=== PATIENT | female | born 1945 | race Caucasian/White ===

== ENCOUNTER 2020-10-18 13:55 | Emergency (ER) | payer MEDICARE, MEDICAID, SELFPAY ==
--- NOTE | 2020-10-18 14:11 | XRR_ITS ---
PROCEDURE INFORMATION: Exam: XR Chest, 1 View Exam date and time: 10/18/2020 2:15 PM Age: 75 years old Clinical indication: Dyspnea; Additional info: Overdose TECHNIQUE: Imaging protocol: XR of the chest Views: 1 view. COMPARISON: CR Chest 1 view [id number] 12/05/2018 7:14 PM FINDINGS: Lungs: There is unchanged hyperinflation/COPD with calcified granulomata and probable mild fibrosis. No consolidation. Pulmonary vascularity is within normal limits. Pleural space: Unremarkable. No pleural effusion. No pneumothorax. Heart/Mediastinum: Unremarkable. No cardiomegaly. Bones/joints: No acute abnormality. Osteopenia and moderate degenerative changes are noted. XR/XR chest 1V portable [id number] IMPRESSION: No acute findings.
[2020-10-18 14:14] VITALS: BP 172/75; PULSE 75; RESP 16; TEMP 36.4; O2SAT 95; BMI 19.4
--- NOTE | 2020-10-18 14:35 | PC.NURSE ---
Read and agree with triage assessment.
[2020-10-18 14:49] LABS: Basophils # 0.1 10^3/uL (0.0-0.1); Basophils % 0.8 %; Eosinophils # 0.1 10^3/uL (0.0-0.8); Eosinophils % 2.3 %; Hematocrit 43.8 % (37.0-47.0); Hemoglobin 14.3 g/dL (11.5-15.3); Lymphocytes # 1.9 10^3/uL (0.8-4.8); Lymphocytes % 31.8 %; Mean Corpuscular HGB Conc 32.6 g/dL (30.0-36.0); Mean Corpuscular Hemoglobin 32.1 pg (28.0-34.0); Mean Corpuscular Volume 98.4 fL (81-99); Monocytes # 0.5 10^3/uL (0.2-0.9); Monocytes % 8.9 %; Neutrophils # 3.42 10^3/uL (1.8-7.7); Nucleated Red Blood Cells % 0 %; Platelet Count 237 10^3/cmm (130-400); Red Blood Count 4.45 10^6/uL (4.1-5.3); Red Cell Distribution Width 12.2 % (12.1-15.1); White Blood Count 6.1 10^3/uL (4.0-10.0)
--- NOTE | 2020-10-18 15:44 | PC.NURSE ---
Read and agree with assessment.
[2020-10-18 15:59] LABS: Alanine Aminotransferase 10 U/L (0-33); Albumin Level 4.3 g/dL (3.5-5.2); Alkaline Phosphatase 95 IU/L (35-105); Anion Gap 19.9 (5-19); Aspartate Amino Transferase 24 U/L (0-32); Blood Urea Nitrogen 10 mg/dL (8-23); Calcium 9.7 mg/dL (8.5-10.5); Carbon Dioxide 23 mmol/L (22-29); Chloride 95 mmol/L (98-107); Globulin 3.8 g/dL (1.3-4.6); Glucose 81 mg/dL (65-115); Osmolality Calculated 276 mOsm/kg (285-295); Potassium 3.9 mmol/L (3.5-5.1); Sodium 134 mmol/L (136-145); Thyroid Stimulating Hormone 0.93 uIU/mL (0.27-4.20); Total Bilirubin 0.4 mg/dL (0.15-1.2); Total Protein 8.1 g/dL (6.6-8.7)
--- NOTE | 2020-10-18 15:59 | PC.NURSE ---
[facility] contacted. No beds available. [facility] contacted. Not working number, [facility] contacted. Message left. No response. [facility] contacted with working number. They have bed. They would like patient info faxed. They will call back with decision.
[2020-10-18 16:00] LABS: Acetaminophen < 5.0 ug/mL (10-30); Alcohol Level < 10 mg/dL (0-10); Salicylate < 0.3 mg/dL (3-10)
--- NOTE | 2020-10-18 16:23 | W.ED.PSYCH ---
HPI - Psych General: Chief Complaint: Psychiatric Symptoms Stated Complaint: WEAKNESS/ SHAKY Time Seen by Provider: 10/18/20 13:57 Source: patient, family and EMS Mode of arrival: EMS Limitations: no limitations History of Present Illness: HPI Narrative: This is a 75-year-old female patient was brought into the emergency department by the ambulance. Apparently the patient had left and notes on Facebook asking how many paroxetine pills she would need to take to kill herself she just wants to go to bed and not wake up. Today her family found her with her paroxetine prescription bottle empty. It was filled on 09/12/2020 and it is a 45-day supply. So it appears she has 8 days of her prescriptions pills missing. Each tablet is 20 mg. The patient states she only took 2 tablets of the paroxetine and denies taking more than that. She did admit to writing the note and says she had a fight with her son and that upsets her and does what she wrote the notes. MD complaint: suicidal ideation and feels depressed Duration: constant and getting worse Relieving factors: none Exacerbating factors: none Associated psychiatric symptoms: depression and suicidal ideation Associated symptoms: Reports depression and suicidal ideation If self harm: admits thoughts of self harm, has acted on plan and intentional overdose Review of Systems General: Reports: 10 or more systems reviewed and unremarkable except in HPI and below Const: Denies: fever(s), chills or body aches Eyes: Denies: change in vision or blurry vision ENMT: Denies: throat pain, enlarged tonsils, odynophagia, hoarseness, mouth pain or swelling of lips/tongue Card: Reports: chest pain; Denies: palpitations, irregular heart rhythm, edema or swelling of feet/ankles Resp: Denies: dyspnea, productive cough or non-productive cough GI: Denies: abdominal pain, nausea or vomiting : Denies: flank pain, difficulty voiding, dysuria, urinary frequency, urinary urgency or urinary hesitancy Musc: Denies: neck pain, back pain or extremity swelling Skin/Breast: Denies: rash, pruritus or erythema Neuro: Denies: headache(s), numbness in extremities or weakness in extremities Psych: Reports: depression and suicidal ideation Endo: Denies: polyuria, polydipsia or tired all the time [facility] ED PFSH: Medical History (Updated 10/18/20 @ 23:20 by Reinier Alvares MD, [facility]) Carotid stenosis, bilateral CVA (cerebral vascular accident) Subclavian artery stenosis, left Surgical History (Reviewed 10/18/20 @ 16:29 by Reinier Alvares MD, [facility]) S/P carotid endarterectomy S/P PTCA (percutaneous transluminal coronary angioplasty) Family History (Reviewed 10/18/20 @ 16:29 by Reinier Alvares MD, [facility]) Other CAD (coronary artery disease) Social History (Reviewed 10/18/20 @ 16:29 by Reinier Alvares MD, [facility]) Smoking and tobacco status: former smoker Alcohol intake: current Alcohol intake frequency: holidays/special occasions only Marital status: / Physical Exam Const: COMMON NORMALS: no acute distress, average body habitus, patient oriented x3, no limitations, healthy appearing, alert and well nourished Neck/C-Spine: COMMON NORMALS: no meningeal signs and no JVD Resp: COMMON NORMALS: normal respiratory effort, No retractions, No use of accessory muscles, clear to auscultation bilaterally and percussion normal AUSCULTATION: clear to auscultation bilaterally PERCUSSION: percussion normal Cardio: COMMON NORMALS: no JVD, regular rate, regular rhythm, S1 normal heart sound present, S2 normal heart sound present, No gallops present (Cardio), No clicks present (Cardio), No murmurs present (Cardio), No rub (Cardio) and Peripheral pulses 2+ throughout RATE: regular rate RHYTHM: regular rhythm HEART SOUNDS: S1 normal heart sound present and S2 normal heart sound present PERIPHERAL PULSES: Peripheral pulses 2+ throughout GI: COMMON NORMALS: Normal to inspection, nondistended, normoactive bowel sounds present, Soft to palpation, non-tender, No hepatosplenomegaly present, no masses and no bruits PALPATION: Yes Soft to palpation and Yes No hepatosplenomegaly present Extremity: COMMON NORMALS: normal to inspection, full ROM, capillary refill normal, no calf tenderness and no pedal edema Neuro: COMMON NORMALS: patient oriented x3 SENSORIUM/ORIENTATION: Yes alert MENINGEAL SIGNS: Yes no meningeal signs Skin: COMMON NORMALS: no rashes or lesions noted, no wounds, turgor normal, no jaundice, no petechiae and no mottling GENERAL SKIN EXAM: no rashes or lesions noted and turgor normal MDM - Psych MDM Narrative: Medical decision making narrative: This patient was seen after an intentional drug overdose in a suicide attempt. Based on the empty bottle of paroxetine that her family found, she is out about 8 days supply of the medication. She remained stable in the ED and has been here for over 10 hours so far. She has been medically cleared and is transferred to [facility] in [place]. Medical Records: Attestation: I reviewed the patient's medical records. Lab Data: Attestation: I reviewed the patient's lab results. Labs: Lab Results 10/18/20 10/18/20 10/18/20 Range/Units 13:37 13:37 17:00 WBC 6.1 (4.0-10.0) 10^3/ uL RBC 4.45 (4.1-5.3) 10^6/u L Hgb 14.3 (11.5-15.3) g/dL Hct 43.8 (37.0-47.0) % MCV 98.4 (81-99) fL MCH 32.1 (28.0-34.0) pg MCHC 32.6 (30.0-36.0) g/dL RDW 12.2 (12.1-15.1) % Plt Count 237 (130-400) 10^3/c mm MPV 11.0 H (7.4-10.4) fL Neut % (Auto) 56.0 % Lymph % (Auto) 31.8 % [place] % (Auto) 8.9 % Eos % (Auto) 2.3 % Baso % (Auto) 0.8 % Neut # (Auto) 3.42 (1.8-7.7) 10^3/u L Lymph # (Auto) 1.9 (0.8-4.8) 10^3/u L [place] # (Auto) 0.5 (0.2-0.9) 10^3/u L Eos # (Auto) 0.1 (0.0-0.8) 10^3/u L Baso # (Auto) 0.1 (0.0-0.1) 10^3/u L Nucleated RBC % (a uto) 0 % Nucleated RBCs # 0.0 /100WBC Sodium 134 L (136-145) mmol/L Potassium 3.9 (3.5-5.1) mmol/L Chloride 95 L (98-107) mmol/L Carbon Dioxide 23 (22-29) mmol/L Anion Gap 19.9 H (5-19) BUN 10 (8-23) mg/dL Creatinine 0.8 (0.5-0.9) mg/dL GFR Calculation Not Reportable Glucose 81 (65-115) mg/dL Calculated Osmolal ity 276 L (285-295) mOsm/k g Calcium 9.7 (8.5-10.5) mg/dL Total Bilirubin 0.4 (0.15-1.2) mg/dL AST 24 (0-32) U/L ALT 10 (0-33) U/L Alkaline Phosphata se 95 (35-105) IU/L Total Protein 8.1 (6.6-8.7) g/dL Albumin 4.3 (3.5-5.2) g/dL Globulin 3.8 (1.3-4.6) g/dL TSH 0.93 (0.27-4.20) uIU/ mL Urine Color Yellow (Yellow) Urine Appearance Hazy A (CLEAR) Urine pH 5 (5-7) Ur Specific Gravit y 1.025 (1.005-1.030) Urine Protein Trace (Negative) Urine Glucose (UA) Norm (Normal) Urine Ketones 1+ H (Negative) Urine Blood Neg (Negative) Urine Nitrate Positive H (Negative) Urine Bilirubin 1+ H (Negative) Urine Urobilinogen Norm (Negative) mg/dL Ur Leukocyte Rafaela ase Negative (Negative) Urine RBC None (0-2) /hpf Urine WBC 5-10 H (0-5) /hpf Ur Squamous Epith Cells None (0-5) /hpf Amorphous Sediment Not Reportable Urine Bacteria 4+ H (NONE) /hpf Salicylates < 0.3 L (3-10) mg/dL Urine Opiates Scre en (Negative) ng/mL Acetaminophen < 5.0 L (10-30) ug/mL Ur Barbiturates Sc reen (Negative) ng/mL Ur Phencyclidine S crn (Negative) ng/mL Ur Amphetamines Sc reen (Negative) ng/mL U Benzodiazepines Scrn (Negative) ng/mL Urine Cocaine Scre en (Negative) ng/mL U Marijuana (THC) Screen (Negative) ng/mL Ethyl Alcohol < 10 (0-10) mg/dL SARS-CoV-2 Ag (Rap id) (Negative) 10/18/20 10/18/20 Range/Units 17:00 19:55 WBC (4.0-10.0) 10^3/ uL RBC (4.1-5.3) 10^6/u L Hgb (11.5-15.3) g/dL Hct (37.0-47.0) % MCV (81-99) fL MCH (28.0-34.0) pg MCHC (30.0-36.0) g/dL RDW (12.1-15.1) % Plt Count (130-400) 10^3/c mm MPV (7.4-10.4) fL Neut % (Auto) % Lymph % (Auto) % [place] % (Auto) % Eos % (Auto) % Baso % (Auto) % Neut # (Auto) (1.8-7.7) 10^3/u L Lymph # (Auto) (0.8-4.8) 10^3/u L [place] # (Auto) (0.2-0.9) 10^3/u L Eos # (Auto) (0.0-0.8) 10^3/u L Baso # (Auto) (0.0-0.1) 10^3/u L Nucleated RBC % (a uto) % Nucleated RBCs # /100WBC Sodium (136-145) mmol/L Potassium (3.5-5.1) mmol/L Chloride (98-107) mmol/L Carbon Dioxide (22-29) mmol/L Anion Gap (5-19) BUN (8-23) mg/dL Creatinine (0.5-0.9) mg/dL GFR Calculation Glucose (65-115) mg/dL Calculated Osmolal ity (285-295) mOsm/k g Calcium (8.5-10.5) mg/dL Total Bilirubin (0.15-1.2) mg/dL AST (0-32) U/L ALT (0-33) U/L Alkaline Phosphata se (35-105) IU/L Total Protein (6.6-8.7) g/dL Albumin (3.5-5.2) g/dL Globulin (1.3-4.6) g/dL TSH (0.27-4.20) uIU/ mL Urine Color (Yellow) Urine Appearance (CLEAR) Urine pH (5-7) Ur Specific Gravit y (1.005-1.030) Urine Protein (Negative) Urine Glucose (UA) (Normal) Urine Ketones (Negative) Urine Blood (Negative) Urine Nitrate (Negative) Urine Bilirubin (Negative) Urine Urobilinogen (Negative) mg/dL Ur Leukocyte Rafaela ase (Negative) Urine RBC (0-2) /hpf Urine WBC (0-5) /hpf Ur Squamous Epith Cells (0-5) /hpf Amorphous Sediment Urine Bacteria (NONE) /hpf Salicylates (3-10) mg/dL Urine Opiates Scre en Negative (Negative) ng/mL Acetaminophen (10-30) ug/mL Ur Barbiturates Sc reen Negative (Negative) ng/mL Ur Phencyclidine S crn Negative (Negative) ng/mL Ur Amphetamines Sc reen Negative (Negative) ng/mL U Benzodiazepines Scrn Negative (Negative) ng/mL Urine Cocaine Scre en Negative (Negative) ng/mL U Marijuana (THC) Screen Negative (Negative) ng/mL Ethyl Alcohol (0-10) mg/dL SARS-CoV-2 Ag (Rap id) Negative (Negative) Imaging Data^: CXR: Attestation: I personally reviewed and interpreted this imaging study as follows: Radiologist's impression: [address] [address] XRay Report Signed Patient: Terri Pride #: [id number] : 5Acct#:[id number] Age/Sex: 75 / FADM Date: 10/18/20 Loc: ERRoom/Bed: Attending Dr: Ordering Provider/Ordering MD: Reinier Alvares MD, [facility] Date of Service: 10/18/20 Procedure(s): XR chest 1V portable [id number] Accession Number(s): [id number] Report Number: [id number] PROCEDURE INFORMATION: Exam: XR Chest, 1 View Exam date and time: 10/18/2020 2:15 PM Age: 75 years old Clinical indication: Dyspnea; Additional info: Overdose TECHNIQUE: Imaging protocol: XR of the chest Views: 1 view. COMPARISON: CR Chest 1 view [id number] 12/05/2018 7:14 PM FINDINGS: Lungs: There is unchanged hyperinflation/COPD with calcified granulomata and probable mild fibrosis. No consolidation. Pulmonary vascularity is within normal limits. Pleural space: Unremarkable. No pleural effusion. No pneumothorax. Heart/Mediastinum: Unremarkable. No cardiomegaly. Bones/joints: No acute abnormality. Osteopenia and moderate degenerative changes are noted. XR/XR chest 1V portable [id number] IMPRESSION: No acute findings. Dictated By:Johnna Ferris Signed By:Otilia Ferris Date/Time:10/18/201538 DD/ 37 EKG Data^: EKG 1: Attestation: I personally reviewed and interpreted this EKG as follows: EKG interpretation date: 10/18/20 EKG interpretation time: 14:07 Prior EKG tracings: not available for review Interpretation: NSR HR [address] changes normal axis Discharge Plan Discharge Patient Disposition: Xfer Psychiatric Hosp Clinical Impression: Suicide attempt by drug overdose Condition: Stable Discharge Orders: Transfer Out of Facility (Order); Ordered 10/18/20 Ordered By: Reinier Alvares Referrals: Daquan Luna MD [Primary Care Provider] - Coding Level of Care Code ED Executive Vice President Of Sales for Chg Fwd Exam Detailed
[2020-10-18 17:30] LABS: Amphetamines Screen Urine Negative (Negative); Barbiturates Screen Urine Negative (Negative); Benzodiazepines Screen Urine Negative (Negative); Cocaine Screen Urine Negative (Negative); Opiate Screen Urine Negative (Negative); PCP Screen Urine Negative (Negative); THC Screen Urine Negative (Negative)
[2020-10-18 17:34] LABS: Add Urine Microscopic? YES; Bilirubin Urine 1+ (Negative); Blood Urine Neg (Negative); Glucose Urine UA Norm (Normal); Ketones Urine 1+ (Negative); Leukocyte Esterase Urine Negative (Negative); Nitrate Urine Positive (Negative); Protein Urine Trace (Negative); Specific Gravity, Urine 1.025 (1.005-1.030); Urine Appearance Hazy (CLEAR); Urine Color Yellow (Yellow); Urobilinogen Urine Norm (Negative); pH Urine 5 (5-7)
[2020-10-18 17:35] LABS: Add Urine Culture? Yes; Bacteria Urine 4+ /hpf
--- NOTE | 2020-10-18 17:44 | ECG_ITS ---
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 Measurements Intervals [place] Rate: 80 P: 61 [place]: 159 QRS: 10 QRSD: 73 T: 30 QT: 310 QTc: 357 Interpretive Statements SINUS RHYTHM [address] DEVIATION AND MODERATE T-WAVE ABNORMALITY, CONSIDER ANTERIOR ISCHEMIA [-0.1+ mV T WAVE IN V3/V4] Compared to ECG 12/05/2018 19:32:17 Possible ischemia now present Sinus tachycardia no longer present T-wave abnormality still present Electronically Signed On 10-18-2020 20:36:25 HOUSING ASSISTANT PROPERTY MANAGER by Katiuska Brown M.D. [id number]
[2020-10-18 19:15] VITALS: BP 134/85; PULSE 76; RESP 18; TEMP 36.9; O2SAT 98
[2020-10-18 20:12] VITALS: PULSE 87; RESP 16; O2SAT 96
[2020-10-18 21:07] LABS: SARS Covid-2 Antigen Negative (Negative)
[2020-10-19 00:43] VITALS: BP 132/89; PULSE 85; RESP 16; O2SAT 97
[2020-10-19] MEDS: acetaminophen 325 mg Tablet 650 MG PO (00:45)
[2020-10-19 01:13] VITALS: BP 134/87; PULSE 87; RESP 18; O2SAT 99
== END 2020-10-19 01:15 ==
PROVIDERS: Emergency Provider Family Medicine; PCP Family Medicine
DX: T43.222A Poisoning by selective serotonin reuptake inhibitors, intentional self-harm, initial encounter (principal); Z86.73 Personal history of transient ischemic attack (TIA), and cerebral infarction without residual deficits; Z87.891 Personal history of nicotine dependence
CPT/HCPCS: 12345; 71045; 80053; 80306; 80307; 81001; 84443; 85025; 87077; 87086; 87186; 87426; 93005; 99284; 99285; 99292

== ENCOUNTER 2021-02-06 09:10 | Emergency (ER) | payer MEDICARE, MEDICAID, SELFPAY ==
[2021-02-06] VITALS (7 sets, daily range): BP systolic 125–191; BP diastolic 62–78; PULSE 68–81; RESP 15–24; TEMP 36.9; O2SAT 96–99; BMI 21.7
--- NOTE | 2021-02-06 09:13 | XRR_ITS ---
PROCEDURE INFORMATION: Exam: XR Chest Exam date and time: 02/06/2021 9:45 AM Age: 75 years old Clinical indication: Cough and dyspnea TECHNIQUE: Imaging protocol: XR of the chest. Views: 1 view. COMPARISON: CR XR chest 1V portable [id number] 10/18/2020 2:17 PM FINDINGS: Lungs: Unremarkable. No consolidation. Pleural spaces: Unremarkable. No pleural effusion. No pneumothorax. Heart/Mediastinum: Unremarkable. No cardiomegaly. Bones/joints: Unremarkable. XR/XR chest 1V portable [id number] IMPRESSION: No acute findings.
--- NOTE | 2021-02-06 09:13 | ECG_ITS ---
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 Measurements Intervals [place] Rate: 68 P: 53 [place]: 165 QRS: 60 QRSD: 78 T: 69 QT: 384 QTc: 411 Interpretive Statements SINUS RHYTHM Compared to ECG 10/18/2020 14:06:56 T-wave abnormality no longer present Possible ischemia no longer present Electronically Signed On 02-07-2021 12:08:21 CDT by Luiza Hanley M.D. [id number]
--- NOTE | 2021-02-06 09:16 | W.ED.SOB ---
HPI - SOB/Dyspnea General: Chief Complaint: Shortness of Breath/Dyspnea Stated Complaint: SOB; DIARRHEA Time Seen by Provider: 02/06/21 09:11 Source: patient and EMS Mode of arrival: EMS Limitations: no limitations History of Present Illness: HPI Narrative: Terri is a very nice 75-year-old female who comes in complaining of shortness of breath, occasional cough, generalized weakness and diarrhea. Her diarrhea began today. She denies being bloody or melanotic/dark black. Patient denies any abdominal pain. She is not had a fever that she is aware. Patient states she is just tired and got anxious at home. EMS reports the patient's pulse ox has been completely normal on room air the entire time they have been with her. She has at times become anxious and hyperventilating but then when reassured and calm down her breathing returns to normal. Patient denies any chest pain, back pain, lower abdominal pain or otherwise. All of her symptoms have been going on for the past 2 days. She denies any ill contacts. She denies any other complaints or concerns. Associated symptoms: Deny abdominal pain, chest congestion, chest pain, diaphoresis, dizziness, extremity pain, fever(s), hemoptysis, lightheadedness, nausea, orthopnea, palpitations, syncope or vomiting Review of Systems Const: Denies: fever(s), chills, body aches, fatigue, malaise or diaphoresis Eyes: Denies: change in vision, blurry vision, photophobia, eye discomfort, eye discharge, eye redness or yellow eyes ENMT: Denies: throat pain, odynophagia, hoarseness, swelling of lips/tongue, ear or mastoid pain, ear discharge, change in hearing or nasal discharge Card: Denies: chest pain, palpitations, irregular heart rhythm, edema, lightheadedness, syncope, pre-syncope, dyspnea on exertion or orthopnea Resp: Reports: dyspnea and non-productive cough; Denies: productive cough, wheezing, hemoptysis or chest congestion GI: Reports: diarrhea; Denies: abdominal pain, nausea, vomiting, hematemesis, coffee ground emesis, heartburn, constipation, GI cramping, hematochezia or melena : Denies: flank pain, dysuria, urinary frequency, urinary urgency or hematuria Musc: Denies: neck pain, back pain, extremity pain, extremity swelling, joint pain, joint swelling, joint redness, joint warmth or joint stiffness Skin/Breast: Denies: rash, pruritus, erythema, skin pain or skin tenderness Neuro: Denies: headache(s), numbness in extremities, weakness in extremities, sensory changes, lack of coordination, difficulty walking, dizziness, vertigo, confusion, Slurred speech present or seizure-like activity German/Lymph: Denies: easy bruising, easy bleeding, petechiae, purpura or enlarged lymph nodes All/Imm: Denies: urticaria, throat swelling, tongue swelling, facial swelling or acute wheezing PFSH ED PFSH: Medical History (Updated 02/06/21 @ 12:43 by Luana George) Carotid stenosis, bilateral CVA (cerebral vascular accident) Subclavian artery stenosis, left Surgical History S/P carotid endarterectomy S/P PTCA (percutaneous transluminal coronary angioplasty) Family History Other CAD (coronary artery disease) Social History Smoking and tobacco status: former smoker Alcohol intake: current Alcohol intake frequency: holidays/special occasions only Marital status: / Physical Exam Const: COMMON NORMALS: no acute distress, patient oriented x3, no limitations and alert GENERAL APPEARANCE: cooperative HENMT: COMMON NORMALS: normocephalic, atraumatic, external ears normal, EAC's normal and Normal external nose present HEAD & SCALP: normal to inspection, normocephalic and atraumatic FACE & SINUS: normal facial exam and face symmetric NOSE: Normal external nose present and Normal nares present EXTERNAL EAR: Yes external ears normal EXTERNAL AUDITORY CANAL: EAC's normal MOUTH: Normal oral and palatal mucosa present, lip normal and tongue normal Eye: COMMON NORMALS: Equal, round and reactive pupils present and conjunctivae normal GENERAL EYE: appearance normal, both eyes and all related structures ALIGNMENT: Yes alignment normal PERIORBITAL: periorbital findings normal EYELID: eyelids normal CONJUNCTIVA: Yes conjunctivae normal SCLERA: sclerae normal PUPIL: Yes Equal, round and reactive pupils present Neck/C-Spine: COMMON NORMALS: full ROM, no lymphadenopathy, supple, no meningeal signs and no JVD GENERAL: Yes normal visual inspection and Yes trachea midline Chest: COMMONS NORMALS: normal inspection of the chest and normal palpation of entire chest wall Resp: COMMON NORMALS: normal respiratory effort, No retractions, No use of accessory muscles and clear to auscultation bilaterally EFFORT & INSPECTION: Yes able to speak in complete sentences and Yes symmetric chest movement AUSCULTATION: clear to auscultation bilaterally, no crackles, no rales, no rhonchi and no wheezes Cardio: COMMON NORMALS: no JVD, regular rate, regular rhythm, S1 normal heart sound present and S2 normal heart sound present RATE: regular rate RHYTHM: regular rhythm HEART SOUNDS: S1 normal heart sound present, S2 normal heart sound present, no click, no gallops, no murmurs and no rubs GI: COMMON NORMALS: Soft to palpation and No hepatosplenomegaly present PALPATION: Yes Soft to palpation, No Tenderness to palpation present (GI), No Guarding due to palpation present (GI), No Rigid due to palpation, Yes No hepatosplenomegaly present, No Hernia present, No Palpable mass present and No Pulsatile mass present : COMMON NORMALS: Yes no CVA tenderness BLADDER/KIDNEY EXAM: Yes no CVA tenderness EXTERNAL FEMALE EXAM: No Hernia present Back/Pelvis: COMMON NORMALS: no CVA tenderness, thoracic and lumbar spine normal to inspection, no thoracic nor lumbar tenderness and thoraco-lumbar ROM normal Extremity: COMMON NORMALS: normal to inspection, full ROM, capillary refill normal, no joint enlargement, no clubbing, cyanosis or edema and no calf tenderness Neuro: COMMON NORMALS: patient oriented x3, CN's II-XII intact bilaterally, moves all extremities, no focal motor deficits and no sensory deficits noted SENSORIUM/ORIENTATION: Yes alert MENINGEAL SIGNS: Yes no meningeal signs SPEECH: speech normal Psych: COMMON NORMALS: mental status grossly normal, Normal thought process present, cooperative, normal affect, speech normal and activity/motor behavior normal SPEECH: Yes normal speech THOUGHT PROCESS: Normal thought process present Skin: COMMON NORMALS: no rashes or lesions noted, turgor normal, no jaundice, no petechiae and no mottling GENERAL SKIN EXAM: no rashes or lesions noted and turgor normal Procedures EJ/Peripheral Line Arm R: Time Out Performed: Yes Skin Cleansed in Sterile Fashion: Yes Size (gauge): 20 IV Secured and Dressing Applied: Yes Patient Tolerated Procedure: well and no complications Additional Comments: Ultrasound utilized throughout procedure. Course Vital Signs: Vital signs: Vital Signs Temperature 98.5 F 02/06/21 09:11 Pulse Rate 81 02/06/21 11:54 Respiratory Rate 22 H 02/06/21 11:54 Blood Pressure 125/62 02/06/21 11:54 Pulse Oximetry 99 02/06/21 11:54 MDM - SOB/Dyspnea MDM Narrative: Medical decision making narrative: 1241 -patient is feeling better but has had 3 or 4 small in amount diarrhea stools here. She denies any abdominal pain, she has nausea vomiting, denies any blood in her stools. Patient states that she feels less short of breath than when she came in. She believes IV fluids helped. This may be more of a volume issue. Will finish the IV fluids that she has and I have still offered admission because she is having so much diarrhea but she declines. She wants to go home. I will go ahead and discharge her to follow-up with her doctor on Monday and send her home with loperamide. This is the way she was to proceed but she does understand that she can return here at any time if she worsens or she changes her mind. Lab Data: Attestation: I reviewed the patient's lab results. Labs: Lab Results 02/06/21 02/06/21 02/06/21 Range/Units 09:27 09:30 09:30 WBC 4.3 (4.0-10.0) 10^3/ uL RBC 3.92 L (4.1-5.3) 10^6/u L Hgb 13.1 (11.5-15.3) g/dL Hct 39.3 (37.0-47.0) % MCV 100.3 H (81-99) fL MCH 33.4 (28.0-34.0) pg MCHC 33.3 (30.0-36.0) g/dL RDW 12.9 (12.1-15.1) % Plt Count 192 (130-400) 10^3/c mm MPV 10.7 H (7.4-10.4) fL Neut % (Auto) 48.1 % Lymph % (Auto) 36.8 % [place] % (Auto) 10.3 % Eos % (Auto) 3.7 % Baso % (Auto) 0.9 % Neut # (Auto) 2.06 (1.8-7.7) 10^3/u L Lymph # (Auto) 1.6 (0.8-4.8) 10^3/u L [place] # (Auto) 0.4 (0.2-0.9) 10^3/u L Eos # (Auto) 0.2 (0.0-0.8) 10^3/u L Baso # (Auto) 0.0 (0.0-0.1) 10^3/u L Nucleated RBC % (a uto) 0 % Nucleated RBCs # 0.0 /100WBC D-Dimer (0-0.59) ug/mIFE U Specimen Type Arterial Sample Site Brachial, right ABG pH 7.45 (7.35-7.45) ABG pCO2 36.9 (35-45) mmHg ABG pO2 80.1 (80.0-100.0) mmH g ABG HCO3 25.6 (22-26) mmol/L ABG O2 Saturation 97.1 ABG Base Excess 1.7 (-2.0-2.0) mmol/ L Az Test N/a A-a O2 Gradient 3.0 L (5-10) mmHg Hematocrit 40.1 (37-47) % Hgb O2 Saturation 95.6 (95-100) % Carboxyhemoglobin 0.8 (0.4-20.1) %THgb Methemoglobin 0.7 (0.4-1.5) % Total Hemoglobin 13.1 (12-16) g/dL Sodium 142.0 139 (131-143) mmol/L Potassium 3.9 4.5 (3.5-5.0) mmol/L Glucose 99.0 94 (70-115) mg/dL Ionized Calcium 1.3 (1.1-1.4) mmol/L O2 Delivery Device Room air FiO2 21.0 % Stranding Machine Operator ID glc Chloride 105 (98-107) mmol/L Carbon Dioxide 26 (22-29) mmol/L Anion Gap 12.5 (5-19) BUN 11 (8-23) mg/dL Creatinine 0.5 (0.5-0.9) mg/dL GFR Calculation Not Reportable Calculated Osmolal ity 287 (285-295) mOsm/k g Lactic Acid (0.5-2.2) mmol/L Calcium 9.1 (8.5-10.5) mg/dL Total Bilirubin 0.5 (0.15-1.2) mg/dL AST 27 (0-32) U/L ALT 18 (0-33) U/L Alkaline Phosphata se 85 (35-105) IU/L Troponin T Baselin e (0-10) ng/L Troponin T 120 Min [place] (0-10) ng/L Delta Troponin T (0-10) ABS# NT-Pro-B Natriuret Pep 616 H (0-450) pg/mL Total Protein 7.0 (6.6-8.7) g/dL Albumin 3.7 (3.5-5.2) g/dL Globulin 3.3 (1.3-4.6) g/dL Urine Color (Yellow) Urine Appearance (CLEAR) Urine pH (5-7) Ur Specific Gravit y (1.005-1.030) Urine Protein (Negative) Urine Glucose (UA) (Normal) Urine Ketones (Negative) Urine Blood (Negative) Urine Nitrate (Negative) Urine Bilirubin (Negative) Urine Urobilinogen (Negative) mg/dL Ur Leukocyte Rafaela ase (Negative) Influenza Type A A g (Negative) Influenza Type B A g (Negative) SARS-CoV-2 Ag (Rap id) (Negative) 02/06/21 02/06/21 02/06/21 Range/Units 09:30 09:30 09:30 WBC (4.0-10.0) 10^3/ uL RBC (4.1-5.3) 10^6/u L Hgb (11.5-15.3) g/dL Hct (37.0-47.0) % MCV (81-99) fL MCH (28.0-34.0) pg MCHC (30.0-36.0) g/dL RDW (12.1-15.1) % Plt Count (130-400) 10^3/c mm MPV (7.4-10.4) fL Neut % (Auto) % Lymph % (Auto) % [place] % (Auto) % Eos % (Auto) % Baso % (Auto) % Neut # (Auto) (1.8-7.7) 10^3/u L Lymph # (Auto) (0.8-4.8) 10^3/u L [place] # (Auto) (0.2-0.9) 10^3/u L Eos # (Auto) (0.0-0.8) 10^3/u L Baso # (Auto) (0.0-0.1) 10^3/u L Nucleated RBC % (a uto) % Nucleated RBCs # /100WBC D-Dimer (0-0.59) ug/mIFE U Specimen Type Sample Site ABG pH (7.35-7.45) ABG pCO2 (35-45) mmHg ABG pO2 (80.0-100.0) mmH g ABG HCO3 (22-26) mmol/L ABG O2 Saturation ABG Base Excess (-2.0-2.0) mmol/ L Az Test A-a O2 Gradient (5-10) mmHg Hematocrit (37-47) % Hgb O2 Saturation (95-100) % Carboxyhemoglobin (0.4-20.1) %THgb Methemoglobin (0.4-1.5) % Total Hemoglobin (12-16) g/dL Sodium (131-143) mmol/L Potassium (3.5-5.0) mmol/L Glucose (70-115) mg/dL Ionized Calcium (1.1-1.4) mmol/L O2 Delivery Device FiO2 % Stranding Machine Operator ID Chloride (98-107) mmol/L Carbon Dioxide (22-29) mmol/L Anion Gap (5-19) BUN (8-23) mg/dL Creatinine (0.5-0.9) mg/dL GFR Calculation Calculated Osmolal ity (285-295) mOsm/k g Lactic Acid 1.1 (0.5-2.2) mmol/L Calcium (8.5-10.5) mg/dL Total Bilirubin (0.15-1.2) mg/dL AST (0-32) U/L ALT (0-33) U/L Alkaline Phosphata se (35-105) IU/L Troponin T Baselin e (0-10) ng/L Troponin T 120 Min [place] (0-10) ng/L Delta Troponin T (0-10) ABS# NT-Pro-B Natriuret Pep (0-450) pg/mL Total Protein (6.6-8.7) g/dL Albumin (3.5-5.2) g/dL Globulin (1.3-4.6) g/dL Urine Color (Yellow) Urine Appearance (CLEAR) Urine pH (5-7) Ur Specific Gravit y (1.005-1.030) Urine Protein (Negative) Urine Glucose (UA) (Normal) Urine Ketones (Negative) Urine Blood (Negative) Urine Nitrate (Negative) Urine Bilirubin (Negative) Urine Urobilinogen (Negative) mg/dL Ur Leukocyte Rafaela ase (Negative) Influenza Type A A g Negative (Negative) Influenza Type B A g Negative (Negative) SARS-CoV-2 Ag (Rap id) Negative (Negative) 02/06/21 02/06/21 02/06/21 Range/Units 09:30 10:15 11:27 WBC (4.0-10.0) 10^3/ uL RBC (4.1-5.3) 10^6/u L Hgb (11.5-15.3) g/dL Hct (37.0-47.0) % MCV (81-99) fL MCH (28.0-34.0) pg MCHC (30.0-36.0) g/dL RDW (12.1-15.1) % Plt Count (130-400) 10^3/c mm MPV (7.4-10.4) fL Neut % (Auto) % Lymph % (Auto) % [place] % (Auto) % Eos % (Auto) % Baso % (Auto) % Neut # (Auto) (1.8-7.7) 10^3/u L Lymph # (Auto) (0.8-4.8) 10^3/u L [place] # (Auto) (0.2-0.9) 10^3/u L Eos # (Auto) (0.0-0.8) 10^3/u L Baso # (Auto) (0.0-0.1) 10^3/u L Nucleated RBC % (a uto) % Nucleated RBCs # /100WBC D-Dimer 1.08 H (0-0.59) ug/mIFE U Specimen Type Sample Site ABG pH (7.35-7.45) ABG pCO2 (35-45) mmHg ABG pO2 (80.0-100.0) mmH g ABG HCO3 (22-26) mmol/L ABG O2 Saturation ABG Base Excess (-2.0-2.0) mmol/ L Az Test A-a O2 Gradient (5-10) mmHg Hematocrit (37-47) % Hgb O2 Saturation (95-100) % Carboxyhemoglobin (0.4-20.1) %THgb Methemoglobin (0.4-1.5) % Total Hemoglobin (12-16) g/dL Sodium (131-143) mmol/L Potassium (3.5-5.0) mmol/L Glucose (70-115) mg/dL Ionized Calcium (1.1-1.4) mmol/L O2 Delivery Device FiO2 % Stranding Machine Operator ID Chloride (98-107) mmol/L Carbon Dioxide (22-29) mmol/L Anion Gap (5-19) BUN (8-23) mg/dL Creatinine (0.5-0.9) mg/dL GFR Calculation Calculated Osmolal ity (285-295) mOsm/k g Lactic Acid (0.5-2.2) mmol/L Calcium (8.5-10.5) mg/dL Total Bilirubin (0.15-1.2) mg/dL AST (0-32) U/L ALT (0-33) U/L Alkaline Phosphata se (35-105) IU/L Troponin T Baselin e 10 (0-10) ng/L Troponin T 120 Min [place] 8.62 (0-10) ng/L Delta Troponin T -1.38 L (0-10) ABS# NT-Pro-B Natriuret Pep (0-450) pg/mL Total Protein (6.6-8.7) g/dL Albumin (3.5-5.2) g/dL Globulin (1.3-4.6) g/dL Urine Color (Yellow) Urine Appearance (CLEAR) Urine pH (5-7) Ur Specific Gravit y (1.005-1.030) Urine Protein (Negative) Urine Glucose (UA) (Normal) Urine Ketones (Negative) Urine Blood (Negative) Urine Nitrate (Negative) Urine Bilirubin (Negative) Urine Urobilinogen (Negative) mg/dL Ur Leukocyte Rafaela ase (Negative) Influenza Type A A g (Negative) Influenza Type B A g (Negative) SARS-CoV-2 Ag (Rap id) (Negative) 02/06/21 Range/Units 12:00 WBC (4.0-10.0) 10^3/ uL RBC (4.1-5.3) 10^6/u L Hgb (11.5-15.3) g/dL Hct (37.0-47.0) % MCV (81-99) fL MCH (28.0-34.0) pg MCHC (30.0-36.0) g/dL RDW (12.1-15.1) % Plt Count (130-400) 10^3/c mm MPV (7.4-10.4) fL Neut % (Auto) % Lymph % (Auto) % [place] % (Auto) % Eos % (Auto) % Baso % (Auto) % Neut # (Auto) (1.8-7.7) 10^3/u L Lymph # (Auto) (0.8-4.8) 10^3/u L [place] # (Auto) (0.2-0.9) 10^3/u L Eos # (Auto) (0.0-0.8) 10^3/u L Baso # (Auto) (0.0-0.1) 10^3/u L Nucleated RBC % (a uto) % Nucleated RBCs # /100WBC D-Dimer (0-0.59) ug/mIFE U Specimen Type Sample Site ABG pH (7.35-7.45) ABG pCO2 (35-45) mmHg ABG pO2 (80.0-100.0) mmH g ABG HCO3 (22-26) mmol/L ABG O2 Saturation ABG Base Excess (-2.0-2.0) mmol/ L Az Test A-a O2 Gradient (5-10) mmHg Hematocrit (37-47) % Hgb O2 Saturation (95-100) % Carboxyhemoglobin (0.4-20.1) %THgb Methemoglobin (0.4-1.5) % Total Hemoglobin (12-16) g/dL Sodium (131-143) mmol/L Potassium (3.5-5.0) mmol/L Glucose (70-115) mg/dL Ionized Calcium (1.1-1.4) mmol/L O2 Delivery Device FiO2 % Stranding Machine Operator ID Chloride (98-107) mmol/L Carbon Dioxide (22-29) mmol/L Anion Gap (5-19) BUN (8-23) mg/dL Creatinine (0.5-0.9) mg/dL GFR Calculation Calculated Osmolal ity (285-295) mOsm/k g Lactic Acid (0.5-2.2) mmol/L Calcium (8.5-10.5) mg/dL Total Bilirubin (0.15-1.2) mg/dL AST (0-32) U/L ALT (0-33) U/L Alkaline Phosphata se (35-105) IU/L Troponin T Baselin e (0-10) ng/L Troponin T 120 Min [place] (0-10) ng/L Delta Troponin T (0-10) ABS# NT-Pro-B Natriuret Pep (0-450) pg/mL Total Protein (6.6-8.7) g/dL Albumin (3.5-5.2) g/dL Globulin (1.3-4.6) g/dL Urine Color Yellow (Yellow) Urine Appearance Clear (CLEAR) Urine pH 5 (5-7) Ur Specific Gravit y 1.010 (1.005-1.030) Urine Protein Neg (Negative) Urine Glucose (UA) Norm (Normal) Urine Ketones Negative (Negative) Urine Blood Neg (Negative) Urine Nitrate Negative (Negative) Urine Bilirubin Neg (Negative) Urine Urobilinogen Norm (Negative) mg/dL Ur Leukocyte Rafaela ase Negative (Negative) Influenza Type A A g (Negative) Influenza Type B A g (Negative) SARS-CoV-2 Ag (Rap id) (Negative) Imaging Data^: CT Chest: Radiologist's impression: [address] [address] [address] Scan Report Signed Patient: Terri Pride Unit #: [id number] : 1945 Age/Sex: 75 / F ADM Date: 02/06/21 Loc: ER Room/Bed: Attending Dr: Ordering Provider/Ordering MD: Luana George DO Date of Service: 02/06/21 Procedure(s): CT angio chest PE protcl [id number] Accession Number(s): [id number] Report Number: [id number] PROCEDURE INFORMATION: Exam: CTA Chest With Contrast Exam date and time: 02/06/2021 11:26 AM Age: 75 years old Clinical indication: Dyspnea; Additional info: Dyspnea, positive d-dimer TECHNIQUE: Imaging protocol: Computed tomographic angiography of the chest with contrast. 3D rendering (Not supervised by radiologist): MIP and/or 3D reconstructed images were created by the technologist. Radiation optimization: All CT scans at this facility use at least one of these dose optimization techniques: automated exposure control; mA and/or kV adjustment per patient size (includes targeted exams where dose is matched to clinical indication); or iterative reconstruction. Contrast material: OMNIPAQUE 350; Contrast volume: 60 ml; Contrast route: INTRAVENOUS (IV); COMPARISON: CTA Chest-Pulmonary Emb [id number] 12/05/2018 9:01 PM RADIATION DOSE METRICS: Total DLP (mGy-cm): 463.09 FINDINGS: Pulmonary arteries: Normal. No pulmonary emboli. Aorta: There is calcification of the thoracic aorta. There is no aortic aneurysm or obvious dissection. Lungs: Unremarkable. No consolidation. No masses. Pleural spaces: Unremarkable. No pneumothorax. No pleural effusion. Heart: Unremarkable. No cardiomegaly. No pericardial effusion. Mediastinal space: Small sliding hiatal hernia. Lymph nodes: Unremarkable. No enlarged lymph nodes. Kidneys and ureters: There is right renal cortical scarring. Bones/joints: There is compression fracture of the superior endplate of T12 with mild loss of vertebral height. Degenerative changes are present throughout the thoracic spine. Soft tissues: Unremarkable. CT/CT angio chest PE protcl [id number] IMPRESSION: 1. No evidence of pulmonary embolus or aortic aneurysm/dissection. 2. No acute abnormality is seen in the chest. 3. Small hiatal hernia. 4. 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 Compression fracture of T12 probably old. Radiation Dose CTDIVOL = (mGy): DLP = 463.09 (mGy-cm) Dictated By: Buster Monteiro Signed By: Buster Monteiro Signed Date/Time: 02/06/21 1201 DD/ 1159 EKG Data^: EKG 1: Attestation: I personally reviewed and interpreted this EKG as follows: Interpretation: Normal sinus rhythm at 68 beats a minute, no blocks, normal intervals, nonspecific T wave changes in aVL, no with acute ST-T wave findings. Normal QTC. EKG 2: Attestation: I personally reviewed and interpreted this EKG as follows: Interpretation: EKG at 1233 - sinus rhythm at 76 beats a minute, no blocks, normal intervals, no acute ST-T wave changes. Unchanged from previous Discharge Plan Discharge Patient Disposition: Home Clinical Impression: Diarrhea Qualifiers: Diarrhea type: unspecified type Qualified Code(s): R19.7 - Diarrhea, unspecified Dyspnea Qualifiers: Dyspnea type: dyspnea on exertion Qualified Code(s): R06.00 - Dyspnea, unspecified Condition: Stable Prescriptions: New loperamide 2 mg tablet 2 mg PO Q4H PRN (Reason: loose stool) Qty: 14 RF: 0 No Action diphenhydramine HCl [Benadryl] 25 mg capsule 25 mg PO PRN RF: 0 atorvastatin 20 mg tablet 20 mg PO QAM RF: 0 metoprolol tartrate 25 mg tablet 25 mg PO BID RF: 0 triamcinolone acetonide 0.5 % cream 1 applic TOPICAL BID RF: 0 Tylenol Extra Strength 500 mg Tablet 500 - 1,000 mg PO PRN RF: 0 Lexapro 10 mg Tablet 10 mg PO DAILY RF: 0 paroxetine HCl 20 mg tablet 30 mg PO DAILY RF: 0 Discharge Orders: Discharge ED (Routine); Ordered 02/06/21 Ordered By: Luana George Referrals: Daquan Luna MD [Primary Care Provider] - 1-3 days Discharge Diet: Advance as tolerated and Clear Liquid Discharge Activity: Increase activity as tolerated Patient Instructions: Acute Diarrhea (ED), Dyspnea (ED) Activity Restrictions/Additional Instructions: Please return to the ER immediately for any of the signs or symptoms listed on your discharge instruction sheets, worsening/changing of your symptoms, you are not getting better as quickly as expected, or for ANY other cause or concerns. You have been offered admission for further observation and treatment of your diarrhea and shortness of breath but you have declined. If you develop abdominal pain, you develop blood in your stool, your shortness of breath worsens, he develop chest pain, or you simply change your mind please return to the ER immediately for recheck. Follow a clear liquid diet and advance it as tolerated but push fluids at home so you do not become dehydrated. Take the prescription medicine I have given you for diarrhea as needed. Coding Level of Care Code ED Hose Coupling Joiner for Candelario Fwd Exam Comprehensive
[2021-02-06 09:39] LABS: ABG PCO2 36.9 mmHg (35-45); ABG PH Result 7.45 (7.35-7.45); Arterial Blood Gas Hematocrit 40.1 % (37-47); Base Excess ABG 1.7 mmol/L (-2.0-2.0); Blood Gas Operator Identificat glc; Blood Gas Sample Site Brachial, right; Blood Gas Sample Type Arterial; Carboxyhemoglobin 0.8 %THgb (0.4-20.1); HCO3 ABG 25.6 mmol/L (22-26); HGB O2 Sat 95.6 % (95-100); Ionized Calcium Level - ABG 1.3 mmol/L (1.1-1.4); Methemoglobin 0.7 % (0.4-1.5); Oxygen Device ROOM AIR; Oxygen Saturation ABG 97.1; PO2 ABG 80.1 mmHg (80.0-100.0); Potassium Level - ABG 3.9 mmol/L (3.5-5.0); Total Hemoglobin 13.1 g/dL (12-16)
--- NOTE | 2021-02-06 09:52 | PC.PHAR ---
pt states she takes care of her own medications-pt brought in med bottles-pt states she is still taking lexapro 10mg daily last filled on 12/29/20 30d/s-pt states this has been changed to paxil 30mg daily but states she hasnt started taking it yet-
[2021-02-06 09:54] LABS: Basophils % 0.9 %; Eosinophils # 0.2 10^3/uL (0.0-0.8); Eosinophils % 3.7 %; Hematocrit 39.3 % (37.0-47.0); Hemoglobin 13.1 g/dL (11.5-15.3); Lymphocytes # 1.6 10^3/uL (0.8-4.8); Lymphocytes % 36.8 %; Mean Corpuscular HGB Conc 33.3 g/dL (30.0-36.0); Mean Corpuscular Hemoglobin 33.4 pg (28.0-34.0); Mean Corpuscular Volume 100.3 fL (81-99); Mean Platelet Volume 10.7 fL (7.4-10.4); Monocytes # 0.4 10^3/uL (0.2-0.9); Monocytes % 10.3 %; Neutrophils # 2.06 10^3/uL (1.8-7.7); Neutrophils % 48.1 %; Nucleated Red Blood Cells % 0 %; Platelet Count 192 10^3/cmm (130-400); Red Blood Count 3.92 10^6/uL (4.1-5.3); Red Cell Distribution Width 12.9 % (12.1-15.1); White Blood Count 4.3 10^3/uL (4.0-10.0)
[2021-02-06 10:17] LABS: Lactic Sepsis W/Reflex 1.1 mmol/L (0.5-2.2)
[2021-02-06 10:23] LABS: Alanine Aminotransferase 18 U/L (0-33); Albumin Level 3.7 g/dL (3.5-5.2); Alkaline Phosphatase 85 IU/L (35-105); Blood Urea Nitrogen 11 mg/dL (8-23); Calcium 9.1 mg/dL (8.5-10.5); Carbon Dioxide 26 mmol/L (22-29); Chloride 105 mmol/L (98-107); Creatinine Clr Calc Pharmacy 47.5238; Globulin 3.3 g/dL (1.3-4.6); Glucose 94 mg/dL (65-115); NT Pro B Type Natriuretic Pept 616 pg/mL (0-450); Osmolality Calculated 287 mOsm/kg (285-295); Sodium 139 mmol/L (136-145); Total Bilirubin 0.5 mg/dL (0.15-1.2)
[2021-02-06 10:27] LABS: Anion Gap 12.5 (5-19); Aspartate Amino Transferase 27 U/L (0-32); Potassium 4.5 mmol/L (3.5-5.1)
[2021-02-06 10:40] LABS: D Dimer 1.08 ug/mIFEU (0-0.59)
--- NOTE | 2021-02-06 10:41 | CTR_ITS ---
PROCEDURE INFORMATION: Exam: CTA Chest With Contrast Exam date and time: 02/06/2021 11:26 AM Age: 75 years old Clinical indication: Dyspnea; Additional info: Dyspnea, positive d-dimer TECHNIQUE: Imaging protocol: Computed tomographic angiography of the chest with contrast. 3D rendering (Not supervised by radiologist): MIP and/or 3D reconstructed images were created by the technologist. Radiation optimization: All CT scans at this facility use at least one of these dose optimization techniques: automated exposure control; mA and/or kV adjustment per patient size (includes targeted exams where dose is matched to clinical indication); or iterative reconstruction. Contrast material: OMNIPAQUE 350; Contrast volume: 60 ml; Contrast route: INTRAVENOUS (IV); COMPARISON: CTA Chest-Pulmonary Emb [id number] 12/05/2018 9:01 PM RADIATION DOSE METRICS: Total DLP (mGy-cm): 463.09 FINDINGS: Pulmonary arteries: Normal. No pulmonary emboli. Aorta: There is calcification of the thoracic aorta. There is no aortic aneurysm or obvious dissection. Lungs: Unremarkable. No consolidation. No masses. Pleural spaces: Unremarkable. No pneumothorax. No pleural effusion. Heart: Unremarkable. No cardiomegaly. No pericardial effusion. Mediastinal space: Small sliding hiatal hernia. Lymph nodes: Unremarkable. No enlarged lymph nodes. Kidneys and ureters: There is right renal cortical scarring. Bones/joints: There is compression fracture of the superior endplate of T12 with mild loss of vertebral height. Degenerative changes are present throughout the thoracic spine. Soft tissues: Unremarkable. CT/CT angio chest PE protcl [id number] IMPRESSION: 1. No evidence of pulmonary embolus or aortic aneurysm/dissection. 2. No acute abnormality is seen in the chest. 3. Small hiatal hernia. 4. 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 Compression fracture of T12 probably old. Radiation Dose CTDIVOL = (mGy): DLP = 463.09 (mGy-cm)
[2021-02-06 10:45] LABS: Troponin(5th) Baseline 10 ng/L (0-10)
[2021-02-06 10:51] LABS: Influenza A by IFA Negative (Negative); Influenza B by IFA Negative (Negative); SARS Covid-2 Antigen Negative (Negative)
[2021-02-06] MEDS: lactated ringers 1,000 ML 999 ML IV (10:53)
[2021-02-06] MEDS: iohexol 350 mg/mL 100 mL Btl IV (11:47)
[2021-02-06 11:56] LABS: Troponin 5 2HR 8.62 ng/L (0-10); Troponin 5 2HR Delta -1.38 ABS# (0-10)
[2021-02-06 12:11] LABS: Add Urine Microscopic? NO; Charge for UA Resulting for Rev
--- NOTE | 2021-02-06 12:19 | ECG_ITS ---
[facility] Test Date: 2021-02-06 Pat Name: Terri Pride Department: Room: Gender: Female Campaign Marketing Specialist: : 1945 Requested By: Luana Sanford Order Number: [id number] Cohen MD: Luiza Hanley M.D. Measurements Intervals [place] Rate: 81 P: 74 NC: 166 QRS: 61 QRSD: 75 T: 72 QT: 366 QTc: 427 Interpretive Statements SINUS RHYTHM MINIMAL ST DEPRESSION [0.025+ mV ST DEPRESSION] Compared to ECG 02/06/2021 09:23:22 ST (T wave) deviation now present Electronically Signed On 02-07-2021 12:20:00 CDT by Luiza Hanley M.D. [id number]
[2021-02-06 12:26] LABS: Bilirubin Urine Neg (Negative); Blood Urine Neg (Negative); Glucose Urine UA Norm (Normal); Ketones Urine Negative (Negative); Leukocyte Esterase Urine Negative (Negative); Nitrate Urine Negative (Negative); Protein Urine Neg (Negative); Urine Appearance Clear (CLEAR); Urine Color Yellow (Yellow); Urobilinogen Urine Norm (Negative); pH Urine 5 (5-7)
[2021-02-06] MEDS: loperamide 2 mg Capsule 4 MG PO (13:10)
--- NOTE | 2021-02-07 03:44 | PC.NURSE ---
1 of 4 blood cultures gram positive cocci in clusters called by lab; Dr. Faria notified; no new orders, will wait for final result.
== END 2021-02-06 13:26 | disposition home or self-care (01) ==
PROVIDERS: Emergency Provider Emergency Medicine; PCP Family Medicine
DX: R06.00 Dyspnea, unspecified (principal); R19.7 Diarrhea, unspecified; Z86.73 Personal history of transient ischemic attack (TIA), and cerebral infarction without residual deficits; Z87.891 Personal history of nicotine dependence
CPT/HCPCS: 36415; 36600; 71045; 71275; 80051; 80053; 81003; 82330; 82805; 83605; 83880; 84484; 85025; 85378; 87040; 87205; 87426; 87804; 93005; 96360; 99284; Q9967

== ENCOUNTER → 2021-12-06 10:33 | Outpatient (BNVA) | payer MEDICARE, MEDICAID, SELFPAY | PROVIDERS: PCP Family Medicine; Visit Provider Nurse Practitioner Family | DX: M25.532 Pain in left wrist (principal); S62.102A Fracture of unspecified carpal bone, left wrist, initial encounter for closed fracture; S52.92XA Unspecified fracture of left forearm, initial encounter for closed fracture; W55.09XA Other contact with cat, initial encounter; W19.XXXA Unspecified fall, initial encounter; Z68.23 Body mass index [BMI] 23.0-23.9, adult | CPT/HCPCS: 73110 ==

== ENCOUNTER 2021-12-07 15:12 | Outpatient (CLI) | payer MEDICARE, MEDICAID, SELFPAY | END 2021-12-07 15:13 | disposition home or self-care (01) | LOC: SPT 15:13 | PROVIDERS: PCP Family Medicine; Visit Provider Orthopaedic Surgery | DX: Z46.89 Encounter for fitting and adjustment of other specified devices (principal); S52.592D Other fractures of lower end of left radius, subsequent encounter for closed fracture with routine healing; X58.XXXD Exposure to other specified factors, subsequent encounter | CPT/HCPCS: 97760; L3982 ==

== ENCOUNTER → 2021-12-14 10:40 | Outpatient (BNVA) | payer MEDICARE, MEDICAID, SELFPAY | PROVIDERS: PCP Family Medicine; Visit Provider Orthopaedic Surgery | DX: Z01.818 Encounter for other preprocedural examination (principal); Z20.822 Contact with and (suspected) exposure to COVID-19 | CPT/HCPCS: 87635 ==

== ENCOUNTER 2021-12-15 05:59 | Day surgery (SDC) | payer MEDICARE, MEDICAID, SELFPAY ==
[2021-12-14 12:16] VITALS: BMI 21.0
[2021-12-15] VITALS (16 sets, daily range): BP systolic 80–142; BP diastolic 31–62; PULSE 59–77; RESP 13–18; TEMP 36.2–36.4; O2SAT 92–100
--- NOTE | 2021-12-15 | SCC_ITS ---
Procedure done: ORIF left extra articular distal radius fracture 7.7 seconds of fluoroscopic guidance, for a cumulative dose of 0.12 mGy, was provided to Dr. Sorensen by the radiology department. C-arm images of the LEFT wrist were saved for the patient's permanent record. [facility]
--- NOTE | 2021-12-15 06:42 | P.ANESASSM_ITS ---
Pre-Anesthetic Assessment Height/Weight: Height 1.57 m Weight 52.163 kg Temp Pulse Resp BP Pulse Ox 97.2 F L 59 L 18 142/62 96 12/15/21 06:15 12/15/21 06:15 12/15/21 06:15 12/15/21 06:15 12/15/21 06:15 Preop Diagnosis: Left distal radius fracture Operation Date: 12/15/21 07:00 Proposed Procedures p ORIF distal radius 22806/s52.502a(Left) - David Sorensen DO Familial anesthetic complications: None Was Beta Vicente taken within 24 hours: Yes Was Clonidine taken within 24 hours: N/A Last intake: Intake Last Liquid Date 12/14/21 Last Liquid Time 22:00 Last Solid Date 12/14/21 Last Solid Time 19:00 Social No alcohol and No tobacco Exam alert, oriented x 3, clear to auscultation bilaterally and regular rate & rhythm Airway Mallampati: Class III Dentition: false Pulmonary None reported CV/HEM Hypertension patient denies hx of PTCA listed on her problem list, L SC artery stenosis None reported Hepatic None reported GI None reported Metabolic None reported Musc/skel None reported Neuropsych Cerebrovascular Accident B/L carotid stenosis s/p CEA Anesthetic Plan ASA status: 3 Anesthesia: Choice Medications/Allergies Home Medications Medication Instructions Recorded Confirmed Last Taken Type atorvastatin 20 mg tablet 20 mg PO QAM 02/03/20 12/15/21 12/15/21 History diphenhydramine HCl 25 mg capsule 25 mg PO PRN 02/03/20 12/14/21 Unknown History (Benadryl) metoprolol tartrate 25 mg tablet 25 mg PO BID 02/03/20 12/15/21 12/15/21 History acetaminophen 500 mg tablet 500 - 1,000 mg PO PRN 02/06/21 12/14/21 Unknown History (Tylenol Extra Strength) escitalopram oxalate 10 mg tablet 10 mg PO DAILY 02/06/21 12/15/21 12/15/21 History (Lexapro) paroxetine HCl 20 mg tablet 30 mg PO DAILY 02/06/21 12/15/21 12/15/21 History fast form cock up #1 ea 12/07/21 12/14/21 Unknown Rx loperamide 2 mg tablet (Imodium 2 mg PO Q4H PRN 12/14/21 12/14/21 Unknown History A-D) Allergies Allergy/AdvReac Type Severity Reaction Status Date / Time bacitracin Allergy Unknown Unknown Verified 12/14/21 12:15 [From Neosporin ([id number])] cetirizine [From Zyrtec] Allergy Unknown Unknown Verified 12/14/21 12:15 neomycin Allergy Unknown Unknown Verified 12/14/21 12:15 [From Neosporin ([id number])] polymyxin B Allergy Unknown Unknown Verified 12/14/21 12:15 [From Neosporin ([id number])] [facility] Anesthesia Medical History (Updated 12/14/21 @ 10:46 by David Sorensen DO) Carotid stenosis, bilateral CVA (cerebral vascular accident) Subclavian artery stenosis, left Surgical History S/P carotid endarterectomy S/P PTCA (percutaneous transluminal coronary angioplasty) Family History Other CAD (coronary artery disease) Social History Smoking and tobacco status: former smoker Alcohol intake: current Alcohol intake frequency: holidays/special occasions only Marital status: / Data Anesthesia Cardiac Studies: No Data to Display
--- NOTE | 2021-12-15 06:48 | W.PM.OPSUD ---
Surgery/Procedure H&P Update DATE OF PROCEDURE: December 15, 2021 DATE H&P PERFORMED: 12/14/21 H&P UPDATE INFORMATION: I have reviewed H&P completed within last 30 days, I have examined patient prior to procedure and No changes to prior documentation PREOP DIAGNOSIS: Left distal radius fracture PLANNED PROCEDURE: Operation Date: 12/15/21 07:00 Proposed Procedures p ORIF distal radius 48512/s52.502a(Left) - David Sorensen DO
[2021-12-15] MEDS: sodium chloride 0.9% 1,000 ML 30 ML IV (06:54)
[2021-12-15] MEDS: lidocaine 1% INJ 20 mL INJECTION (07:50)
--- NOTE | 2021-12-15 07:53 | XR_ITS ---
WS: [id number] XR wrist LT 1V [id number] REASON FOR EXAM: OR PICS ORIF LT WRIST FINDINGS: AP and lateral images in surgery demonstrate plate and screw fixation of distal left radial transvers e fracture. Fracture fragments and surgical appliances are in proper position and alignment. XR/XR wrist LT 1V [id number] IMPRESSION: Fixation of wrist fracture as above.
--- NOTE | 2021-12-15 07:54 | PM.OP ---
Operative Report Date of procedure: December 15, 2021 Pre-op diagnosis: Preop Diagnosis Left distal radius fracture Post-op diagnosis: same Procedure done: ORIF left extra articular distal radius fracture Surgeon: David Sorensen Fishing Vessel Mate: Paulo Velazquez Fishing Vessel Mate: The regional vice president surgical sales, Paulo Velazquez, PAC was needed for his expertise with fracture care. He was important and necessary throughout the procedure to complete in a safe and timely manner. He assisted with patient positioning prepping and draping tissue retraction suctioning of the operative field protection of the vital structures and tissue closure Estimated blood loss (mL): 5 Procedure: ORIF left extra articular distal radius fracture Patient was brought to the operative suite. After undergoing anesthesia patient was placed in the supine position. All areas impingement well-padded. Tourniquet was applied. Patient was then prepped and draped in normal sterile fashion. Skin incision was made over the left distal radius. The FCR tendon was identified retracted ulnarly. The radial artery was identified and retracted radially. Pronator quadratus was reflected ulnarly. Fracture was identified. Fracture was reduced. And then a [place] distal radius plate was placed. 3 locking screws were placed distally 2 screws placed proximally. AP lateral fluoroscopy ensured the fracture and hardware prone position. Wounds irrigated and closed with Vicryl and Monocryl suture. Sterile dressings were applied. A volar splint was placed. And patient was transferred to the PACU in stable condition.
[2021-12-15] MEDS: albumin 12.5 GM/250 ML VIAL IV (08:51)
[2021-12-15] MEDS: HYDROcodone-acetaminophen 5-325 mg Tablet 1 TAB PO (09:31)
--- NOTE | 2021-12-15 12:24 | ANE.PACU2 ---
Inpatient post-anesthesia follow up: Airway intact: Yes Vital signs: Temperature 97.2 F Pulse Rate 72 Respiratory Rate 18 Blood Pressure 119/52 Pulse Oximetry 97 Oxygen Delivery Me thod Room Air Oxygen Flow Rate 6 Fraction of Inspir ed Oxygen Hydration adequate: Yes Nausea and vomiting: Yes Pain level: 1 Mental status: Baseline
== END 2021-12-15 10:09 | disposition home or self-care (01) ==
PROVIDERS: PCP Family Medicine; Visit Provider Orthopaedic Surgery
PROC: (CPT 25607; principal; 2021-12-15 07:00)
DX: S52.502D Unspecified fracture of the lower end of left radius, subsequent encounter for closed fracture with routine healing (principal); Z87.891 Personal history of nicotine dependence; Z86.73 Personal history of transient ischemic attack (TIA), and cerebral infarction without residual deficits; I65.23 Occlusion and stenosis of bilateral carotid arteries; I10 Essential (primary) hypertension; X58.XXXD Exposure to other specified factors, subsequent encounter
CPT/HCPCS: 25607; 73100; 76000; C1713; J0360; J0690; J1100; J1170; J2405; J2704; J3010; J7030; P9041

== ENCOUNTER → 2021-12-28 10:15 | Outpatient (BNVA) | payer MEDICARE, MEDICAID, SELFPAY | PROVIDERS: PCP Family Medicine; Visit Provider Orthopaedic Surgery | DX: Z48.89 Encounter for other specified surgical aftercare (principal); S52.502D Unspecified fracture of the lower end of left radius, subsequent encounter for closed fracture with routine healing; X58.XXXD Exposure to other specified factors, subsequent encounter | CPT/HCPCS: 73110 ==

== ENCOUNTER 2022-10-21 03:46 | Observation (INO) | payer MEDICARE, MEDICAID, SELFPAY ==
[2022-10-21] VITALS (13 sets, daily range): BP systolic 68–172; BP diastolic 43–102; PULSE 60–91; RESP 14–24; TEMP 36.2–37; O2SAT 90–100; BMI 21.9
--- NOTE | 2022-10-21 03:54 | CTR_ITS ---
PROCEDURE INFORMATION: Exam: CT Chest Without Contrast; Diagnostic Exam date and time: 10/21/2022 4:06 AM Age: 77 years old Clinical indication: Injury or trauma; Fall; Blunt trauma (contusions or hematomas); Prior surgery; Surgery type: Carotid endarterectomy. Coronary angioplasty; Patient HX: Fell out of bed onto left side this a. M. C/O severe left chest wall pain. TECHNIQUE: Imaging protocol: Diagnostic computed tomography of the chest without contrast. Radiation optimization: All CT scans at this facility use at least one of these dose optimization techniques: automated exposure control; mA and/or kV adjustment per patient size (includes targeted exams where dose is matched to clinical indication); or iterative reconstruction. COMPARISON: CT angio chest PE protcl [id number] 05/06/2021 11:43 RADIATION DOSE METRICS: Total DLP (mGy-cm): 301.28 FINDINGS: Lungs: [id number] lung scarring with COPD and emphysema. Mild areas of bilateral mid to lower lung atelectasis or scarring. No dominant lung mass or spiculated nodule. Pleural spaces: Trace left pleural effusion. A small to moderate left pneumothorax is seen, about 10-15%. Heart: The heart is normal size. No pericardial effusion. Lymph nodes: No bulky mediastinal or hilar lymphadenopathy noted. Vasculature: Advanced diffuse vascular calcification noted. Mild pulmonary hypertension. Diaphragm: Small hiatal hernia. Kidneys and ureters: Moderate right and mild left renal atrophy with lobularity. Bones/joints: Left lateral 7th, 8th, and possibly 9th rib minimally displaced acute fractures. Moderate spine DJD. Multiple old right rib deformities. A few old left rib deformities. Unchanged old moderate lower thoracic compression. Soft tissues: Large left posterior chest soft tissue air. CT/CT chest [facility] [id number] IMPRESSION: 1. 2 or 3 acute left rib fractures as described with 10-15% left pneumothorax and trace left effusion. 2. Extensive left posterior chest soft tissue air. 3. COPD and other chronic findings above. COMMENTS: In the absence of a history or active diagnosis of lung cancer, it is recommended that this patient with emphysema be evaluated for enrollment in a low dose CT lung cancer screening program. THIS REPORT CONTAINS FINDINGS THAT MAY BE CRITICAL TO PATIENT CARE. The findings were verbally communicated via telephone conference at 4:32 AM GEAR CHANGER on 10/21/[address] Haynes. The findings were acknowledged and understood.
--- NOTE | 2022-10-21 03:54 | CTR_ITS ---
PROCEDURE INFORMATION: Exam: CT Head Without Contrast Exam date and time: 10/21/2022 4:03 AM Age: 77 years old Clinical indication: Injury or trauma; Fall; Blunt trauma (contusions or hematomas); Patient HX: Fell out of bed and hit head on nightstand. Laceration to RT parietal region. TECHNIQUE: Imaging protocol: Computed tomography of the head without contrast. Radiation optimization: All CT scans at this facility use at least one of these dose optimization techniques: automated exposure control; mA and/or kV adjustment per patient size (includes targeted exams where dose is matched to clinical indication); or iterative reconstruction. COMPARISON: No relevant prior studies available. RADIATION DOSE METRICS: Total DLP (mGy-cm): 1072.78 FINDINGS: Brain: No focal hemorrhage or midline shift is identified. The ventricles and parenchyma show moderate atrophy and chronic bicerebral white matter ischemic change. Cerebral ventricles: No ventriculomegaly or evidence of hydrocephalus. Paranasal sinuses: No evidence of acute sinusitis. Mastoid air cells: Visualized mastoid air cells are well aerated. Bones/joints: No displaced skull fracture is noted. Few old nasal bone deformities possible. Soft tissues: Unremarkable. Vasculature: Diffuse vascular calcifications are present. CT/CT head wo con* [id number] IMPRESSION: 1. No acute intracranial abnormality. 2. Moderate age-related changes.
--- NOTE | 2022-10-21 03:55 | W.ED.CHESTPA ---
HPI - Chest Pain General: Chief Complaint: Fall Stated Complaint: FALL, left side pain Time Seen by Provider: 10/21/22 03:47 Source: patient Mode of arrival: ambulatory Limitations: no limitations History of Present Illness: 77-year-old female who states she fell out of bed roughly 3 hours ago states she hit her left chest and left head she has been having a headache since then along with left chest wall pain she denies any neck pain denies abdominal pain. She rates her pain a 7 out of 10 she has been amatory since then. Associated symptoms: Deny abdominal pain, dyspnea, fever(s), nausea or vomiting Review of Systems Const: Denies: fever(s), chills, body aches or change in appetite Eyes: Denies: blurry vision or eye discomfort ENMT: Denies: throat pain or dental pain Card: Reports: chest pain Resp: Denies: dyspnea GI: Denies: abdominal pain, nausea, vomiting or diarrhea : Denies: dysuria Musc: Denies: neck pain or back pain Skin/Breast: Denies: rash Neuro: Reports: headache(s) Psych: Denies: depression German/Lymph: Denies: easy bruising All/Imm: Denies: urticaria PFSH ED PFSH: Medical History (Updated 10/21/22 @ 04:58 by Evangelina Haynes MD) Carotid stenosis, bilateral CVA (cerebral vascular accident) Subclavian artery stenosis, left Surgical History S/P carotid endarterectomy S/P PTCA (percutaneous transluminal coronary angioplasty) Family History Other CAD (coronary artery disease) Social History Smoking and tobacco status: former smoker Alcohol intake: current Alcohol intake frequency: holidays/special occasions only Marital status: / Physical Exam Const: COMMON NORMALS: no acute distress, patient oriented x3 and healthy appearing HENMT: COMMON NORMALS: normocephalic; head/scalp not atraumatic (tenderness to left head) HEAD & SCALP: normocephalic; not atraumatic (tenderness to left head) Eye: COMMON NORMALS: Equal, round and reactive pupils present and EOMs intact bilaterally PUPIL: Yes Equal, round and reactive pupils present Neck/C-Spine: COMMON NORMALS: full ROM and supple Chest: COMMONS NORMALS: normal inspection of the chest Resp: COMMON NORMALS: normal respiratory effort, No retractions, No use of accessory muscles and clear to auscultation bilaterally AUSCULTATION: clear to auscultation bilaterally OTHER: tebderbess ti keft cgest Cardio: COMMON NORMALS: regular rate, regular rhythm and No murmurs present (Cardio) RATE: regular rate RHYTHM: regular rhythm GI: COMMON NORMALS: Normal to inspection, nondistended, normoactive bowel sounds present, Soft to palpation, non-tender and no masses PALPATION: Yes Soft to palpation Extremity: COMMON NORMALS: normal to inspection and full ROM Neuro: COMMON NORMALS: patient oriented x3, moves all extremities and no focal motor deficits Psych: COMMON NORMALS: mental status grossly normal, Normal thought process present and cooperative THOUGHT PROCESS: Normal thought process present Skin: COMMON NORMALS: no rashes or lesions noted and no wounds GENERAL SKIN EXAM: no rashes or lesions noted Course Vital Signs: Vital signs: Vital Signs Temperature 97.7 F 10/21/22 03:56 Pulse Rate 62 10/21/22 03:56 Respiratory Rate 14 10/21/22 04:28 Blood Pressure 172/102 10/21/22 03:56 Pulse Oximetry 91 10/21/22 03:56 Oxygen Delivery Me thod 10/21/22 03:56 MDM - Chest Pain Medical Decision Making Patient presents here with a small 10% pneumothorax from a fall with 2 rib fractures she is well-appearing here her oxygen sats are normal we will admit her for pain control did speak to gauge maker apprentice who will consult Lab Data 10/21/22 04:39 10/21/22 04:[address] 10/21/22 03:54 IMPRESSION: 1. 2 or 3 acute left rib fractures as described with 10-15% left pneumothorax and trace left effusion. 2. Extensive left posterior chest soft tissue air. 3. COPD and other chronic findings above. COMMENTS: In the absence of a history or active diagnosis of lung cancer, it is recommended that this patient with emphysema be evaluated for enrollment in a low dose CT lung cancer screening program. THIS REPORT CONTAINS FINDINGS THAT MAY BE CRITICAL TO PATIENT CARE. The findings were verbally communicated via telephone conference at 4:32 AM HOOP RIVETING MACHINE OPERATOR HELPER on 10/21/[address] Haynes. The findings were acknowledged and understood. Head CT 10/21/22 03:54 IMPRESSION: 1. No acute intracranial abnormality. 2. Moderate age-related changes. Laboratory Results WBC 6.2 10^3/uL (4.0-10.0) 10/21/22 04:39 RBC 3.62 10^6/uL (4.1-5.3) L 10/21/22 04:39 Hgb 12.0 g/dL (11.5-15.3) 10/21/22 04:39 Hct 37.0 % (37.0-47.0) 10/21/22 04:39 MCV 102.2 fl (81-99) H 10/21/22 04:39 MCH 33.1 pg (28.0-34.0) 10/21/22 04:39 MCHC 32.4 g/dL (30.0-36.0) 10/21/22 04:39 RDW 12.4 % (12.1-15.1) 10/21/22 04:39 Plt Count 181 10^3/cmm (130-400) 10/21/22 04:39 MPV 10.0 fL (7.4-10.4) 10/21/22 04:39 Neut % (Auto) 65.6 % 10/21/22 04:39 Lymph % (Auto) 20.2 % 10/21/22 04:39 Mcminn % (Auto) 10.0 % 10/21/22 04:39 Eos % (Auto) 3.2 % 10/21/22 04:39 Baso % (Auto) 0.5 % 10/21/22 04:39 Neut # (Auto) 4.09 10^3/uL (1.8-7.7) 10/21/22 04:39 Lymph # (Auto) 1.3 10^3/uL (0.8-4.8) 10/21/22 04:39 [place]minn # (Auto) 0.6 10^3/uL (0.2-0.9) 10/21/22 04:39 Eos # (Auto) 0.2 10^3/uL (0.0-0.8) 10/21/22 04:39 Baso # (Auto) 0.0 10^3/uL (0.0-0.1) 10/21/22 04:39 Nucleated RBC % (auto) 0 % 10/21/22 04:39 Nucleated RBCs # 0.0 /100WBC 10/21/22 04:39 Discharge Plan Discharge Patient Disposition: Admitted As Inpatient Clinical Impression: Pneumothorax, Fracture of rib, Fall Condition: Stable Prescriptions: No Action diphenhydramine HCl [Benadryl] 25 mg capsule 25 mg PO PRN atorvastatin 20 mg tablet 20 mg PO QAM metoprolol tartrate 25 mg tablet 25 mg PO BID (DME) fast form cock up See Rx Instructions .ROUTE .MEDSUPPLY Qty: 1 0RF Rx Instructions: As directed paroxetine HCl 20 mg tablet See Rx Instructions .ROUTE .COMPLEX Qty: 45 5RF Dose Instruction: TAKE 1 & 1/2 (ONE & ONE-HALF) TABLETS BY MOUTH ONCE DAILY Rx Instructions: TAKE 1 & 1/2 (ONE & ONE-HALF) TABLETS BY MOUTH ONCE DAILY Imodium A-D 2 mg tablet 2 mg PO Q4H PRN (Reason: loose stool) Rx Instructions: administer after each loose stool until symptoms controlled; do not exceed 16 mg per 24 hrs hydrocodone-acetaminophen 5-325 mg tablet 1 - 2 tab PO .Q4-6H Qty: 40 0RF acetaminophen [Tylenol Extra Strength] 500 mg Tablet 500 - 1,000 mg PO PRN escitalopram oxalate [Lexapro] 10 mg Tablet 10 mg PO DAILY Referrals: Daquan Luna MD [Primary Care Provider] - Coding Level of Care Code ED Film Or Tape Librarian for Chg Fwd Exam Comprehensive
[2022-10-21] MEDS: morphine 4 mg/mL SDV 1 mL IVP (04:28)
[2022-10-21] MEDS: ondansetron 2 mg/ML SDV 2 mL 4 MG IVP (04:28)
[2022-10-21 04:44] LABS: Basophils % 0.5 %; Eosinophils # 0.2 10^3/uL (0.0-0.8); Eosinophils % 3.2 %; Lymphocytes # 1.3 10^3/uL (0.8-4.8); Lymphocytes % 20.2 %; Mean Corpuscular HGB Conc 32.4 g/dL (30.0-36.0); Mean Corpuscular Hemoglobin 33.1 pg (28.0-34.0); Mean Corpuscular Volume 102.2 fl (81-99); Monocytes # 0.6 10^3/uL (0.2-0.9); Neutrophils # 4.09 10^3/uL (1.8-7.7); Neutrophils % 65.6 %; Nucleated Red Blood Cells % 0 %; Platelet Count 181 10^3/cmm (130-400); Red Blood Count 3.62 10^6/uL (4.1-5.3); Red Cell Distribution Width 12.4 % (12.1-15.1); White Blood Count 6.2 10^3/uL (4.0-10.0)
[2022-10-21 04:58] LABS: INR 0.93 (0.8-1.2)
[2022-10-21 05:04] LABS: Alanine Aminotransferase 17 U/L (0-33); Albumin Level 3.3 g/dL (3.5-5.2); Alkaline Phosphatase 129 U/L (35-105); Anion Gap 15.8 (5-19); Aspartate Amino Transferase 29 U/L (0-32); Blood Urea Nitrogen 6 mg/dL (8-23); Calcium 8.2 mg/dL (8.5-10.5); Carbon Dioxide 22 mmol/L (22-29); Chloride 95 mmol/L (98-107); Creatinine Clr Calc Pharmacy 48.1879; Globulin 3.5 g/dL (1.3-4.6); Glucose 89 mg/dL (65-115); Osmolality Calculated 265 mOsm/kg (285-295); Potassium 3.8 mmol/L (3.5-5.1); Sodium 129 mmol/L (136-145); Total Bilirubin 0.3 mg/dL (0.15-1.2); Total Protein 6.8 g/dL (6.6-8.7)
--- NOTE | 2022-10-21 05:28 | ECG_ITS ---
[facility] Test Date: 2022-10-21 Pat Name: Terri Pride Department: Room: 269 Gender: Female Ergonomics Technician: : 1945 Requested By: Brock Ordonez Order Number: [id number] Noel MD: Caleb Romero M.D. Measurements Intervals [place] Rate: 66 P: 34 MA: 178 QRS: 40 QRSD: 84 T: 63 QT: 441 QTc: 462 Interpretive Statements SINUS RHYTHM POSSIBLE ANTERIOR MYOCARDIAL INFARCTION , PROBABLY OLD [30 ms Q WAVE IN V3/V4, OR R < 0.2 mV IN V4] Compared to ECG 02/06/2021 12:06:16 Myocardial infarct finding now present ST (T wave) deviation no longer present Electronically Signed On 10-21-2022 14:38:41 JIG AND FIXTURE BUILDER by Caleb Romero M.D. [id number]
--- NOTE | 2022-10-21 05:29 | P.HP_ITS ---
Providers/Chief Complaint Primary Care Provider: Daquan Luna MD Chief Complaint: FALL, left side pain History of Present Illness Terri Pride is a 77 year old female with a history of CVA, history of carotid artery stenosis, hypertension, hyperlipidemia, history of smoking who presents [facility] for follow-up of bed. Patient does not that she was sleeping in bed with her dog, when her dog kicked her, and she fell out of bed, landing on her left side against her night table, she immediately had pain along the left side, around 5th-10th rib more posterior, no significant head trauma, no loss of consciousness, no facial droop no slurring of her words, no lightheadedness, dizziness, chest pain, palpitations. Currently pain is chest wall discomfort, left-sided, extending from midline, to midline of her back, along 6-10th rib, currently she denies any other pain, no pain in her hip, no pain with range of motion, no pain in her knees, no pain in her neck, no other bony pain. She was found to have posterior seventh and ninth rib fractures, with a left pneumothorax, 10 to 15%, large left posterior chest soft tissue air, ER physician spoke to pulmonary, recommended conservative management, and inpatient monitoring. Currently patient is alert oriented x3, she is on 10 L, oxygen mask, she is having pain but well controlled, denies any shortness of breath, no chest pain, palpitations. Review of Systems Const: Denies: fever(s) Eyes: Denies: change in vision Card: Denies: chest pain Resp: Denies: dyspnea GI: Denies: abdominal pain : Denies: flank pain Musc: Denies: neck pain, back pain, extremity pain, extremity swelling, joint pain, joint swelling, joint redness, joint warmth, joint stiffness or muscle weakness Skin/Breast: Reports: skin pain Neuro: Denies: headache(s), numbness in extremities, weakness in extremities, sensory changes, dizziness, vertigo, confusion, Slurred speech present or seizure-like activity Medications/Allergies Home Medications Medication Instructions Recorded Confirmed Last Taken Type atorvastatin 20 mg tablet 20 mg PO QAM 02/03/20 12/28/21 12/15/21 History diphenhydramine HCl 25 mg capsule 25 mg PO PRN allergies 02/03/20 12/28/21 Unknown History (Benadryl) metoprolol tartrate 25 mg tablet 25 mg PO BID 02/03/20 12/28/21 12/15/21 History acetaminophen 500 mg tablet 500 - 1,000 mg PO PRN 02/06/21 12/28/21 Unknown History (Tylenol Extra Strength) escitalopram oxalate 10 mg tablet 10 mg PO DAILY see pharmacy 02/06/21 12/28/21 12/15/21 History (Lexapro) comments fast form cock up #1 ea 12/07/21 12/28/21 Unknown Rx loperamide 2 mg tablet (Imodium 2 mg PO Q4H PRN loose stool 12/14/21 12/28/21 Unknown History A-D) hydrocodone 5 mg-acetaminophen 325 1 - 2 tab PO .Q4-6H #40 tabs 12/15/21 12/28/21 Unknown Rx mg tablet paroxetine HCl 20 mg tablet See Rx Instructions .Route 10/18/22 Unknown Rx .COMPLEX #45 tabs Allergies Allergy/AdvReac Type Severity Reaction Status Date / Time bacitracin Allergy Unknown Unknown Verified 12/28/21 09:52 [From Neosporin ([id number]-[id number])] cetirizine [From Zyrtec] Allergy Unknown Unknown Verified 12/28/21 09:52 neomycin Allergy Unknown Unknown Verified 12/28/21 09:52 [From Neosporin (dsy-qda-[id number])] polymyxin B Allergy Unknown Unknown Verified 12/28/21 09:52 [From Neosporin ([id number]-hdd-ghzpy)] PFSH Acute PFSH: Medical History (Updated 10/21/22 @ 05:35 by Brock Ordonez MD) Carotid stenosis, bilateral CVA (cerebral vascular accident) Subclavian artery stenosis, left Surgical History S/P carotid endarterectomy S/P PTCA (percutaneous transluminal coronary angioplasty) Family History Other CAD (coronary artery disease) Social History Smoking and tobacco status: former smoker Alcohol intake: current Alcohol intake frequency: holidays/special occasions only Marital status: / Vitals/I&O/Wt Last Vital Signs Temp 97.7 F 10/21/22 03:56 Pulse 62 10/21/22 03:56 Resp 14 10/21/22 04:28 BP 172/102 10/21/22 03:56 Pulse Ox 91 10/21/22 03:56 O2 Del Method 10/21/22 03:56 Weight last 48 hrs Weight 54.431 kg Physical Exam Const: COMMON NORMALS: no acute distress and patient oriented x3 HENMT: COMMON NORMALS: normocephalic HEAD & SCALP: normocephalic Eye: COMMON NORMALS: Equal, round and reactive pupils present and EOMs intact bilaterally Neck/C-Spine: COMMON NORMALS: no JVD Lymph: LYMPHATIC: no lymphadenopathy noted Resp: COMMON NORMALS: normal respiratory effort, No retractions, No use of accessory muscles and clear to auscultation bilaterally AUSCULTATION: clear to auscultation bilaterally Cardio: COMMON NORMALS: no JVD, regular rate, regular rhythm, S1 normal heart sound present and S2 normal heart sound present RATE: regular rate RHYTHM: regular rhythm HEART SOUNDS: S1 normal heart sound present and S2 normal heart sound present GI: COMMON NORMALS: Normal to inspection, nondistended, normoactive bowel sounds present, Soft to palpation, non-tender and no bruits PALPATION: Yes Soft to palpation Extremity: COMMON NORMALS: no calf tenderness and no pedal edema Neuro: COMMON NORMALS: patient oriented x3, CN's II-XII intact bilaterally and moves all extremities Psych: COMMON NORMALS: mental status grossly normal Data 10/21/22 04:39 10/21/22 04:39 A&P Assessment and plan (1) Pneumothorax: (2) Fracture of rib: (3) Fall: (4) Hemothorax on left: Plan Traumatic pneumothorax -10 to 15% left pneumothorax, trace left effusion -Possible hemothorax -Avoid positive airway pressure, -Monitor respiratory status closely -Pulmonary consulted -DNR/DNI -Lovenox for DVT prophylaxis Hemothorax, monitor Rib fracture, on left side, pain control Hyponatremia, serum sodium 129, TSH, urine sodium Ordered UA Potentially patient can be discharged today pending consultative visit with pulmonary and clinical progress Attestations Medical Necessity Statement*: Patient requires hospitalization, outpatient with observation, for chest wall discomfort Coding Level of Care Code Acute Code for Chg Fwd Diagnoses Pneumothorax J93.9 Fracture of rib S22.39XA Fall W19.XXXA Hemothorax on left J94.2
[2022-10-21 06:09] LABS: Troponin(5th) Baseline 9 ng/L (0-10)
[2022-10-21 06:20] LABS: Creatine Phosphokinase 124 U/L (26-192); NT Pro B Type Natriuretic Pept 1832 pg/mL (0-450); Thyroid Stimulating Hormone 1.28 uIU/mL (0.27-4.20)
--- NOTE | 2022-10-21 06:37 | PC.NURSE ---
Pt referred for c/o indigestion w/o orders for tums that she is requesting. NO received and noted for tums 500mg q6h PRN.
[2022-10-21 07:36] LABS: Troponin 5 2HR 8.62 ng/L (0-10)
[2022-10-21 07:38] LABS: Troponin 5 2HR Delta -0.38 ABS# (0-10)
--- NOTE | 2022-10-21 08:25 | XR_ITS ---
WS: [id number] PORTABLE CHEST HISTORY: lt ptx evaluation COMPARISON: Chest CT 10/21/2022 Very small left-sided pneumothorax is identified. Radiographically the pneumothorax is much smaller t gilman the CT. Mild increased opacification at the LEFT lung base is probably an area of contusion. This is positive at the site of the laceration and pleural injury. . Minimal blunting of the LEFT costoph renic angle. No midline shift. Cardiac size: Normal. Mediastinum/Aorta: Moderate atherosclerosis aorta. Osteopenia. Nondisplaced mid LEFT lateral rib fractures. These were described on the prior study rece nt CT. Small amount of subcutaneous emphysema XR/XR chest 1V portable [id number] IMPRESSION: 1. Very small LEFT pneumothorax. No evidence for tension pneumothorax. 2. Small amount of subcutaneous emphysema along the LEFT lateral chest. 3. Minimal increased opacification at the LEFT lung base is the area of pleura l and lung injury.
[2022-10-21] MEDS: sodium chloride 0.9% 500 ML 999 ML IV (08:47)
[2022-10-21] MEDS: atorvastatin 40 mg Tablet 20 MG PO (08:52)
[2022-10-21] MEDS: acetaminophen 325 mg Tablet 650 MG PO ×2 (08:52→19:53)
[2022-10-21] MEDS: PARoxetine 20 mg Tablet 30 MG PO (08:52)
[2022-10-21] MEDS: escitalopram 10 mg Tablet PO (08:53)
[2022-10-21] MEDS: enoxaparin 40 mg/0.4 mL Syringe SUBCUT (08:54)
[2022-10-21] MEDS: pantoprazole 40 mg SDV IVP (09:40)
[2022-10-21] MEDS: sodium chloride 0.9% 500 ML IV (10:14)
[2022-10-21 10:42] LABS: Troponin 5 6HR 8.08 ng/L (0-10)
[2022-10-21 11:00] LABS: Troponin 5 6HR Delta -0.92 ng/L (0-12)
--- NOTE | 2022-10-21 11:27 | ECG_ITS ---
[facility] Test Date: 2022-10-21 Pat Name: Terri Pride Department: Room: 269 Gender: Female Distance Learning Coordinator: : 1945 Requested By: Brock Ordonez Order Number: [id number] Noel MD: Caleb Romero M.D. Measurements Intervals [place] Rate: 70 P: 53 TX: 181 QRS: 38 QRSD: 69 T: 52 QT: 401 QTc: 433 Interpretive Statements SINUS RHYTHM ANTEROSEPTAL MYOCARDIAL INFARCTION , OF INDETERMINATE AGE [40+ ms Q WAVE IN V1-V4] Compared to ECG 10/21/2022 05:38:12 No significant changes Electronically Signed On 10-21-2022 14:42:09 CAT SCANNER OPERATOR by Caleb Romero M.D. [id number]
[2022-10-21] MEDS: midodrine 5 mg TABLET 10 MG PO ×3 (11:39→21:49)
--- NOTE | 2022-10-21 12:43 | P.PN_ITS ---
Subjective Subjective: Patient was seen and examined this morning she was complaining of, left rib cage pain.Also pain with inspiration, x-ray chest done this morning: Has shown: Very small left pneumothorax. Patient was also hypotensive this morning, antihypertensive medications has been kept on hold, received 1 L normal saline bolus, was also started on midodrine. Medications: Medication Review Details: Generic Name Dose Route Start Last Admin Trade Name Freq PRN Reason Stop Dose Admin Acetaminophen 650 mg 10/21/22 06:12 10/21/22 08:52 Acetaminophen 32 5 Mg Tablet PO 650 mg Q6H PRN Administration Mild/Mod Pain Or Temp >/= 101 Atorvastatin Calci um 20 mg 10/21/22 07:00 10/21/22 08:52 Atorvastatin 40 Mg Tablet PO 20 mg QAM BENY Administration Enoxaparin Sodium 40 mg 10/21/22 08:00 10/21/22 08:54 Enoxaparin 40 Mg /0.4 Ml Syringe SUBCUT 40 mg Q24H BENY Administration Escitalopram Oxala te 10 mg 10/21/22 09:00 10/21/22 08:53 Escitalopram 10 Mg Tablet PO 10 mg DAILY BENY Administration Metoprolol Tartrat e 25 mg 10/21/22 09:00 10/21/22 09:05 Metoprolol Tartr ate 25 Mg Tablet PO Not Given BID BENY Pantoprazole Sodiu m 40 mg 10/21/22 07:00 10/21/22 09:40 Pantoprazole 40 Mg Sdv IVP 40 mg Q24H BENY Administration Paroxetine HCl 30 mg 10/21/22 09:00 10/21/22 08:52 Paroxetine 20 Mg Tablet PO 30 mg DAILY BENY Administration Vitals/I&O/Wt Last Vital Signs Temp 97.2 F L 10/21/22 08:04 Pulse 70 10/21/22 08:04 Resp 15 10/21/22 08:04 BP 68/43 10/21/22 08:04 Pulse Ox 98 10/21/22 08:18 O2 Del Method 10/21/22 08:18 O2 Flow Rate 2 10/21/22 08:04 10/20/22 10/21/22 10/21/22 22:59 06:59 14:59 Intake Total 1120 / 1120 Balance 1120 / 1120 Weight last 48 hrs Weight 54.431 kg Physical Exam Const: COMMON NORMALS: patient oriented x3 HENMT: COMMON NORMALS: normocephalic and atraumatic HEAD & SCALP: normocephalic and atraumatic Chest: OTHER: Left rib cage pain Resp: OTHER: Diminished air entry in left lung field Cardio: COMMON NORMALS: regular rate, regular rhythm, S1 normal heart sound present, S2 normal heart sound present, No gallops present (Cardio), No murmurs present (Cardio), No rub (Cardio) and Peripheral pulses 2+ throughout RATE: regular rate RHYTHM: regular rhythm HEART SOUNDS: S1 normal heart sound present and S2 normal heart sound present PERIPHERAL PULSES: Peripheral pulses 2+ throughout GI: COMMON NORMALS: Normal to inspection, nondistended, normoactive bowel sounds present, Soft to palpation, non-tender, No hepatosplenomegaly present and no masses AUSCULTATION: Yes normoactive bowel sounds PALPATION: Yes Soft to palpation and Yes No hepatosplenomegaly present RECTAL EXAM: deferred Extremity: COMMON NORMALS: no clubbing, cyanosis or edema and no pedal edema Neuro: COMMON NORMALS: patient oriented x3 Data 10/21/22 04:39 10/21/22 04:39 A&P Assessment and plan (1) Pneumothorax: 77-year-old female who developed traumatic pneumothorax after falling from bed. CT chest wo con?: 2 or 3 acute left rib fractures as described with 10-15% left pneumothorax and trace left effusion. Extensive left posterior chest soft tissue air. Monitor x-ray chest Pain control Incentive spirometer Flutter valve Supplemental oxygen as needed (2) Fracture of rib: Plan as above. (3) Fall: Patient experienced what appears to be a mechanical fall, denied any chest pain, lightheadedness vertigo. (4) Hemothorax on left: (5) Hyponatremia: Monitor BMP, ensure adequate pain control to avoid SIADH development Currently she has no confusion, headache, nausea vomiting, muscle cramps, or any other clinical findings to suggest symptomatic hyponatremia. (6) Hypotension: Has received 1 L normal saline bolus, with improvement in blood pressure, has been started on midodrine. Periodic blood pressure check. Attestations Medical Necessity Statement*: Patient is still in hospital for adequate pain control, hypotension management. Coding Level of Care Code Acute Code for [facility] Diagnoses Pneumothorax J93.9 Fracture of rib S22.39XA Fall W19.XXXA Hemothorax on left J94.2 Hyponatremia E87.1 Hypotension I95.9
[2022-10-21] MEDS: ipratropium-albuterol 3 mL Neb INHALATION (13:19)
[2022-10-21] MEDS: ketorolac 30 mg/mL INJ 15 MG IVP ×2 (14:27→21:49)
[2022-10-21] MEDS: sodium chloride 0.9% 1,000 ML 50 ML IV (14:33)
[2022-10-21 14:35] LABS: Basophils % 0.5 %; Eosinophils # 0.2 10^3/uL (0.0-0.8); Eosinophils % 2.6 %; Hematocrit 36.2 % (37.0-47.0); Hemoglobin 11.7 g/dL (11.5-15.3); Lymphocytes # 3.3 10^3/uL (0.8-4.8); Lymphocytes % 41.5 %; Mean Corpuscular HGB Conc 32.3 g/dL (30.0-36.0); Mean Corpuscular Hemoglobin 33.5 pg (28.0-34.0); Mean Corpuscular Volume 103.7 fl (81-99); Monocytes # 0.7 10^3/uL (0.2-0.9); Monocytes % 8.4 %; Neutrophils # 3.74 10^3/uL (1.8-7.7); Neutrophils % 46.6 %; Nucleated Red Blood Cells % 0 %; Platelet Count 191 10^3/cmm (130-400); Red Blood Count 3.49 10^6/uL (4.1-5.3); Red Cell Distribution Width 12.7 % (12.1-15.1)
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
[2022-10-21] MEDS: lidocaine 5% Patch 1 PATCH TOPICAL (19:54)
[2022-10-22] VITALS (14 sets, daily range): BP systolic 89–186; BP diastolic 49–71; PULSE 59–90; RESP 16–20; TEMP 36.4–36.8; O2SAT 92–100
[2022-10-22 03:32] LABS: Basophils % 0.6 %; Eosinophils # 0.3 10^3/uL (0.0-0.8); Eosinophils % 6.2 %; Hemoglobin 10.8 g/dL (11.5-15.3); Lymphocytes # 1.6 10^3/uL (0.8-4.8); Lymphocytes % 31.7 %; Mean Corpuscular HGB Conc 32.7 g/dL (30.0-36.0); Mean Corpuscular Hemoglobin 34.8 pg (28.0-34.0); Mean Corpuscular Volume 106.5 fl (81-99); Mean Platelet Volume 10.5 fL (7.4-10.4); Monocytes # 0.6 10^3/uL (0.2-0.9); Monocytes % 12.2 %; Neutrophils # 2.55 10^3/uL (1.8-7.7); Neutrophils % 49.1 %; Nucleated Red Blood Cells % 0 %; Platelet Count 162 10^3/cmm (130-400); White Blood Count 5.2 10^3/uL (4.0-10.0)
[2022-10-22 04:06] LABS: Alanine Aminotransferase 11 U/L (0-33); Alkaline Phosphatase 110 U/L (35-105); Anion Gap 11.6 (5-19); Aspartate Amino Transferase 20 U/L (0-32); Blood Urea Nitrogen 11 mg/dL (8-23); Calcium 7.7 mg/dL (8.5-10.5); Carbon Dioxide 25 mmol/L (22-29); Chloride 104 mmol/L (98-107); Globulin 2.8 g/dL (1.3-4.6); Glucose 90 mg/dL (65-115); Osmolality Calculated 281 mOsm/kg (285-295); Potassium 4.6 mmol/L (3.5-5.1); Sodium 136 mmol/L (136-145); Total Bilirubin 0.4 mg/dL (0.15-1.2); Total Protein 5.8 g/dL (6.6-8.7)
[2022-10-22] MEDS: pantoprazole 40 mg SDV IVP (06:20)
[2022-10-22] MEDS: atorvastatin 40 mg Tablet 20 MG PO (06:20)
[2022-10-22] MEDS: acetaminophen 325 mg Tablet 650 MG PO (06:38)
[2022-10-22] MEDS: cyclobenzaprine 10 mg Tablet 5 MG PO ×3 (06:39→21:55)
--- NOTE | 2022-10-22 07:29 | PC.NURSE ---
Attempted to get urine specimen but patient missed the hat. -- She denied having any trouble at home or wanting to harm herself.
--- NOTE | 2022-10-22 08:22 | XRR_ITS ---
PROCEDURE INFORMATION: Exam: XR Chest Exam date and time: 10/22/2022 8:52 AM Age: 77 years old Clinical indication: Shortness of breath; Additional info: Pneumothorax TECHNIQUE: Imaging protocol: Radiologic exam of the chest. Views: 1 view. COMPARISON: CR XR chest 1V portable [id number] 10/21/2022 8:36 AM FINDINGS: Lungs: Limited inspiratory volume. Right infrahilar lower lung atelectasis developing or increasing. Opacity lower left lung is accentuated with suspected left-sided effusion. Soft tissue emphysema left chest wall persist. Pleural spaces: No dominant pneumothorax evident. Minimal right effusion at the costophrenic angle is not excluded. Heart/Mediastinum: Cardiomediastinal silhouette is similar. Bones/joints: Left rib fractures are not well delineated. Right mediastinal calcification. XR/XR chest 1V portable [id number] IMPRESSION: 1. No dominant pneumothorax. 2. Developing or increasing right infrahilar atelectasis. 3. Mild progression of infiltrate or atelectasis lower left lung with suspected left-sided effusion.
[2022-10-22] MEDS: enoxaparin 40 mg/0.4 mL Syringe SUBCUT (09:12)
[2022-10-22] MEDS: lidocaine 5% Patch 1 PATCH TOPICAL (09:13)
[2022-10-22] MEDS: escitalopram 10 mg Tablet PO (09:13)
[2022-10-22] MEDS: PARoxetine 20 mg Tablet 30 MG PO (09:14)
[2022-10-22] MEDS: sodium chloride 0.9% 1,000 ML 50 ML IV (09:14)
[2022-10-22] MEDS: morphine 4 mg/mL SDV 1 mL 2 MG IVP (09:20)
[2022-10-22] MEDS: ipratropium-albuterol 3 mL Neb INHALATION ×3 (09:55→21:13)
--- NOTE | 2022-10-22 10:24 | PC.NURSE ---
During shift change it was reported that Dr. Miller had some concerns about patient's depression, because of her history of a suicide attempt. Dr. Trujillo and this nurse went and talked with the patient about this. Per the patient she was having a blow out with her son, but he got some help and is a different boy. She currently denies repeatedly that she has any suicidal thoughts and utilizes a pill special events planner at home to keep track of her medications. She reports not taking any more than prescribed. Patient states she is happy and safe at her home. If patient improves with incentive spirometer and pain is under control can go home tomorrow.
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
[2022-10-22 14:39] LABS: Add Urine Microscopic? NO; Charge for UA Resulting for Rev
[2022-10-22] MEDS: ketorolac 30 mg/mL INJ 15 MG IVP ×2 (14:40→22:31)
[2022-10-22 14:48] LABS: Bilirubin Urine Neg (Negative); Blood Urine Neg (Negative); Glucose Urine UA Norm (Normal); Ketones Urine Negative (Negative); Leukocyte Esterase Urine Negative (Negative); Nitrate Urine Negative (Negative); Protein Urine Neg (Negative); Urine Appearance Clear (CLEAR); Urine Color Yellow (Yellow); Urobilinogen Urine Norm (Negative); pH Urine 5 (5-7)
[2022-10-22 15:00] LABS: Urine Random Sodium 19 mmol/L
--- NOTE | 2022-10-22 16:13 | PM.PN ---
Subjective Subjective: Patient was seen and examined this morning, x-ray chest has shown: No pneumothorax. She is still requiring IV Toradol, she is also requiring IV morphine,working with incentive spirometer. Complaining of left-sided chest pain. Medications: Medication Review Details: Generic Name Dose Route Start Last Admin Trade Name Freq PRN Reason Stop Dose Admin Acetaminophen 650 mg 10/21/22 06:12 10/22/22 06:38 Acetaminophen 32 5 Mg Tablet PO 650 mg Q6H PRN Administration Mild/Mod Pain Or Temp >/= 101 Albuterol/Ipratrop ium 3 ml 10/21/22 14:00 10/22/22 15:55 Ipratropium-Albu terol 3 Ml Neb INHALATION 3 ml Q6H.RESP BENY Administration Atorvastatin Calci um 20 mg 10/21/22 07:00 10/22/22 06:20 Atorvastatin 40 Mg Tablet PO 20 mg QAM BENY Administration Cyclobenzaprine HC l 5 mg 10/21/22 14:46 10/22/22 14:40 Cyclobenzaprine 10 Mg Tablet PO 5 mg TID PRN Administration MUSCLE SPASMS Enoxaparin Sodium 40 mg 10/21/22 08:00 10/22/22 09:12 Enoxaparin 40 Mg /0.4 Ml Syringe SUBCUT 40 mg Q24H BENY Administration Escitalopram Oxala te 10 mg 10/21/22 09:00 10/22/22 09:13 Escitalopram 10 Mg Tablet PO 10 mg DAILY BENY Administration Sodium Chloride 1,000 mls @ 50 ml s/hr 10/21/22 14:00 10/22/22 09:14 Sodium Chloride 0.9% IV 50 mls/hr .Q20H BENY Administration Ketorolac Trometha mine 15 mg 10/21/22 13:57 10/22/22 14:40 Ketorolac 30 Mg/ Ml Inj IVP 10/26/22 13:56 15 mg Q8H PRN Administration MODERATE PAIN Lidocaine 1 patch 10/21/22 21:00 10/22/22 09:13 Lidocaine 5% Pat ch TOPICAL 1 patch [id number] BENY Administration Metoprolol Tartrat e 25 mg 10/21/22 09:00 10/22/22 09:13 Metoprolol Tartr ate 25 Mg Tablet PO Not Given BID BENY Morphine Sulfate 2 mg 10/21/22 06:12 10/22/22 09:20 Morphine 4 Mg/Ml Sdv 1 Ml IVP 2 mg Q4H PRN Administration SEVERE PAIN Pantoprazole Sodiu m 40 mg 10/21/22 07:00 10/22/22 06:20 Pantoprazole 40 Mg Sdv IVP 40 mg Q24H BENY Administration Paroxetine HCl 30 mg 10/21/22 09:00 10/22/22 09:14 Paroxetine 20 Mg Tablet PO 30 mg DAILY BENY Administration Vitals/I&O/Wt Last Vital Signs Temp 98.1 F 10/22/22 12:00 Pulse 78 10/22/22 16:03 Resp 17 10/22/22 15:55 BP 89/54 10/22/22 12:00 Pulse Ox 94 10/22/22 15:55 O2 Del Method 10/22/22 15:55 O2 Flow Rate 2 10/22/22 15:55 10/22/22 10/22/22 10/22/22 06:59 14:59 22:59 Intake Total 140 / 1380 1174.167 / 1174.167 Output Total 0 / 0 Balance 140 / 1380 1174.167 / 1174.167 Weight last 48 hrs Weight 54.431 kg Physical Exam Const: COMMON NORMALS: patient oriented x3 HENMT: COMMON NORMALS: normocephalic and atraumatic HEAD & SCALP: normocephalic and atraumatic Chest: OTHER: Left rib cage pain Resp: OTHER: Diminished air entry in left lung field Cardio: COMMON NORMALS: regular rate, regular rhythm, S1 normal heart sound present, S2 normal heart sound present, No gallops present (Cardio), No murmurs present (Cardio), No rub (Cardio) and Peripheral pulses 2+ throughout RATE: regular rate RHYTHM: regular rhythm HEART SOUNDS: S1 normal heart sound present and S2 normal heart sound present PERIPHERAL PULSES: Peripheral pulses 2+ throughout GI: COMMON NORMALS: Normal to inspection, nondistended, normoactive bowel sounds present, Soft to palpation, non-tender, No hepatosplenomegaly present and no masses AUSCULTATION: Yes normoactive bowel sounds PALPATION: Yes Soft to palpation and Yes No hepatosplenomegaly present RECTAL EXAM: deferred Extremity: COMMON NORMALS: no clubbing, cyanosis or edema and no pedal edema Neuro: COMMON NORMALS: patient oriented x3 Data 10/22/22 02:52 10/22/22 02:52 A&P Assessment and plan (1) Pneumothorax: 77-year-old female who developed traumatic pneumothorax after falling from bed. CT chest wo con?: 2 or 3 acute left rib fractures as described with 10-15% left pneumothorax and trace left effusion. Extensive left posterior chest soft tissue air. Monitor x-ray chest Pain control Incentive spirometer Flutter valve Supplemental oxygen as needed (2) Fracture of rib: Plan as above. (3) Fall: Patient experienced what appears to be a mechanical fall, denied any chest pain, lightheadedness vertigo. (4) Hemothorax on left: (5) Hyponatremia: Monitor BMP, ensure adequate pain control to avoid SIADH development Currently she has no confusion, headache, nausea vomiting, muscle cramps, or any other clinical findings to suggest symptomatic hyponatremia. (6) Hypotension: Has received 1 L normal saline bolus, with improvement in blood pressure, has been started on midodrine. Periodic blood pressure check. Attestations Medical Necessity Statement*: Needs to be in hospital for pain control, pneumothorax management. Coding Level of Care Code Acute Code for Chg Fwd Exam Detailed Diagnoses Pneumothorax J93.9 Fracture of rib S22.39XA Fall W19.XXXA Hemothorax on left J94.2 Hyponatremia E87.1 Hypotension I95.9
--- NOTE | 2022-10-22 22:00 | PC.NURSE ---
Patient complaining of tremors all over. Patient stated she has had them, but not all over. Patient was given flexiril to help with muscle spasms. Patient was educated if shakiness does not subside to let her nurse know. Patient's nurse, VASYL Mcfadden, was notified.
[2022-10-23] VITALS (9 sets, daily range): BP systolic 106–181; BP diastolic 68–84; PULSE 71–93; RESP 16–20; TEMP 36.5–36.8; O2SAT 86–97
[2022-10-23] MEDS: sodium chloride 0.9% 1,000 ML 50 ML IV (00:49)
[2022-10-23] MEDS: acetaminophen 325 mg Tablet 650 MG PO (01:04)
[2022-10-23 03:55] LABS: Basophils % 0.2 %; Eosinophils # 0.2 10^3/uL (0.0-0.8); Eosinophils % 3.7 %; Hematocrit 29.3 % (37.0-47.0); Hemoglobin 9.5 g/dL (11.5-15.3); Lymphocytes # 1.4 10^3/uL (0.8-4.8); Lymphocytes % 26.5 %; Mean Corpuscular HGB Conc 32.4 g/dL (30.0-36.0); Mean Corpuscular Hemoglobin 34.1 pg (28.0-34.0); Mean Platelet Volume 10.3 fL (7.4-10.4); Monocytes # 0.6 10^3/uL (0.2-0.9); Monocytes % 12.2 %; Neutrophils # 2.95 10^3/uL (1.8-7.7); Nucleated Red Blood Cells % 0 %; Platelet Count 154 10^3/cmm (130-400); Red Blood Count 2.79 10^6/uL (4.1-5.3); Red Cell Distribution Width 13.1 % (12.1-15.1); White Blood Count 5.2 10^3/uL (4.0-10.0)
[2022-10-23 04:19] LABS: Alanine Aminotransferase 9 U/L (0-33); Albumin Level 2.6 g/dL (3.5-5.2); Alkaline Phosphatase 109 U/L (35-105); Anion Gap 10.3 (5-19); Aspartate Amino Transferase 21 U/L (0-32); Blood Urea Nitrogen 9 mg/dL (8-23); Calcium 7.9 mg/dL (8.5-10.5); Carbon Dioxide 24 mmol/L (22-29); Chloride 108 mmol/L (98-107); Creatinine Clr Calc Pharmacy 48.1879; Globulin 3.2 g/dL (1.3-4.6); Glucose 102 mg/dL (65-115); Osmolality Calculated 285 mOsm/kg (285-295); Potassium 4.3 mmol/L (3.5-5.1); Sodium 138 mmol/L (136-145); Total Bilirubin 0.4 mg/dL (0.15-1.2); Total Protein 5.8 g/dL (6.6-8.7)
[2022-10-23] MEDS: atorvastatin 40 mg Tablet 20 MG PO (05:58)
[2022-10-23] MEDS: ipratropium-albuterol 3 mL Neb INHALATION (08:05)
[2022-10-23] MEDS: escitalopram 10 mg Tablet PO (08:30)
[2022-10-23] MEDS: enoxaparin 40 mg/0.4 mL Syringe SUBCUT (08:30)
[2022-10-23] MEDS: pantoprazole DR 40 mg Tablet PO (08:31)
[2022-10-23] MEDS: metoprolol tartrate 25 mg Tablet PO (08:31)
[2022-10-23] MEDS: PARoxetine 20 mg Tablet 30 MG PO (08:31)
[2022-10-23] MEDS: lidocaine 5% Patch 1 PATCH TOPICAL (08:36)
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
== END 2022-10-23 12:46 | disposition home or self-care (01) ==
LOC: ER 04:59 → MEDSURG 07:07
PROVIDERS: Admitting Provider Family Medicine; Emergency Provider Emergency Medicine; PCP Family Medicine; Visit Provider Internal Medicine
DX: J93.9 Pneumothorax, unspecified (principal); S22.39XA Fracture of one rib, unspecified side, initial encounter for closed fracture; W19.XXXA Unspecified fall, initial encounter; J94.2 Hemothorax; E87.1 Hypo-osmolality and hyponatremia; I95.9 Hypotension, unspecified; Z86.73 Personal history of transient ischemic attack (TIA), and cerebral infarction without residual deficits; I25.10 Atherosclerotic heart disease of native coronary artery without angina pectoris; I10 Essential (primary) hypertension; E78.5 Hyperlipidemia, unspecified; Z87.891 Personal history of nicotine dependence; Z66 Do not resuscitate; D64.9 Anemia, unspecified; J44.9 Chronic obstructive pulmonary disease, unspecified
CPT/HCPCS: 36415; 70450; 71045; 71250; 80053; 81003; 82550; 83880; 84300; 84443; 84484; 85025; 85610; 93005; 94640; 94664; 94760; 96372; 96374; 96375; 96376; 99285; C9113; G0378; J1650; J1885; J2270; J2405; J7030; J7040

== ENCOUNTER 2022-11-01 17:49 | Inpatient (IN) | payer MEDICARE, MEDICAID, SELFPAY ==
[2022-11-01 17:51] VITALS: BP 146/102; PULSE 115; RESP 18; TEMP 36.5; O2SAT 97; BMI 32.0
--- NOTE | 2022-11-01 18:12 | CTR_ITS ---
PROCEDURE INFORMATION: Exam: CT Head Without Contrast Exam date and time: 11/01/2022 7:43 PM Age: 77 years old Clinical indication: Injury or trauma; Blunt trauma (contusions or hematomas); Patient HX: Family found patient on floor by bed today. Multiple contusions to face. Stuttered speech. Elevated wbc. Ck of 565. Base trop of 351. Had fall on 10/21/2022 resulting in left rib fracture with pneumothorax. TECHNIQUE: Imaging protocol: Computed tomography of the head without contrast. Radiation optimization: All CT scans at this facility use at least one of these dose optimization techniques: automated exposure control; mA and/or kV adjustment per patient size (includes targeted exams where dose is matched to clinical indication); or iterative reconstruction. Other protocol: This patient has received 3 known CTs and 0 known cardiac nuclear medicine studies in the 12 months prior to the current study. COMPARISON: CT head wo con* [id number] 10/21/2022 4:03 AM RADIATION DOSE METRICS: Total DLP (mGy-cm): 1082.58 FINDINGS: Brain: No hemorrhage. No edema. Moderate diffuse cerebral atrophy. No significant white matter disease. No mass effect. Cerebral ventricles: No ventriculomegaly. Paranasal sinuses: Mucosal thickening of the right maxillary sinus. The rest of the paranasal sinuses are well pneumatized. Mastoid air cells: Visualized mastoid air cells are well aerated. Bones/joints: Unremarkable. No acute fracture. Soft tissues: Unremarkable. CT/CT head wo con* [id number] IMPRESSION: No acute intracranial abnormality.
--- NOTE | 2022-11-01 18:12 | CTR_ITS ---
PROCEDURE INFORMATION: Exam: CT Cervical Spine Without Contrast Exam date and time: 11/01/2022 7:47 PM Age: 77 years old Clinical indication: Injury or trauma; Blunt trauma; Prior surgery; Surgery type: Carotid endarterectomy; Patient HX: Family found patient on floor by bed today. Multiple contusions to face. Stuttered speech. Elevated wbc. Ck of 565. Base trop of 351. Had fall on 10/21/2022 resulting in left rib fracture with pneumothorax. TECHNIQUE: Imaging protocol: Computed tomography of the cervical spine without contrast. Radiation optimization: All CT scans at this facility use at least one of these dose optimization techniques: automated exposure control; mA and/or kV adjustment per patient size (includes targeted exams where dose is matched to clinical indication); or iterative reconstruction. Other protocol: This patient has received 4 known CTs and 0 known cardiac nuclear medicine studies in the 12 months prior to the current study. COMPARISON: CT head wo con* [id number] 11/01/2022 7:43 PM RADIATION DOSE METRICS: Total DLP (mGy-cm): 159.77 FINDINGS: Bones/joints: No acute fracture. Normal alignment. No significant disc protrusion. No severe spinal canal stenosis. Lungs: Lung apices are normal. Soft tissues: Unremarkable. Other findings: Chronic fracture deformity of the medial left clavicle. CT/CT cervical spin wo con* [id number] IMPRESSION: No acute findings.
--- NOTE | 2022-11-01 18:12 | XRR_ITS ---
PROCEDURE INFORMATION: Exam: XR Chest Exam date and time: 11/01/2022 6:28 PM Age: 77 years old Clinical indication: Injury or trauma; Other: Fall, bruising, swelling; Additional info: Cp TECHNIQUE: Imaging protocol: Radiologic exam of the chest. Views: 1 view. COMPARISON: CR XR chest 1V portable [id number] 10/22/2022 8:52 AM FINDINGS: Lungs: No consolidation. Pleural spaces: No pleural effusion. No pneumothorax. Heart/Mediastinum: No cardiomegaly. Bones/joints: Left lateral 5th rib fracture. Fracture through the medial left clavicle. XR/XR chest 1V portable [id number] IMPRESSION: 1. Left lateral 5th rib fracture. 2. Fracture through the medial left clavicle.
--- NOTE | 2022-11-01 18:12 | CTR_ITS ---
PROCEDURE INFORMATION: Exam: CT Maxillofacial Without Contrast Exam date and time: 11/01/2022 7:51 PM Age: 77 years old Clinical indication: Injury or trauma; Blunt trauma (contusions or hematomas); Forehead and maxilla; Patient HX: Family found patient on floor by bed today. Multiple contusions to face. Stuttered speech. Elevated wbc. Ck of 565. Base trop of 351. Had fall on 10/21/2022 resulting in left rib fracture with pneumothorax. TECHNIQUE: Imaging protocol: Computed tomography of the face without contrast. Radiation optimization: All CT scans at this facility use at least one of these dose optimization techniques: automated exposure control; mA and/or kV adjustment per patient size (includes targeted exams where dose is matched to clinical indication); or iterative reconstruction. Other protocol: This patient has received 4 known CTs and 0 known cardiac nuclear medicine studies in the 12 months prior to the current study. COMPARISON: CT head wo con* [id number] 11/01/2022 7:43 PM RADIATION DOSE METRICS: Total DLP (mGy-cm): 537.98 FINDINGS: Orbital cavities: Orbits are normal. Globes are unremarkable. Bones/joints: No acute fracture. Paranasal sinuses: Mucosal thickening of the right maxillary sinus. The rest of the paranasal sinuses are well pneumatized. Soft tissues: Unremarkable. CT/CT facial bones wo con* [id number] IMPRESSION: No acute findings.
--- NOTE | 2022-11-01 18:14 | ECG_ITS ---
[facility] Test Date: 2022-11-01 Pat Name: Terri Pride Department: Room: Gender: Female Deck [employer]et: : 1945 Requested By: Evangelina Haynes Order Number: [id number] Reading MD: Luiza Hanley M.D. Measurements Intervals [place] Rate: 117 P: 70 [place]: 147 QRS: 35 QRSD: 73 T: 74 QT: 328 QTc: 459 Interpretive Statements SINUS TACHYCARDIA ANTERIOR MYOCARDIAL INFARCTION , OF INDETERMINATE AGE [40+ ms Q WAVE AND/OR ST/T ABNORMALITY IN V3/V4] Compared to ECG 10/21/2022 07:27:35 Sinus rhythm no longer present Myocardial infarct finding still present Electronically Signed On 11-02-2022 1:52:56 WELDER OXYHYDROGEN by Luiza Hanley M.D. [email or web address]
[2022-11-01 18:23] LABS: Glucose Point of Care 94 mg/dL (70-110)
[2022-11-01 18:30] LABS: ABG PCO2 35.1 mmHg (35-45); ABG PH Result 7.42 (7.35-7.45); Arterial Blood Gas Hematocrit 39.1 % (37-47); Base Excess ABG -1.5 mmol/L (-2.0-2.0); Blood Gas Allen Test Pos; Blood Gas Operator Identificat WALCI; Blood Gas Sample Site Radial, right; Blood Gas Sample Type Arterial; HCO3 ABG 22.6 mmol/L (22-26); Oxygen Device NC; PO2 ABG 92.8 mmHg (80.0-100.0)
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
[2022-11-01 18:33] LABS: Basophils % 0.2 %; Hematocrit 37.9 % (37.0-47.0); Hemoglobin 12.6 g/dL (11.5-15.3); Lymphocytes # 0.6 10^3/uL (0.8-4.8); Lymphocytes % 3.6 %; Mean Corpuscular HGB Conc 33.2 g/dL (30.0-36.0); Mean Corpuscular Hemoglobin 33.8 pg (28.0-34.0); Mean Corpuscular Volume 101.6 fl (81-99); Mean Platelet Volume 9.9 fL (7.4-10.4); Monocytes % 6.6 %; Neutrophils # 13.74 10^3/uL (1.8-7.7); Neutrophils % 89.1 %; Nucleated Red Blood Cells % 0 %; Platelet Count 311 10^3/cmm (130-400); Red Blood Count 3.73 10^6/uL (4.1-5.3); Red Cell Distribution Width 12.9 % (12.1-15.1); White Blood Count 15.4 10^3/uL (4.0-10.0)
--- NOTE | 2022-11-01 18:36 | XRR_ITS ---
PROCEDURE INFORMATION: Exam: XR Pelvis Exam date and time: 11/01/2022 6:40 PM Age: 77 years old Clinical indication: Injury or trauma; Other: Fall, bruising, swelling TECHNIQUE: Imaging protocol: Radiologic exam of the pelvis. Views: 1 or 2 view. COMPARISON: CT angio chest w abd pel w con 12/03/2018 1:50 PM FINDINGS: Bones/joints: No acute fracture. Soft tissues: Unremarkable. XR/XR pelvis 1-2V* [id number] IMPRESSION: No acute findings.
[2022-11-01 18:49] LABS: Alanine Aminotransferase 16 U/L (0-33); Albumin Level 3.4 g/dL (3.5-5.2); Alkaline Phosphatase 192 U/L (35-105); Anion Gap 21.9 (5-19); Aspartate Amino Transferase 41 U/L (0-32); Blood Urea Nitrogen 7 mg/dL (8-23); Calcium 9.1 mg/dL (8.5-10.5); Carbon Dioxide 23 mmol/L (22-29); Chloride 94 mmol/L (98-107); Creatinine Clr Calc Pharmacy 57.4655; Globulin 4.3 g/dL (1.3-4.6); Glucose 117 mg/dL (65-115); Osmolality Calculated 279 mOsm/kg (285-295); Potassium 3.9 mmol/L (3.5-5.1); Sodium 135 mmol/L (136-145); Total Bilirubin 0.7 mg/dL (0.15-1.2); Total Protein 7.7 g/dL (6.6-8.7)
[2022-11-01 18:50] LABS: Lactate (Lactic Acid level) 2.4 mmol/L (0.5-2.2)
[2022-11-01 18:55] LABS: Troponin(5th) Baseline 351 ng/L (0-10)
[2022-11-01 18:56] LABS: Creatine Phosphokinase 565 U/L (26-192)
--- NOTE | 2022-11-01 19:01 | CTR_ITS ---
PROCEDURE INFORMATION: Exam: CTA Chest With Contrast Exam date and time: 11/01/2022 7:58 PM Age: 77 years old Clinical indication: Injury or trauma; Generalized; Blunt trauma (contusions or hematomas); Prior surgery; Surgery type: Coronary angioplasty; Patient HX: Family found patient on floor by bed today. Multiple contusions to face. Stuttered speech. Elevated wbc. Ck of 565. Base trop of 351. Had fall on 10/21/2022 resulting in left rib fracture with pneumothorax. TECHNIQUE: Imaging protocol: Computed tomographic angiography of the chest with contrast. 3D rendering (Not supervised by radiologist): MIP and/or 3D reconstructed images were created by the technologist. Radiation optimization: All CT scans at this facility use at least one of these dose optimization techniques: automated exposure control; mA and/or kV adjustment per patient size (includes targeted exams where dose is matched to clinical indication); or iterative reconstruction. Contrast material: OMNI 350; Contrast volume: 100 ml; Contrast route: INTRAVENOUS (IV); Other protocol: This patient has received 5 known CTs and 0 known cardiac nuclear medicine studies in the 12 months prior to the current study. COMPARISON: CT angio chest PE protcl [id number] 02/06/2021 11:43 AM RADIATION DOSE METRICS: Total DLP (mGy-cm): 870.54 FINDINGS: Pulmonary arteries: Pulmonary vasculature is adequately opacified without filling defects or other evidence of acute pulmonary embolism. Aorta: Diffuse atherosclerotic changes of the thoracic aorta. No aortic aneurysm. Interval development of small left basilar pleural effusion with adjacent subsegmental atelectasis left lung base. Lungs: See Aorta finding. Pleural spaces: See Aorta finding. Heart: Heart is mildly enlarged. No significant coronary artery calcifications or pericardial effusion. Lymph nodes: Unremarkable. No enlarged lymph nodes. Bones/joints: Acute displaced fracture medial head left clavicle. Acute mildly displaced fractures involving the lateral aspects of the left 5th through 9th ribs. Stable chronic compression fracture T12. Soft tissues: Unremarkable. PROCEDURE INFORMATION: Exam: CT Abdomen And Pelvis With Contrast Exam date and time: 11/01/2022 7:58 PM Age: 77 years old Clinical indication: Injury or trauma; Generalized; Blunt trauma (contusions or hematomas); Prior surgery; Surgery type: Coronary angioplasty; Patient HX: Family found patient on floor by bed today. Multiple contusions to face. Stuttered speech. Elevated wbc. Ck of 565. Base trop of 351. Had fall on 10/21/2022 resulting in left rib fracture with pneumothorax. TECHNIQUE: Imaging protocol: Computed tomography of the abdomen and pelvis with contrast. Radiation optimization: All CT scans at this facility use at least one of these dose optimization techniques: automated exposure control; mA and/or kV adjustment per patient size (includes targeted exams where dose is matched to clinical indication); or iterative reconstruction. Contrast material: OMNI 350; Contrast volume: 100 ml; Contrast route: INTRAVENOUS (IV); Other protocol: This patient has received 5 known CTs and 0 known cardiac nuclear medicine studies in the 12 months prior to the current study. COMPARISON: CR (PELVIS, ) 11/01/2022 6:40 PM RADIATION DOSE METRICS: Total DLP (mGy-cm): 870.54 FINDINGS: Lungs: Lung bases are clear. Liver: Normal. No mass. Gallbladder and bile ducts: Normal. No calcified stones. No ductal dilation. Pancreas: Unremarkable. Main pancreatic duct is not significantly dilated. Spleen: Normal. No splenomegaly. Adrenal glands: Normal. No mass. Kidneys and ureters: Right kidney is somewhat scarred, atrophic unchanged. Left kidney is unremarkable. Stomach and bowel: Few scattered diverticula sigmoid colon. No evidence of diverticulitis. Appendix: No evidence of appendicitis. Intraperitoneal space: Unremarkable. No free air. No significant fluid collection. Vasculature: Abdominal aorta and iliac vessels are diffusely calcified. There is no aortic aneurysm. Lymph nodes: Unremarkable. No enlarged lymph nodes. Urinary bladder: There is a Banuelos catheter balloon within the urinary bladder which is collapsed and difficult to further assess. Reproductive: Uterus has been removed. Bones/joints: Moderate degenerative changes L5-S1. No acute bony abnormalities. Soft tissues: Unremarkable. CT/CT angio chest w abd pel w con IMPRESSION: 1. Negative CT angiogram of the chest. No evidence of acute pulmonary embolism. 2. Acute fractures left 5th through 9th ribs and medial head left clavicle. 3. Minimal left basilar pleural effusion with minor atelectatic changes left lung base. IMPRESSION: No acute findings within the abdomen or pelvis.
[2022-11-01] MEDS: sodium chloride 0.9% 1,000 ML 999 ML IV (19:03)
--- NOTE | 2022-11-01 19:18 | ECG_ITS ---
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 Measurements Intervals [place] Rate: 115 P: 51 HI: 153 QRS: 40 QRSD: 78 T: 62 QT: 326 QTc: 452 Interpretive Statements SINUS TACHYCARDIA POSSIBLE ANTERIOR MYOCARDIAL INFARCTION , OF INDETERMINATE AGE [30 ms Q WAVE IN V3/V4, OR R < 0.2 mV IN V4] Compared to ECG 11/01/2022 18:22:21 No significant changes Electronically Signed On 11-02-2022 1:57:59 [employer] by Luiza Hanley M.D. [id number]
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
[2022-11-01 19:32] VITALS: PULSE 105; RESP 16; O2SAT 95
[2022-11-01 19:39] LABS: Add Urine Culture? No; Add Urine Microscopic? YES; Bacteria Urine TRACE /hpf; Bilirubin Urine Neg (Negative); Blood Urine 2+ (Negative); Glucose Urine UA Norm (Normal); Ketones Urine 2+ (Negative); Leukocyte Esterase Urine Negative (Negative); Nitrate Urine Negative (Negative); Protein Urine Trace (Negative); Specific Gravity, Urine 1.015 (1.005-1.030); Squamous Epithelial Cell Urine 0-4 /hpf (0-5); Urine Appearance Clear (CLEAR); Urine Color Yellow (Yellow); Urobilinogen Urine Norm (Negative); WBC Urine 0-4 /hpf (0-5); pH Urine 6 (5-7)
[2022-11-01 19:54] LABS: D Dimer 3.07 ug/mIFEU (0-0.59)
[2022-11-01] MEDS: iohexol 350 mg/mL 500 mL Btl (per mL) IV (19:59)
[2022-11-01 20:45] VITALS: BP 125/102; PULSE 101; O2SAT 95
--- NOTE | 2022-11-01 21:04 | ECG_ITS ---
[facility] Test Date: 2022-11-01 Pat Name: Terri Pride Department: Room: Gender: Female Legal Instructor: : 1945 Requested By: Evangelina Haynes Order Number: [id number] Noel MD: Luiza Hanley M.D. Measurements Intervals [place] Rate: 120 P: 69 SC: 155 QRS: 37 QRSD: 76 T: 75 QT: 413 QTc: 584 Interpretive Statements SINUS TACHYCARDIA POSSIBLE ANTERIOR MYOCARDIAL INFARCTION , OF INDETERMINATE AGE [30 ms Q WAVE IN V3/V4, OR R < 0.2 mV IN V4] Compared to ECG 11/01/2022 19:18:57 No significant changes Electronically Signed On 11-02-2022 1:51:39 PRIZE COORDINATOR by Luiza Hanley M.D. [id number]
[2022-11-01 21:17] LABS: Troponin 5 2HR 334.8 ng/L (0-10); Troponin 5 2HR Delta -16.2 ABS# (0-10)
[2022-11-01 21:59] LABS: Glucose Point of Care 66 mg/dL (70-110)
[2022-11-01 22:04] LABS: Vitamin B12 1824 pg/mL (232-1245)
[2022-11-01] MEDS: aspirin 325 mg EC Tablet PO (22:07)
[2022-11-01] MEDS: enoxaparin 80 mg/0.8 mL Syringe SUBCUT (22:07)
[2022-11-01] MEDS: clopidogrel 300 mg Tablet PO (22:07)
[2022-11-01] MEDS: sodium chloride 0.9% 1,000 ML 75 ML IV (22:08)
[2022-11-01 22:24] VITALS: BP 140/70; PULSE 118; RESP 16; TEMP 36.6; O2SAT 91
[2022-11-01 22:25] VITALS: BP 140/70; PULSE 118; RESP 16; TEMP 36.6; O2SAT 91
[2022-11-01] MEDS: lisinopril 10 mg Tablet PO (22:48)
[2022-11-01 23:58] VITALS: BP 96/67; PULSE 116; RESP 14; TEMP 36.7; O2SAT 99
[2022-11-02] VITALS (10 sets, daily range): BP systolic 98–111; BP diastolic 55–73; PULSE 72–114; RESP 14–20; TEMP 36.6–37.6; O2SAT 91–99
[2022-11-02 00:31] LABS: Glucose Point of Care 80 mg/dL (70-110)
[2022-11-02 04:34] LABS: Basophils % 0.3 %; Eosinophils % 0.1 %; Hemoglobin 12.1 g/dL (11.5-15.3); Lymphocytes # 0.9 10^3/uL (0.8-4.8); Lymphocytes % 5.4 %; Mean Corpuscular HGB Conc 32.7 g/dL (30.0-36.0); Mean Corpuscular Hemoglobin 34.4 pg (28.0-34.0); Mean Corpuscular Volume 105.1 fl (81-99); Mean Platelet Volume 10.3 fL (7.4-10.4); Monocytes # 1.3 10^3/uL (0.2-0.9); Monocytes % 8.1 %; Neutrophils # 13.52 10^3/uL (1.8-7.7); Neutrophils % 85.6 %; Nucleated Red Blood Cells % 0 %; Platelet Count 279 10^3/cmm (130-400); Red Blood Count 3.52 10^6/uL (4.1-5.3); Red Cell Distribution Width 13.2 % (12.1-15.1); White Blood Count 15.8 10^3/uL (4.0-10.0)
[2022-11-02 04:51] LABS: Anion Gap 19.7 (5-19); Blood Urea Nitrogen 8 mg/dL (8-23); Calcium 8.4 mg/dL (8.5-10.5); Carbon Dioxide 22 mmol/L (22-29); Chloride 99 mmol/L (98-107); Glucose 87 mg/dL (65-115); Magnesium 1.3 mg/dL (1.7-2.3); Osmolality Calculated 282 mOsm/kg (285-295); Phosphorus 2.9 mg/dL (2.5-4.5); Potassium 3.7 mmol/L (3.5-5.1); Sodium 137 mmol/L (136-145)
[2022-11-02 05:54] LABS: Creatine Phosphokinase 573 U/L (26-192)
[2022-11-02] MEDS: metoprolol succinate ER (24 HR) 25 mg Tablet 12.5 MG PO (09:15)
[2022-11-02] MEDS: lisinopril 10 mg Tablet PO (09:15)
[2022-11-02] MEDS: folic acid 1 mg Tablet PO (09:15)
[2022-11-02] MEDS: clopidogrel 75 mg Tablet PO (09:17)
[2022-11-02] MEDS: aspirin 81 mg EC Tablet PO (09:17)
[2022-11-02] MEDS: thiamine 100 mg Tablet PO (09:17)
[2022-11-02] MEDS: enoxaparin 80 mg/0.8 mL Syringe SUBCUT ×2 (09:17→21:38)
[2022-11-02] MEDS: morphine IR 15 mg Tablet PO (11:40)
[2022-11-02] MEDS: sodium chloride 0.9% 1,000 ML 75 ML IV (11:41)
[2022-11-02] MEDS: lidocaine 5% Patch 1 PATCH TOPICAL (13:00)
--- NOTE | 2022-11-02 13:16 | PM.PN ---
Subjective Subjective: Seen this morning. Patient states she is not interested in going to a penitentiary but after explaining to her the reason for it and that she is unsafe at home since she has been having more frequent falls patient understands understands she will be interested at this time. Her family member was also present at bedside which was her son. Patient states she is having some pain in the ribs and would like a lidocaine patch. We will order that for her today. I was told that she was laying on the ground for about 8 hours before help arrived. CPK 573. Vitals/I&O/Wt Last Vital Signs Temp 98.0 F 11/02/22 12:00 Pulse 104 H 11/02/22 12:00 Resp 18 11/02/22 12:00 BP 102/62 11/02/22 12:00 Pulse Ox 94 11/02/22 12:00 O2 Del Method 11/02/22 12:00 O2 Flow Rate 2 11/02/22 03:18 11/01/22 11/02/22 11/02/22 22:59 06:59 14:59 Intake Total 1000 / 1000 1240 / 1240 Output Total 950 / 950 200 / 1150 Balance 50 / 50 -200 / -150 1240 / 1240 Weight last 48 hrs Weight 61.054 kg Weight 79.379 kg Physical Exam Narrative: Patient is sitting up in bed appearing comfortable at this time. Quite a few bruises on her face including her left eye. Right side of her face also has a huge rash. Currently on 2 L No active chest pain however does have discomfort when she takes a deep breath due to her rib fractures. Bilateral breath sound with rhonchi Multiple petechiae and bruises Petechial rash noted around her eyes as well, left cheek area Feet are cold, hyperemia 1+ pulses palpable Abdomen soft No active respiratory distress Family is at the bedside Patient has short attention span Urinary Catheter Management: Banuelos: Cath Placed During This Visit: yes Reason for Continuing Indwelling Catheter: Other Urinary Catheter Date of Insertion: 11/01/22 Urinary Catheter Time of Insertion: 19:15 Data 11/02/22 04:16 11/02/22 04:16 A&P Assessment and plan (1) Altered mental status: (2) NSTEMI (non-ST elevated myocardial infarction): (3) Fall: (4) Subclavian artery stenosis, left: Plan Metabolic encephalopathy Related to dehydration underlying history of alcohol abuse and dementia Continue IV fluid hydration Patient clinically looks dehydrated Continue thiamine and folic acid 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 Son denies that she has had any withdrawal symptoms or seizures or DTs. However he does state that she drinks 6 glasses of wine a day. NSTEMI Started ACS protocol No active bleed on cranial CT or CT abdomen No active chest pain EKG without ischemic or infarctive changes Significant troponin delta Check echo for any wall motion abnormality Son is not sure whether he would agree for coronary angiogram, he will make a decision in the morning once we have echo results Debilitated Physical deconditioning Alcohol abuse Son is requesting penitentiary placement Will request PT evaluation Recurrent falls likely related to alcohol abuse, no signs of PE D-dimer is high No significant anemia no sign of pneumothorax Clavicle fracture, left-sided multiple rib fractures Dehydration: Start IV fluids DNR/DNI Goals of care discussed with the family Protein calorie mild malnourishment dietary consult Had a long discussion with patient and her son. Patient is agreeable to go to a penitentiary for the time being. Attestations Medical Necessity Statement*: Patient will require continued hospitalization for management of NSTEMI, deconditioning. PT eval pending at this time. Echo pending at this time. Eventually patient to go to penitentiary once medically cleared. Coding Level of Care Code Acute Code for Chg Fwd History Expanded Problem Focused Exam Expanded Problem Focused Medical Decision Making Moderate Complexity Diagnoses Altered mental status R41.82 NSTEMI (non-ST elevated myocardial infarction) I21.4 Fall W19.XXXA Subclavian artery stenosis, left I77.1
[2022-11-02 13:53] LABS: Procalcitonin 1.65 ng/mL (0-0.5)
--- NOTE | 2022-11-02 21:22 | USCV_ITS ---
Terri Pride Age: 77 Gender: F : 1945 Exam Date: 11/02/2022 Ordering Phys: Kely Yancey MD Technologist: Benton Gutierrez Exam Location: [facility] [place] Indication: NSTEMI BP: 125 / 102 HR: 96 Rhythm: Sinus Technical Quality: Adequate MEASUREMENTS (Male / Female) Normal Values 2D ECHO LV Diastolic Diameter PLAX 4.1 cm 4.2 - 5.9 / 3.9 - 5.3 cm LV Systolic Diameter PLAX 2.3 cm IVS Diastolic Thickness 1.0 cm 0.6 - 1.0 / 0.6 - 0.9 cm IVS Systolic Thickness 1.1 cm LVPW Diastolic Thickness 1.3 cm 0.6 - 1.0 / 0.6 - 0.9 cm LVPW Systolic Thickness 1.7 cm LVOT Diameter 2.0 cm LV Ejection Fraction 2D Teich 77.4 % LV Ejection Fraction MOD 2C 64.4 % LV Ejection Fraction 2C AL 64.6 % LA Diameter 3.8 cm LA Width 2.8 cm LA Height 4.8 cm RA Width 3.3 cm RA Height 3.9 cm Aorta at Sinotubular Diameter 2.0 cm IVC Diameter 1.6 cm M-MODE Aortic Annulus Diameter 2.4 cm LA Ao Ratio MM 1.8 MV E Point Septal Separation 0.5 cm DOPPLER AV Peak Velocity 190.0 cm/s LVOT Peak Velocity 109.0 cm/s AV Area Cont Eq vti 1.9 cm squared AV Area Cont Eq pk 1.8 cm squared MV Peak Velocity 199.0 cm/s MV Area PHT 12.9 cm squared Mitral E to A Ratio 0.7 MV E' Velocity 50.0 cm/s Mitral E to LV E' Lateral Ratio 10.2 TR Peak Velocity 302.3 cm/s TR Peak Gradient 36.6 mmHg TR Mean Velocity 243.3 cm/s TR Mean Gradient 25.2 mmHg TR Velocity Time Integral 61.9 cm Right Atrial Pressure 3.0 mmHg Pulmonary Artery Systolic Pressu 39.6 mmHg PV Peak Velocity 94.0 cm/s RV Acceleration Time 0.1 s RV Ejection Time 0.2 s RV AcT/ET 0.4 FINDINGS Left Ventricle Normal left ventricular size, systolic function and wall thickness. There is mild hypokinesis of apical septal and apical lateral paetl. Left ventricular ejection fraction is estimated at 60 %. Grade I diastolic dysfunction (abnormal relaxation filling pattern), normal to mildly elevated filling pressures. Right Ventricle Normal right ventricular size and systolic function. Right ventricular systolic pressure 39.6 mmHg. Right Atrium Normal right atrial size. Left Atrium Mildly increased left atrial size. Mitral Valve Structurally normal mitral valve. Mild mitral annular calcification. No mitral valve stenosis. Trace mitral valve regurgitation. Aortic Valve Structurally normal trileaflet aortic valve. No aortic valve stenosis. No aortic valve regurgitation. Tricuspid Valve Structurally normal tricuspid valve. No tricuspid valve stenosis. Trace tricuspid valve regurgitation. Pulmonic Valve Structurally normal pulmonic valve. No pulmonary valve stenosis. Trace pulmonary valve regurgitation. Pericardium No pericardial effusion. Aorta Normal size aortic root and proximal ascending aorta. IVC Normal IVC dimension with >50% respiratory change of the inferior vena cava. CONCLUSIONS 1. Normal left ventricular size, systolic function and wall thickness. There is mild hypokinesis of apical septal and apical lateral patel. Left ventricular ejection fraction is estimated at 60 %. Grade I diastolic dysfunction (abnormal relaxation filling pattern), normal to mildly elevated filling pressures. 2. No significant valvular abnormality. 3. When compared to study dated 12/06/2018, there seems to be new regional wall motion abnormality now. Luiza Hanley MD (Electronically Signed) Final Date: 02 November 2022 20:48 S
[2022-11-03] VITALS (11 sets, daily range): BP systolic 110–155; BP diastolic 54–82; PULSE 89–108; RESP 17–26; TEMP 36.4–37.6; O2SAT 90–98
[2022-11-03] MEDS: sodium chloride 0.9% 1,000 ML 75 ML IV (01:07)
[2022-11-03 05:59] LABS: Basophils % 0.3 %; Eosinophils % 0.1 %; Hematocrit 31.8 % (37.0-47.0); Hemoglobin 10.3 g/dL (11.5-15.3); Lymphocytes # 1.2 10^3/uL (0.8-4.8); Mean Corpuscular HGB Conc 32.4 g/dL (30.0-36.0); Mean Platelet Volume 10.7 fL (7.4-10.4); Monocytes # 1.2 10^3/uL (0.2-0.9); Monocytes % 7.7 %; Neutrophils # 12.55 10^3/uL (1.8-7.7); Neutrophils % 83.2 %; Nucleated Red Blood Cells % 0 %; Platelet Count 262 10^3/cmm (130-400); Red Blood Count 3.03 10^6/uL (4.1-5.3); Red Cell Distribution Width 13.4 % (12.1-15.1); White Blood Count 15.1 10^3/uL (4.0-10.0)
[2022-11-03 06:28] LABS: Anion Gap 19.3 (5-19); Blood Urea Nitrogen 14 mg/dL (8-23); Carbon Dioxide 20 mmol/L (22-29); Chloride 109 mmol/L (98-107); Glucose 81 mg/dL (65-115); Magnesium 1.4 mg/dL (1.7-2.3); Osmolality Calculated 300 mOsm/kg (285-295); Potassium 3.3 mmol/L (3.5-5.1); Sodium 145 mmol/L (136-145)
[2022-11-03 06:33] LABS: Creatine Phosphokinase 260 U/L (26-192)
[2022-11-03] MEDS: thiamine 100 mg Tablet PO (09:53)
[2022-11-03] MEDS: enoxaparin 80 mg/0.8 mL Syringe SUBCUT ×2 (09:53→22:10)
[2022-11-03] MEDS: aspirin 81 mg EC Tablet PO (09:53)
[2022-11-03] MEDS: potassium chloride ER 20 mEq Tablet 40 MEQ PO (09:53)
[2022-11-03] MEDS: metoprolol succinate ER (24 HR) 25 mg Tablet 12.5 MG PO (09:54)
[2022-11-03] MEDS: lisinopril 10 mg Tablet PO (09:54)
[2022-11-03] MEDS: folic acid 1 mg Tablet PO (09:54)
[2022-11-03] MEDS: magnesium sulfate premix 2 GM/50 ML PIGGYBACK IV (09:55)
[2022-11-03] MEDS: clopidogrel 75 mg Tablet PO (09:55)
[2022-11-03] MEDS: lidocaine 5% Patch 1 PATCH TOPICAL (10:02)
[2022-11-03] MEDS: morphine IR 15 mg Tablet PO (10:03)
--- NOTE | 2022-11-03 11:19 | XR_ITS ---
WS: [id number] Portable AP upright chest, 11/03/2022 Clinical Data: worsening lung sounds Comparison: Portable chest, 11/01/2022 Findings: There is a patchy left lower lobe opacity which probably represents atelectasis, effusion a nd possibly pneumonia. The heart is probably enlarged. The aortic arch and descending thoracic aorta show calcification and tortuosity. No pneumothorax is seen. There are left lateral fifth through eigh th rib fractures. The pulmonary vascularity is not increased. No pneumonia or pneumothorax is seen. T he aortic arch and descending thoracic aorta show calcification and tortuosity. XR/XR chest 1V portable [id number] Impression: 1. Increase in left lower lobe opacity which probably represents atelectasis, e ffusion and possible pneumonia. 2. Cardiomegaly and atherosclerosis. 3. Left rib fractures unchanged.
[2022-11-03 12:15] LABS: Glucose Point of Care 74 mg/dL (70-110)
--- NOTE | 2022-11-03 12:25 | PM.PN ---
Subjective Subjective: seen this am pt sounds more congested this am states she feels horrible rib pain a little better CPK improved to 250 ECHO shows some wall motion abnormalities family interested in cardiology input. Vitals/I&O/Wt Last Vital Signs Temp 98.4 F 11/03/22 12:00 Pulse 99 11/03/22 12:00 Resp 18 11/03/22 12:00 BP 137/66 11/03/22 12:00 Pulse Ox 91 11/03/22 09:54 O2 Del Method 11/03/22 09:54 O2 Flow Rate 1 11/03/22 09:54 11/02/22 11/03/22 11/03/22 22:59 06:59 14:59 Intake Total 1000 / 2480 410 / 410 Output Total 400 / 400 150 / 550 Balance -400 / 1080 850 / 1930 410 / 410 Weight last 48 hrs Weight 61.054 kg Weight 79.379 kg Physical Exam Narrative: Patient is sitting up in bed not in acute distress Quite a few bruises on her face including her left eye. Right side of her face also has a huge rash. Currently on 2 L No active chest pain however does have discomfort when she takes a deep breath due to her rib fractures. Bilateral breath sound with rhonchi, mild crackles at left base. Multiple petechiae and bruises Petechial rash noted around her eyes as well, left cheek area Feet are cold, hyperemia 1+ pulses palpable Abdomen soft No active respiratory distress Urinary Catheter Management: Banuelos: Cath Placed During This Visit: yes Reason for Continuing Indwelling Catheter: Acute Urinary Retention or Obstruction Urinary Catheter Date of Insertion: 11/01/22 Urinary Catheter Time of Insertion: 19:15 Data 11/03/22 04:58 11/03/22 04:58 A&P Assessment and plan (1) Altered mental status: (2) NSTEMI (non-ST elevated myocardial infarction): (3) Fall: (4) Subclavian artery stenosis, left: Plan Metabolic encephalopathy - Improved Related to dehydration underlying history of alcohol abuse and dementia Continue thiamine and folic acid 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 Son denies that she has had any withdrawal symptoms or seizures or DTs. However he does state that she drinks 6 glasses of wine a day. Stop IV fluids NSTEMI Started ACS protocol No active bleed on cranial CT or CT abdomen No active chest pain EKG without ischemic or infarctive changes Significant troponin delta Check echo for any wall motion abnormality Son is not sure whether he would agree for coronary angiogram, he will make a decision in the morning once we have echo results Echo shows wall motion abnormalities Family interested in cardiology input. most likely pt is appropriate for medical management but will defer to cardiology for further recommendations. Son interested in angiogram. Debilitated Physical deconditioning Alcohol abuse Son is requesting group home placement PT recommends rehab Recurrent falls likely related to alcohol abuse, no signs of PE D-dimer is high No significant anemia no sign of pneumothorax Clavicle fracture, left-sided multiple rib fractures Acute on Chronic diastolic congestive heart failure Stop IV fluids. Order lasix 40 IV x1. XRAY reviewed from today DNR/DNI Goals of care discussed with the family Protein calorie mild malnourishment dietary consult Had a long discussion with patient and her son. Patient is agreeable to go to a group home for the time being. Attestations Medical Necessity Statement*: Patient will require continued hospitalization for management of NSTEMI, deconditioning. PT eval pending at this time. Echo pending at this time. Eventually patient to go to group home once medically cleared. Coding Level of Care Code Acute Code for Chg Fwd History Detailed Exam Expanded Problem Focused Medical Decision Making Moderate Complexity Diagnoses Altered mental status R41.82 NSTEMI (non-ST elevated myocardial infarction) I21.4 Fall W19.XXXA Subclavian artery stenosis, left I77.1 Time Spent (min) 25
[2022-11-03] MEDS: FUROsemide 10 mg/mL SDV 4mL 40 MG IVP (12:50)
--- NOTE | 2022-11-03 15:33 | PM.MISC ---
Miscellaneous Note Note: Will be seen by nurse upon request. Patient sounds very congested at this time. There is suspicion that she had may have aspirated. RN reports that patient had trouble swallowing this morning with her pills and water. She also appeared fluid overloaded. Patient was given 40 of Lasix earlier today. She has diuresed 800 cc of urine at this time. However still sounds very rhonchorous. Evaluated patient at bedside. Rhonchi bilaterally worse on right side base than left. I also a suspicion patient may have aspirated. She is also confused at this time. Alert and only oriented to self. We will put in for speech swallow evaluation Solu-Medrol 40x1 DuoNeb every 6 hours scheduled As needed suctioning as required Discussed CODE STATUS with son who is at bedside. He states that he is okay with intubation however no CPR. He says he is talked to his mother about this as well and that is what they would like to do. Patient is able to move all 4 extremities. Face is symmetrical. No focal neurological deficits. Speech however seems to be a little bit garbled. Unsure if she is doing that because she is confused or this is a sign of a stroke. We will check head CT. I will add Zosyn empirically at this time. Check sputum Gram stain culture. Procalcitonin 1.65. Check urine culture as well
[2022-11-03] MEDS: ipratropium-albuterol 3 mL Neb INHALATION ×2 (15:35→21:08)
--- NOTE | 2022-11-03 15:38 | CTR_ITS ---
PROCEDURE INFORMATION: Exam: CT Head Without Contrast Exam date and time: 11/03/2022 5:04 PM Age: 77 years old Clinical indication: Speech disturbance; Additional info: Somewhat garbled speech, however altered as well TECHNIQUE: Imaging protocol: Computed tomography of the head without contrast. Radiation optimization: All CT scans at this facility use at least one of these dose optimization techniques: automated exposure control; mA and/or kV adjustment per patient size (includes targeted exams where dose is matched to clinical indication); or iterative reconstruction. Other protocol: This patient has received 6 known CTs and 0 known cardiac nuclear medicine studies in the 12 months prior to the current study. COMPARISON: CT head wo con* [id number] 11/01/2022 7:43 PM RADIATION DOSE METRICS: Total DLP (mGy-cm): 806.28 FINDINGS: Brain: No acute infarct. No hemorrhage. Stable involutional changes of the brain. No mass effect. Cerebral ventricles: No ventriculomegaly. Paranasal sinuses: Scattered paranasal sinus mucosal thickening, without air-fluid level present. Mastoid air cells: Visualized mastoid air cells are well aerated. Bones/joints: Unremarkable. No acute fracture. Soft tissues: Unremarkable. CT/CT head wo con* [id number] IMPRESSION: Stable exam. No acute intracranial abnormality.
[2022-11-03 16:47] LABS: Glucose Point of Care 73 mg/dL (70-110)
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
[2022-11-03] MEDS: piperacillin-tazobactam 3.375 GM in sodium chloride 0.9% (plus) 50 ML IV ×2 (17:15→23:07)
[2022-11-03 20:28] LABS: Glucose Point of Care 87 mg/dL (70-110)
[2022-11-03] MEDS: FUROsemide 10 mg/mL SDV 2mL 20 MG IVP (20:35)
[2022-11-04] VITALS (12 sets, daily range): BP systolic 94–129; BP diastolic 54–70; PULSE 87–103; RESP 15–24; TEMP 36.7–37.6; O2SAT 23–98
[2022-11-04 01:00] LABS: ABG PCO2 41.7 mmHg (35-45); ABG PH Result 7.41 (7.35-7.45); Arterial Blood Gas Hematocrit 36.6 % (37-47); Base Excess ABG 1.3 mmol/L (-2.0-2.0); Blood Gas Allen Test Pos; Blood Gas Sample Type Arterial; HCO3 ABG 26.2 mmol/L (22-26); PO2 ABG 70.7 mmHg (80.0-100.0)
[2022-11-04 01:01] LABS: Blood Gas Sample Site Brachial, right; Oxygen Device BIPAP
[2022-11-04] MEDS: ipratropium-albuterol 3 mL Neb INHALATION ×3 (02:44→21:15)
--- NOTE | 2022-11-04 05:30 | PC.NURSE ---
Patient started becoming more alert. Patient getting anxious with bipap mask, beginning to pull at it. Bipap was removed at 0515 and patient was placed back on 5L NC.
[2022-11-04 05:54] LABS: Hematocrit 37.5 % (37.0-47.0); Hemoglobin 12.2 g/dL (11.5-15.3); Mean Corpuscular HGB Conc 32.5 g/dL (30.0-36.0); Mean Corpuscular Hemoglobin 33.8 pg (28.0-34.0); Mean Corpuscular Volume 103.9 fl (81-99); Mean Platelet Volume 10.8 fL (7.4-10.4); Platelet Count 333 10^3/cmm (130-400); Red Blood Count 3.61 10^6/uL (4.1-5.3); Red Cell Distribution Width 13.6 % (12.1-15.1)
[2022-11-04 05:57] LABS: Anion Gap 21.4 (5-19); Blood Urea Nitrogen 20 mg/dL (8-23); Carbon Dioxide 22 mmol/L (22-29); Chloride 110 mmol/L (98-107); Creatine Phosphokinase 87 U/L (26-192); Glucose 101 mg/dL (65-115); Magnesium 1.7 mg/dL (1.7-2.3); Osmolality Calculated 313 mOsm/kg (285-295); Potassium 3.4 mmol/L (3.5-5.1); Sodium 150 mmol/L (136-145)
[2022-11-04] MEDS: lanolin oint 7 gm 1 APPLIC TOPICAL (06:14)
[2022-11-04 06:27] LABS: Total Cells Counted 100 (0-100)
[2022-11-04 06:28] LABS: Absolute Neutrophil 16.9 10^3/cmm (1.4-6.5); Absolute Segmented Neutrophil 11.9 10/cmm (1.6-7.1); Eosinophils 0 %; Lymphocytes 2 %; Lymphocytes Absolute 0.4 10^3/cmm (1.2-3.4); Monocytes Absolute 0.7 10^3/cmm (0.1-0.6); Platelet Estimate Normal (Normal); Segmented Neutrophils 66 %
[2022-11-04 07:00] LABS: Glucose Point of Care 105 mg/dL (70-110)
--- NOTE | 2022-11-04 08:46 | XR_ITS ---
WS: [id number] Portable AP upright chest, 11/04/2022 Clinical Data: shortness of breath Comparison: Portable chest, 11/03/2022 Findings: The patchy opacity in the left lower lobe remains the same. There is minimal patchy opacity in the left upper lobe which is increased slightly. The heart is probably enlarged. There is a dextr oscoliosis. The aortic arch and descending thoracic aorta show tortuosity. The right lung shows minim al opacities unchanged. The left rib fractures remain the same. No pneumothorax is seen. There are mo nitor leads on the chest wall. XR/XR chest 1V portable [id number] Impression: 1. No change in patchy left lower lobe opacity. 2. Cardiomegaly and atherosclerosis. 3. Minimal patchy left upper lobe opacity. 4. No change in left rib fractures.
--- NOTE | 2022-11-04 08:57 | PC.SOCIAL ---
IMM Update pg 2 of IMM updated and reviewed w/ patient and her son. Copy provided and copy dated, initialed and placed in chart.
[2022-11-04] MEDS: piperacillin-tazobactam 3.375 GM in sodium chloride 0.9% (plus) 50 ML IV ×3 (09:33→23:47)
[2022-11-04] MEDS: thiamine 100 mg Tablet PO (09:34)
[2022-11-04] MEDS: morphine IR 15 mg Tablet PO (09:34)
[2022-11-04] MEDS: aspirin 81 mg EC Tablet PO (09:35)
[2022-11-04] MEDS: lisinopril 10 mg Tablet PO (09:35)
[2022-11-04] MEDS: folic acid 1 mg Tablet PO (09:35)
[2022-11-04] MEDS: clopidogrel 75 mg Tablet PO (09:35)
[2022-11-04] MEDS: dextrose 5% 1,000 ML 30 ML IV (09:36)
[2022-11-04] MEDS: lidocaine 5% Patch 1 PATCH TOPICAL (09:37)
[2022-11-04] MEDS: enoxaparin 80 mg/0.8 mL Syringe SUBCUT ×2 (09:39→20:24)
[2022-11-04] MEDS: metoprolol succinate ER (24 HR) 25 mg Tablet 12.5 MG PO (09:39)
[2022-11-04] MEDS: vancomycin 1,000 MG in sodium chloride 0.9% 250 ML 250 MG IV (09:47)
--- NOTE | 2022-11-04 11:56 | P.PN_ITS ---
Subjective Subjective: Seen this morning. Overnight patient required BiPAP. She was also given Lasix 20 IV x1. She feels a lot better this morning. Much more coherent clear speech. Mental status improved. Son very happy at bedside seeing improvement. Lungs are a lot better as well. On labs however she does have a bandemia of 28%, increased absolute neutrophil count and increased WBC count at 18. She did also get steroids yesterday. Blood culture, urine culture was obtained yesterday. Sodium 150 this morning. Potassium 3.4. 1700 cc urine output since yesterday. Vitals/I&O/Wt Last Vital Signs Temp 98.6 F 11/04/22 08:00 Pulse 103 H 11/04/22 08:00 Resp 18 11/04/22 09:34 BP 129/54 11/04/22 08:00 Pulse Ox 93 11/04/22 08:00 O2 Del Method 11/04/22 07:41 O2 Flow Rate 5 11/04/22 07:41 FiO2 50 11/04/22 04:11 11/03/22 11/04/22 11/04/22 22:59 06:59 14:59 Intake Total 1050 / 1460 50 / 1510 250 / 250 Output Total 1175 / 1375 400 / 1775 Balance -125 / 85 -350 / -265 250 / 250 Physical Exam Narrative: Patient is sitting up in bed not in acute distress Quite a few bruises on her face including her left eye. Right side of her face also has a huge rash. Currently on 5L No active chest pain however does have discomfort when she takes a deep breath due to her rib fractures. Bilateral breath sound with rhonchi, however much improved compared to yeste rday. Multiple petechiae and bruises Petechial rash noted around her eyes as well, left cheek area Feet are cold, hyperemia 1+ pulses palpable Abdomen soft No active respiratory distress Appears slightly dehydrated this morning. Urinary Catheter Management: Banuelos: Cath Placed During This Visit: yes Reason for Continuing Indwelling Catheter: Accurate Measurement of Urinary Output in Critically Ill Patients Urinary Catheter Date of Insertion: 11/01/22 Urinary Catheter Time of Insertion: 19:15 Data 11/04/22 04:35 11/04/22 04:35 Micro: Microbiology 11/03/22 18:05 Urine Culture - Preliminary Urine Catheterized Gram Negative Rods 11/03/22 16:15 Blood Culture - Preliminary Blood 11/03/22 16:17 Blood Culture - Preliminary Blood A&P Assessment and plan (1) Altered mental status: (2) NSTEMI (non-ST elevated myocardial infarction): (3) Fall: (4) Subclavian artery stenosis, left: Plan Metabolic encephalopathy - Improved Related to dehydration underlying history of alcohol abuse and dementia Continue thiamine and folic acid 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 Son denies that she has had any withdrawal symptoms or seizures or DTs. However he does state that she drinks 6 glasses of wine a day. Stop IV fluids NSTEMI, most likely demand ischemia. Was on ACS protocol. No active bleed on cranial CT or CT abdomen No active chest pain EKG without ischemic or infarctive changes Significant troponin delta Echo shows wall motion abnormalities Patient seen by cardiology. Patient is not a candidate for angiogram at this time due to her respiratory status. Medical management has been recommended at this time. We will stop therapeutic Lovenox. Switch to DVT prophylaxis dose. Continue aspirin, Plavix. Debilitated Physical deconditioning Alcohol abuse Son is requesting long term placement PT recommends rehab Recurrent falls likely related to alcohol abuse, no signs of PE D-dimer is high No significant anemia no sign of pneumothorax Clavicle fracture, left-sided multiple rib fractures Acute on Chronic diastolic congestive heart failure Patient did receive Lasix 40 IV x1 and then another Lasix 20 IV overnight. Required BiPAP. However he is now transition back to 5 L nasal cannula. Hypernatremia Sodium 150. D5 water at 50 cc/h to be added. Leukocytosis, bandemia most likely secondary to aspiration event ? Check blood cultures Sputum Gram/stain culture Urine culture He does have a bandemia and increasing leukocytosis. Patient also got steroids yesterday. This may be infection. Procalcitonin also high at 1.65. Continue on broad-spectrum antibiotics vancomycin and Zosyn at this time. Wait for cultures to finalize. May de-escalate based on clinical judgment. DNR. Okay for intubation as per patient's son. Goals of care discussed with the family done on 11/03/1911/21/2022. Protein calorie mild malnourishment dietary consult Had a long discussion with patient and her son. Patient is agreeable to go to a long term for the time being. Attestations Medical Necessity Statement*: Continue hospitalization with IV antibiotics at this time. Eventually discharged to long term. Coding Level of Care Code Acute Code for Chg Fwd Diagnoses Altered mental status R41.82 NSTEMI (non-ST elevated myocardial infarction) I21.4 Fall W19.XXXA Subclavian artery stenosis, left I77.1
--- NOTE | 2022-11-04 19:39 | PC.NURSE ---
Patient is on 5L nasal cannula
--- NOTE | 2022-11-04 23:22 | P.PN_ITS ---
Subjective Subjective: Patient is stable. Needed BiPAP. Vitals/I&O/Wt Last Vital Signs Temp 98.0 F 11/04/22 20:00 Pulse 92 11/04/22 21:17 Resp 16 11/04/22 21:17 BP 94/61 11/04/22 20:00 Pulse Ox 94 11/04/22 21:17 O2 Del Method 11/04/22 21:17 O2 Flow Rate 5 11/04/22 20:00 FiO2 40 11/04/22 21:17 11/04/22 11/04/22 11/05/22 14:59 22:59 06:59 Intake Total 300 / 300 100 / 400 Output Total 250 / 250 Balance 300 / 300 -150 / 150 Physical Exam Narrative: GENERAL: Patient is alert NECK: No jugular vein distension. [] HEENT: No cyanosis. No icterus. No pallor. [] HEART: Regular S1 and S2. Grade 2/6 systolic murmur LUNGS: Diminished breath sounds CENTRAL NERVOUS SYSTEM: Grossly nonfocal. [] EXTREMITIES: Lower extremities with 1+ edema bilaterally. Urinary Catheter Management: Banuelos: Cath Placed During This Visit: yes Reason for Continuing Indwelling Catheter: Other Urinary Catheter Date of Insertion: 11/01/22 Urinary Catheter Time of Insertion: 19:15 Data 11/04/22 04:35 11/04/22 04:35 Micro: Microbiology 11/03/22 18:05 Urine Culture - Preliminary Urine Catheterized Gram Negative Rods 11/03/22 16:15 Blood Culture - Preliminary Blood 11/03/22 16:17 Blood Culture - Preliminary Blood A&P Assessment and plan (1) CVA (cerebral vascular accident): (2) S/P PTCA (percutaneous transluminal coronary angioplasty): (3) S/P carotid endarterectomy: (4) Troponin level elevated: Plan Patient is feeling better. Can use Lasix as needed. Medical therapy for CAD. Thank you for involving us with care of this patient. Please call with questions. Attestations Medical Necessity Statement*: Care expected to cross 2 midnights. Coding Level of Care Code Acute Code for [facility] Fwd Diagnoses CVA (cerebral vascular accident) I63.9 S/P PTCA (percutaneous transluminal coronary angioplasty) Z98.61 S/P carotid endarterectomy Z98.890 Troponin level elevated R77.8
[2022-11-05] VITALS (9 sets, daily range): BP systolic 99–124; BP diastolic 61–76; PULSE 88–99; RESP 18–24; TEMP 36.6–36.8; O2SAT 91–98
--- NOTE | 2022-11-05 01:39 | PC.NURSE ---
Patient is alert to name and place her speech is unclear and garbled. 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 This nurse repositioned the patient and she stated that she is in no pain and now more comfortable. was notified that the patient seems to be more confused through the night.
[2022-11-05] MEDS: ipratropium-albuterol 3 mL Neb INHALATION (02:46)
[2022-11-05 04:57] LABS: Basophils % 0.2 %; Hematocrit 33.7 % (37.0-47.0); Hemoglobin 10.6 g/dL (11.5-15.3); Lymphocytes % 5.6 %; Mean Corpuscular HGB Conc 31.5 g/dL (30.0-36.0); Mean Corpuscular Hemoglobin 32.9 pg (28.0-34.0); Mean Corpuscular Volume 104.7 fl (81-99); Mean Platelet Volume 10.9 fL (7.4-10.4); Monocytes # 1.3 10^3/uL (0.2-0.9); Monocytes % 6.8 %; Neutrophils # 16.28 10^3/uL (1.8-7.7); Neutrophils % 86.9 %; Nucleated Red Blood Cells % 0 %; Platelet Count 277 10^3/cmm (130-400); Red Blood Count 3.22 10^6/uL (4.1-5.3); Red Cell Distribution Width 13.6 % (12.1-15.1); White Blood Count 18.7 10^3/uL (4.0-10.0)
[2022-11-05 05:15] LABS: Anion Gap 11.8 (5-19); Blood Urea Nitrogen 32 mg/dL (8-23); Calcium 9.1 mg/dL (8.5-10.5); Carbon Dioxide 28 mmol/L (22-29); Chloride 112 mmol/L (98-107); Glucose 147 mg/dL (65-115); Magnesium 1.9 mg/dL (1.7-2.3); Osmolality Calculated 318 mOsm/kg (285-295); Sodium 149 mmol/L (136-145)
[2022-11-05 05:27] LABS: Potassium 2.8 mmol/L (3.5-5.1)
--- NOTE | 2022-11-05 05:46 | PC.NURSE ---
Potassium level of 2.8 reported to at this time.
[2022-11-05] MEDS: lidocaine 1% 5 ML in potassium chloride premix 100 ML 26.25 ML IV (07:04)
--- NOTE | 2022-11-05 08:57 | PM.PN ---
Subjective Subjective: Seen this morning. No acute events overnight. Patient feeling better. Anemia has resolved. WBC count starting to come down. Potassium low this morning at 2.8, sodium 149. Chloride 112. Vitals/I&O/Wt Last Vital Signs Temp 98.2 F 11/05/22 08:00 Pulse 94 11/05/22 08:00 Resp 18 11/05/22 08:00 BP 124/76 11/05/22 08:00 Pulse Ox 98 11/05/22 08:00 O2 Del Method 11/05/22 07:55 O2 Flow Rate 4 11/05/22 07:55 FiO2 40 11/04/22 21:17 11/04/22 11/05/22 11/05/22 22:59 06:59 14:59 Intake Total 160 / 460 50 / 510 Output Total 250 / 250 475 / 725 Balance -90 / 210 -425 / -215 Physical Exam Narrative: Patient is sitting up in bed not in acute distress Quite a few bruises on her face including her left eye. Right side of her face also has a huge rash. Currently on 4L No active chest pain however does have discomfort when she takes a deep breath due to her rib fractures. Bilateral breath sound with rhonchi, however much improved compared to yesterday. Multiple petechiae and bruises Petechial rash noted around her eyes as well, left cheek area Feet are cold, hyperemia 1+ pulses palpable Abdomen soft No active respiratory distress Still appears dehydrated. Urinary Catheter Management: Banuelos: Cath Placed During This Visit: yes Reason for Continuing Indwelling Catheter: Other Urinary Catheter Date of Insertion: 11/01/22 Urinary Catheter Time of Insertion: 19:15 Data 11/05/22 04:29 11/05/22 04:29 Micro: Microbiology 11/03/22 18:05 Urine Culture - Preliminary Urine Catheterized Gram Negative Rods 11/03/22 16:15 Blood Culture - Preliminary Blood 11/03/22 16:17 Blood Culture - Preliminary Blood A&P Assessment and plan (1) Altered mental status: (2) NSTEMI (non-ST elevated myocardial infarction): (3) Fall: (4) Subclavian artery stenosis, left: Plan Metabolic encephalopathy - Improved Related to dehydration underlying history of alcohol abuse and dementia Continue thiamine and folic acid 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 Son denies that she has had any withdrawal symptoms or seizures or DTs. However he does state that she drinks 6 glasses of wine a day. NSTEMI, most likely demand ischemia. Was on ACS protocol. No active bleed on cranial CT or CT abdomen No active chest pain EKG without ischemic or infarctive changes Significant troponin delta Echo shows wall motion abnormalities Patient seen by cardiology. Patient is not a candidate for angiogram at this time due to her respiratory status. Medical management has been recommended at this time. We will stop therapeutic Lovenox. Switch to DVT prophylaxis dose. Continue aspirin, Plavix. Debilitated Physical deconditioning Alcohol abuse Son is requesting skilled nursing placement PT recommends rehab Recurrent falls likely related to alcohol abuse, no signs of PE D-dimer is high No significant anemia no sign of pneumothorax Clavicle fracture, left-sided multiple rib fractures Acute on Chronic diastolic congestive heart failure Patient did receive Lasix 40 IV x1 and then another Lasix 20 IV overnight. Required BiPAP. However he is now transition back to 5 L nasal cannula. Hypernatremia Sodium 150. D5 water at 50 cc/h to be added. Sodium slowly improving. 149 this AM. Continue D5 water at this time. Hypokalemia Potassium 2.8 today. 40 IV given. 40 oral also administered. Will repeat tomorrow morning. Leukocytosis, bandemia most likely secondary to aspiration event ? Check blood cultures?pending Sputum Gram/stain culture?pending Urine culture?pending He does have a bandemia and increasing leukocytosis. Patient also got steroids yesterday. This may be infection. Procalcitonin also high at 1.65. Continue on broad-spectrum antibiotics vancomycin and Zosyn at this time. Wait for cultures to finalize. May de-escalate based on clinical judgment. -Continue Vantin Zosyn at this time until more culture data available. We will also recheck procalcitonin in AM. Clinically patient is improving. Bandemia has resolved. DNR. Okay for intubation as per patient's son. Goals of care discussed with the family done on 11/03/1911/21/2022. Protein calorie mild malnourishment dietary consult Had a long discussion with patient and her son. Patient is agreeable to go to a skilled nursing for the time being. Attestations Medical Necessity Statement*: Continued hospitalization with IV antibiotics at this time. Eventually patient to go to a skilled nursing. Case management working on finding placement. I suspect that patient may be able to medically discharge in another 48 hours. Coding Level of Care Code Acute Code for Chg Fwd Diagnoses Altered mental status R41.82 NSTEMI (non-ST elevated myocardial infarction) I21.4 Fall W19.XXXA Subclavian artery stenosis, left I77.1
[2022-11-05] MEDS: potassium chloride oral liq 20 mEq/15 mL UDC 40 MEQ PO (09:17)
[2022-11-05] MEDS: vancomycin 1,000 MG in sodium chloride 0.9% 250 ML 250 MG IV (09:18)
[2022-11-05] MEDS: thiamine 100 mg Tablet PO (09:19)
[2022-11-05] MEDS: clopidogrel 75 mg Tablet PO (09:19)
[2022-11-05] MEDS: lisinopril 10 mg Tablet PO (09:19)
[2022-11-05] MEDS: folic acid 1 mg Tablet PO (09:20)
[2022-11-05] MEDS: aspirin 81 mg EC Tablet PO (09:20)
[2022-11-05] MEDS: metoprolol succinate ER (24 HR) 25 mg Tablet 12.5 MG PO (09:20)
[2022-11-05] MEDS: piperacillin-tazobactam 3.375 GM in sodium chloride 0.9% (plus) 50 ML IV ×2 (11:15→18:24)
[2022-11-05] MEDS: acetaminophen 500 mg Tablet PO ×2 (11:23→18:23)
--- NOTE | 2022-11-05 20:26 | PC.NURSE ---
Patient A&O to name, , and location. Was confused on date and year. Patient's left eye reactive to light, however, right eye unreactive--patient reports cataract surgery on right eye. 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 Patient able to perform [id number] test and hold arms out with difficulty. Patient able to press and pull against nurse's hands, demonstrating strength in bilateral lower extremities. Foxa-[id number] performed. When asked to smile, patient presented with weak smile and was unable to stick tongue out beyond teeth. Patient's anterior lungs auscultated clear yet diminished bilaterally, intermittent cough present that is reported by patient to be unproductive. Saturating in in upper 90s on 3L NC humidified. Bowel sounds present in all quadrants, palpated to be soft however patient reports abdomen tender. Pedal pulses weak, and lower and upper extremities cool to touch--patient reports not feeling cool. Bruise on left knee, right grossman, on top of right foot and on face. When asked if patient could roll onto side so nurse could examine bottom and back for any other wounds or bruises, patient reported inability to do so. Back and sacrum not examined at this time. IV site in right wrist examined; redness and nonpitting edema present, however patient does not report pain at IV site. IV site draws back blood and flushes normally. Patient intermittently moans and leans predominantly to right side. Patient left resting in bed, with both side rails up, call light and bedside table within reach. No further needs at this time.
--- NOTE | 2022-11-05 21:00 | PC.NURSE ---
Patient helped up to BSC with 2 assist, demonstrates moderate weakness. Bottom and back examined; right buttock slightly red but no skin breakdown present, open to air. Left shoulder has bruising present. Patient had small, soft BM this evening. Patient given call light, bedside table within reach and stated no further needs at this time.
--- NOTE | 2022-11-05 21:13 | PC.NURSE ---
Bedding linens changed for patient comfort.
[2022-11-06] VITALS (7 sets, daily range): BP systolic 101–139; BP diastolic 62–75; PULSE 78–87; RESP 15–24; TEMP 35.9–36.8; O2SAT 96–100
[2022-11-06] MEDS: acetaminophen 500 mg Tablet PO ×4 (00:30→16:01)
[2022-11-06] MEDS: dextrose 5% 1,000 ML 60 ML IV ×2 (01:32→22:27)
--- NOTE | 2022-11-06 01:51 | PC.NURSE ---
Patient requested something to help her sleep. Dr Wolfe instructed nurse to try Restoril 15mg once.
[2022-11-06] MEDS: temazepam 15 mg Capsule PO (01:59)
[2022-11-06] MEDS: piperacillin-tazobactam 3.375 GM in sodium chloride 0.9% (plus) 50 ML IV (04:23)
[2022-11-06 04:36] LABS: Basophils % 0.2 %; Eosinophils # 0.2 10^3/uL (0.0-0.8); Eosinophils % 0.9 %; Hematocrit 31.3 % (37.0-47.0); Hemoglobin 9.9 g/dL (11.5-15.3); Lymphocytes # 1.7 10^3/uL (0.8-4.8); Lymphocytes % 9.1 %; Mean Corpuscular HGB Conc 31.6 g/dL (30.0-36.0); Mean Corpuscular Hemoglobin 32.8 pg (28.0-34.0); Mean Corpuscular Volume 103.6 fl (81-99); Mean Platelet Volume 11.1 fL (7.4-10.4); Monocytes # 1.4 10^3/uL (0.2-0.9); Monocytes % 7.6 %; Neutrophils # 14.73 10^3/uL (1.8-7.7); Neutrophils % 81.5 %; Nucleated Red Blood Cells % 0 %; Platelet Count 245 10^3/cmm (130-400); Red Blood Count 3.02 10^6/uL (4.1-5.3); Red Cell Distribution Width 13.6 % (12.1-15.1); White Blood Count 18.1 10^3/uL (4.0-10.0)
[2022-11-06 05:54] LABS: Blood Urea Nitrogen 29 mg/dL (8-23); Calcium 8.9 mg/dL (8.5-10.5); Carbon Dioxide 25 mmol/L (22-29); Chloride 107 mmol/L (98-107); Glucose 96 mg/dL (65-115); Osmolality Calculated 292 mOsm/kg (285-295); Sodium 138 mmol/L (136-145)
[2022-11-06 05:57] LABS: Anion Gap 9.4 (5-19); Potassium 3.4 mmol/L (3.5-5.1)
[2022-11-06] MEDS: clopidogrel 75 mg Tablet PO (08:30)
[2022-11-06] MEDS: metoprolol succinate ER (24 HR) 25 mg Tablet 12.5 MG PO (08:30)
[2022-11-06] MEDS: lisinopril 10 mg Tablet PO (08:30)
[2022-11-06] MEDS: aspirin 81 mg EC Tablet PO (08:31)
[2022-11-06] MEDS: thiamine 100 mg Tablet PO (08:31)
[2022-11-06] MEDS: folic acid 1 mg Tablet PO (08:31)
[2022-11-06] MEDS: lidocaine 5% Patch 1 PATCH TOPICAL ×2 (08:47→22:40)
[2022-11-06] MEDS: vancomycin 1,000 MG in sodium chloride 0.9% 250 ML 250 MG IV (09:05)
--- NOTE | 2022-11-06 09:09 | PC.SOCIAL ---
IMM Update IMM updated with patient. Verbalized an understanding. Copy pg 2 provided. Initialled, dated, timed, and placed in chart.
[2022-11-06] MEDS: cefTRIAXone 1,000 MG in sodium chloride 0.9% (plus) 50 ML 100 MG IV (12:05)
--- NOTE | 2022-11-06 15:59 | P.PN_ITS ---
Subjective Subjective: Blood cx positive from 11/03, initially on Gram stain organism was identified as budding yeast, final identification appears to be group A strep. Confirmed with micro tech today, initial Gram stain unlikely to be yeast. Group A strep would be the true identification. Results will be corrected in the system. Patient generalized weak. Was able to get out of bed earlier today with assistance. Medications: Reviewed: Yes Vitals/I&O/Wt Last Vital Signs Temp 98.3 F 11/06/22 15:49 Pulse 82 11/06/22 15:49 Resp 15 11/06/22 15:49 BP 121/72 11/06/22 11:52 Pulse Ox 96 11/06/22 15:49 O2 Del Method 11/06/22 15:49 O2 Flow Rate 2.5 11/05/22 16:00 FiO2 40 11/04/22 21:17 11/06/22 11/06/22 11/06/22 06:59 14:59 22:59 Intake Total 480 / 3245 590 / 590 Output Total 350 / 600 Balance 130 / 2645 590 / 590 Physical Exam Narrative: General: Chronically ill-appearing lady chronically ill-appearing lady, frail, laying in bed, multiple bruises over face HEENT: PERRLA, pupils bilaterally equal and reactive, pallors not present Chest: Normal vesicular breath sounds, no added sounds, equal good air entry bilaterally CVS: S1-S2 regular, no murmurs, no tachycardia, no gallops, no rubs Abdomen: Soft, nontender, no organomegaly, bowel sounds present Neuro: No focal deficits, no facial deformity, AO x3, power 5/5 in all limbs Urinary Catheter Management: Banuelos: Cath Placed During This Visit: yes Reason for Continuing Indwelling Catheter: Other Urinary Catheter Date of Insertion: 11/01/22 Urinary Catheter Time of Insertion: 19:15 Data 11/06/22 04:00 11/06/22 05:27 Micro: Microbiology 11/03/22 16:15 Blood Culture - Final Blood Strep pyogenes (grp a) 11/03/22 16:17 Blood Culture - Final Blood Strep pyogenes (grp a) 11/06/22 12:40 Blood Culture - Preliminary Blood SPECIMEN COLLECTED 11/06/22 11:58 Blood Culture - Preliminary Blood SPECIMEN COLLECTED 11/03/22 18:05 Urine Culture - Final Urine Catheterized Escherichia coli A&P Assessment and plan (1) Altered mental status: (2) NSTEMI (non-ST elevated myocardial infarction): (3) Fall: (4) Subclavian artery stenosis, left: Plan Metabolic encephalopathy - Improved Related to dehydration underlying history of alcohol abuse and dementia Continue thiamine and folic acid 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 Son denies that she has had any withdrawal symptoms or seizures or DTs. However he does state that she drinks 6 glasses of wine a day. NSTEMI, most likely demand ischemia. Was on ACS protocol. No active bleed on cranial CT or CT abdomen No active chest pain EKG without ischemic or infarctive changes Significant troponin delta Echo shows wall motion abnormalities Patient seen by cardiology. Patient is not a candidate for angiogram at this time due to her respiratory status. Medical management has been recommended at this time. We will stop therapeutic Lovenox. Switch to DVT prophylaxis dose. Continue aspirin, Plavix. Debilitated Physical deconditioning Alcohol abuse PT recommends rehab Recurrent falls likely related to alcohol abuse, no signs of PE D-dimer is high No significant anemia no sign of pneumothorax Clavicle fracture, left-sided multiple rib fractures Acute on Chronic diastolic congestive heart failure Patient did receive Lasix 40 IV x1 and then another Lasix 20 IV overnight. Required BiPAP. However he is now transition back to 5 L nasal cannula. Hypernatremia Sodium 150. D5 water at 50 cc/h to be added. Sodium slowly improving. 149 this AM. Cont inue D5 water at this time. Hypokalemia Potassium 2.8 today. 40 IV given. 40 oral also administered. Will repeat tomorrow morning. Leukocytosis, bandemia most likely secondary to aspiration event ? Blood cx shows grp A streptococcus from 11/03. Initial Gram stain initial Gram stain was read as budding yeast, this has now been corrected to gram-positive cocci in chains. Organism identified as strep pyogenes. Repeat blood culture taken today to evaluate for clearance. Urine culture shows E. coli Discontinue vancomycin and Zosyn. Change antibiotics of ceftriaxone 1 g IV every 24 hours which will cover for both E. coli in the urine and Streptococcus in blood. For her Streptococcus bacteremia, will likely need 2 weeks of IV antibiotics assuming that cultures clear quickly. DNR. Okay for intubation as per patient's son. Goals of care discussed with the family done on 11/03/1911/21/2022. Protein calorie mild malnourishment dietary consult Attestations Medical Necessity Statement*: Positive blood cultures, change in antibiotics, appropriate disposition planning Coding Level of Care Code Acute Code for Chg Fwd Diagnoses Altered mental status R41.82 NSTEMI (non-ST elevated myocardial infarction) I21.4 Fall W19.XXXA Subclavian artery stenosis, left I77.1
--- NOTE | 2022-11-06 20:06 | PC.NURSE ---
Family member requested a medication to manage anxiety. Nurse contacted Dr Wolfe regarding medication and Dr Wolfe instructed to give hydroxyzine. When nurse attempted to put in order, warning appeared that patient was allergic to cetirizine. When asked if Dr Wolfe wanted to go ahead and have order placed and override, Dr Wolfe instructed nurse to give 0.5mg Xanax once instead, and to ensure fall risk precautions were in place. No further orders at this time.
[2022-11-06] MEDS: morphine 4 mg/mL SDV 1 mL 2 MG IVP (20:25)
[2022-11-06] MEDS: ALPRAZolam 0.5 mg Tablet PO (20:26)
--- NOTE | 2022-11-06 20:41 | PC.NURSE ---
Patient given Xanax and morphine upon family member request. Patient reported 7/10 pain. Patient A&Ox3 to name, , and location. 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 Son Ofrtino present at bedside. Son was instructed that he could call anytime with questions or concerns, and son verbalized understanding. IV site inspected, clean and patent. Bilateral anterior lungs clear upon auscultation. Bowel sounds present in all four quadrants, abdomen soft and non-tender. Patient left resting comfortably in bed, 3 side rails up, bed locked in lowest position with call light and bedside table within reach and son Fortino at bedside. Patient stated no further needs at this time.
--- NOTE | 2022-11-06 20:52 | PC.NURSE ---
Patient given thickened soda. Patient verbalized that it tasted great. Nurse instructed jhonathan Freitas once again that if he has any questions or concerns during the night that he was free to call and check in on patient. Nurse instructed patient to use call light if she wanted or needed anything. Patient left resting in bed, locked in lowest position with call light within reach, and jhonathan Freitas at bedside. No further needs were stated by patient or family member at this time.
--- NOTE | 2022-11-06 22:09 | PC.NURSE ---
Patient resting comfortably in supine position with even respirations and eyes closed. 3 side rails are up and call light on patient's lap at this time.
--- NOTE | 2022-11-06 22:40 | PC.NURSE ---
Lidocaine patch removed from patient.
--- NOTE | 2022-11-06 22:40 | PC.NURSE ---
Patient stated that she needed to use commode. When attempting to get up for the commode, patient was unable to move extremities or help in any fashion. When asked if patient felt like she could move to commode, patient stated, No. Attempts to get onto commode were then finished. Nurse educated patient that nursing staff did not want to risk a fall in order for patient to have a BM, and patient verbalized understanding. A bedpan was placed under patient and call light set resting on patient's lap when patient felt like she was finished with BM.
--- NOTE | 2022-11-06 23:01 | PC.NURSE ---
Patient stated that she was unable to have BM on bedpan. Bedpan was removed and patient was repositioned comfortably in bed. Patient was given some fluids upon request. Patient now resting in bed with call light, cell phone within reach and verbalized no other needs at this time.
[2022-11-07] VITALS (11 sets, daily range): BP systolic 85–160; BP diastolic 54–71; PULSE 87–106; RESP 15–24; TEMP 36.6–36.9; O2SAT 96–100
[2022-11-07 04:59] LABS: Basophils % 0.3 %; Eosinophils # 0.4 10^3/uL (0.0-0.8); Eosinophils % 4.3 %; Hematocrit 33.5 % (37.0-47.0); Hemoglobin 10.7 g/dL (11.5-15.3); Lymphocytes # 1.5 10^3/uL (0.8-4.8); Lymphocytes % 14.9 %; Mean Corpuscular HGB Conc 31.9 g/dL (30.0-36.0); Mean Corpuscular Hemoglobin 32.4 pg (28.0-34.0); Mean Corpuscular Volume 101.5 fl (81-99); Mean Platelet Volume 11.1 fL (7.4-10.4); Monocytes # 1.1 10^3/uL (0.2-0.9); Monocytes % 10.6 %; Neutrophils # 6.97 10^3/uL (1.8-7.7); Neutrophils % 68.9 %; Nucleated Red Blood Cells % 0 %; Platelet Count 224 10^3/cmm (130-400); Red Cell Distribution Width 13.5 % (12.1-15.1); White Blood Count 10.1 10^3/uL (4.0-10.0)
[2022-11-07 05:22] LABS: Alanine Aminotransferase 8 U/L (0-33); Albumin Level 1.9 g/dL (3.5-5.2); Alkaline Phosphatase 101 U/L (35-105); Anion Gap 8.5 (5-19); Aspartate Amino Transferase 12 U/L (0-32); Blood Urea Nitrogen 14 mg/dL (8-23); Calcium 8.3 mg/dL (8.5-10.5); Carbon Dioxide 26 mmol/L (22-29); Chloride 101 mmol/L (98-107); Globulin 3.8 g/dL (1.3-4.6); Glucose 114 mg/dL (65-115); Osmolality Calculated 275 mOsm/kg (285-295); Potassium 3.5 mmol/L (3.5-5.1); Sodium 132 mmol/L (136-145); Total Bilirubin 0.3 mg/dL (0.15-1.2); Total Protein 5.7 g/dL (6.6-8.7)
[2022-11-07] MEDS: morphine 4 mg/mL SDV 1 mL 2 MG IVP ×2 (05:37→14:07)
--- NOTE | 2022-11-07 05:43 | PC.NURSE ---
Patient was moaning in pain. IV morphine administered. When asked how long patient had been hurting, patient said awhile. Nurse instructed patient to use call light if she started hurting in the future and stated it wasn't a bother to nursing staff if she wanted or needed anything. Patient left resting with even respirations, two side rails up and call light within reach.
[2022-11-07] MEDS: aspirin 81 mg EC Tablet PO (08:48)
[2022-11-07] MEDS: PARoxetine 20 mg Tablet 30 MG PO (08:48)
[2022-11-07] MEDS: metoprolol succinate ER (24 HR) 25 mg Tablet 12.5 MG PO (08:48)
[2022-11-07] MEDS: clopidogrel 75 mg Tablet PO (08:48)
[2022-11-07] MEDS: thiamine 100 mg Tablet PO (08:48)
[2022-11-07] MEDS: lisinopril 10 mg Tablet PO (08:49)
[2022-11-07] MEDS: folic acid 1 mg Tablet PO (08:49)
[2022-11-07] MEDS: lidocaine 5% Patch 1 PATCH TOPICAL (08:49)
[2022-11-07] MEDS: cefTRIAXone 1,000 MG in sodium chloride 0.9% (plus) 50 ML 100 MG IV (11:31)
--- NOTE | 2022-11-07 11:33 | P.PN_ITS ---
Subjective Subjective: Patient was on 2 L this morning did not complain of any active complaint She gave me permission to speak with her son, she is awake and alert and oriented Vitals/I&O/Wt Last Vital Signs Temp 98.3 F 11/07/22 08:00 Pulse 106 H 11/07/22 08:55 Resp 18 11/07/22 08:55 BP 115/67 11/07/22 08:00 Pulse Ox 98 11/07/22 08:55 O2 Del Method 11/07/22 08:55 O2 Flow Rate 3 11/07/22 08:55 FiO2 40 11/04/22 21:17 11/06/22 11/07/22 11/07/22 22:59 06:59 14:59 Intake Total 1720 / 2310 0 / 2310 Output Total 1200 / 1200 Balance 1720 / 2310 -1200 / 1110 Physical Exam Narrative: Patient is laying supine Currently on 2 L No audible stridor or wheezing No active chest pain Multiple bruises all over her body seems to be getting better No active bleeding Awake and alert GCS 15 Urinary Catheter Management: Banuelos: Cath Placed During This Visit: yes Reason for Continuing Indwelling Catheter: Other Urinary Catheter Date of Insertion: 11/01/22 Urinary Catheter Time of Insertion: 19:15 Data 11/07/22 04:26 11/07/22 04:26 Micro: Microbiology 11/03/22 16:15 Blood Culture - Final Blood Strep pyogenes (grp a) 11/03/22 16:17 Blood Culture - Final Blood Strep pyogenes (grp a) 11/06/22 12:40 Blood Culture - Preliminary Blood SPECIMEN COLLECTED 11/06/22 11:58 Blood Culture - Preliminary Blood SPECIMEN COLLECTED A&P Assessment and plan (1) NSTEMI (non-ST elevated myocardial infarction): (2) Altered mental status: (3) Fall: (4) Anemia: (5) Bacteremia: Plan Metabolic encephalopathy related to dehydration: Resolved Alcohol abuse: Continue thiamine and folic acid, no active signs of hallucination, she does have ataxia and coarse tremors NSTEMI: Not a candidate for coronary intervention medically managed for now Physical deconditioning awaiting skilled nursing placement Acute on chronic diastolic CHF This morning patient is doing well on 2 L of oxygen Transition to p.o. Lasix Dehydration related hyponatremia: Sodium 132 discontinue D5 Dietitian recommendations appreciated Currently on dysphagia diet Aspiration pneumonitis Patient is currently on ceftriaxone which she will require for at least 2 weeks because of strep pyogenes bacteremia, she was getting ceftriaxone for UTI as well Midline requested 1 g ceftriaxone for 14 days DO NOT RESUSCITATE okay for intubation if needed Moderate protein calorie malnourishment Dietitian consulted Continue Ensure Attestations Medical Necessity Statement*: Continue medical management, awaiting placement Coding Level of Care Code 73793 Medical Decision Making Moderate Complexity Diagnoses NSTEMI (non-ST elevated myocardial infarction) I21.4 Altered mental status R41.82 Fall W19.XXXA Anemia D64.9 Bacteremia R78.81 Time Spent (min) 30
[2022-11-07] MEDS: acetaminophen 500 mg Tablet PO (11:37)
--- NOTE | 2022-11-07 14:30 | PC.NURSE ---
Midline placed to right basilic vein with moderate difficulty. 8 cm inserted with 0 cm external length noted. Mid arm circumference noted at 22 cm measured 6 cm from right AC. Dressing due to be changed 11/08/22. Report given to bedside nursePadmini.
[2022-11-07] MEDS: ondansetron 2 mg/ML SDV 2 mL 4 MG IVP (14:56)
--- NOTE | 2022-11-07 15:53 | PC.NURSE ---
Patient has multiple small papules in between her shoulder blades.
[2022-11-07] MEDS: albumin 12.5 GM/250 ML VIAL IV (17:25)
[2022-11-07] MEDS: pantoprazole 40 mg SDV IVP (17:26)
[2022-11-08] VITALS (8 sets, daily range): BP systolic 95–161; BP diastolic 68–83; PULSE 89–99; RESP 16–18; TEMP 36.4–36.9; O2SAT 92–96
[2022-11-08 06:08] LABS: Basophils % 0.4 %; Eosinophils # 0.5 10^3/uL (0.0-0.8); Eosinophils % 5.1 %; Hematocrit 32.5 % (37.0-47.0); Hemoglobin 10.7 g/dL (11.5-15.3); Lymphocytes # 1.4 10^3/uL (0.8-4.8); Lymphocytes % 14.3 %; Mean Corpuscular HGB Conc 32.9 g/dL (30.0-36.0); Mean Corpuscular Volume 103.2 fl (81-99); Mean Platelet Volume 12.1 fL (7.4-10.4); Monocytes # 1.1 10^3/uL (0.2-0.9); Monocytes % 11.5 %; Neutrophils # 6.61 10^3/uL (1.8-7.7); Neutrophils % 67.6 %; Nucleated Red Blood Cells % 0 %; Platelet Count 242 10^3/cmm (130-400); Red Blood Count 3.15 10^6/uL (4.1-5.3); Red Cell Distribution Width 13.8 % (12.1-15.1); White Blood Count 9.8 10^3/uL (4.0-10.0)
[2022-11-08 06:34] LABS: Blood Urea Nitrogen 10 mg/dL (8-23); Calcium 8.3 mg/dL (8.5-10.5); Carbon Dioxide 27 mmol/L (22-29); Chloride 102 mmol/L (98-107); Glucose 82 mg/dL (65-115); Osmolality Calculated 284 mOsm/kg (285-295); Sodium 138 mmol/L (136-145)
[2022-11-08 06:36] LABS: Anion Gap 13.1 (5-19); Potassium 4.1 mmol/L (3.5-5.1)
[2022-11-08] MEDS: pantoprazole 40 mg SDV IVP (08:45)
[2022-11-08] MEDS: thiamine 100 mg Tablet PO (08:45)
[2022-11-08] MEDS: PARoxetine 20 mg Tablet 30 MG PO (08:45)
[2022-11-08] MEDS: lisinopril 10 mg Tablet PO (08:46)
[2022-11-08] MEDS: metoprolol succinate ER (24 HR) 25 mg Tablet 12.5 MG PO (08:47)
[2022-11-08] MEDS: folic acid 1 mg Tablet PO (08:47)
[2022-11-08] MEDS: lidocaine 5% Patch 1 PATCH TOPICAL (08:47)
[2022-11-08] MEDS: aspirin 81 mg EC Tablet PO (08:47)
--- NOTE | 2022-11-08 10:14 | PM.PN ---
Subjective Subjective: This morning much more awake and alert Sitting in the chair he,] soft Son is happy with the progress, awaiting long-term placement Currently on 2 L nasal cannula Vitals/I&O/Wt Last Vital Signs Temp 98.0 F 11/08/22 08:00 Pulse 99 11/08/22 09:46 Resp 18 11/08/22 09:46 BP 106/73 11/08/22 08:00 Pulse Ox 96 11/08/22 09:46 O2 Del Method 11/08/22 09:46 O2 Flow Rate 2 11/08/22 09:46 FiO2 40 11/04/22 21:17 11/07/22 11/08/22 11/08/22 22:59 06:59 14:59 Intake Total 370 / 1376 120 / 120 Output Total 250 / 250 150 / 400 Balance 120 / 1126 -150 / 976 120 / 120 Physical Exam Narrative: Patient is sitting in a chair Awake and alert Pleasant and cooperative Right leg moderate cellulitis improving Left cheek bruise improving Awake and alert Nonfocal neuro exam Banuelos catheter draining dilute urine Abdomen soft No audible stridor or wheezing Currently on 2 L Variable S1-S2 Urinary Catheter Management: Banuelos: Cath Placed During This Visit: yes Reason for Continuing Indwelling Catheter: Other Urinary Catheter Date of Insertion: 11/01/22 Urinary Catheter Time of Insertion: 19:15 Data 11/08/22 05:12 11/08/22 05:12 Micro: Microbiology 11/06/22 12:40 Blood Culture - Preliminary Blood NEGATIVE TO DATE 11/06/22 11:58 Blood Culture - Preliminary Blood NEGATIVE TO DATE A&P Assessment and plan (1) Bacteremia: (2) Anemia: (3) NSTEMI (non-ST elevated myocardial infarction): (4) Altered mental status: (5) DNR (do not resuscitate): Plan Metabolic encephalopathy: Resolved Patient is waiting for midline placement for bacteremia with strep pyogenes she will get ceftriaxone 1 g daily for 2 weeks After midline placement she can be discharged to long-term once accepted marketing program manager updated Son was also at the bedside All questions were answered Patient physically deconditioned due to alcohol abuse Continue thiamine and folic acid No worsening of aspiration pneumonitis DO NOT RESUSCITATE, okay for intubation if respiratory status worsens Appreciate dietary recommendations for moderate protein calorie malnourishment Ensure added Attestations Medical Necessity Statement*: After midline placement she can be discharged, awaiting prior authorization approved Coding Level of Care Code 13827 Straight Forward/Low MDM includes risk/complexity, reviewing previous or external records, reviewing test results, ordering lab/other test(s), speaking with independent historian (other than patient), independently interpretating test(s) (not separately recorded) and discussion of management or test(s) w/ other healthcare professional Diagnoses Bacteremia R78.81 Anemia D64.9 NSTEMI (non-ST elevated myocardial infarction) I21.4 Altered mental status R41.82 DNR (do not resuscitate) [id number]
[2022-11-08] MEDS: cefTRIAXone 1,000 MG in sodium chloride 0.9% (plus) 50 ML 100 MG IV (12:41)
--- NOTE | 2022-11-08 14:41 | PC.SOCIAL ---
IMM Updated Updated pt & pt's family on IMM. No questions voiced. Provided pt a copy. Initialed, dated, & timed copy in chart.
[2022-11-08 16:30] LABS: Uric Acid 4.5 mg/dL (2.4-5.7)
[2022-11-08] MEDS: acetaminophen 500 mg Tablet PO (16:48)
[2022-11-09] VITALS: BP 124/82; PULSE 85; RESP 16; TEMP 36.8; O2SAT 96
[2022-11-09 03:50] VITALS: BP 138/65; PULSE 90; RESP 16; TEMP 36.8; O2SAT 96
[2022-11-09 08:00] VITALS: BP 149/78; PULSE 91; PULSE 92; RESP 16; RESP 18; TEMP 36.8; O2SAT 90; O2SAT 96
[2022-11-09] MEDS: ipratropium-albuterol 3 mL Neb INHALATION (08:09)
[2022-11-09] MEDS: pantoprazole 40 mg SDV IVP (08:24)
[2022-11-09] MEDS: lisinopril 10 mg Tablet PO (08:25)
[2022-11-09] MEDS: thiamine 100 mg Tablet PO (08:25)
[2022-11-09] MEDS: folic acid 1 mg Tablet PO (08:25)
[2022-11-09] MEDS: PARoxetine 20 mg Tablet 30 MG PO (08:25)
[2022-11-09] MEDS: aspirin 81 mg EC Tablet PO (08:25)
[2022-11-09] MEDS: metoprolol succinate ER (24 HR) 25 mg Tablet 12.5 MG PO (08:25)
[2022-11-09] MEDS: lidocaine 5% Patch 1 PATCH TOPICAL (08:28)
[2022-11-09] MEDS: acetaminophen 500 mg Tablet PO ×2 (08:32→15:09)
--- NOTE | 2022-11-09 09:35 | PM.DCS ---
Discharge Providers Date of Admission: 11/01/22 21:22 Date of Discharge: November 09, 2022 Attending Provider at Admission: Kely Yancey MD Attending Provider at Discharge: Kely Yancey MD Primary Care Provider: Daquan Luna MD Diagnoses at Discharge Discharge Diagnosis (1) Bacteremia: Status: Acute (2) Anemia: Status: Acute (3) NSTEMI (non-ST elevated myocardial infarction): Status: Acute (4) Altered mental status: Status: Acute (5) DNR (do not resuscitate): Status: Acute Reason for Visit Reason for Visit: AMS/ FALL Hospital Course Hospital Course 77-year female who was admitted for management of NSTEMI, alcohol abuse related ataxia, neuropathy, multiple rib fractures, recurrent falls, patient was started on ACS protocol, she was deemed not a suitable candidate for coronary angiogram because of respiratory status, we were able to transition her from BiPAP to 2 L nasal cannula, because of her severe physical and muscular deconditioning rehab was recommended, her urine culture is showing E. coli, initial blood culture showed strep pyogenes repeat cultures negative to date, she will finish 14 days of ceftriaxone 1 g daily, midline has been placed. She has protein calorie malnourishment, required 1 bag of albumin during hospitalization, she has right elbow bursitis, recommended anti-inflammatory medications versus Tylenol does not look septic, uric acid is normal, for her right lip water cellulitis requested mupirocin ointment as she is allergic to bacitracin She does have dysphagia without any focal signs she was recommended thickened liquid diet as per speech therapist, level 6 dysphagia diet soft and bite sized. Patient is showing signs of aspiration pneumonia on chest x-ray. Continue time and folic acid at the time of discharge, optimized antihypertensive regimen. Family kept updated Physical Exam Narrative: Patient is pleasant and cooperative Nonfocal neuro exam Lethargic and fatigued Hemodynamically stable Currently on 2 L Abdomen soft Multiple bruises all over her body Urinary Catheter Management: Banuelos: Cath Placed During This Visit: yes, but has since been removed by the nurse Reason for Continuing Indwelling Catheter: Decision to DC Catheter Urinary Catheter Date of Insertion: 11/01/22 Urinary Catheter Time of Insertion: 19:15 Date Urinary Catheter Removed: 11/08/22 Time Urinary Catheter Discontinued: 19:10 Discharge Data Studies Completed and Pending Completed Studies During Hospitalization Category Date Time Status CT cervical spin wo con* [id number] Stat Cat Scan 11/01/22 18:[address] facial bones wo con* [id number] Stat Cat Scan 11/01/22 18:[address] head wo con* [id number] Stat Cat Scan 11/01/22 18:[address] head wo con* [id number] Urgent Cat Scan 11/03/22 15:[address] abdomen pelvis [CT angio chest w abd pel w Cat Scan 11/01/22 19:01 Completed con] Stat XR chest 1V portable [id number] Stat Exams 11/01/22 18:12 Completed XR chest 1V portable [id number] Stat Exams 11/03/22 11:19 Completed XR chest 1V portable [id number] Urgent Exams 11/04/22 08:46 Completed XR pelvis 1-2V* [id number] Stat Exams 11/01/22 18:36 Completed CV. echo complete* [id number] Routine Ultrasound 11/02/22 21:22 Completed Pending at discharge Category Date Time Status Blood Culture Stat Lab 11/06/22 12:40 Results COVID [SARS Covid-2 Antigen] Routine Lab 11/09/22 09:19 Uncollected Sputum Culture and Gram Stain Stat Lab 11/03/22 15:38 Uncollected Radiology Impressions Cervical Spine CT 11/01/22 18:12 IMPRESSION: No acute findings. Face CT 11/01/22 18:12 IMPRESSION: No acute findings. Pelvis X-Ray 11/01/22 18:36 IMPRESSION: No acute findings. Chest/Abdomen/Pelvis CT 11/01/22 19:01 IMPRESSION: 1. Negative CT angiogram of the chest. No evidence of acute pulmonary embolism. 2. Acute fractures left 5th through 9th ribs and medial head left clavicle. 3. Minimal left basilar pleural effusion with minor atelectatic changes left lung base. IMPRESSION: No acute findings within the abdomen or pelvis. Head CT 11/03/22 15:38 IMPRESSION: Stable exam. No acute intracranial abnormality. Chest X-Ray 11/04/22 08:46 Impression: 1. No change in patchy left lower lobe opacity. 2. Cardiomegaly and atherosclerosis. 3. Minimal patchy left upper lobe opacity. 4. No change in left rib fractures. Laboratory Results WBC 9.8 10^3/uL (4.0-10.0) 11/08/22 05:12 RBC 3.15 10^6/uL (4.1-5.3) L 11/08/22 05:12 Hgb 10.7 g/dL (11.5-15.3) L 11/08/22 05:12 Hct 32.5 % (37.0-47.0) L 11/08/22 05:12 MCV 103.2 fl (81-99) H 11/08/22 05:12 MCH 34.0 pg (28.0-34.0) 11/08/22 05:12 MCHC 32.9 g/dL (30.0-36.0) 11/08/22 05:12 RDW 13.8 % (12.1-15.1) 11/08/22 05:12 Plt Count 242 10^3/cmm (130-400) 11/08/22 05:12 MPV 12.1 fL (7.4-10.4) H 11/08/22 05:12 Neut % (Auto) 67.6 % 11/08/22 05:12 Lymph % (Auto) 14.3 % 11/08/22 05:12 Hemphill % (Auto) 11.5 % 11/08/22 05:12 Eos % (Auto) 5.1 % 11/08/22 05:12 Baso % (Auto) 0.4 % 11/08/22 05:12 Neut # (Auto) 6.61 10^3/uL (1.8-7.7) 11/08/22 05:12 Lymph # (Auto) 1.4 10^3/uL (0.8-4.8) 11/08/22 05:12 Hemphill # (Auto) 1.1 10^3/uL (0.2-0.9) H 11/08/22 05:12 Eos # (Auto) 0.5 10^3/uL (0.0-0.8) 11/08/22 05:12 Baso # (Auto) 0.0 10^3/uL (0.0-0.1) 11/08/22 05:12 Nucleated RBC % (auto) 0 % 11/08/22 05:12 Total Counted 100 (0-100) 11/04/22 04:35 Atypical Lymphs % 0.0 % (0-5) 11/04/22 04:35 Absolute Neutrophils 16.9 10^3/cmm (1.4-6.5) H 11/04/22 04:35 Segmented Neutrophils 66 % 11/04/22 04:35 Abs Segm Neuts (Man) 11.9 10/cmm (1.6-7.1) H 11/04/22 04:35 Band Neutrophils 28.0 % 11/04/22 04:35 Abs Band Neuts (Man) 5.0 10^3/cmm (0.0-1.2) H 11/04/22 04:35 Absolute Lymphocytes 0.4 10^3/cmm (1.2-3.4) L 11/04/22 04:35 Lymphocytes (Manual) 2 % 11/04/22 04:35 Monocytes (Manual) 4.0 % 11/04/22 04:35 Absolute Monocytes 0.7 10^3/cmm (0.1-0.6) H 11/04/22 04:35 Eosinophils (Manual) 0 % 11/04/22 04:35 Absolute Eosinophils 0.0 10^3/cmm (0.0-0.7) 11/04/22 04:35 Basophils (Manual) 0.0 % 11/04/22 04:35 Absolute Basophils 0.0 10^3/cmm (0.0-0.2) 11/04/22 04:35 Nucleated RBCs # 0.0 /100WBC 11/08/22 05:12 Platelet Estimate Normal (Normal) 11/04/22 04:35 D-Dimer 3.07 ug/mIFEU (0-0.59) H 11/01/22 18:25 Specimen Type Arterial 11/04/22 00:50 Sample Site Brachial, right 11/04/22 00:50 ABG pH 7.41 (7.35-7.45) 11/04/22 00:50 ABG pCO2 41.7 mmHg (35-45) 11/04/22 00:50 ABG pO2 70.7 mmHg (80.0-100.0) L 11/04/22 00:50 ABG HCO3 26.2 mmol/L (22-26) H 11/04/22 00:50 ABG Base Excess 1.3 mmol/L (-2.0-2.0) 11/04/22 00:50 Az Test Pos 11/04/22 00:50 Hematocrit 36.6 % (37-47) L 11/04/22 00:50 O2 Delivery Device Bipap 11/04/22 00:50 O2 Liters/Min 2.0 % 11/01/22 18:19 FiO2 50.0 % 11/04/22 00:50 CPAP 5.0 cmH20 11/04/22 00:50 Compressor Station Chief Engineer ID [email or web address] 11/04/22 00:50 Sodium 138 mmol/L (136-145) 11/08/22 05:12 Potassium 4.1 mmol/L (3.5-5.1) 11/08/22 05:12 Chloride 102 mmol/L (98-107) 11/08/22 05:12 Carbon Dioxide 27 mmol/L (22-29) 11/08/22 05:12 Anion Gap 13.1 (5-19) 11/08/22 05:12 BUN 10 mg/dL (8-23) 11/08/22 05:12 Creatinine 0.5 mg/dL (0.5-0.9) 11/08/22 05:12 GFR Calculation Not Reportable 11/08/22 05:12 Glucose 82 mg/dL (65-115) 11/08/22 05:12 POC Glucose 105 mg/dL (70-110) 11/04/22 06:40 Calculated Osmolality 284 mOsm/kg (285-295) L 11/08/22 05:12 Lactate 2.4 mmol/L (0.5-2.2) H 11/01/22 18:25 Uric Acid 4.5 mg/dL (2.4-5.7) 11/08/22 05:12 Calcium 8.3 mg/dL (8.5-10.5) L 11/08/22 05:12 Phosphorus 2.9 mg/dL (2.5-4.5) 11/02/22 04:16 Magnesium 1.9 mg/dL (1.7-2.3) 11/05/22 04:29 Total Bilirubin 0.3 mg/dL (0.15-1.2) 11/07/22 04:26 AST 12 U/L (0-32) 11/07/22 04:26 ALT 8 U/L (0-33) 11/07/22 04:26 Alkaline Phosphatase 101 U/L (35-105) 11/07/22 04:26 Creatine Kinase 87 U/L (26-192) 11/04/22 04:35 Troponin T Baseline 351 ng/L (0-10) H* 11/01/22 18:25 Troponin T 120 Minute 334.8 ng/L (0-10) H 11/01/22 20:26 Delta Troponin T -16.2 ABS# (0-10) L 11/01/22 20:26 C-Reactive Protein 111.0 mg/L (0.0-4.9) H 11/02/22 04:16 Total Protein 5.7 g/dL (6.6-8.7) L 11/07/22 04:26 Albumin 1.9 g/dL (3.5-5.2) L 11/07/22 04:26 Globulin 3.8 g/dL (1.3-4.6) 11/07/22 04:26 Vitamin B12 1824 pg/mL (232-1245) H 11/01/22 20:26 Procalcitonin 1.65 ng/mL (0-0.5) H 11/02/22 04:16 Urine Color Yellow (Yellow) 11/01/22 19:10 Urine Appearance Clear (CLEAR) 11/01/22 19:10 Urine pH 6 (5-7) 11/01/22 19:10 Ur Specific Hurley 1.015 (1.005-1.030) 11/01/22 19:10 Urine Protein Trace (Negative) 11/01/22 19:10 Urine Glucose (UA) Norm (Normal) 11/01/22 19:10 Urine Ketones 2+ (Negative) H 11/01/22 19:10 Urine Blood 2+ (Negative) H 11/01/22 19:10 Urine Nitrate Negative (Negative) 11/01/22 19:10 Urine Bilirubin Neg (Negative) 11/01/22 19:10 Urine Urobilinogen Norm mg/dL (Negative) 11/01/22 19:10 Ur Leukocyte Esterase Negative (Negative) 11/01/22 19:10 Urine RBC 5-10 /hpf (0-2) H 11/01/22 19:10 Urine WBC 0-4 /hpf (0-5) H 11/01/22 19:10 Ur Squamous Epith Cells 0-4 /hpf (0-5) H 11/01/22 19:10 Amorphous Sediment Not Reportable 11/01/22 19:10 Urine Bacteria Trace /hpf (NONE) 11/01/22 19:10 Vitals Last Vital Signs Temp 98.2 F 11/09/22 08:00 Pulse 91 11/09/22 08:00 Resp 18 11/09/22 08:00 BP 149/78 11/09/22 08:00 Pulse Ox 96 11/09/22 08:00 O2 Del Method 11/09/22 08:00 O2 Flow Rate 2 11/09/22 08:00 FiO2 40 11/04/22 21:17 Discharge Plan Discharge Patient Disposition: Xfer SNF Condition: Stable Prescriptions: New lisinopril 10 mg Tablet 10 mg PO DAILY Qty: 60 0RF aspirin 81 mg Tablet,Delayed Release (Dr/Ec) 81 mg PO DAILY Qty: 60 1RF folic acid 1 mg Tablet 1 mg PO DAILY Qty: 60 0RF thiamine mononitrate (vit B1) [Vitamin B-1 (mononitrate)] 100 mg Tablet 100 mg PO DAILY Qty: 60 0RF mupirocin 2 % ointment kit 1 applic topical BID Qty: 1 0RF Rx Instructions: Apply on right lip border Continued metoprolol tartrate 25 mg tablet 25 mg PO BID paroxetine HCl 20 mg tablet See Rx Instructions .ROUTE .COMPLEX Qty: 45 5RF Dose Instruction: TAKE 1 & 1/2 (ONE & ONE-HALF) TABLETS BY MOUTH ONCE DAILY Rx Instructions: TAKE 1 & 1/2 (ONE & ONE-HALF) TABLETS BY MOUTH ONCE DAILY escitalopram oxalate [Lexapro] 10 mg Tablet 10 mg PO DAILY acetaminophen [Tylenol Extra Strength] 500 mg Tablet 500 mg PO Q6H PRN (Reason: pain) 14 Days Qty: 30 0RF oxycodone-acetaminophen [Percocet] 5-325 mg tablet 1 tab PO Q8H PRN (Reason: pain) Qty: 20 0RF ketorolac 10 mg tablet 10 mg PO Q8H PRN (Reason: pain) Qty: 14 0RF Discontinued diphenhydramine HCl [Benadryl] 25 mg capsule 25 mg PO PRN atorvastatin 20 mg tablet 20 mg PO QAM cyclobenzaprine 10 mg Tablet 5 mg PO TID PRN (Reason: Muscle Spasms) 14 Days Qty: 30 0RF Discharge Orders: Discharge Order (Routine); Ordered 11/09/22 Ordered By: Kely Yancey Referrals: [facility] [Outside] Daquan Luna MD [Primary Care Provider] - 11/16/22 12:40 pm Patient Instructions: Opioid Safety Discharge Attestations Time Spent in Discharge Care*: less than 30 min Quality Metrics Clinical Quality Measures [ No reported AMI, CVA or VTE this stay] Coding Level of Care Code Acute Code for Chg Fwd Diagnoses Bacteremia R78.81 Anemia D64.9 NSTEMI (non-ST elevated myocardial infarction) I21.4 Altered mental status R41.82 DNR (do not resuscitate) Z66
--- NOTE | 2022-11-09 09:46 | PC.CHAP ---
Pastoral Care Encounter/Spiritual Assessment Type of Contact [] Declined route specialist visit [] Patient/Family/Request visit [] Outpatient visit [] Follow-up visit [] Physician referral [] Code/Alert [x] Routine visit [] Staff referral [] Actively dying [] Patient sleeping [] Family support [] [] Out of room [] Palliative care [] [] Receiving care in room [] Pre-surgical visit [] Trauma [] Long length of stay [] ICU visit [] Other: Relational/Emotional Strength [] Patient feels connected with others/family/visitors/staff [] Distress [] Loneliness/isolation [] Abandonment Spirituality of Patient [x] Person of Juanis [] Attends Jainism of their Juanis [] Believes in Prayer [] Reads Bible or Muslim materials [] There are Spiritual issues to be addressed Senior Business Development Manager Interventions [x] Prayer [] Active listening [x] Non-anxious presence [x] Spiritual/emotional support [] Crisis/trauma care [] Spiritual counseling [] Bereavement support [] Provided bereavement packet [] Provided Bible/devotional materials [] Provided toy/stuffed animal, coloring book to patient or family member [] Provided Communion [] Anointing/[place] [] Salvation [x] Completed spiritual assessment [] Other: Impact on Illness or Injury [] Angry [] Fearful [] Anxious [] Often cries [] Exhaustion [] Unable to work [] Unable to attend restorationism [] Unable to walk/stand [] Unable to read [] Unable to drive [] Unable to eat/drink [] Unable to sleep [] Unable to be with family [] Patient intubated [] Other: Summary Pt was asleep when route specialist entered room. Asking speaking with room mate, Pt woke and indicated she wanted prayer. She was unable to speak due to equipment. Senior Business Development Manager prayed with Pt. Time spent with patient 2m
[2022-11-09 10:27] LABS: SARS Covid-2 Antigen negative (Negative)
[2022-11-09] MEDS: cefTRIAXone 1,000 MG in sodium chloride 0.9% (plus) 50 ML 100 MG IV (11:17)
[2022-11-09 11:34] VITALS: BP 101/63; PULSE 86; RESP 18; TEMP 36.9; O2SAT 99
[2022-11-09 16:00] VITALS: BP 139/69; PULSE 89; RESP 18; TEMP 37.1; O2SAT 95
--- NOTE | 2022-11-09 16:27 | P.PN_ITS ---
Subjective Subjective: Patient could not leave yesterday because there was no winch driver available for ambulance Patient will stay overnight she will be discharged to [facility] in the morning Vitals/I&O/Wt Last Vital Signs Temp 98.7 F 11/09/22 16:00 Pulse 89 11/09/22 16:00 Resp 18 11/09/22 16:00 BP 139/69 11/09/22 16:00 Pulse Ox 95 11/09/22 16:00 O2 Del Method 11/09/22 16:00 O2 Flow Rate 2 11/09/22 08:00 FiO2 40 11/04/22 21:17 11/09/22 11/09/22 11/09/22 06:59 14:59 22:59 Intake Total 410 / 410 Balance 410 / 410 Physical Exam Narrative: Patient is pleasant and cooperative Nonfocal neuro exam Lethargic and fatigued Hemodynamically stable Currently on 2 L Abdomen soft Multiple bruises all over her body Urinary Catheter Management: Banuelos: Cath Placed During This Visit: yes, but has since been removed by the nurse Reason for Continuing Indwelling Catheter: Decision to DC Catheter Urinary Catheter Date of Insertion: 11/01/22 Urinary Catheter Time of Insertion: 19:15 Date Urinary Catheter Removed: 11/08/22 Time Urinary Catheter Discontinued: 19:10 Data 11/08/22 05:12 11/08/22 05:12 A&P Assessment and plan (1) DNR (do not resuscitate): (2) Bacteremia: (3) NSTEMI (non-ST elevated myocardial infarction): (4) Altered mental status: Plan Patient is awaiting placement Please review my discharge summary Attestations Medical Necessity Statement*: Discharge tomorrow Coding Level of Care Code 54946 Diagnoses DNR (do not resuscitate) Z66 Bacteremia R78.81 NSTEMI (non-ST elevated myocardial infarction) I21.4 Altered mental status R41.82
[2022-11-09 20:00] VITALS: BP 129/71; PULSE 86; RESP 15; TEMP 36.9; O2SAT 96
[2022-11-10] VITALS: BP 154/84; PULSE 90; RESP 15; TEMP 36.9; O2SAT 97
[2022-11-10 02:59] VITALS: PULSE 90; RESP 16; O2SAT 93
[2022-11-10 04:00] VITALS: BP 174/65; PULSE 89; RESP 17; TEMP 37.1; O2SAT 96
[2022-11-10 08:14] VITALS: BP 102/67; PULSE 91; RESP 18; TEMP 36.6; O2SAT 96
[2022-11-10] MEDS: PARoxetine 20 mg Tablet 30 MG PO (08:47)
[2022-11-10] MEDS: thiamine 100 mg Tablet PO (08:49)
[2022-11-10] MEDS: folic acid 1 mg Tablet PO (08:49)
[2022-11-10] MEDS: aspirin 81 mg EC Tablet PO (08:49)
[2022-11-10] MEDS: lidocaine 5% Patch 1 PATCH TOPICAL (08:50)
--- NOTE | 2022-11-10 09:55 | PM.MISC ---
Miscellaneous Note Note: No overnight events Patient has refused most of her medications Currently on 2 L of oxygen Awake and alert Bruises are not worsening Wound is healing right lip border Had a bowel movement this morning Plan to discharge her to [facility] She will get 2 weeks of IV antibiotics for bacteremia Repeat cultures negative Hemodynamically stable
[2022-11-10 10:12] VITALS: PULSE 90; RESP 16; O2SAT 98
--- NOTE | 2022-11-10 11:23 | PC.NURSE ---
PT TO D/C TO [facility] IN [place], [place]. REPORT CALLED TO CORNELL.
[2022-11-10] MEDS: acetaminophen 500 mg Tablet PO (12:12)
--- NOTE | 2022-11-10 12:44 | PC.SOCIAL ---
IMM Updated Updated pt & pt's family on IMM. No questions voiced. Provided pt a copy. Initialed, dated, & timed copy in chart.
[2022-11-10 13:47] VITALS: PULSE 90; RESP 16; O2SAT 98
== END 2022-11-10 12:45 | disposition skilled nursing facility (03) | DRG 280 ==
LOC: ER 20:30 → MEDSURG 21:23
PROVIDERS: Internal Medicine; Student in an Organized Health Care Education/Training Program; Admitting Provider Internal Medicine; Emergency Provider Emergency Medicine; PCP Family Medicine; Visit Provider Internal Medicine
DX: I21.4 Non-ST elevation (NSTEMI) myocardial infarction (principal); G93.41 Metabolic encephalopathy; I50.33 Acute on chronic diastolic (congestive) heart failure; N39.0 Urinary tract infection, site not specified; S22.42XA Multiple fractures of ribs, left side, initial encounter for closed fracture; E44.1 Mild protein-calorie malnutrition; E87.0 Hyperosmolality and hypernatremia; I24.8 Other forms of acute ischemic heart disease; B96.20 Unspecified Escherichia coli [E. coli] as the cause of diseases classified elsewhere; B95.0 Streptococcus, group A, as the cause of diseases classified elsewhere; Z66 Do not resuscitate; D64.9 Anemia, unspecified; R27.0 Ataxia, unspecified; G62.1 Alcoholic polyneuropathy; Z68.24 Body mass index [BMI] 24.0-24.9, adult; E87.6 Hypokalemia; F10.97 Alcohol use, unspecified with alcohol-induced persisting dementia; I70.8 Atherosclerosis of other arteries; E86.0 Dehydration; Z91.199 Patient's noncompliance with other medical treatment and regimen due to unspecified reason; E78.5 Hyperlipidemia, unspecified; I11.0 Hypertensive heart disease with heart failure; Z87.891 Personal history of nicotine dependence; I25.10 Atherosclerotic heart disease of native coronary artery without angina pectoris; Z95.5 Presence of coronary angioplasty implant and graft; S42.018D Nondisplaced fracture of sternal end of left clavicle, subsequent encounter for fracture with routine healing; W19.XXXA Unspecified fall, initial encounter; Z79.891 Long term (current) use of opiate analgesic; R13.10 Dysphagia, unspecified
CPT/HCPCS: 36415; 36416; 36569; 36600; 51702; 70450; 70486; 71045; 71275; 72125; 72170; 74177; 80048; 80053; 81001; 82550; 82607; 82803; 82962; 83605; 83735; 84100; 84145; 84484; 84550; 85007; 85025; 85378; 86140; 87040; 87077; 87086; 87186; 87205; 87426; 92523; 92524; 92526; 92610; 93005; 93306; 94640; 94664; 96360; 96372; 97110; 97161; 97530; 99285; C1751; C9113; J0696; J1650; J1940; J2270; J2405; J2543; J2920; J3370; J3475; J3480; J7030; J7050; J7070; P9045; Q9967

== ENCOUNTER → 2022-11-11 13:14 | Day surgery (SDC) | payer MEDICARE, MEDICAID, SELFPAY ==
[2022-11-11 13:25] VITALS: BP 98/56; PULSE 80; RESP 18; TEMP 35.9; O2SAT 96
--- NOTE | 2022-11-11 13:45 | PC.NURSE ---
Midline placed to left brachial vein without difficulty. 10 cm inserted with 0 cm external length noted. Mid arm circumference measured 10 cm from left AC and noted at 19 cm. Pt tolerated well. Pt to return to [facility] via facility transportation. Report called to at [facility].
== END ==
PROVIDERS: PCP Family Medicine; Visit Provider Internal Medicine
DX: R78.81 Bacteremia (principal)
CPT/HCPCS: 36569; C1751

== ENCOUNTER → 2022-11-29 12:45 | Outpatient (BNVA) | payer MEDICARE, MEDICAID, SELFPAY | PROVIDERS: PCP Family Medicine; Visit Provider Family Medicine | DX: I21.4 Non-ST elevation (NSTEMI) myocardial infarction (principal); R78.81 Bacteremia | CPT/HCPCS: 80053; 82607; 83735; 83880; 85025; 86140 ==

== ENCOUNTER 2022-12-03 17:52 | Observation (INO) | payer MEDICARE, MEDICAID, SELFPAY ==
[2022-12-03] VITALS (7 sets, daily range): BP systolic 118–186; BP diastolic 59–80; PULSE 15–73; RESP 17–20; TEMP -13.5–36.4; O2SAT 95–100; BMI 20.1
--- NOTE | 2022-12-03 18:06 | XRR_ITS ---
PROCEDURE INFORMATION: Exam: XR Chest Exam date and time: 12/03/2022 6:15 PM Age: 77 years old Clinical indication: Other: Weakness; Additional info: Shorness of breath TECHNIQUE: Imaging protocol: Radiologic exam of the chest. Views: 1 view. COMPARISON: CR XR chest 1V portable [id number] 11/04/2022 9:50 AM FINDINGS: Lungs: Opacity is again seen in the lower left chest likely left sided effusion, with ill-defined hazy opacity adjacent to this that could represent atelectasis and/or infiltrate. Interval improvement in minimal patchy opacity in the upper left lung from previous exam. No focal infiltrate or consolidation is seen on the right. Pleural spaces: No pneumothorax is seen. Heart/Mediastinum: Cardiac appears stable. Bones/joints: Rib fractures again noted about the left chest. Other findings: Comparison with November 04, 2022 exam is made. XR/XR chest 1V portable [id number] IMPRESSION: 1. Continued findings of rib fractures on the left with more dense opacity in the lower left lung likely reflecting left-sided effusion, with mild ill-defined opacity just above this likely reflecting adjacent atelectasis and/or mild infiltrate. Interval improvement minimal opacity upper left lung, otherwise. 2. No pneumothorax. 3. Right lung appears clear.
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
--- NOTE | 2022-12-03 18:16 | ECG_ITS ---
[facility] Test Date: 2022-12-03 Pat Name: Terri Pride Department: Room: Gender: Female Replenishment Specialist: : 1945 Requested By: Veronica Garza Order Number: [id number] Noel MD: Caleb Romero M.D. Measurements Intervals [place] Rate: 65 P: -6 NV: 120 QRS: 17 QRSD: 86 T: 232 QT: 432 QTc: 449 Interpretive Statements SINUS RHYTHM POSSIBLE ANTERIOR MYOCARDIAL INFARCTION , OF INDETERMINATE AGE [30 ms Q WAVE IN V3/V4, OR R < 0.2 mV IN V4] MODERATE T-WAVE ABNORMALITY, CONSIDER LATERAL ISCHEMIA [-0.1+ mV T-WAVE IN I/aVL/V5/V6] MODERATE T-WAVE ABNORMALITY, CONSIDER INFERIOR ISCHEMIA [-0.1+ mV T-WAVE IN II/aVF] Compared to ECG 11/01/2022 21:02:47 T-wave abnormality now present Possible ischemia now present Sinus tachycardia no longer present Myocardial infarct finding still present Electronically Signed On 12-03-2022 21:10:59 STACK SUPERVISOR by Caleb Romero M.D. [id number]
[2022-12-03] MEDS: sodium chloride 0.9% 1,000 ML 999 ML IV (18:28)
[2022-12-03 19:26] LABS: Basophils % 0.6 %; Eosinophils # 0.2 10^3/uL (0.0-0.8); Eosinophils % 2.9 %; Hematocrit 31.6 % (37.0-47.0); Hemoglobin 10.2 g/dL (11.5-15.3); Lymphocytes # 2.5 10^3/uL (0.8-4.8); Lymphocytes % 35.6 %; Mean Corpuscular HGB Conc 32.3 g/dL (30.0-36.0); Mean Corpuscular Hemoglobin 31.7 pg (28.0-34.0); Mean Corpuscular Volume 98.1 fl (81-99); Mean Platelet Volume 11.3 fL (7.4-10.4); Monocytes # 0.9 10^3/uL (0.2-0.9); Monocytes % 12.3 %; Neutrophils # 3.37 10^3/uL (1.8-7.7); Neutrophils % 48.2 %; Nucleated Red Blood Cells % 0 %; Platelet Count 202 10^3/cmm (130-400); Red Blood Count 3.22 10^6/uL (4.1-5.3); Red Cell Distribution Width 15.1 % (12.1-15.1)
[2022-12-03 19:56] LABS: Troponin(5th) Baseline 18 ng/L (0-10)
[2022-12-03 19:59] LABS: Lactate (Lactic Acid level) 0.8 mmol/L (0.5-2.2)
[2022-12-03 20:07] LABS: Alanine Aminotransferase 9 U/L (0-33); Albumin Level 2.2 g/dL (3.5-5.2); Alkaline Phosphatase 184 U/L (35-105); Anion Gap 14.2 (5-19); Aspartate Amino Transferase 27 U/L (0-32); Blood Urea Nitrogen 4 mg/dL (8-23); Calcium 7.7 mg/dL (8.5-10.5); Carbon Dioxide 22 mmol/L (22-29); Chloride 104 mmol/L (98-107); Globulin 4.2 g/dL (1.3-4.6); Glucose 81 mg/dL (65-115); Magnesium 1.1 mg/dL (1.7-2.3); Osmolality Calculated 280 mOsm/kg (285-295); Potassium 3.2 mmol/L (3.5-5.1); Sodium 137 mmol/L (136-145); Total Bilirubin 0.4 mg/dL (0.15-1.2); Total Protein 6.4 g/dL (6.6-8.7)
[2022-12-03 20:07] LABS: D Dimer 3.15 ug/mIFEU (0-0.59)
--- NOTE | 2022-12-03 20:19 | CTR_ITS ---
PROCEDURE INFORMATION: Exam: CTA Chest With Contrast Exam date and time: 12/03/2022 8:37 PM Age: 77 years old Clinical indication: Shortness of breath; Additional info: Short of breath elevated d dimer TECHNIQUE: Imaging protocol: Computed tomographic angiography of the chest with contrast. 3D rendering (Not supervised by radiologist): MIP and/or 3D reconstructed images were created by the technologist. Radiation optimization: All CT scans at this facility use at least one of these dose optimization techniques: automated exposure control; mA and/or kV adjustment per patient size (includes targeted exams where dose is matched to clinical indication); or iterative reconstruction. Contrast material: OMNI 350; Contrast volume: 75 ml; Contrast route: INTRAVENOUS (IV); REPORTING DATA: Count of CT and Cardiac NM exams in prior 12 months: This patient has received 7 known CTs and 0 known cardiac nuclear medicine studies in the 12 months prior to the current study. COMPARISON: CT angio chest w abd pel w con 11/01/2022 7:58 PM RADIATION DOSE METRICS: Total DLP (mGy-cm): 188.97 FINDINGS: Pulmonary arteries: No hypodense filling defect is seen within the main right or left pulmonary artery. However, partial hypodense filling defects are seen within several segmental and subsegmental branches inferior to the right hilum indicating small pulmonary emboli. These are new from prior exam November 01, 2022. Aorta: Arteriosclerosis of the thoracic aorta with mild ectasia. Lungs: See Pleural spaces finding. Pleural spaces: Moderate pleural effusion on the left, appearing predominantly posteriorly, though with medial and lateral component. There is subjacent atelectasis along the anterior aspect of the pleural effusion within the lower left lung. These findings demonstrate interval worsened appearance from previous exam. No other infiltrate is seen. No pneumothorax identified. Heart: Cardiac silhouette appears mildly enlarged, particularly left side of the heart. Mild coronary artery calcification and/or stents. No significant pericardial effusion. RV to LV ratio is less than 1. Lymph nodes: Unremarkable. No enlarged lymph nodes. Bones/joints: Fracture medial head left clavicle and multiple left-sided rib fractures again noted. Soft tissues: Unremarkable. CT/CT angio chest PE protcl [id number] IMPRESSION: 1. Findings of small pulmonary emboli within several segmental to subsegmental branches inferior to the right hilum, appearing new from prior exam November 01, 2022. 2. Multiple left-sided rib fractures again noted, along with fracture of the medial head of the left clavicle. 3. Moderate pleural effusion on the left with subjacent atelectasis in the lower left lung, with interval increase from prior exam November 01, 2022. No pneumothorax.
[2022-12-03] MEDS: oxyCODONE-APAP 5-325 mg Tablet 1 TAB PO (20:24)
--- NOTE | 2022-12-03 20:24 | ECG_ITS ---
[facility] Test Date: 2022-12-03 Pat Name: Terri Pride Department: Room: Gender: Female Refractory Manager: : 1945 Requested By: Veronica Garza Order Number: [id number] Noel MD: Caleb Romero M.D. Measurements Intervals [place] Rate: 66 P: 7 ND: 167 QRS: 10 QRSD: 95 T: 206 QT: 455 QTc: 477 Interpretive Statements SINUS RHYTHM ST DEVIATION AND MODERATE T-WAVE ABNORMALITY, CONSIDER ANTEROLATERAL ISCHEMIA [-0.1+ mV T-WAVE IN V3-V6] ST DEVIATION AND MODERATE T-WAVE ABNORMALITY, CONSIDER INFERIOR ISCHEMIA [-0.1+ mV T-WAVE IN II/aVF] Compared to ECG 12/03/2022 18:16:36 Myocardial infarct finding no longer present T-wave abnormality still present Possible ischemia still present Electronically Signed On 12-03-2022 21:11:05 INTERTYPE OPERATOR by Caleb Romero M.D. [id number]
[2022-12-03] MEDS: iohexol 350 mg/mL 500 mL Btl (per mL) IV (20:33)
[2022-12-03 20:57] LABS: Troponin 5 2HR 17.03 ng/L (0-10)
[2022-12-03 21:25] LABS: Troponin 5 2HR Delta -0.97 ABS# (0-10)
[2022-12-03] MEDS: heparin 5,000 unit/mL INJ 1 mL 3500 UNIT IVP (22:16)
[2022-12-03 22:36] LABS: Add Urine Microscopic? NO; Charge for UA Resulting for Rev
[2022-12-03 22:53] LABS: Bilirubin Urine Neg (Negative); Blood Urine Neg (Negative); Glucose Urine UA Norm (Normal); Ketones Urine Negative (Negative); Leukocyte Esterase Urine Negative (Negative); Nitrate Urine Negative (Negative); Protein Urine Neg (Negative); Specific Gravity, Urine 1.005 (1.005-1.030); Urine Appearance Clear (CLEAR); Urine Color Yellow (Yellow); Urobilinogen Urine Neg (Negative); pH Urine 6.5 (5-7)
--- NOTE | 2022-12-03 23:08 | PC.NURSE ---
Dr. Quiroga here. Verbal order received to hold Heparin drip for now.
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
[2022-12-03 23:37] LABS: Amphetamines Screen Urine Negative (Negative); Barbiturates Screen Urine Negative (Negative); Benzodiazepines Screen Urine Negative (Negative); Cocaine Screen Urine Negative (Negative); Opiate Screen Urine Negative (Negative); PCP Screen Urine Negative (Negative); THC Screen Urine Negative (Negative)
[2022-12-04] VITALS (11 sets, daily range): BP systolic 96–160; BP diastolic 53–63; PULSE 57–84; RESP 16–18; TEMP 36.5–36.8; O2SAT 96–100
[2022-12-04 00:05] LABS: Procalcitonin 0.22 ng/mL (0-0.5); Vitamin B12 959 pg/mL (232-1245)
[2022-12-04 00:17] LABS: Iron 21 ug/dL (37-145); Percent Saturation 18.5 % (20-50); Total Iron Binding Capacity 113 mcg/dl; Unsaturated Iron Binding 92 ug/dL (112-347)
[2022-12-04] MEDS: fentaNYL 12 mcg Patch 1 PATCH TRANSDERMA (00:17)
[2022-12-04] MEDS: ketorolac 30 mg/mL INJ 15 MG IVP (00:17)
[2022-12-04] MEDS: enoxaparin 80 mg/0.8 mL Syringe 50 MG SUBCUT (00:18)
--- NOTE | 2022-12-04 00:37 | ECG_ITS ---
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 Measurements Intervals [place] Rate: 67 P: 16 DC: 162 QRS: 7 QRSD: 82 T: 233 QT: 470 QTc: 497 Interpretive Statements SINUS RHYTHM POSSIBLE ANTERIOR MYOCARDIAL INFARCTION , OF INDETERMINATE AGE [30 ms Q WAVE IN V3/V4, OR R < 0.2 mV IN V4] MARKED T-WAVE ABNORMALITY, CONSIDER LATERAL ISCHEMIA [-0.5+ mV T-WAVE IN I/aVL/V5/V6] MODERATE T-WAVE ABNORMALITY, CONSIDER INFERIOR ISCHEMIA [-0.1+ mV T-WAVE IN II/aVF] Compared to ECG 12/03/2022 20:24:06 Myocardial infarct finding now present T-wave abnormality still present Possible ischemia still present Electronically Signed On 12-04-2022 11:39:35 EXCHANGE ADMINISTRATOR by Caleb Romero M.D. [id number]
[2022-12-04 00:47] LABS: Alcohol Level < 10 mg/dL (0-10)
[2022-12-04] MEDS: potassium chloride ER 20 mEq Tablet 60 MEQ PO (01:01)
[2022-12-04 02:17] LABS: Folate Level > 20.0 ng/mL (4.8-37.3)
[2022-12-04 03:57] LABS: Basophils % 0.7 %; Eosinophils # 0.2 10^3/uL (0.0-0.8); Eosinophils % 3.9 %; Lymphocytes # 1.9 10^3/uL (0.8-4.8); Lymphocytes % 32.9 %; Mean Corpuscular HGB Conc 32.3 g/dL (30.0-36.0); Mean Corpuscular Hemoglobin 31.3 pg (28.0-34.0); Mean Corpuscular Volume 96.9 fl (81-99); Mean Platelet Volume 11.7 fL (7.4-10.4); Monocytes # 0.6 10^3/uL (0.2-0.9); Monocytes % 11.1 %; Neutrophils # 2.89 10^3/uL (1.8-7.7); Neutrophils % 50.9 %; Nucleated Red Blood Cells % 0 %; Platelet Count 194 10^3/cmm (130-400); White Blood Count 5.7 10^3/uL (4.0-10.0)
[2022-12-04 04:14] LABS: Troponin 5 6HR 20.19 ng/L (0-10)
[2022-12-04 04:20] LABS: Troponin 5 6HR Delta 2.19 ng/L (0-12)
[2022-12-04 04:24] LABS: Partial Thromboplastin Time 32.2 SECONDS (23.9-36.7)
[2022-12-04 04:30] LABS: INR 1.38 (0.8-1.2)
[2022-12-04 04:36] LABS: Alanine Aminotransferase 9 U/L (0-33); Alkaline Phosphatase 159 U/L (35-105); Aspartate Amino Transferase 25 U/L (0-32); Blood Urea Nitrogen 4 mg/dL (8-23); Calcium 7.6 mg/dL (8.5-10.5); Carbon Dioxide 22 mmol/L (22-29); Chloride 107 mmol/L (98-107); Chol HDL Ratio 2.71 mg/dL (0.0-4.40); Cholesterol 92 mg/dL (0-200); Estmated Average Glucose 88; Globulin 4.2 g/dL (1.3-4.6); Glucose 80 mg/dL (65-115); HDL Cholesterol 34 mg/dL (60-100); Hemoglobin A1C 4.7 % (4.0-6.0); LDL Cholesterol Calculated 40 mg/dL (50-129); Magnesium 1.5 mg/dL (1.7-2.3); Osmolality Calculated 280 mOsm/kg (285-295); Phosphorus 2.8 mg/dL (2.5-4.5); Sodium 137 mmol/L (136-145); Total Bilirubin 0.4 mg/dL (0.15-1.2); Total Protein 6.2 g/dL (6.6-8.7); Triglycerides 91 mg/dL (0-150); VLDL Cholestrol Calculation 18 mg/dL (0-30)
[2022-12-04] MEDS: oxyCODONE-APAP 5-325 mg Tablet 1 TAB PO (09:31)
[2022-12-04] MEDS: escitalopram 10 mg Tablet PO (09:32)
[2022-12-04] MEDS: magnesium lactate 84 mg Tablet PO ×2 (09:32→17:25)
[2022-12-04] MEDS: lisinopril 10 mg Tablet PO (09:32)
[2022-12-04] MEDS: famotidine 20 mg Tablet PO ×2 (09:32→17:25)
[2022-12-04] MEDS: ferrous gluconate 324 mg Tablet PO ×2 (09:32→17:25)
[2022-12-04] MEDS: PARoxetine 20 mg Tablet 30 MG PO (09:33)
[2022-12-04] MEDS: clopidogrel 75 mg Tablet PO (09:33)
[2022-12-04] MEDS: metoprolol tartrate 25 mg Tablet PO ×2 (09:33→17:25)
[2022-12-04] MEDS: folic acid 1 mg Tablet PO (09:33)
[2022-12-04] MEDS: thiamine 100 mg Tablet PO (09:33)
[2022-12-04] MEDS: acetaminophen 325 mg Tablet 650 MG PO (14:51)
--- NOTE | 2022-12-04 16:42 | PM.PN ---
Subjective Subjective: No new complaints today. Currently denies any chest pain Medications: Reviewed: Yes Vitals/I&O/Wt Last Vital Signs Temp 98.0 F 12/04/22 12:00 Pulse 62 12/04/22 14:00 Resp 18 12/04/22 12:00 BP 155/53 12/04/22 12:00 Pulse Ox 99 12/04/22 12:00 O2 Del Method 12/04/22 12:00 O2 Flow Rate 3 12/04/22 00:51 12/04/22 12/04/22 12/04/22 06:59 14:59 22:59 Intake Total 1052 / 1052 480 / 480 Balance 1052 / 1052 480 / 480 Weight last 48 hrs Weight 56.608 kg Weight 49.895 kg Physical Exam Narrative: General: No acute distress, AO x3 HEENT: PERRLA, pupils bilaterally equal and reactive, pallors not present Chest: Normal vesicular breath sounds, no added sounds, equal good air entry bilaterally CVS: S1-S2 regular, no murmurs, no tachycardia, no gallops, no rubs Abdomen: Soft, nontender, no organomegaly, bowel sounds present Neuro: No focal deficits, no facial deformity, AO x3, power 5/5 in all limbs Data 12/04/22 02:58 12/04/22 02:58 Micro: Microbiology 12/03/22 18:55 Blood Culture - Preliminary Blood SPECIMEN COLLECTED 12/03/22 18:44 Blood Culture - Preliminary Blood SPECIMEN COLLECTED A&P Assessment and plan (1) Pulmonary embolism: As seen on CTA. Patient currently on 3 L of baseline oxygen supplementation. Check echocardiogram for further quantification and to rule out right-sided heart strain. No heart strain seen on CTA. Pending No concerns for hemothorax on the CT scan. Start on full dose Lovenox 1 mg/kg---> transition to Eliquis 10mg po BID x 7 days followed by 5 mg po BID (2) NSTEMI (non-ST elevated myocardial infarction): Recent history. Deemed medical management as per cardiology team on recent admission. Last echocardiogram showed EF of 60% with grade 1 diastolic dysfunction, hypokinesia of apical septal and apical lateral patel with RVSP of 39.6 mmHg. Patient denies any current chest pain. Continue with home dose of Plavix. We will start on atorvastatin 20 mg daily for now. Continue with home dose of beta-elmo. Echocardiogram to be repeated as above. (3) Fracture of rib: Traumatic. Recent. No evidence of pneumothorax on today's CT scan. No evidence of hemothorax as per radiology. Does have slightly worsening pleural effusion. Incentive spirometry. Pain control with home dose of Percocet every 8 hourly. If needed can start on fentanyl patch. No concerns for pneumonia. (4) Carotid stenosis, bilateral: Chronic history. Post endarterectomy. Plavix and statin as above. (5) S/P PTCA (percutaneous transluminal coronary angioplasty): (6) S/P carotid endarterectomy: Plan CODE STATUS: Limited resuscitation to intubation only. Cardiac diet. Full dose Lovenox will suffice for DVT prophylaxis. Famotidine for PUD prophylaxis. Attestations Medical Necessity Statement*: transition from lovenox to eliquis today, monitor for bleeding. hb in am Coding Level of Care Code Acute Code for Chg Fwd Diagnoses Pulmonary embolism I26.99 NSTEMI (non-ST elevated myocardial infarction) I21.4 Fracture of rib S22.39XA Carotid stenosis, bilateral I65.23 S/P PTCA (percutaneous transluminal coronary angioplasty) Z98.61 S/P carotid endarterectomy Z98.890
[2022-12-04] MEDS: docusate sodium 100 mg Capsule PO (17:25)
--- NOTE | 2022-12-04 20:53 | PC.NURSE ---
Patient found having set off bed alarm and gotten up from bed. Nurse attempted to encourage patient to get back into bed, but patient swatted nurse's hand away and firmly said No, I am going to the hallway. Nurse explained to patient that patient was a fall risk and that she also did not have any pants on, patient stated that she did not care. Patient stood at doorway and pointed at another patient's room, asking nurse, who is that? Nurse informed patient that other patients were on the floor and that this patient did not need to wander halls or go into other rooms. Patient was then finally encouraged back to bed with the help of another nurse. This nurse attempted to educate patient to use call light if she needed anything, and to not get up without assistance of nursing staff; patient verbalized understanding but education requires reinforcement. Patient left lying supine in bed, two side rails up and bed alarm reset.
[2022-12-04] MEDS: apixaban 5 mg Tablet 10 MG PO (21:14)
[2022-12-04] MEDS: atorvastatin 40 mg Tablet 20 MG PO (21:14)
--- NOTE | 2022-12-04 21:23 | PC.NURSE ---
Dr Quiroga contacted regarding patient attempting to get up despite nursing staff attempting to keep her in bed. Dr Quiroga contacted regarding patient attempting to get out of bed. Orders to administer 0.25mg Xanax PO once and 1mg Haldol IM once.
[2022-12-04] MEDS: ALPRAZolam 0.5 mg Tablet 0.25 MG PO (21:36)
[2022-12-04] MEDS: haloperidol inj 5 mg/mL INJ 1 mL 1 MG IM (21:37)
--- NOTE | 2022-12-04 22:45 | USCV_ITS ---
Terri Pride Age: 77 Gender: F : 1945 Exam Date: 12/04/2022 16:39 Ordering Phys: Mp Quiroga MD Technologist: WESLY Exam Location: [facility] [place] Indication: pe,nstemi BP: / HR: 61 Rhythm: Sinus Technical Quality: Adequate MEASUREMENTS (Male / Female) Normal Values 2D ECHO LV Diastolic Diameter PLAX 3.8 cm 4.2 - 5.9 / 3.9 - 5.3 cm LV Systolic Diameter PLAX 3.4 cm IVS Diastolic Thickness 0.5 cm 0.6 - 1.0 / 0.6 - 0.9 cm IVS Systolic Thickness 1.1 cm LVPW Diastolic Thickness 0.7 cm 0.6 - 1.0 / 0.6 - 0.9 cm LVPW Systolic Thickness 1.1 cm LV Ejection Fraction 2D Teich 25.2 % DOPPLER TR Peak Velocity 274.0 cm/s TR Peak Gradient 30.0 mmHg Right Atrial Pressure 3.0 mmHg Pulmonary Artery Systolic Pressu 33.0 mmHg FINDINGS Left Ventricle Right Ventricle Right Atrium Left Atrium Mitral Valve Aortic Valve Tricuspid Valve Pulmonic Valve Pericardium Aorta IVC CONCLUSIONS This is a limited echocardiogram performed to assess LV systolic function. LV systolic function is normal with EF of 55 to 60%. No regional wall motion abnormalities are seen RV is normal in size and function. RA pressure is normal. Compared to prior echocardiogram from 11/02/2022, no significant changes are seen. Caleb Romero MD (Electronically Signed) Final Date: 04 December 2022 18:08 S
[2022-12-05] VITALS: BP 104/65; PULSE 59; RESP 14; TEMP 36.8; O2SAT 100
[2022-12-05 04:00] VITALS: BP 101/64; PULSE 60; RESP 10; TEMP 36.8; O2SAT 100
[2022-12-05 06:05] LABS: Basophils % 0.6 %; Eosinophils # 0.4 10^3/uL (0.0-0.8); Eosinophils % 6.7 %; Hematocrit 30.8 % (37.0-47.0); Hemoglobin 9.9 g/dL (11.5-15.3); Lymphocytes % 36.3 %; Mean Corpuscular HGB Conc 32.1 g/dL (30.0-36.0); Mean Corpuscular Hemoglobin 31.5 pg (28.0-34.0); Mean Corpuscular Volume 98.1 fl (81-99); Mean Platelet Volume 11.6 fL (7.4-10.4); Monocytes # 0.8 10^3/uL (0.2-0.9); Monocytes % 14.3 %; Neutrophils # 2.24 10^3/uL (1.8-7.7); Neutrophils % 41.7 %; Nucleated Red Blood Cells % 0 %; Platelet Count 195 10^3/cmm (130-400); Red Blood Count 3.14 10^6/uL (4.1-5.3); Red Cell Distribution Width 15.5 % (12.1-15.1); White Blood Count 5.4 10^3/uL (4.0-10.0)
[2022-12-05 06:20] LABS: Alanine Aminotransferase 8 U/L (0-33); Albumin Level 1.8 g/dL (3.5-5.2); Alkaline Phosphatase 149 U/L (35-105); Aspartate Amino Transferase 21 U/L (0-32); Blood Urea Nitrogen 6 mg/dL (8-23); Calcium 7.9 mg/dL (8.5-10.5); Carbon Dioxide 24 mmol/L (22-29); Chloride 107 mmol/L (98-107); Globulin 4.1 g/dL (1.3-4.6); Glucose 77 mg/dL (65-115); Osmolality Calculated 280 mOsm/kg (285-295); Sodium 137 mmol/L (136-145); Total Bilirubin 0.4 mg/dL (0.15-1.2); Total Protein 5.9 g/dL (6.6-8.7)
[2022-12-05 06:23] LABS: Anion Gap 10.4 (5-19); Potassium 4.4 mmol/L (3.5-5.1)
[2022-12-05 08:00] VITALS: BP 126/55; PULSE 59; PULSE 62; RESP 16; TEMP 36.4; O2SAT 100
--- NOTE | 2022-12-05 08:02 | P.DS_ITS ---
Discharge Providers Date of Admission: 12/03/22 22:07 Date of Discharge: December 05, 2022 Attending Provider at Admission: Mp Quiroga MD Attending Provider at Discharge: Mp Quiroga MD Primary Care Provider: Daquan Luna MD Diagnoses at Discharge Discharge Diagnosis (1) Pulmonary embolism: Status: Acute (2) NSTEMI (non-ST elevated myocardial infarction): Status: Acute (3) Fracture of rib: Status: Acute (4) Carotid stenosis, bilateral: Status: Acute (5) S/P PTCA (percutaneous transluminal coronary angioplasty): Status: Acute (6) S/P carotid endarterectomy: Status: Acute Reason for Visit Reason for Visit: WEAKNESS; SOB Hospital Course Hospital Course Terri Pride is a 77 year old female with past medical history of CVA, CAD post PTCA, bilateral carotid stenosis and subclavian artery stenosis post carotid artery endarterectomy, alcohol abuse related ataxia, neuropathy, recent history of traumatic left-sided rib fracture complicated by pneumothorax, non- STEMI treated medically and strep bacteremia for which she is finished antibiotics and was discharged most recently on November 09 to [facility]. She presented to the ER on 12/03/22 because of extreme weakness and unable to get out of bed whereas usually she is able to walk around at home by walker.? Patient has been complaining of chest pain on and off occasionally on exertion most likely the morning along with mild difficulty in breathing.? She is chronically on 2 to 2-1/2 L of urine at rest and 3 L on exertion.? Currently she is on 3 L at rest. CTA showed Pulmonary embolism. echocardiogram negative for right-sided heart strain.? No concerns for hemothorax on the CT scan. she was started on a/c with full dose Lovenox 1 mg/kg body weight every 12 hourly as per creatinine clearance and is being discharged today with transition to [facility]. She has no new complaints at time of discharge, feels improved since admission day . Please note that patient DOES NOT take ASA 81 mg at home, instead she takes Plavix 75mg po daily. Even though plavix appears as a new medication, it is in fact continued from home dosing. Physical Exam Narrative: General: No acute distress, AO x3 HEENT: PERRLA, pupils bilaterally equal and reactive Chest: Normal vesicular breath sounds, no added sounds, equal good air entry bilaterally CVS: S1-S2 regular, no murmurs, no tachycardia, no gallops, no rubs Abdomen: Soft, nontender, no organomegaly, bowel sounds present Neuro: No focal deficits, no facial deformity, AO x3, power 5/5 in all limbs Discharge Data Studies Completed and Pending Completed Studies During Hospitalization Category Date Time Status CT angio chest PE protcl [id number] Stat Cat Scan 12/03/22 20:19 Completed XR chest 1V portable [id number] Stat Exams 12/03/22 18:06 Completed CV. echo limited [id number] Routine Ultrasound 12/04/22 22:45 Completed Pending at discharge Category Date Time Status Blood Culture Stat Lab 12/03/22 18:55 Results Complete Blood Count w/Auto AM LABS Lab 12/06/22 04:00 Ordered Radiology Impressions Chest X-Ray 12/03/22 18:06 IMPRESSION: 1. Continued findings of rib fractures on the left with more dense opacity in the lower left lung likely reflecting left-sided effusion, with mild ill-defined opacity just above this likely reflecting adjacent atelectasis and/or mild infiltrate. Interval improvement minimal opacity upper left lung, otherwise. 2. No pneumothorax. 3. Right lung appears clear. Chest CTA 12/03/22 20:19 IMPRESSION: 1. Findings of small pulmonary emboli within several segmental to subsegmental branches inferior to the right hilum, appearing new from prior exam November 01, 2022. 2. Multiple left-sided rib fractures again noted, along with fracture of the medial head of the left clavicle. 3. Moderate pleural effusion on the left with subjacent atelectasis in the lower left lung, with interval increase from prior exam November 01, 2022. No pneumothorax. ADDENDUM: 12/03/222118 THIS REPORT CONTAINS FINDINGS THAT MAY BE CRITICAL TO PATIENT CARE. The findings were verbally communicated via telephone conference with JANE LUGO at 9:18 PM LABOR MEDIATOR on 12/03/2022. The findings were acknowledged and understood. Limited echocardiogram: CONCLUSIONS ?This is a limited echocardiogram performed to assess LV systolic ?function. ?LV systolic function is normal with EF of 55 to 60%.? No ?regional wall motion abnormalities are seen ?RV is normal in size and function. ?RA pressure is normal. ?Compared to prior echocardiogram from 11/02/2022, no significant ?changes are seen. ?Caleb Romero MD ?(Electronically Signed) ?Final Date:? ? ? 04 December 2022 ? 18:08 Laboratory Results WBC 5.4 10^3/uL (4.0-10.0) 12/05/22 05:16 RBC 3.14 10^6/uL (4.1-5.3) L 12/05/22 05:16 Hgb 9.9 g/dL (11.5-15.3) L 12/05/22 05:16 Hct 30.8 % (37.0-47.0) L 12/05/22 05:16 MCV 98.1 fl (81-99) 12/05/22 05:16 MCH 31.5 pg (28.0-34.0) 12/05/22 05:16 MCHC 32.1 g/dL (30.0-36.0) 12/05/22 05:16 RDW 15.5 % (12.1-15.1) H 12/05/22 05:16 Plt Count 195 10^3/cmm (130-400) 12/05/22 05:16 MPV 11.6 fL (7.4-10.4) H 12/05/22 05:16 Neut % (Auto) 41.7 % 12/05/22 05:16 Lymph % (Auto) 36.3 % 12/05/22 05:16 [place] % (Auto) 14.3 % 12/05/22 05:16 Eos % (Auto) 6.7 % 12/05/22 05:16 Baso % (Auto) 0.6 % 12/05/22 05:16 Neut # (Auto) 2.24 10^3/uL (1.8-7.7) 12/05/22 05:16 Lymph # (Auto) 2.0 10^3/uL (0.8-4.8) 12/05/22 05:16 [place] # (Auto) 0.8 10^3/uL (0.2-0.9) 12/05/22 05:16 Eos # (Auto) 0.4 10^3/uL (0.0-0.8) 12/05/22 05:16 Baso # (Auto) 0.0 10^3/uL (0.0-0.1) 12/05/22 05:16 Nucleated RBC % (auto) 0 % 12/05/22 05:16 Nucleated RBCs # 0.0 /100WBC 12/05/22 05:16 PT 17.20 SECONDS (12.1-14.9) H 12/03/22 23:05 INR 1.38 (0.8-1.2) H 12/03/22 23:05 APTT > 294.0 SECONDS (23.9-36.7) H* D 12/03/22 23:05 D-Dimer 3.15 ug/mIFEU (0-0.59) H 12/03/22 18:27 Sodium 137 mmol/L (136-145) 12/05/22 05:16 Potassium 4.4 mmol/L (3.5-5.1) 12/05/22 05:16 Chloride 107 mmol/L (98-107) 12/05/22 05:16 Carbon Dioxide 24 mmol/L (22-29) 12/05/22 05:16 Anion Gap 10.4 (5-19) 12/05/22 05:16 BUN 6 mg/dL (8-23) L 12/05/22 05:16 Creatinine 0.5 mg/dL (0.5-0.9) 12/05/22 05:16 GFR Calculation Not Reportable 12/05/22 05:16 Glucose 77 mg/dL (65-115) 12/05/22 05:16 Estimat Average Glucose 88 12/04/22 02:58 Hemoglobin A1c 4.7 % (4.0-6.0) 12/04/22 02:58 Calculated Osmolality 280 mOsm/kg (285-295) L 12/05/22 05:16 Lactate 0.8 mmol/L (0.5-2.2) 12/03/22 18:55 Calcium 7.9 mg/dL (8.5-10.5) L 12/05/22 05:16 Phosphorus 2.8 mg/dL (2.5-4.5) 12/04/22 02:58 Magnesium 1.5 mg/dL (1.7-2.3) L 12/04/22 02:58 Iron 21 ug/dL (37-145) L 12/03/22 18:55 TIBC 113 mcg/dl 12/03/22 18:55 % Saturation 18.5 % (20-50) L 12/03/22 18:55 Unsat Iron Binding 92 ug/dL (112-347) L 12/03/22 18:55 Total Bilirubin 0.4 mg/dL (0.15-1.2) 12/05/22 05:16 AST 21 U/L (0-32) 12/05/22 05:16 ALT 8 U/L (0-33) 12/05/22 05:16 Alkaline Phosphatase 149 U/L (35-105) H 12/05/22 05:16 Troponin T Baseline 18 ng/L (0-10) H 12/03/22 18:55 Troponin T 120 Minute 17.03 ng/L (0-10) H 12/03/22 20:30 Delta Troponin T -0.97 ABS# (0-10) L 12/03/22 20:30 Troponin T Hi Sens 6Hr 20.19 ng/L (0-10) H 12/04/22 02:58 Troponin T Hi Sens 6Hr Delta 2.19 ng/L (0-12) 12/04/22 02:58 Total Protein 5.9 g/dL (6.6-8.7) L 12/05/22 05:16 Albumin 1.8 g/dL (3.5-5.2) L 12/05/22 05:16 Globulin 4.1 g/dL (1.3-4.6) 12/05/22 05:16 Triglycerides 91 mg/dL (0-150) 12/04/22 02:58 Cholesterol 92 mg/dL (0-200) 12/04/22 02:58 LDL Cholesterol, Calc 40 mg/dL (50-129) L 12/04/22 02:58 Total VLDL Cholesterol 18 mg/dL (0-30) 12/04/22 02:58 HDL Cholesterol 34 mg/dL (60-100) L 12/04/22 02:58 Cholesterol/HDL Ratio 2.71 mg/dL (0.0-4.40) 12/04/22 02:58 Vitamin B12 959 pg/mL (232-1245) 12/03/22 18:55 Folate > 20.0 ng/mL (4.8-37.3) 12/03/22 18:55 Procalcitonin 0.22 ng/mL (0-0.5) 12/03/22 18:55 TSH 0.50 uIU/mL (0.27-4.20) 12/03/22 18:55 TSH 0.50 uIU/mL (0.27-4.20) 12/03/22 18:55 Urine Color Yellow (Yellow) 12/03/22 22:29 Urine Appearance Clear (CLEAR) 12/03/22 22:29 Urine pH 6.5 (5-7) 12/03/22 22:29 Ur Specific [place] 1.005 (1.005-1.030) 12/03/22 22:29 Urine Protein Neg (Negative) 12/03/22 22:29 Urine Glucose (UA) Norm (Normal) 12/03/22 22:29 Urine Ketones Negative (Negative) 12/03/22 22:29 Urine Blood Neg (Negative) 12/03/22 22:29 Urine Nitrate Negative (Negative) 12/03/22 22:29 Urine Bilirubin Neg (Negative) 12/03/22 22:29 Urine Urobilinogen Neg mg/dL (Negative) 12/03/22 22:29 Ur Leukocyte Esterase Negative (Negative) 12/03/22 22:29 Urine Opiates Screen Negative ng/mL (Negative) 12/03/22 22:29 Ur Barbiturates Screen Negative ng/mL (Negative) 12/03/22 22:29 Ur Phencyclidine Scrn Negative ng/mL (Negative) 12/03/22 22:29 Ur Amphetamines Screen Negative ng/mL (Negative) 12/03/22 22:29 U Benzodiazepines Scrn Negative ng/mL (Negative) 12/03/22 22:29 Urine Cocaine Screen Negative ng/mL (Negative) 12/03/22 22:29 U Marijuana (THC) Screen Negative ng/mL (Negative) 12/03/22 22:29 Ethyl Alcohol < 10 mg/dL (0-10) 12/03/22 18:55 Vitals Last Vital Signs Temp 98.2 F 12/05/22 04:00 Pulse 62 12/05/22 08:00 Resp 10 L 12/05/22 04:00 BP 101/64 12/05/22 04:00 Pulse Ox 100 12/05/22 08:00 O2 Del Method 12/05/22 08:00 O2 Flow Rate 3 12/05/22 08:00 Discharge Plan Discharge Patient Disposition: Home Health Service Condition: Stable Prescriptions: New Eliquis 5 mg Tablet 5 mg PO BID@0900,2100 90 Days Qty: 180 0RF Rx Instructions: Take 10 mg twice daily for 4 days and then reduce dose to 5 mg twice daily for 90 days clopidogrel 75 mg Tablet 75 mg PO DAILY 30 Days Qty: 30 0RF Protonix 40 mg tablet,delayed release (DR/EC) 40 mg PO DAILY 28 Days Qty: 30 0RF Continued paroxetine HCl 20 mg tablet See Rx Instructions .ROUTE .COMPLEX Qty: 45 5RF Dose Instruction: TAKE 1 & 1/2 (ONE & ONE-HALF) TABLETS BY MOUTH ONCE DAILY Rx Instructions: TAKE 1 & 1/2 (ONE & ONE-HALF) TABLETS BY MOUTH ONCE DAILY escitalopram oxalate [Lexapro] 10 mg Tablet 10 mg PO DAILY acetaminophen [Tylenol Extra Strength] 500 mg Tablet 500 mg PO Q6H PRN (Reason: pain) 14 Days Qty: 30 0RF lisinopril 10 mg Tablet 10 mg PO DAILY Qty: 60 0RF folic acid 1 mg Tablet 1 mg PO DAILY Qty: 60 0RF thiamine mononitrate (vit B1) [Vitamin B-1 (mononitrate)] 100 mg Tablet 100 mg PO DAILY Qty: 60 0RF oxycodone-acetaminophen [Percocet] 5-325 mg tablet 1 tab PO Q8H PRN (Reason: pain) Qty: 20 0RF Changed metoprolol tartrate 25 mg tablet 12.5 mg PO BID Qty: 30 0RF Discontinued aspirin 81 mg Tablet,Delayed Release (Dr/Ec) 81 mg PO DAILY Qty: 60 1RF Discharge Orders: Discharge Order (Routine); Ordered 12/05/22 Ordered By: Mp Quiroga Referrals: [facility] ([facility]) [Outside] Daquan Luna MD [Primary Care Provider] - 12/12/22 12:00 pm (hospital discharge after PE APPOINTMENT WITH DR GREGG AT [facility]) Discharge Diet: Usual diet Discharge Activity: Resume usual activity Patient Instructions: Clopidogrel (By mouth), Pantoprazole (By mouth), Apixaban (By mouth), Heart Attack (GEN), Pulmonary Embolism (GEN), Opioid Safety Activity Restrictions/Additional Instructions: Please continue taking your home dose of Plavix daily. Eliquis is a blood thinner which you take going forward. Take 10 mg twice daily for next 1 week followed by 5 mg twice daily for next 6 months at the least. Please check your blood pressure daily at home and maintain a blood pressure diary and follow-up with a primary care provider within next 1 week for further adjustment of antihypertensive as needed. Please continue to do incentive spirometry for expansion of the lungs and prevention of pneumonia as discussed in detail as recently as possible during the day. Discharge Attestations Time Spent in Discharge Care*: greater than 30 min Specific Discharge Activities: educating patient, educating and/or supporting family/caregiver, discussing with pcp/other providers, discussing with pillowcase maker/social workers/dc planners, documenting/other paperwork and evaluating patient/reviewing data Quality Metrics Clinical Quality Measures [ Venous Thromboembolism { Contraindication to Overlap Therapy: None; Overlap threrpy ordered; VTE Discharge Education: Education about anticoagulant therapy/Care Notes given;}] Coding Level of Care Code 17488 Total time (in minutes) for Discharge: 45 Diagnoses Pulmonary embolism I26.99 NSTEMI (non-ST elevated myocardial infarction) I21.4 Fracture of rib S22.39XA Carotid stenosis, bilateral I65.23 S/P PTCA (percutaneous transluminal coronary angioplasty) Z98.61 S/P carotid endarterectomy Z98.890
[2022-12-05] MEDS: docusate sodium 100 mg Capsule PO (08:31)
[2022-12-05] MEDS: ferrous gluconate 324 mg Tablet PO (08:31)
[2022-12-05] MEDS: PARoxetine 20 mg Tablet 30 MG PO (08:31)
[2022-12-05] MEDS: magnesium lactate 84 mg Tablet PO (08:31)
[2022-12-05] MEDS: escitalopram 10 mg Tablet PO (08:32)
[2022-12-05] MEDS: clopidogrel 75 mg Tablet PO (08:32)
[2022-12-05] MEDS: famotidine 20 mg Tablet PO (08:32)
[2022-12-05] MEDS: apixaban 5 mg Tablet 10 MG PO (08:32)
[2022-12-05] MEDS: folic acid 1 mg Tablet PO (08:32)
[2022-12-05] MEDS: thiamine 100 mg Tablet PO (08:32)
[2022-12-05] MEDS: lisinopril 10 mg Tablet PO (10:23)
--- NOTE | 2022-12-05 10:24 | PC.NURSE ---
notified Dr. Quiroga of BP 126/55 and HR of 59. Dr. Quiroga gave verbal orders to hold metoprolol and give lisinopril.
[2022-12-05] MEDS: acetaminophen 325 mg Tablet 650 MG PO (10:50)
--- NOTE | 2022-12-05 10:55 | PC.NURSE ---
notified Group Leader to see if patient needed anything. Notified Patients son to bring patient pants and oxygen. Will go over discharge paperwork with him at his request.
--- NOTE | 2022-12-05 12:07 | PC.NURSE ---
Discussed discharge with patient and son. Discussed new medications, continued medications and discontinued medications, follow up appointments and answered all questions at 1050.
[2022-12-05 12:14] VITALS: BP 126/55; PULSE 59; RESP 16; TEMP 36.4; O2SAT 100
--- NOTE | 2022-12-05 12:18 | PC.NURSE ---
patient did not discharge until son came to pick patient up due to follow up appointments and medications changes. Son had to bring oxygen and some clothing items for patient.
== END 2022-12-05 11:55 | disposition home health service (06) ==
LOC: ER 21:32 → MEDSURG 22:28
PROVIDERS: Student in an Organized Health Care Education/Training Program; Admitting Provider Student in an Organized Health Care Education/Training Program; Emergency Provider Emergency Medicine; PCP Family Medicine; Visit Provider Student in an Organized Health Care Education/Training Program
DX: I26.94 Multiple subsegmental thrombotic pulmonary emboli without acute cor pulmonale (principal); Z86.73 Personal history of transient ischemic attack (TIA), and cerebral infarction without residual deficits; I25.10 Atherosclerotic heart disease of native coronary artery without angina pectoris; Z95.5 Presence of coronary angioplasty implant and graft; F10.10 Alcohol abuse, uncomplicated; R27.0 Ataxia, unspecified; G62.1 Alcoholic polyneuropathy; I21.4 Non-ST elevation (NSTEMI) myocardial infarction; Z66 Do not resuscitate; Z87.891 Personal history of nicotine dependence; S22.42XD Multiple fractures of ribs, left side, subsequent encounter for fracture with routine healing; X58.XXXD Exposure to other specified factors, subsequent encounter
CPT/HCPCS: 36415; 71045; 71275; 80053; 80061; 80306; 80307; 81003; 82607; 82746; 83036; 83540; 83550; 83605; 83735; 84100; 84145; 84443; 84484; 85025; 85378; 85610; 85730; 87040; 93005; 93308; 94664; 96365; 96366; 96367; 96372; 96375; 97110; 97116; 97161; 99285; G0378; J1630; J1644; J1650; J1885; J3475; J7030; Q9967

== ENCOUNTER → 2023-01-02 13:59 | Outpatient (BNVA) | payer MEDICARE, MEDICAID, SELFPAY | PROVIDERS: PCP Family Medicine; Visit Provider Family Medicine | DX: I26.99 Other pulmonary embolism without acute cor pulmonale (principal); D64.9 Anemia, unspecified; R60.9 Edema, unspecified | CPT/HCPCS: 80053; 83880; 85025 ==

== ENCOUNTER 2023-01-16 18:08 | Inpatient (IN) | payer MEDICARE, MEDICAID, SELFPAY ==
[2023-01-16] VITALS (10 sets, daily range): BP systolic 93–154; BP diastolic 57–82; PULSE 64–90; RESP 15–20; TEMP 36.5–36.6; O2SAT 92–98; BMI 20.2
--- NOTE | 2023-01-16 18:20 | XRR_ITS ---
PROCEDURE INFORMATION: Exam: XR Right Hip Exam date and time: 01/16/2023 6:38 PM Age: 77 years old Clinical indication: Injury or trauma; Fall; Blunt trauma (contusions or hematomas); Right; Hip TECHNIQUE: Imaging protocol: Radiologic exam of the right hip. Views: 1 view hip with pelvis when performed. COMPARISON: CR XR pelvis 1-2V* [id number] 11/01/2022 6:40 PM FINDINGS: Bones/joints: Minimal cortical irregularity along the bilateral greater trochanteric regions however findings appears stable suggesting chronic productive changes. New cortical irregularity at the right superior and inferior pubic rami suspicious for fractures, likely acute. No other obvious acute fracture dislocation otherwise. Osteopenia limiting assessment of nondisplaced acute osseous injury. Mild spurring of the hip joint consistent with osteoarthritis. Lower lumbar spine disc degeneration. Soft tissues: Unremarkable. Vasculature: Aortoiliac calcification. Other findings: Three views submitted. XR/XR hip RT 2-3V wo/w pel* [id number] IMPRESSION: Right inferior and superior pubic ramus fractures, likely acute. Other nonacute findings as described.
--- NOTE | 2023-01-16 18:20 | CTR_ITS ---
PROCEDURE INFORMATION: Exam: CT Cervical Spine Without Contrast Exam date and time: 01/16/2023 6:50 PM Age: 77 years old Clinical indication: Injury or trauma; Fall; Blunt trauma TECHNIQUE: Imaging protocol: Computed tomography of the cervical spine without contrast. Radiation optimization: All CT scans at this facility use at least one of these dose optimization techniques: automated exposure control; mA and/or kV adjustment per patient size (includes targeted exams where dose is matched to clinical indication); or iterative reconstruction. REPORTING DATA: Count of CT and Cardiac NM exams in prior 12 months: This patient has received 10 known CTs and 0 known cardiac nuclear medicine studies in the 12 months prior to the current study. COMPARISON: CT cervical spin wo con* [id number] 11/01/2022 7:47 PM RADIATION DOSE METRICS: Total DLP (mGy-cm): 160.4 FINDINGS: Bones/joints: Diffuse osteopenia noted. Vertebral body heights are preserved. No compression fractures are noted. Vertebral alignment is physiologic. Degenerative disc narrowing noted at C5-C6 and C6-C7. No large cervical disc protrusions are noted at any level. Advanced degenerative facet joint changes are noted on the left at C2-C3 and C3-C4. Facet joints are intact at all levels. Lungs: The lung apices are unremarkable. Pleural spaces: Bilateral apical pleural calcification. No apical pneumothorax. Soft tissues: The soft tissues are unremarkable as demonstrated. CT/CT cervical spin wo con* [id number] IMPRESSION: 1. Degenerative cervical spine changes are noted. 2. No acute abnormality of the cervical spine demonstrated.
--- NOTE | 2023-01-16 18:20 | CTR_ITS ---
PROCEDURE INFORMATION: Exam: CT Head Without Contrast Exam date and time: 01/16/2023 6:50 PM Age: 77 years old Clinical indication: Injury or trauma; Fall TECHNIQUE: Imaging protocol: Computed tomography of the head without contrast. Radiation optimization: All CT scans at this facility use at least one of these dose optimization techniques: automated exposure control; mA and/or kV adjustment per patient size (includes targeted exams where dose is matched to clinical indication); or iterative reconstruction. REPORTING DATA: Count of CT and Cardiac NM exams in prior 12 months: This patient has received 10 known CTs and 0 known cardiac nuclear medicine studies in the 12 months prior to the current study. COMPARISON: CT head wo con* [id number] 11/03/2022 5:04 PM RADIATION DOSE METRICS: Total DLP (mGy-cm): 1120 FINDINGS: Brain: Age related parenchymal volume loss noted. There is decreased attenuation of the periventricular white matter, consistent with chronic microangiopathic white matter disease. Old lacunar infarcts are noted in the basal ganglia. No parenchymal edema identified. No intracranial hemorrhage noted. Cerebral ventricles: No ventriculomegaly. Paranasal sinuses: Visualized sinuses are unremarkable. No air fluid levels. Mastoid air cells: Unremarkable as visualized. No mastoid effusion. Bones/joints: Unremarkable. No acute fracture. Soft tissues: Large right frontal scalp hematoma noted. CT/CT head wo con* [id number] IMPRESSION: 1. Large right frontal scalp hematoma noted. No associated calvarial fracture. 2. No acute intracranial abnormality demonstrated.
--- NOTE | 2023-01-16 18:20 | XRR_ITS ---
PROCEDURE INFORMATION: Exam: XR Right Shoulder Exam date and time: 01/16/2023 6:33 PM Age: 77 years old Clinical indication: Injury or trauma; Fall; Blunt trauma (contusions or hematomas); Shoulder; Right TECHNIQUE: Imaging protocol: Radiologic exam of the right shoulder. Views: 2 or more views. COMPARISON: CR (CHEST, ) 12/03/2022 6:15 PM FINDINGS: Bones/joints: Osteopenia limiting assessment of nondisplaced acute osseous injury. There is a fracture involving the right proximal humerus at the neck region. No obvious fracture extension to the humeral head however extension to the greater tuberosity may be present. No dislocation. Moderate AC joint chronic hypertrophy with inferior osteophytes which may contribute to rotator cuff impingement. Curvilinear calcification above the humeral head may be related to bursal calcification and/or calcifying rotator cuff tendinitis. Soft tissues: Normal. XR/XR shoulder RT min 2V* [id number] IMPRESSION: Right proximal humeral fracture. See discussion above. Other nonacute findings as described.
--- NOTE | 2023-01-16 18:28 | CTR_ITS ---
PROCEDURE INFORMATION: Exam: CT Chest With Contrast; Diagnostic Exam date and time: 01/16/2023 6:57 PM Age: 77 years old Clinical indication: Injury or trauma; Fall TECHNIQUE: Imaging protocol: Diagnostic computed tomography of the chest with contrast. Radiation optimization: All CT scans at this facility use at least one of these dose optimization techniques: automated exposure control; mA and/or kV adjustment per patient size (includes targeted exams where dose is matched to clinical indication); or iterative reconstruction. Contrast material: OMNI 350; Contrast volume: 100 ml; Contrast route: INTRAVENOUS (IV); REPORTING DATA: Count of CT and Cardiac NM exams in prior 12 months: This patient has received 10 known CTs and 0 known cardiac nuclear medicine studies in the 12 months prior to the current study. COMPARISON: CT chest wo con [id number] 10/21/2022 4:06 AM RADIATION DOSE METRICS: Total DLP (mGy-cm): 638.69 FINDINGS: Thyroid: Small left thyroid calcification with no obvious large nodule similar to prior exam. Lungs: See Pleural spaces finding. Pleural spaces: Small left pleural effusion, significantly decreased since prior exam however there has been increased regional pleural thickening and superimposed inflammatory/infectious process should be considered. Persistent consolidations adjacent to left pleural effusion may be related to compressive atelectasis versus pneumonia and continued follow-up should be obtained. Otherwise no new acute consolidation or ground-glass opacity. No pneumothorax. Heart: Normal heart size with coronary calcification. Lymph nodes: No enlarged lymph nodes. Vasculature: Unremarkable. No aortic aneurysm. Bones/joints: Right proximal humeral fracture and other osseous findings in the shoulder region as described on radiographic exam same day. Osteopenia limiting assessment of nondisplaced acute osseous injury. Multiple left rib fractures involving 2nd through 10th ribs with regional callus formation suggesting subacute/chronic fractures. Chronic fracture of the left medial clavicle with smooth cortical margin and some override similar to prior exam. Stable [id number] T12 superior endplate compression deformity with no subluxation or retropulsed element. Soft tissues: See Bones/joints finding. Other findings: Several images are somewhat degraded by artifacts from the patient's arm(s.) PROCEDURE INFORMATION: Exam: CT Abdomen And Pelvis With Contrast Exam date and time: 01/16/2023 6:57 PM Age: 77 years old Clinical indication: Injury or trauma; Fall TECHNIQUE: Imaging protocol: Computed tomography of the abdomen and pelvis with contrast. Radiation optimization: All CT scans at this facility use at least one of these dose optimization techniques: automated exposure control; mA and/or kV adjustment per patient size (includes targeted exams where dose is matched to clinical indication); or iterative reconstruction. Contrast material: OMNI 350; Contrast volume: 100 ml; Contrast route: INTRAVENOUS (IV); REPORTING DATA: Count of CT and Cardiac NM exams in prior 12 months: This patient has received 10 known CTs and 0 known cardiac nuclear medicine studies in the 12 months prior to the current study. COMPARISON: CT angio chest w abd pel w con 11/01/2022 7:58 PM RADIATION DOSE METRICS: Total DLP (mGy-cm): 638.69 FINDINGS: Liver: Normal. No mass. Gallbladder and bile ducts: Normal. No calcified stones. No ductal dilation. Pancreas: Normal. No ductal dilation. Spleen: Normal. No splenomegaly. Adrenal glands: Normal. No mass. Kidneys and ureters: Bilateral renal cortical contour scarring without hydronephrosis, regional collection/hematoma or hydronephrosis. Stable mild overall right renal atrophy. Stomach and bowel: Moderate stool burden. No acute bowel findings. Mild colonic diverticulosis. Proximal duodenal diverticulum measuring 1.7 cm. Appendix: No evidence of appendicitis. Intraperitoneal space: Unremarkable. No free air. No significant fluid collection. Vasculature: No abdominal aortic aneurysm. Lymph nodes: No enlarged lymph nodes. Urinary bladder: Unremarkable as visualized. Reproductive: Unremarkable as visualized. Bones/joints: Osteopenia limiting assessment of nondisplaced acute osseous injury. Moderate-severe L5-S1 vacuum disc degeneration. Slightly displaced fractures of the right inferior and superior pubic rami. Moderate bilateral hip joint space narrowing with osteophytes consistent with osteoarthritis. Soft tissues: Mild soft tissue swelling/small amount of hemorrhage adjacent to the pubic ramus fractures. No acute findings otherwise. Other findings: Several images are somewhat degraded by artifacts from the patient's arm(s.) CT/CT chest abdpel w/*[id number] IMPRESSION: 1. New right proximal humeral fracture as described on radiographic exam report. Several other osseous findings as above which are nonacute. 2. Comparison CT 12/03/2022. Interval decrease of left pleural effusion however there is increasing regional pleural thickening/enhancement. Persistent adjacent left basilar consolidation. See discussion above. No acute traumatic thoracic injury otherwise. 3. Coronary calcification and other nonacute findings as above. IMPRESSION: 1. Right inferior/superior pubic ramus fractures. Other nonacute osseous findings as above. 2. No acute abdominopelvic findings otherwise. Other nonacute findings as described above.
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
[2023-01-16] MEDS: iohexol 350 mg/mL 500 mL Btl (per mL) IV (19:21)
[2023-01-16] MEDS: sodium chloride 0.9% 1,000 ML 999 ML IV (19:28)
[2023-01-16] MEDS: morphine 4 mg/mL SDV 1 mL IVP (19:42)
[2023-01-16] MEDS: ondansetron 2 mg/ML SDV 2 mL 4 MG IVP (19:42)
[2023-01-16 21:03] LABS: Basophils % 0.3 %; Eosinophils # 0.1 10^3/uL (0.0-0.8); Eosinophils % 1.1 %; Hematocrit 33.6 % (37.0-47.0); Hemoglobin 10.5 g/dL (11.5-15.3); Lymphocytes % 19.9 %; Mean Corpuscular HGB Conc 31.3 g/dL (30.0-36.0); Mean Corpuscular Hemoglobin 31.2 pg (28.0-34.0); Mean Corpuscular Volume 99.7 fl (81-99); Mean Platelet Volume 9.9 fL (7.4-10.4); Monocytes # 0.6 10^3/uL (0.2-0.9); Monocytes % 5.8 %; Neutrophils # 7.18 10^3/uL (1.8-7.7); Neutrophils % 72.5 %; Nucleated Red Blood Cells % 0 %; Platelet Count 277 10^3/cmm (130-400); Red Blood Count 3.37 10^6/uL (4.1-5.3); Red Cell Distribution Width 17.6 % (12.1-15.1); White Blood Count 9.9 10^3/uL (4.0-10.0)
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
[2023-01-16 21:24] LABS: Troponin(5th) Baseline 12 ng/L (0-10)
[2023-01-16 21:32] LABS: NT Pro B Type Natriuretic Pept 1346 pg/mL (0-450); Procalcitonin 1.24 ng/mL (0-0.5); Thyroid Stimulating Hormone 2.18 uIU/mL (0.27-4.20)
[2023-01-16 21:44] LABS: Alanine Aminotransferase 16 U/L (0-33); Albumin Level 2.7 g/dL (3.5-5.2); Alkaline Phosphatase 163 U/L (35-105); Anion Gap 13.1 (5-19); Aspartate Amino Transferase 24 U/L (0-32); Blood Urea Nitrogen 11 mg/dL (8-23); Calcium 7.8 mg/dL (8.5-10.5); Carbon Dioxide 24 mmol/L (22-29); Chloride 97 mmol/L (98-107); Ferritin 700 ng/mL (15-150); Globulin 4.6 g/dL (1.3-4.6); Glucose 89 mg/dL (65-115); Iron 74 ug/dL (37-145); Osmolality Calculated 269 mOsm/kg (285-295); Percent Saturation 42.7 % (20-50); Potassium 4.1 mmol/L (3.5-5.1); Sodium 130 mmol/L (136-145); Total Bilirubin 0.3 mg/dL (0.15-1.2); Total Iron Binding Capacity 173 mcg/dl; Total Protein 7.3 g/dL (6.6-8.7); Unsaturated Iron Binding 99 ug/dL (112-347)
[2023-01-16 21:46] LABS: Alcohol Level < 10 mg/dL (0-10)
[2023-01-16] MEDS: morphine 4 mg/mL SDV 1 mL 2 MG IVP (21:50)
[2023-01-16 22:00] LABS: Lactic Sepsis W/Reflex 1.9 mmol/L (0.5-2.2)
[2023-01-16 22:17] LABS: Creatine Phosphokinase 80 U/L (26-192)
--- NOTE | 2023-01-16 22:29 | ECG_ITS ---
[facility] Test Date: 2023-01-17 Pat Name: Terri Pride Department: Room: 271 Gender: Female Seam Finisher: : 1945 Requested By: Brock Ordonez Order Number: [id number] Noel MD: Caleb Romero M.D. Measurements Intervals [place] Rate: 89 P: 24 MN: 196 QRS: 31 QRSD: 74 T: 221 QT: 359 QTc: 439 Interpretive Statements SINUS RHYTHM RIGHT ATRIAL ENLARGEMENT [0.3mV P-WAVE] LEFT ATRIAL ENLARGEMENT [-0.15mV P-WAVE IN V1/V2] ST DEVIATION AND MODERATE T-WAVE ABNORMALITY, CONSIDER LATERAL ISCHEMIA [-0.1+ mV T-WAVE IN I/aVL/V5/V6] Compared to ECG 12/04/2022 00:37:05 Atrial abnormality now present Myocardial infarct finding no longer present T-wave abnormality still present Possible ischemia still present Electronically Signed On 01-17-2023 15:07:31 CDT by Caleb Romero M.D. [id number]
[2023-01-16 23:16] LABS: Add Urine Microscopic? NO; Charge for UA Resulting for Rev
[2023-01-16 23:19] LABS: Bilirubin Urine Neg (Negative); Blood Urine Neg (Negative); Glucose Urine UA Norm (Normal); Ketones Urine Negative (Negative); Leukocyte Esterase Urine Negative (Negative); Nitrate Urine Negative (Negative); Protein Urine Neg (Negative); Urine Appearance Clear (CLEAR); Urine Color Light yellow (Yellow); Urobilinogen Urine Norm (Negative); pH Urine 6 (5-7)
[2023-01-16 23:24] LABS: Troponin 5 2HR 12.56 ng/L (0-10); Troponin 5 2HR Delta 0.56 ABS# (0-10)
[2023-01-16 23:27] LABS: Amphetamines Screen Urine Negative (Negative); Barbiturates Screen Urine Negative (Negative); Benzodiazepines Screen Urine Negative (Negative); Cocaine Screen Urine Negative (Negative); Opiate Screen Urine Positive (Negative); PCP Screen Urine Negative (Negative); THC Screen Urine Negative (Negative)
[2023-01-16] MEDS: HYDROmorphone 1 mg/mL INJ 1 mL 0.5 MG IVP (23:36)
[2023-01-17] VITALS (14 sets, daily range): BP systolic 83–126; BP diastolic 53–73; PULSE 62–100; RESP 16–20; TEMP 36.6–36.9; O2SAT 91–98
--- NOTE | 2023-01-17 03:28 | ECG_ITS ---
[facility] Test Date: 2023-01-17 Pat Name: Terri Pride Department: Room: 271 Gender: Female Photo Finisher: : 1945 Requested By: Brock Ordonez Order Number: [id number] Noel MD: Caleb Romero M.D. Measurements Intervals [place] Rate: 92 P: 37 ND: 159 QRS: 41 QRSD: 77 T: 219 QT: 344 QTc: 427 Interpretive Statements SINUS RHYTHM ST DEVIATION AND MODERATE T-WAVE ABNORMALITY, CONSIDER LATERAL ISCHEMIA [-0.1+ mV T-WAVE IN I/aVL/V5/V6] ST DEVIATION AND MODERATE T-WAVE ABNORMALITY, CONSIDER INFERIOR ISCHEMIA [-0.1+ mV T-WAVE IN II/aVF] Compared to ECG 01/17/2023 00:23:47 Atrial abnormality no longer present T-wave abnormality still present Possible ischemia still present Electronically Signed On 01-17-2023 15:05:45 CDT by Caleb Romero M.D. [id number]
[2023-01-17 04:05] LABS: Basophils % 0.5 %; Eosinophils # 0.1 10^3/uL (0.0-0.8); Hematocrit 28.6 % (37.0-47.0); Hemoglobin 8.9 g/dL (11.5-15.3); Lymphocytes # 1.8 10^3/uL (0.8-4.8); Lymphocytes % 21.9 %; Mean Corpuscular HGB Conc 31.1 g/dL (30.0-36.0); Mean Corpuscular Hemoglobin 31.2 pg (28.0-34.0); Mean Corpuscular Volume 100.4 fl (81-99); Mean Platelet Volume 10.1 fL (7.4-10.4); Monocytes # 0.7 10^3/uL (0.2-0.9); Neutrophils # 5.54 10^3/uL (1.8-7.7); Neutrophils % 67.1 %; Nucleated Red Blood Cells % 0 %; Platelet Count 250 10^3/cmm (130-400); Red Blood Count 2.85 10^6/uL (4.1-5.3); Red Cell Distribution Width 17.9 % (12.1-15.1); White Blood Count 8.3 10^3/uL (4.0-10.0)
[2023-01-17 04:35] LABS: Anion Gap 14.2 (5-19); Blood Urea Nitrogen 12 mg/dL (8-23); Calcium 7.9 mg/dL (8.5-10.5); Carbon Dioxide 24 mmol/L (22-29); Chloride 101 mmol/L (98-107); Glucose 101 mg/dL (65-115); Magnesium 1.2 mg/dL (1.7-2.3); Osmolality Calculated 280 mOsm/kg (285-295); Phosphorus 4.8 mg/dL (2.5-4.5); Potassium 4.2 mmol/L (3.5-5.1); Sodium 135 mmol/L (136-145)
[2023-01-17 04:53] LABS: Troponin 5 6HR 16.21 ng/L (0-10); Troponin 5 6HR Delta 4.21 ng/L (0-12)
[2023-01-17] MEDS: HYDROmorphone 1 mg/mL INJ 1 mL 0.5 MG IVP ×2 (05:48→11:14)
[2023-01-17] MEDS: PARoxetine 20 mg Tablet 10 MG PO (08:28)
[2023-01-17] MEDS: clopidogrel 75 mg Tablet PO (08:29)
[2023-01-17] MEDS: thiamine 100 mg Tablet PO (08:29)
[2023-01-17] MEDS: pantoprazole DR 40 mg Tablet PO (08:29)
[2023-01-17] MEDS: folic acid 1 mg Tablet PO (08:29)
[2023-01-17] MEDS: apixaban 5 mg Tablet 2.5 MG PO ×2 (08:29→21:29)
[2023-01-17] MEDS: metoprolol tartrate 25 mg Tablet 12.5 MG PO (08:29)
[2023-01-17] MEDS: lisinopril 10 mg Tablet PO (08:30)
--- NOTE | 2023-01-17 08:47 | DCPLANNER ---
manager technical services had message to schedule a follow up appointment for patient with ortho. Patient was admitted to the floor, will follow up when discharged.
--- NOTE | 2023-01-17 09:16 | PC.PHAR ---
pt states her daugter in law gabriel takes care of her medications-called gabriel [phone] left message
--- NOTE | 2023-01-17 10:35 | PC.CHAP ---
Pastoral Care Encounter/Spiritual Assessment Type of Contact [] Declined shipfitter visit [] Patient/Family/Request visit [] Outpatient visit [] Follow-up visit [] Physician referral [] Code/Alert [x] Routine visit [] Staff referral [] Actively dying [] Patient sleeping [] Family support [] [] Out of room [] Palliative care [] [] Receiving care in room [] Pre-surgical visit [] Trauma [] Long length of stay [] ICU visit [] Other: Relational/Emotional Strength [x] Patient feels connected with others/family/visitors/staff [] Distress [] Loneliness/isolation [] Abandonment Spirituality of Patient [x] Person of Juanis [] Attends Adventist of their Juanis [x] Believes in Prayer [] Reads Bible or Restoration materials [] There are Spiritual issues to be addressed Shank Tapper Interventions [x] Prayer [x] Active listening [] Non-anxious presence [x] Spiritual/emotional support [] Crisis/trauma care [] Spiritual counseling [] Bereavement support [] Provided bereavement packet [] Provided Bible/devotional materials [] Provided toy/stuffed animal, coloring book to patient or family member [] Provided Communion [] Anointing/[place] [] Salvation [] Completed spiritual assessment [] Other: Impact on Illness or Injury [] Angry [] Fearful [] Anxious [] Often cries [] Exhaustion [] Unable to work [] Unable to attend zoroastrian [] Unable to walk/stand [] Unable to read [] Unable to drive [] Unable to eat/drink [] Unable to sleep [] Unable to be with family [] Patient intubated [] Other: Summary Time spent with patient 5 min
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
--- NOTE | 2023-01-17 15:22 | XR_ITS ---
WS: [id number] Right hand, 3 views, 01/17/2023 Clinical Data: Right thumb pain Comparison: None. Findings: No fractures or dislocations are seen. The soft tissues are unremarkable. The joint space s are normal Is abundant calcification in the triradiate cartilage. XR/XR hand RT min 3V* [id number] Impression: Negative for fracture or dislocation.
[2023-01-17] MEDS: oxyCODONE-APAP 5-325 mg Tablet 1 TAB PO (16:53)
[2023-01-17] MEDS: acetaminophen 325 mg Tablet 650 MG PO (20:00)
[2023-01-17] MEDS: zolpidem 5 mg Tablet PO (21:29)
--- NOTE | 2023-01-17 21:35 | USCV_ITS ---
Terri Pride Age: 77 Gender: F : 1945 Exam Date: 01/17/2023 02:20 Ordering Phys: Brock Ordonez MD Technologist: GAVINO Exam Location: [facility] Indication: lightheadedness. Patient near syncope today, fell, striking right side of face and head. Prior LEFT endarterectomy. Pt poor hx Risk Factors: lightheadedness. Patient near syncope today, fell, striking right side of face and head. Prior LEFT endarterectomy. Pt poor historian. Patient quit smoking 2002 Previous Vascular Surgery: LEFT endarterctomy scar. Patient is poor historian Right Brachial BP: 83 / 55 Left Brachial BP: / Right Left Velocity (cm/s) Spectral Plaque Velocity (cm/s) Spectral Plaque Syst/Diast Broadening Syst/Diast Broadening 87.10/ 18.70 Min Hetro Prox CCA 137.80/ 15.40 Mod Hetro 83.80/ 19.80 Min Hetro Mid CCA 153.30/ 18.70 Mod Hetro 81.60/ 20.90 Min Hetro Distal CCA 122.40/ 23.20 Min Rell 140.00/37.50 Mod Rell Prox ICA 210.50/ 54.00 Mod Rell 138.20/43.00 Min Homo Mid ICA 183.50/ 37.80 Mod Rell 116.10/36.00 Min Hetro Distal ICA 149.30/ 41.40 Mod Hetro 71.50 Min Hetro ECA 76.10 Min Rell 1.61 ICA/CCA 1.37 Antegrade Vertebral Retrograde 87.00/ 34.20 cm/s 63.00/ 22.00 cm/s Tri Subclavian Bi 59.80 52.10 FINDINGS Comparison:. 07/27/14. Prior left carotid endarterectomy. Diffuse bilateral scattered calcified plaque and intimal thickening throughout the common carotid arteries and extending through the bifurcation, left greater than right. 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 Moderate left ICA steoisis. CONCLUSIONS Left ICA stenosis 50-69%. Right ICA stenosis < 50%. Progression of stenosis and plaque since 2013. Left subclavian steal, recommend CTA aorta to include subclavian arteries. Suspect proximal left subclavian stenosis. Dr. Katharine Pedroza DO (Electronically Signed) Final Date: 17 January 2023 07:47 S
--- NOTE | 2023-01-17 22:28 | PM.PN ---
Subjective Subjective: c/o pain at site of fractures. No recurrent episode of dizziness in the hospital thus far Vitals/I&O/Wt Last Vital Signs Temp 98.3 F 01/17/23 19:33 Pulse 64 01/17/23 20:44 Resp 18 01/17/23 19:33 BP 100/57 01/17/23 20:44 Pulse Ox 91 01/17/23 19:33 O2 Del Method Nasal Cannula 01/17/23 19:33 O2 Flow Rate 3 01/17/23 04:16 01/17/23 01/17/23 01/17/23 06:59 14:59 22:59 Intake Total 720 / 720 240 / 960 Output Total 450 / 450 200 / 200 Balance -450 / 550 720 / 720 40 / 760 Weight last 48 hrs Weight 50.349 kg Physical Exam Narrative: General: No acute distress, AO x3 HEENT: PERRLA, pupils bilaterally equal and reactive, pallors not present Chest: Normal vesicular breath sounds, no added sounds, equal good air entry bilaterally CVS: S1-S2 regular, no murmurs, no tachycardia, no gallops, no rubs Abdomen: Soft, nontender, no organomegaly, bowel sounds present Neuro: No focal deficits, no facial deformity, AO x3, power 5/5 in all limbs Extremities: R arm in sling, periorbital and right frontal scalp hematoma Data 01/17/23 03:33 01/17/23 03:33 A&P Assessment and plan (1) Fall: Qualifiers: Encounter type: initial encounter Qualified Code(s): W19.XXXA - Unspecified fall, initial encounter (2) Closed right humeral fracture: (3) Closed fracture of pubic ramus: (4) Anemia: (5) Lightheadedness: (6) S/P PTCA (percutaneous transluminal coronary angioplasty): (7) S/P carotid endarterectomy: (8) Carotid stenosis, bilateral: (9) Pulmonary embolism: Plan right humeral fracture -currently in a sling, conservatively managed -pain control currently not optimal, add percocet 5/325 q6h prn in addition to dilaudid Pubic rami fracture -pt/ot -pain control - appreciate ortho recommendations anemia -repeat cbc, currently Hb > 8, transfusion threshold < 7 -iron studies right scalp hemtoma -monitor lightheadedness/fall -torpnin series unremarkable, no events on telemetry monitoring, orthstatic vital signs pending -carotid echo pending -cardiac echo This is a limited echocardiogram performed to assess LV systolic ?function. ?LV systolic function is normal with EF of 55 to 60%.? No ?regional wall motion abnormalities are seen ?RV is normal in size and function. ?RA pressure is normal. ?Compared to prior echocardiogram from 11/02/2022, no significant ?changes are seen. history of pulmonary embolism -eliquis history of rib fracture history of carotid cartery stenosis dnr/dni eliquis fro dvt prophylaxis Attestations Medical Necessity Statement*: optimize pain control, therapy assessments, disposition planning Coding Level of Care Code Acute Code for Chg Fwd Diagnoses Fall W19.XXXA Encounter type: initial encounter Closed right humeral fracture S42.301A Closed fracture of pubic ramus S32.599A Anemia D64.9 Lightheadedness R42 S/P PTCA (percutaneous transluminal coronary angioplasty) Z98.61 S/P carotid endarterectomy Z98.890 Carotid stenosis, bilateral I65.23 Pulmonary embolism I26.99
[2023-01-18] VITALS (20 sets, daily range): BP systolic 104–142; BP diastolic 49–79; PULSE 60–92; RESP 16–22; TEMP 36.8–37.4; O2SAT 91–100
[2023-01-18 04:55] LABS: Basophils # 0.1 10^3/uL (0.0-0.1); Basophils % 0.5 %; Eosinophils # 0.5 10^3/uL (0.0-0.8); Eosinophils % 4.5 %; Hematocrit 26.4 % (37.0-47.0); Hemoglobin 8.2 g/dL (11.5-15.3); Lymphocytes # 2.5 10^3/uL (0.8-4.8); Lymphocytes % 23.3 %; Mean Corpuscular HGB Conc 31.1 g/dL (30.0-36.0); Mean Corpuscular Hemoglobin 31.3 pg (28.0-34.0); Mean Corpuscular Volume 100.8 fl (81-99); Monocytes # 0.9 10^3/uL (0.2-0.9); Monocytes % 8.7 %; Neutrophils # 6.57 10^3/uL (1.8-7.7); Neutrophils % 62.4 %; Nucleated Red Blood Cells % 0 %; Platelet Count 189 10^3/cmm (130-400); Red Blood Count 2.62 10^6/uL (4.1-5.3); Red Cell Distribution Width 17.6 % (12.1-15.1); White Blood Count 10.5 10^3/uL (4.0-10.0)
[2023-01-18 05:15] LABS: Alanine Aminotransferase 9 U/L (0-33); Albumin Level 2.1 g/dL (3.5-5.2); Alkaline Phosphatase 121 U/L (35-105); Anion Gap 13.3 (5-19); Aspartate Amino Transferase 16 U/L (0-32); Blood Urea Nitrogen 18 mg/dL (8-23); Calcium 7.8 mg/dL (8.5-10.5); Carbon Dioxide 24 mmol/L (22-29); Chloride 100 mmol/L (98-107); Globulin 4.1 g/dL (1.3-4.6); Glucose 89 mg/dL (65-115); Magnesium 1.3 mg/dL (1.7-2.3); Osmolality Calculated 277 mOsm/kg (285-295); Potassium 4.3 mmol/L (3.5-5.1); Sodium 133 mmol/L (136-145); Total Bilirubin 0.4 mg/dL (0.15-1.2); Total Protein 6.2 g/dL (6.6-8.7)
[2023-01-18] MEDS: thiamine 100 mg Tablet PO (08:55)
[2023-01-18] MEDS: pantoprazole DR 40 mg Tablet PO (08:55)
[2023-01-18] MEDS: lisinopril 10 mg Tablet PO (08:55)
[2023-01-18] MEDS: PARoxetine 20 mg Tablet 10 MG PO (08:55)
[2023-01-18] MEDS: clopidogrel 75 mg Tablet PO (08:55)
[2023-01-18] MEDS: folic acid 1 mg Tablet PO (08:55)
[2023-01-18] MEDS: metoprolol tartrate 25 mg Tablet 12.5 MG PO ×2 (08:58→22:46)
[2023-01-18] MEDS: apixaban 5 mg Tablet 2.5 MG PO ×2 (08:59→22:46)
[2023-01-18] MEDS: oxyCODONE-APAP 5-325 mg Tablet 1 TAB PO ×3 (09:32→22:46)
[2023-01-18] MEDS: sodium chloride 0.9% 1,000 ML 75 ML IV (12:59)
--- NOTE | 2023-01-18 14:05 | PM.DCS ---
Discharge Providers Date of Admission: 01/16/23 20:44 Date of Discharge: January 18, 2023 Attending Provider at Admission: Brock Ordonez MD Attending Provider at Discharge: Zena Carroll MD Consults: Rayo Hyman MD /orthopedics Primary Care Provider: Daquan Luna MD Diagnoses at Discharge Discharge Diagnosis (1) Fall: Status: Acute Qualifiers: Encounter type: initial encounter Qualified Code(s): W19.XXXA - Unspecified fall, initial encounter (2) Closed right humeral fracture: Status: Acute (3) Closed fracture of pubic ramus: Status: Acute (4) Anemia: Status: Acute (5) Lightheadedness: Status: Acute (6) S/P PTCA (percutaneous transluminal coronary angioplasty): Status: Acute (7) S/P carotid endarterectomy: Status: Acute (8) Carotid stenosis, bilateral: Status: Acute (9) Pulmonary embolism: Status: Acute Reason for Visit Reason for Visit: FALL/ R SHOULDER & HIP PAIN Hospital Course Hospital Course Terri Pride is a 77 year old female's of CVA, CAD status post PTCA, bilateral carotid artery stenosis and subclavian artery stenosis status post carotid artery endarterectomy, alcohol abuse related ataxia, neuropathy, history of traumatic left sided rib fracture complicated with pneumothorax, recent NSTEMI, , recent diagnosis of pulmonary embolism, on chronic oxygen, who presented to [facility] on 01/16 due to a fall related to dizziness which resulted in a right humeral and pubic rami fracture. She was evaluated by orthopedics, no surgical intervention was indicated. She is recommended to continue PT and OT at home. To evaluate her episode of dizziness she underwent evaluation with a troponin series which did not reveal any significant elevation or significant delta's. No events were detected on telemetry monitoring here. Recent echocardiogram had shown LVEF of 55 to 60% without any regional wall motion abnormalities. 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 Of note this is a known diagnosis for the patient. Recommended follow-up with Dr. Rivera as outpatient. Discharge Data Studies Completed and Pending Completed Studies During Hospitalization Category Date Time Status CT cervical spin wo con* [id number] Stat Cat Scan 01/16/23 18:[address] chest abdpel w/*[id number] Stat Cat Scan 01/16/23 18:[address] head wo con* [id number] Stat Cat Scan 01/16/23 18:20 Completed XR hand RT min 3V* [id number] Routine Exams 01/17/23 15:22 Completed XR hip RT 2-3V wo/w pel* [id number] Stat Exams 01/16/23 18:20 Completed XR shoulder RT min 2V* [id number] Stat Exams 01/16/23 18:20 Completed CV carotid duplex BI* [id number] Routine Ultrasound 01/17/23 21:35 Completed Pending at discharge Category Date Time Status Occult Blood Stool [Immunochemical Fecal OCB] Routine Lab 01/18/23 10:43 Uncollected Radiology Impressions Cervical Spine CT 01/16/23 18:20 IMPRESSION: 1. Degenerative cervical spine changes are noted. 2. No acute abnormality of the cervical spine demonstrated. Head CT 01/16/23 18:20 IMPRESSION: 1. Large right frontal scalp hematoma noted. No associated calvarial fracture. 2. No acute intracranial abnormality demonstrated. Hip/Pelvis X-Ray 01/16/23 18:20 IMPRESSION: Right inferior and superior pubic ramus fractures, likely acute. Other nonacute findings as described. Shoulder X-Ray 01/16/23 18:20 IMPRESSION: Right proximal humeral fracture. See discussion above. Other nonacute findings as described. Chest/Abdomen/Pelvis CT 01/16/23 18:28 IMPRESSION: 1. New right proximal humeral fracture as described on radiographic exam report. Several other osseous findings as above which are nonacute. 2. Comparison CT 12/03/2022. Interval decrease of left pleural effusion however there is increasing regional pleural thickening/enhancement. Persistent adjacent left basilar consolidation. See discussion above. No acute traumatic thoracic injury otherwise. 3. Coronary calcification and other nonacute findings as above. IMPRESSION: 1. Right inferior/superior pubic ramus fractures. Other nonacute osseous findings as above. 2. No acute abdominopelvic findings otherwise. Other nonacute findings as described above. Hand X-Ray 01/17/23 15:22 Impression: Negative for fracture or dislocation. Laboratory Results WBC 10.5 10^3/uL (4.0-10.0) H 01/18/23 04:38 RBC 2.62 10^6/uL (4.1-5.3) L 01/18/23 04:38 Hgb 8.2 g/dL (11.5-15.3) L 01/18/23 04:38 Hct 26.4 % (37.0-47.0) L 01/18/23 04:38 MCV 100.8 fl (81-99) H 01/18/23 04:38 MCH 31.3 pg (28.0-34.0) 01/18/23 04:38 MCHC 31.1 g/dL (30.0-36.0) 01/18/23 04:38 RDW 17.6 % (12.1-15.1) H 01/18/23 04:38 Plt Count 189 10^3/cmm (130-400) 01/18/23 04:38 MPV 10.0 fL (7.4-10.4) 01/18/23 04:38 Neut % (Auto) 62.4 % 01/18/23 04:38 Lymph % (Auto) 23.3 % 01/18/23 04:38 Wagoner % (Auto) 8.7 % 01/18/23 04:38 Eos % (Auto) 4.5 % 01/18/23 04:38 Baso % (Auto) 0.5 % 01/18/23 04:38 Neut # (Auto) 6.57 10^3/uL (1.8-7.7) 01/18/23 04:38 Lymph # (Auto) 2.5 10^3/uL (0.8-4.8) 01/18/23 04:38 Wagoner # (Auto) 0.9 10^3/uL (0.2-0.9) 01/18/23 04:38 Eos # (Auto) 0.5 10^3/uL (0.0-0.8) 01/18/23 04:38 Baso # (Auto) 0.1 10^3/uL (0.0-0.1) 01/18/23 04:38 Nucleated RBC % (auto) 0 % 01/18/23 04:38 Nucleated RBCs # 0.0 /100WBC 01/18/23 04:38 Sodium 133 mmol/L (136-145) L 01/18/23 04:38 Potassium 4.3 mmol/L (3.5-5.1) 01/18/23 04:38 Chloride 100 mmol/L (98-107) 01/18/23 04:38 Carbon Dioxide 24 mmol/L (22-29) 01/18/23 04:38 Anion Gap 13.3 (5-19) 01/18/23 04:38 BUN 18 mg/dL (8-23) 01/18/23 04:38 Creatinine 1.2 mg/dL (0.5-0.9) H 01/18/23 04:38 GFR Calculation Not Reportable 01/18/23 04:38 Glucose 89 mg/dL (65-115) 01/18/23 04:38 Calculated Osmolality 277 mOsm/kg (285-295) L 01/18/23 04:38 Lactic Acid 1.9 mmol/L (0.5-2.2) 01/16/23 21:16 Calcium 7.8 mg/dL (8.5-10.5) L 01/18/23 04:38 Phosphorus 4.8 mg/dL (2.5-4.5) H 01/17/23 03:33 Magnesium 1.3 mg/dL (1.7-2.3) L 01/18/23 04:38 Iron 74 ug/dL (37-145) 01/16/23 20:50 Iron Cancelled 01/16/23 20:50 TIBC 173 mcg/dl 01/16/23 20:50 % Saturation 42.7 % (20-50) 01/16/23 20:50 Unsat Iron Binding 99 ug/dL (112-347) L 01/16/23 20:50 Ferritin 700 ng/mL (15-150) H 01/16/23 20:50 Total Bilirubin 0.4 mg/dL (0.15-1.2) 01/18/23 04:38 AST 16 U/L (0-32) 01/18/23 04:38 ALT 9 U/L (0-33) 01/18/23 04:38 Alkaline Phosphatase 121 U/L (35-105) H 01/18/23 04:38 Creatine Kinase 80 U/L (26-192) 01/16/23 20:50 Troponin T Baseline 12 ng/L (0-10) H 01/16/23 20:50 Troponin T 120 Minute 12.56 ng/L (0-10) H 01/16/23 22:58 Delta Troponin T 0.56 ABS# (0-10) 01/16/23 22:58 Troponin T Hi Sens 6Hr 16.21 ng/L (0-10) H 01/17/23 03:33 Troponin T Hi Sens 6Hr Delta 4.21 ng/L (0-12) 01/17/23 03:33 C-Reactive Protein 3.0 mg/L (0.0-4.9) 01/16/23 20:50 NT-Pro-B Natriuret Pep 1346 pg/mL (0-450) H 01/16/23 20:50 Total Protein 6.2 g/dL (6.6-8.7) L 01/18/23 04:38 Albumin 2.1 g/dL (3.5-5.2) L 01/18/23 04:38 Globulin 4.1 g/dL (1.3-4.6) 01/18/23 04:38 Procalcitonin 1.24 ng/mL (0-0.5) H 01/16/23 20:50 TSH 2.18 uIU/mL (0.27-4.20) 01/16/23 20:50 Urine Color Light yellow (Yellow) 01/16/23 23:09 Urine Appearance Clear (CLEAR) 01/16/23 23:09 Urine pH 6 (5-7) 01/16/23 23:09 Ur Specific [place] 1.010 (1.005-1.030) 01/16/23 23:09 Urine Protein Neg (Negative) 01/16/23 23:09 Urine Glucose (UA) Norm (Normal) 01/16/23 23:09 Urine Ketones Negative (Negative) 01/16/23 23:09 Urine Blood Neg (Negative) 01/16/23 23:09 Urine Nitrate Negative (Negative) 01/16/23 23:09 Urine Bilirubin Neg (Negative) 01/16/23 23:09 Urine Urobilinogen Norm mg/dL (Negative) 01/16/23 23:09 Ur Leukocyte Esterase Negative (Negative) 01/16/23 23:09 Urine Opiates Screen Positive ng/mL (Negative) H 01/16/23 23:09 Ur Barbiturates Screen Negative ng/mL (Negative) 01/16/23 23:09 Ur Phencyclidine Scrn Negative ng/mL (Negative) 01/16/23 23:09 Ur Amphetamines Screen Negative ng/mL (Negative) 01/16/23 23:09 U Benzodiazepines Scrn Negative ng/mL (Negative) 01/16/23 23:09 Urine Cocaine Screen Negative ng/mL (Negative) 01/16/23 23:09 U Marijuana (THC) Screen Negative ng/mL (Negative) 01/16/23 23:09 Ethyl Alcohol < 10 mg/dL (0-10) 01/16/23 20:50 Vitals Last Vital Signs Temp 98.3 F 01/18/23 12:53 Pulse 74 01/18/23 12:53 Resp 18 01/18/23 12:53 BP 139/67 01/18/23 12:53 Pulse Ox 100 01/18/23 11:45 O2 Del Method Nasal Cannula 01/18/23 11:45 O2 Flow Rate 3 01/18/23 09:06 Discharge Plan Discharge Patient Disposition: Home Condition: Stable Prescriptions: New hydrocodone-acetaminophen 5-325 mg tablet 1 tab PO Q6H PRN (Reason: pain) Qty: 14 0RF calcium carbonate-vitamin D3 600 mg-10 mcg (400 unit) Tablet 1 tab PO BID 30 Days Qty: 60 0RF ondansetron 4 mg tablet,disintegrating 4 mg PO DAILY 5 Days Qty: 5 0RF No Action metoprolol tartrate 25 mg tablet 12.5 mg PO BID Qty: 30 11RF oxycodone-acetaminophen [Percocet] 5-325 mg tablet 1 tab PO Q8H PRN (Reason: pain) Qty: 20 0RF paroxetine HCl 10 mg tablet 10 mg PO QAM clopidogrel 75 mg tablet 75 mg PO QAM Tylenol Ex Str Rapid Release 500 mg Tablet 1,000 mg PO Q6H PRN (Reason: Pain) pantoprazole 40 mg tablet,delayed release (DR/EC) 40 mg PO QAM lisinopril 10 mg tablet 10 mg PO QAM folic acid 1 mg tablet 1 mg PO QAM furosemide 20 mg tablet 20 mg PO QAM Vitamin B-12 5,000 mcg Tablet, Sublingual 5,000 mcg SUBLINGUAL QAM Eliquis 2.5 mg tablet 2.5 mg PO BID@10,20 Referrals: Grant,Rayo, DO [Physician] - 01/30/23 1:32 pm Daquan Luna MD [Primary Care Provider] - 01/24/23 11:10 am Discharge Diet: Advance as tolerated Discharge Activity: Resume usual activity Patient Instructions: Arm Fracture in Adults (ED), Pelvic Fracture (ED), Opioid Safety Activity Restrictions/Additional Instructions: Orthopedic discharge instructions: Patient should be nonweightbearing to the right upper extremity Maintain sling Ice as needed for pain and swelling Encourage pendulum swings, okay to shower and come out of sling, no active range of motion of the right shoulder May weight-bear as tolerated to the right lower extremity Ice as needed for pubic rami fractures Supplement with Citracal vitamin D for bone health and healing Continue with Eliquis (blood thinner) for blood clot prevention Take pain medication as prescribed Follow-up with Dr. Hyman in the office in 2 weeks Contact the office for any questions or concerns Coding Level of Care Code Acute Code for Chg Fwd Diagnoses Fall W19.XXXA Encounter type: initial encounter Closed right humeral fracture S42.301A Closed fracture of pubic ramus S32.599A Anemia D64.9 Lightheadedness R42 S/P PTCA (percutaneous transluminal coronary angioplasty) Z98.61 S/P carotid endarterectomy Z98.890 Carotid stenosis, bilateral I65.23 Pulmonary embolism I26.99
--- NOTE | 2023-01-18 23:01 | PM.PN ---
Subjective Subjective: Patient had dizziness today on attempting to walk to bathroom. Cr up to 1.2, reveiw of BP trend shows systolic BP numbers as low as 83 and 96 mmhg. lisinopril held. IVF started . Per daughter in law, patient had started lasix as a new medication three days priro to current episode of fall. Medications: Reviewed: Yes Vitals/I&O/Wt Last Vital Signs Temp 98.6 F 01/18/23 19:41 Pulse 72 01/18/23 19:41 Resp 22 H 01/18/23 22:46 BP 122/68 01/18/23 20:50 Pulse Ox 100 01/18/23 16:00 O2 Del Method Nasal Cannula 01/18/23 19:41 O2 Flow Rate 3 01/18/23 22:54 01/18/23 01/18/23 01/19/23 14:59 22:59 06:59 Intake Total 600 / 600 532 / 1132 Balance 600 / 600 532 / 1132 Data 01/18/23 04:38 01/18/23 04:38 A&P Assessment and plan (1) Fall: Qualifiers: Encounter type: initial encounter Qualified Code(s): W19.XXXA - Unspecified fall, initial encounter (2) Closed right humeral fracture: (3) Closed fracture of pubic ramus: (4) Anemia: (5) Lightheadedness: (6) S/P PTCA (percutaneous transluminal coronary angioplasty): (7) S/P carotid endarterectomy: (8) Carotid stenosis, bilateral: (9) Pulmonary embolism: Plan right humeral fracture -currently in a sling, conservatively managed -pain control currently not optimal, add percocet 5/325 q6h prn in addition to dilaudid Pubic rami fracture -pt/ot -pain control - appreciate ortho recommendations anemia -repeat cbc, currently Hb > 8, transfusion threshold < 7 -iron studies right scalp hemtoma -monitor lightheadedness/fall -torpnin series unremarkable, no events on telemetry monitoring, orthstatic vital signs pending -carotid echo pending -cardiac echo This is a limited echocardiogram performed to assess LV systolic ?function. ?LV systolic function is normal with EF of 55 to 60%.? No ?regional wall motion abnormalities are seen ?RV is normal in size and function. ?RA pressure is normal. ?Compared to prior echocardiogram from 11/02/2022, no significant ?changes are seen. history of pulmonary embolism -eliquis history of rib fracture history of carotid cartery stenosis dnr/dni eliquis fro dvt prophylaxis Plan for today: Start gentle IVF, d/c lisinopril and monitor BP , check orthostatics, Hb drifting down, check FOBT Attestations Medical Necessity Statement*: IVF, check cr tand Hb trend Coding Level of Care Code Acute Code for Chg Fwd Diagnoses Fall W19.XXXA Encounter type: initial encounter Closed right humeral fracture S42.301A Closed fracture of pubic ramus S32.599A Anemia D64.9 Lightheadedness R42 S/P PTCA (percutaneous transluminal coronary angioplasty) Z98.61 S/P carotid endarterectomy Z98.890 Carotid stenosis, bilateral I65.23 Pulmonary embolism I26.99
[2023-01-19] VITALS (20 sets, daily range): BP systolic 103–146; BP diastolic 55–90; PULSE 64–91; RESP 16–18; TEMP 36.4–37; O2SAT 94–100
[2023-01-19] MEDS: oxyCODONE-APAP 5-325 mg Tablet 1 TAB PO ×3 (03:31→20:49)
[2023-01-19] MEDS: sodium chloride 0.9% 1,000 ML 75 ML IV (03:31)
[2023-01-19 05:28] LABS: Basophils % 0.4 %; Eosinophils # 0.4 10^3/uL (0.0-0.8); Hematocrit 23.7 % (37.0-47.0); Hemoglobin 7.3 g/dL (11.5-15.3); Lymphocytes # 1.9 10^3/uL (0.8-4.8); Lymphocytes % 23.1 %; Mean Corpuscular HGB Conc 30.8 g/dL (30.0-36.0); Mean Corpuscular Hemoglobin 30.7 pg (28.0-34.0); Mean Corpuscular Volume 99.6 fl (81-99); Mean Platelet Volume 10.1 fL (7.4-10.4); Monocytes # 0.8 10^3/uL (0.2-0.9); Monocytes % 9.2 %; Neutrophils # 5.07 10^3/uL (1.8-7.7); Neutrophils % 61.9 %; Nucleated Red Blood Cells % 0 %; Platelet Count 178 10^3/cmm (130-400); Red Blood Count 2.38 10^6/uL (4.1-5.3); Red Cell Distribution Width 17.5 % (12.1-15.1); White Blood Count 8.2 10^3/uL (4.0-10.0)
[2023-01-19 05:49] LABS: Alanine Aminotransferase 8 U/L (0-33); Albumin Level 1.9 g/dL (3.5-5.2); Alkaline Phosphatase 125 U/L (35-105); Anion Gap 9.2 (5-19); Aspartate Amino Transferase 12 U/L (0-32); Blood Urea Nitrogen 14 mg/dL (8-23); Calcium 7.7 mg/dL (8.5-10.5); Carbon Dioxide 26 mmol/L (22-29); Chloride 106 mmol/L (98-107); Globulin 3.9 g/dL (1.3-4.6); Glucose 95 mg/dL (65-115); Magnesium 1.6 mg/dL (1.7-2.3); Osmolality Calculated 284 mOsm/kg (285-295); Potassium 4.2 mmol/L (3.5-5.1); Sodium 137 mmol/L (136-145); Total Bilirubin 0.3 mg/dL (0.15-1.2); Total Protein 5.8 g/dL (6.6-8.7)
[2023-01-19 08:13] LABS: Hematocrit 23.5 % (37.0-47.0); Hemoglobin 7.6 g/dL (11.5-15.3)
[2023-01-19] MEDS: thiamine 100 mg Tablet PO (09:41)
[2023-01-19] MEDS: metoprolol tartrate 25 mg Tablet 12.5 MG PO ×2 (09:41→21:59)
[2023-01-19] MEDS: PARoxetine 20 mg Tablet 10 MG PO (09:41)
[2023-01-19] MEDS: folic acid 1 mg Tablet PO (09:42)
[2023-01-19] MEDS: pantoprazole DR 40 mg Tablet PO (09:42)
--- NOTE | 2023-01-19 10:00 | CT_ITS ---
WS: [id number] CT ABDOMEN AND PELVIS NONCONTRAST HISTORY: evaluate for bleeding TECHNIQUE: Imaging performed through the abdomen and pelvis. Coronal and sagittal reformats are submi tted. All CT scans at [facility] use at least one of these dose optimization techniques: auto mated exposure control; mA and/or kV adjustment per patient size (includes targeted exams where dose is matched to clinical indication); or iterative reconstruction. DLP: 378.54 mGy.cm COMPARISON: 01/16/2023 Lower thorax: Small minimally complex pleural fluid collection at the LEFT base. There is adjacent at electasis. This is a very small collection seen only at the costophrenic angle. Heart is mildly enlar ged. No pericardial effusion. Liver: Normal size liver. No mass or bile duct dilatation. Gallbladder: Normal size gallbladder. The gallbladder appears mildly thickened with mild adjacent inf lammation. No stones identified by CT. Pancreas: Normal size and attenuation. Normal pancreatic duct. No pancreatitis or mass. Spleen: Normal. Adrenal glands: Normal. No mass. Right kidney: Mild atrophy and cortical thinning. Lobulated contour of the kidney similar to prior st udies dating back to 2019. No obstruction. Left kidney: Mild scattered cortical thinning. No obstruction. Aorta: Moderate to severe atherosclerosis abdominal aorta. No aneurysm. Atherosclerosis continues int o the common iliac arteries. No free fluid, intraperitoneal air or significant lymphadenopathy. No retroperitoneal hematomas. GI tract: Normal noncontrast imaging of the stomach, small bowel and colon. No obstruction or wall th ickening. Sigmoid diverticulosis without acute diverticulitis. Abdominal wall: Negative. No hernia. No hematoma. Diffuse muscle atrophy. Pelvis: Well-distended urinary bladder. Prior hysterectomy. No pelvic mass or fluid. Osseous structures: Diffuse osteopenia. Complex RIGHT parasymphyseal fracture. Additional acute fract ure in the RIGHT inferior pubic rami. T12 compression fracture by 20%.. Not an acute fracture. New si nce 12/03/2018 but also present on the study of 11/01/2022. Posterior LEFT ninth rib fracture with callu s formation. CT/CT abdomen pelvis wo con [id number] IMPRESSION: 1. No intraperitoneal, retroperitoneal or subcutaneous hematoma is identified. 2. Very small LEFT pleural fluid collection with adjacent atelectasis. Slightl y decreased in size. Healing posterior LEFT ninth rib fracture. 3. Prior hysterectomy and appendectomy. 4. Very mild gallbladder wall thickening. New since 01/16/2023 but in part may be related to motion artifact. If there are symptoms are RIGHT upper quadrant p ain consider ultrasound evaluation.
--- NOTE | 2023-01-19 10:10 | USR_ITS ---
PROCEDURE INFORMATION: Exam: US Duplex Lower Extremity Arteries Exam date and time: 01/19/2023 12:26 PM Age: 77 years old Clinical indication: Screening exam; Additional info: Assess for pad TECHNIQUE: Imaging protocol: Real-time ultrasound scan of the arteries of the bilateral lower extremities with 2-D lockhart scale, color Doppler flow and spectral waveform analysis. Images documented and saved. COMPARISON: CT angio chest w abd pel w con 11/01/2022 7:58 PM FINDINGS: Right external iliac artery: Severe calcific plaque. Normal waveforms with peak velocity of 118 cm/s. Right common femoral artery: Moderate plaque. Normal waveform. Peak velocity 82 cm/s. Right superficial femoral artery: Mild plaque. Normal waveforms. Peak velocity 99 cm/s. Right popliteal artery: Normal waveform. No visible plaque. Peak velocity 65 cm/s. Right calf/foot arteries: There are normal waveforms in the right posterior tibial artery and dorsalis pedis arteries. The remaining infrapopliteal arteries were not interrogated. Left external iliac artery: Severe calcific plaque. Normal waveforms with peak velocity of 122 cm/s. Left common femoral artery: Mild plaque. Normal waveforms. Peak velocity 124 cm/s. Left superficial femoral artery: Mild plaque. Normal waveforms. Peak velocity 135 cm/s. Left popliteal artery: Normal waveform. Peak velocity 87 cm/s. Left calf/foot arteries: There is minimal detectable flow in the left posterior tibial artery. There is a normal waveform in the left dorsalis pedis artery. The remaining infrapopliteal were not interrogated. US/[place] [id number] IMPRESSION: 1. No sign of hemodynamically significant stenosis in the external iliac, femoral, or popliteal arteries bilaterally. 2. Minimal blood flow in the left posterior tibial artery suggests near occlusion of the vessel. The dorsalis pedis artery is patent and demonstrates a normal waveform.
--- NOTE | 2023-01-19 13:04 | PC.NURSE ---
Called Fort[place], patients son per patients request due to patient is to receive a unit of blood.
--- NOTE | 2023-01-19 15:59 | PC.NURSE ---
Blood delayed due to IV. Patient needed new IV. Had to be ultrasound guided.
[2023-01-19] MEDS: sodium chloride 0.9% (100 ml) 100 ML 125 ML (17:37)
--- NOTE | 2023-01-19 17:50 | PC.NURSE ---
Dr. Carroll will obtain occult blood after 1400 on patient per verbal order.
--- NOTE | 2023-01-19 18:01 | P.PN_ITS ---
Subjective Subjective: patient states she feels very poorly today. Still feels very weak. Dizzy upon waking up. Hemoglobin drifting down to 7.3. cr improving, now normal. No noted drop in BP since holding lisinopril overnight. Medications: Reviewed: Yes Vitals/I&O/Wt Last Vital Signs Temp 98.3 F 01/19/23 17:42 Pulse 81 01/19/23 17:42 Resp 18 01/19/23 17:42 BP 122/77 01/19/23 17:42 Pulse Ox 94 01/19/23 16:00 O2 Del Method Nasal Cannula 01/19/23 12:00 O2 Flow Rate 3 01/19/23 08:22 01/19/23 01/19/23 01/19/23 06:59 14:59 22:59 Intake Total 957.5 / 2089.5 360 / 360 0 / 360 Balance 957.5 / 2089.5 360 / 360 0 / 360 Physical Exam Narrative: General: No acute distress, AO x3, appears pale. HEENT: PERRLA, pupils bilaterally equal and reactive, pallors not present Chest: Normal vesicular breath sounds, no added sounds, equal good air entry bilaterally CVS: S1-S2 regular, no murmurs, no tachycardia, no gallops, no rubs Abdomen: Soft, nontender, no organomegaly, bowel sounds present Neuro: No focal deficits, no facial deformity, AO x3, power 5/5 in all limbs Extremities: stable hematomas jackelyn eye, no gross hematoma around right humerus. Data 01/19/23 07:52 01/19/23 04:56 A&P Assessment and plan (1) Fall: Qualifiers: Encounter type: initial encounter Qualified Code(s): W19.XXXA - Unspecified fall, initial encounter (2) Closed right humeral fracture: (3) Closed fracture of pubic ramus: (4) Anemia: (5) Lightheadedness: (6) S/P PTCA (percutaneous transluminal coronary angioplasty): (7) S/P carotid endarterectomy: (8) Carotid stenosis, bilateral: (9) Pulmonary embolism: Plan right humeral fracture -currently in a sling, conservatively managed -pain control currently not optimal, add percocet 5/325 q6h prn in addition to dilaudid Pubic rami fracture -pt/ot -pain control - appreciate ortho recommendations Anemia Hb drifting down to 7.3 today, patient symptomatic Together with low hemoglobin noted yesterday with systolic down in the 80s and 90s and also with hemoglobin dropping, concern for potential bleeding. FOBT has been unable to be collected thus far. We will perform Hemoccult today. Check additionally CT of the abdomen and pelvis to evaluate for any intra- abdominal bleeding which may be contributing to patient's symptoms Transfuse 1 unit packed red blood cell today for symptomatic anemia D/c eliquis and Plavix today, will aim to resume a/c given recent h/o PE once major bleeding excluded. right scalp hemtoma -monitor lightheadedness/fall -torpnin series unremarkable, no events on telemetry monitoring - lisinopril d/sylwia -carotid doppler with Prior left carotid endarterectomy, Diffuse bilateral scattered calcified plaque and intimal ?thickening throughout the common carotid arteries and extending ?through the bifurcation, left greater than right. ?Retrograde left vertebral artery consistent with subclavian ?steal. This is a known diagnosis Outpatient f/up with vascular surgery -cardiac echo This is a limited echocardiogram performed to assess LV systolic ?function. ?LV systolic function is normal with EF of 55 to 60%.? No ?regional wall motion abnormalities are seen ?RV is normal in size and function. ?RA pressure is normal. ?Compared to prior echocardiogram from 11/02/2022, no significant ?changes are seen. history of pulmonary embolism -eliquis on hold today . plavix on hold. history of rib fracture history of carotid cartery stenosis dnr/dni Attestations Medical Necessity Statement*: transfusion for symptomatic anemia, hold a/c, asceratin any source of bleeding Coding Level of Care Code Acute Code for Chg Fwd Diagnoses Fall W19.XXXA Encounter type: initial encounter Closed right humeral fracture S42.301A Closed fracture of pubic ramus S32.599A Anemia D64.9 Lightheadedness R42 S/P PTCA (percutaneous transluminal coronary angioplasty) Z98.61 S/P carotid endarterectomy Z98.890 Carotid stenosis, bilateral I65.23 Pulmonary embolism I26.99
[2023-01-20] VITALS (13 sets, daily range): BP systolic 98–182; BP diastolic 56–88; PULSE 62–100; RESP 15–18; TEMP 36.6–36.9; O2SAT 94–100
[2023-01-20] MEDS: oxyCODONE-APAP 5-325 mg Tablet 1 TAB PO ×2 (02:17→17:27)
[2023-01-20] MEDS: LORazepam 2 mg/mL INJ 1 mL 0.5 MG IM (02:18)
[2023-01-20 02:29] LABS: Hemoglobin 8.3 g/dL (11.5-15.3)
[2023-01-20] MEDS: folic acid 1 mg Tablet PO (08:49)
[2023-01-20] MEDS: thiamine 100 mg Tablet PO (08:49)
[2023-01-20] MEDS: pantoprazole DR 40 mg Tablet PO (08:50)
[2023-01-20] MEDS: PARoxetine 20 mg Tablet 10 MG PO (08:50)
--- NOTE | 2023-01-20 11:37 | CT_ITS ---
WS: [id number] CT HEAD WITH AND WITHOUT CONTRAST HISTORY: AMS TECHNIQUE: Noncontrast 2.5 mm axial images obtained from the vertex to the skull base. Additional amor ging performed at 2.5 mm axial images status post IV contrast. Bone and soft tissue windows are revie wed. All CT scans at [facility] use at least one of these dose optimization techniques: autom ated exposure control; mA and/or kV adjustment per patient size (includes targeted exams where dose i s matched to clinical indication); or iterative reconstruction. CONTRAST: Omnipaque 350; 100 mL IV. DLP: 2191.30 mGy.cm COMPARISON: 01/16/2023 No acute intracranial hemorrhage, edema or midline shift. Mild atrophy and small vessel ischemic dise ase similar to the prior study. No intracranial mass or vascular malformation. Dural venous sinuses are normally enhancing. Visualized stebbins of [place] is unremarkable. Paranasal sinuses as visualized: Clear. Mastoid air cells: Clear. Calvarium and scalp: No fracture is identified. There is a complex soft tissue hematoma centered over the RIGHT frontal bone which was described on 01/16/2023. On the postcontrast imaging there is a blus h-like area of enhancement measuring 10 mm consistent with active bleeding within the hematoma. Hemat vlad today measures 3.5 x 1.3 cm. Hematoma overall appears smaller in size as compared to 01/16/2023. CT/CT head wo/w con [id number] IMPRESSION: 1. No acute intracranial hemorrhage or edema. 2. Atrophy and small vessel ischemic disease. 3. Large RIGHT frontal scalp hematoma. There is an active area of bleeding and hematoma measuring 10 mm. Probably mild venous bleeding.
[2023-01-20] MEDS: iohexol 350 mg/mL 500 mL Btl (per mL) IV (13:00)
--- NOTE | 2023-01-20 13:54 | PC.OT ---
OT tx attempted x2 today. Pt getting Midline placed and not available. Will resume OT services at later time.
--- NOTE | 2023-01-20 16:50 | PM.PN ---
Vitals/I&O/Wt Last Vital Signs Temp 98.1 F 01/20/23 16:00 Pulse 87 01/20/23 16:00 Resp 16 01/20/23 16:00 BP 119/72 01/20/23 16:00 Pulse Ox 100 01/20/23 16:00 O2 Del Method Nasal Cannula 01/20/23 16:00 O2 Flow Rate 3 01/20/23 08:26 01/20/23 01/20/23 01/20/23 06:59 14:59 22:59 Intake Total 360 / 360 Output Total 100 / 300 Balance -100 / 1552 360 / 360 Data 01/20/23 02:17 01/19/23 04:56 Coding Level of Care Code Acute Code for Chg Fwd Diagnoses
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
[2023-01-20] MEDS: metoprolol tartrate 25 mg Tablet 12.5 MG PO (21:45)
[2023-01-20] MEDS: acetaminophen 325 mg Tablet 650 MG PO (22:18)
--- NOTE | 2023-01-20 22:39 | PM.PN ---
Subjective Subjective: Received a call from [facility] today to report that patient's CT head on admission on 01/16 was not infact normal buy had a 3 mm subdural frontal hematoma which was previously missed. Since patient has been on Eliquis and Plavix during this admission, CT head was repeated this morning to ensure hematoma was stable, it appears to have since resolved. She lost iv access last evening and in spite of multiple attempts could not be re established therefore she did not receive whole blood- only received about 80 ml of a 350 cc bag. Midline has been established today for iv access and blood will be transfused. Still c/o intermittent dizziness. Medications: Reviewed: Yes Vitals/I&O/Wt Last Vital Signs Temp 98.4 F 01/20/23 20:00 Pulse 95 01/20/23 20:00 Resp 18 01/20/23 20:00 BP 115/70 01/20/23 20:00 Pulse Ox 98 01/20/23 20:00 O2 Del Method Nasal Cannula 01/20/23 20:00 O2 Flow Rate 3 01/20/23 20:00 01/20/23 01/20/23 01/20/23 06:59 14:59 22:59 Intake Total 360 / 360 120 / 480 Output Total 100 / 300 250 / 250 Balance -100 / 1552 360 / 360 -130 / 230 Physical Exam Narrative: General: No acute distress, AO x3 HEENT: PERRLA, pupils bilaterally equal and reactive, pallors not present Chest: Normal vesicular breath sounds, no added sounds, equal good air entry bilaterally CVS: S1-S2 regular, no murmurs, no tachycardia, no gallops, no rubs Abdomen: Soft, nontender, no organomegaly, bowel sounds present Neuro: No focal deficits, no facial deformity, AO x3, power 5/5 in all limbs Data 01/20/23 02:17 01/19/23 04:56 A&P Assessment and plan (1) Fall: Qualifiers: Encounter type: initial encounter Qualified Code(s): W19.XXXA - Unspecified fall, initial encounter (2) Closed right humeral fracture: (3) Closed fracture of pubic ramus: (4) Anemia: (5) Lightheadedness: (6) S/P PTCA (percutaneous transluminal coronary angioplasty): (7) S/P carotid endarterectomy: (8) Carotid stenosis, bilateral: (9) Pulmonary embolism: Plan right humeral fracture -currently in a sling, conservatively managed -pain control currently not optimal, add percocet 5/325 q6h prn in addition to dilaudid Pubic rami fracture -pt/ot -pain control - appreciate ortho recommendations Anemia Hb drifting down to 7.3 today, patient symptomatic Together with low hemoglobin noted yesterday with systolic down in the 80s and 90s and also with hemoglobin dropping, concern for potential bleeding.? FOBT has been unable to be collected thus far.? We will perform Hemoccult today. Check additionally CT of the abdomen and pelvis to evaluate for any intra-abdominal bleeding which may be contributing to patient's symptoms Transfuse 1 unit packed red blood cell today for symptomatic anemia D/c eliquis and Plavix today, will aim to resume a/c given recent h/o PE once major bleeding excluded. right scalp hemtoma -monitor lightheadedness/fall -torpnin series unremarkable, no events on telemetry monitoring - lisinopril d/sylwia -carotid doppler with?Prior left carotid endarterectomy, Diffuse bilateral scattered calcified plaque and intimal ?thickening throughout the common carotid arteries and extending ?through the bifurcation, left greater than right. ?Retrograde left vertebral artery consistent with subclavian ?steal. This is a known diagnosis Outpatient f/up with vascular surgery -cardiac echo This is a limited echocardiogram performed to assess LV systolic ?function. ?LV systolic function is normal with EF of 55 to 60%.? No ?regional wall motion abnormalities are seen ?RV is normal in size and function. ?RA pressure is normal. ?Compared to prior echocardiogram from 11/02/2022, no significant ?changes are seen. history of pulmonary embolism -eliquis on hold today . plavix on hold. history of rib fracture history of carotid cartery stenosis dnr/dni Plan for today 01/20: complete blood transfusion, CT head as noted above Attestations Medical Necessity Statement*: complete blood transfusion, CT head as above Coding Level of Care Code Acute Code for Chg Fwd Diagnoses Fall W19.XXXA Encounter type: initial encounter Closed right humeral fracture S42.301A Closed fracture of pubic ramus S32.599A Anemia D64.9 Lightheadedness R42 S/P PTCA (percutaneous transluminal coronary angioplasty) Z98.61 S/P carotid endarterectomy Z98.890 Carotid stenosis, bilateral I65.23 Pulmonary embolism I26.99
[2023-01-21] VITALS (17 sets, daily range): BP systolic 140–180; BP diastolic 56–77; PULSE 69–81; RESP 12–19; TEMP 36.5–36.8; O2SAT 96–100
[2023-01-21] MEDS: thiamine 100 mg Tablet PO (08:43)
[2023-01-21] MEDS: PARoxetine 20 mg Tablet 10 MG PO (08:43)
[2023-01-21] MEDS: metoprolol tartrate 25 mg Tablet 12.5 MG PO (08:43)
[2023-01-21] MEDS: pantoprazole DR 40 mg Tablet PO (08:43)
[2023-01-21] MEDS: folic acid 1 mg Tablet PO (08:43)
[2023-01-21] MEDS: oxyCODONE-APAP 5-325 mg Tablet 1 TAB PO (10:32)
--- NOTE | 2023-01-21 11:34 | PM.DCS ---
Discharge Providers Date of Admission: 01/19/23 09:30 Date of Discharge: January 21, 2023 Attending Provider at Admission: Brock Ordonez MD Attending Provider at Discharge: Zena Carroll MD Primary Care Provider: Daquan Luna MD Diagnoses at Discharge Discharge Diagnosis (1) Fall: Status: Acute Qualifiers: Encounter type: initial encounter Qualified Code(s): W19.XXXA - Unspecified fall, initial encounter (2) Closed right humeral fracture: Status: Acute (3) Closed fracture of pubic ramus: Status: Acute (4) Anemia: Status: Acute (5) Lightheadedness: Status: Acute (6) S/P PTCA (percutaneous transluminal coronary angioplasty): Status: Acute (7) S/P carotid endarterectomy: Status: Acute (8) Carotid stenosis, bilateral: Status: Acute (9) Pulmonary embolism: Status: Acute Reason for Visit Reason for Visit: FALL/ R SHOULDER & HIP PAIN Hospital Course Hospital Course Terri Pride is a 77 year old female's of CVA, CAD status post PTCA, bilateral carotid artery stenosis and subclavian artery stenosis status post carotid artery endarterectomy, alcohol abuse related ataxia, neuropathy, history of traumatic left sided rib fracture complicated with pneumothorax, recent NSTEMI, recent diagnosis of pulmonary embolism, on chronic oxygen, who presented to [facility] on 01/16 due to a fall related to dizziness which resulted in a right humeral and pubic rami fracture. She was evaluated by orthopedics, no surgical intervention was indicated. her arm is in a sling. She is recommended to continue PT and OT at home. To evaluate her episode of dizziness she underwent evaluation with a troponin series which did not reveal any significant elevation or significant delta's. No events were detected on telemetry monitoring here. Recent echocardiogram had shown LVEF of 55 to 60% without any regional wall motion abnormalities. 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 Of note this is a known diagnosis for the patient. Recommended follow-up with Dr. Rivera as outpatient. CT of her head upon admission on January 16, 2023 had been read as no acute events by [facility]. We were called later again on January 20, 2023 to report that patient's arrival CT was not completely normal, there was noted to be a 3 mm subdural hematoma. Since patient had continued to be on Eliquis and Plavix during the course of admission, a CT head was repeated on January 20 with this new information. Fortunately there was no extension of the subdural hematoma. It appeared to be essentially resolved on the CT on January 20, 2023 with a sliver of residual blood. Because of this patient's Eliquis is being held , Plavix is being continued. She had symptomatic anemia with hb drifiting down slowly to 7.[address] abdomen pelvis negative for bleeding. Received 1PRBC transfusion. Also noted to have hypotensive episodes during the course of admission, with blood pressure dropping to 80s and 90s with patient feeling dizzy. Lisinopril has been discontinued. Patient had RANGEL during course of admission, resolved with IV fluids and holding lisinopril. Physical Exam Narrative: General: No acute distress, AO x3 HEENT: PERRLA, pupils bilaterally equal and reactive, pallors not present Chest: Normal vesicular breath sounds, no added sounds, equal good air entry bilaterally CVS: S1-S2 regular, no murmurs, no tachycardia, no gallops, no rubs Abdomen: Soft, nontender, no organomegaly, bowel sounds present Neuro: No focal deficits, no facial deformity, AO x3, power 5/5 in all limbs Discharge Data Studies Completed and Pending Completed Studies During Hospitalization Category Date Time Status CT abdomen pelvis wo con [id number] Routine Cat Scan 01/19/23 10:[address] cervical spin wo con* [id number] Stat Cat Scan 01/16/23 18:[address] chest abdpel w/*[id number] Stat Cat Scan 01/16/23 18:[address] head wo con* [id number] Stat Cat Scan 01/16/23 18:[address] head wo/w con [id number] Routine Cat Scan 01/20/23 11:37 Completed XR hand RT min 3V* [id number] Routine Exams 01/17/23 15:22 Completed XR hip RT 2-3V wo/w pel* [id number] Stat Exams 01/16/23 18:20 Completed XR shoulder RT min 2V* [id number] Stat Exams 01/16/23 18:20 [place] [id number] Routine Ultrasound 01/19/23 10:10 Completed CV carotid duplex BI* [id number] Routine Ultrasound 01/17/23 21:35 Completed Pending at discharge Category Date Time Status Hemoglobin and Hematocrit Stat Lab 01/21/23 11:32 Ordered Occult Blood Stool [Immunochemical Fecal OCB] Routine Lab 01/18/23 10:43 Uncollected Radiology Impressions Cervical Spine CT 01/16/23 18:20 IMPRESSION: 1. Degenerative cervical spine changes are noted. 2. No acute abnormality of the cervical spine demonstrated. Hip/Pelvis X-Ray 01/16/23 18:20 IMPRESSION: Right inferior and superior pubic ramus fractures, likely acute. Other nonacute findings as described. Shoulder X-Ray 01/16/23 18:20 IMPRESSION: Right proximal humeral fracture. See discussion above. Other nonacute findings as described. Chest/Abdomen/Pelvis CT 01/16/23 18:28 IMPRESSION: 1. New right proximal humeral fracture as described on radiographic exam report. Several other osseous findings as above which are nonacute. 2. Comparison CT 12/03/2022. Interval decrease of left pleural effusion however there is increasing regional pleural thickening/enhancement. Persistent adjacent left basilar consolidation. See discussion above. No acute traumatic thoracic injury otherwise. 3. Coronary calcification and other nonacute findings as above. IMPRESSION: 1. Right inferior/superior pubic ramus fractures. Other nonacute osseous findings as above. 2. No acute abdominopelvic findings otherwise. Other nonacute findings as described above. Hand X-Ray 01/17/23 15:22 Impression: Negative for fracture or dislocation. Abdomen/Pelvis CT 01/19/23 10:00 IMPRESSION: 1. No intraperitoneal, retroperitoneal or subcutaneous hematoma is identified. 2. Very small LEFT pleural fluid collection with adjacent atelectasis. Slightly decreased in size. Healing posterior LEFT ninth rib fracture. 3. Prior hysterectomy and appendectomy. 4. Very mild gallbladder wall thickening. New since 01/16/2023 but in part may be related to motion artifact. If there are symptoms are RIGHT upper quadrant pain consider ultrasound evaluation. Duplex Scan Lower Extremity Artery 01/19/23 10:10 IMPRESSION: 1. No sign of hemodynamically significant stenosis in the external iliac, femoral, or popliteal arteries bilaterally. 2. Minimal blood flow in the left posterior tibial artery suggests near occlusion of the vessel. The dorsalis pedis artery is patent and demonstrates a normal waveform. Head CT 01/20/23 11:37 IMPRESSION: 1. No acute intracranial hemorrhage or edema. 2. Atrophy and small vessel ischemic disease. 3. Large RIGHT frontal scalp hematoma. There is an active area of bleeding and hematoma measuring 10 mm. Probably mild venous bleeding. Laboratory Results WBC 8.2 10^3/uL (4.0-10.0) 01/19/23 04:56 RBC 2.38 10^6/uL (4.1-5.3) L 01/19/23 04:56 Hgb 8.3 g/dL (11.5-15.3) L 01/20/23 02:17 Hct 23.5 % (37.0-47.0) L 01/19/23 07:52 MCV 99.6 fl (81-99) H 01/19/23 04:56 MCH 30.7 pg (28.0-34.0) 01/19/23 04:56 MCHC 30.8 g/dL (30.0-36.0) 01/19/23 04:56 RDW 17.5 % (12.1-15.1) H 01/19/23 04:56 Plt Count 178 10^3/cmm (130-400) 01/19/23 04:56 MPV 10.1 fL (7.4-10.4) 01/19/23 04:56 Neut % (Auto) 61.9 % 01/19/23 04:56 Lymph % (Auto) 23.1 % 01/19/23 04:56 Rains % (Auto) 9.2 % 01/19/23 04:56 Eos % (Auto) 5.0 % 01/19/23 04:56 Baso % (Auto) 0.4 % 01/19/23 04:56 Neut # (Auto) 5.07 10^3/uL (1.8-7.7) 01/19/23 04:56 Lymph # (Auto) 1.9 10^3/uL (0.8-4.8) 01/19/23 04:56 Rains # (Auto) 0.8 10^3/uL (0.2-0.9) 01/19/23 04:56 Eos # (Auto) 0.4 10^3/uL (0.0-0.8) 01/19/23 04:56 Baso # (Auto) 0.0 10^3/uL (0.0-0.1) 01/19/23 04:56 Nucleated RBC % (auto) 0 % 01/19/23 04:56 Nucleated RBCs # 0.0 /100WBC 01/19/23 04:56 Sodium 137 mmol/L (136-145) 01/19/23 04:56 Potassium 4.2 mmol/L (3.5-5.1) 01/19/23 04:56 Chloride 106 mmol/L (98-107) 01/19/23 04:56 Carbon Dioxide 26 mmol/L (22-29) 01/19/23 04:56 Anion Gap 9.2 (5-19) 01/19/23 04:56 BUN 14 mg/dL (8-23) 01/19/23 04:56 Creatinine 0.7 mg/dL (0.5-0.9) 01/19/23 04:56 GFR Calculation Not Reportable 01/19/23 04:56 Glucose 95 mg/dL (65-115) 01/19/23 04:56 Calculated Osmolality 284 mOsm/kg (285-295) L 01/19/23 04:56 Lactic Acid 1.9 mmol/L (0.5-2.2) 01/16/23 21:16 Calcium 7.7 mg/dL (8.5-10.5) L 01/19/23 04:56 Phosphorus 4.8 mg/dL (2.5-4.5) H 01/17/23 03:33 Magnesium 1.6 mg/dL (1.7-2.3) L 01/19/23 04:56 Iron 74 ug/dL (37-145) 01/16/23 20:50 Iron Cancelled 01/16/23 20:50 TIBC 173 mcg/dl 01/16/23 20:50 % Saturation 42.7 % (20-50) 01/16/23 20:50 Unsat Iron Binding 99 ug/dL (112-347) L 01/16/23 20:50 Ferritin 700 ng/mL (15-150) H 01/16/23 20:50 Total Bilirubin 0.3 mg/dL (0.15-1.2) 01/19/23 04:56 AST 12 U/L (0-32) 01/19/23 04:56 ALT 8 U/L (0-33) 01/19/23 04:56 Alkaline Phosphatase 125 U/L (35-105) H 01/19/23 04:56 Creatine Kinase 80 U/L (26-192) 01/16/23 20:50 Troponin T Baseline 12 ng/L (0-10) H 01/16/23 20:50 Troponin T 120 Minute 12.56 ng/L (0-10) H 01/16/23 22:58 Delta Troponin T 0.56 ABS# (0-10) 01/16/23 22:58 Troponin T Hi Sens 6Hr 16.21 ng/L (0-10) H 01/17/23 03:33 Troponin T Hi Sens 6Hr Delta 4.21 ng/L (0-12) 01/17/23 03:33 C-Reactive Protein 3.0 mg/L (0.0-4.9) 01/16/23 20:50 NT-Pro-B Natriuret Pep 1346 pg/mL (0-450) H 01/16/23 20:50 Total Protein 5.8 g/dL (6.6-8.7) L 01/19/23 04:56 Albumin 1.9 g/dL (3.5-5.2) L 01/19/23 04:56 Globulin 3.9 g/dL (1.3-4.6) 01/19/23 04:56 Procalcitonin 1.24 ng/mL (0-0.5) H 01/16/23 20:50 TSH 2.18 uIU/mL (0.27-4.20) 01/16/23 20:50 Urine Color Light yellow (Yellow) 01/16/23 23:09 Urine Appearance Clear (CLEAR) 01/16/23 23:09 Urine pH 6 (5-7) 01/16/23 23:09 Ur Specific [place] 1.010 (1.005-1.030) 01/16/23 23:09 Urine Protein Neg (Negative) 01/16/23 23:09 Urine Glucose (UA) Norm (Normal) 01/16/23 23:09 Urine Ketones Negative (Negative) 01/16/23 23:09 Urine Blood Neg (Negative) 01/16/23 23:09 Urine Nitrate Negative (Negative) 01/16/23 23:09 Urine Bilirubin Neg (Negative) 01/16/23 23:09 Urine Urobilinogen Norm mg/dL (Negative) 01/16/23 23:09 Ur Leukocyte Esterase Negative (Negative) 01/16/23 23:09 Urine Opiates Screen Positive ng/mL (Negative) H 01/16/23 23:09 Ur Barbiturates Screen Negative ng/mL (Negative) 01/16/23 23:09 Ur Phencyclidine Scrn Negative ng/mL (Negative) 01/16/23 23:09 Ur Amphetamines Screen Negative ng/mL (Negative) 01/16/23 23:09 U Benzodiazepines Scrn Negative ng/mL (Negative) 01/16/23 23:09 Urine Cocaine Screen Negative ng/mL (Negative) 01/16/23 23:09 U Marijuana (THC) Screen Negative ng/mL (Negative) 01/16/23 23:09 Ethyl Alcohol < 10 mg/dL (0-10) 01/16/23 20:50 Blood Type B Positive 01/19/23 10:25 Rho(D) Type Positive 01/19/23 10:25 PEG Antibody Screen Negative 01/19/23 10:25 Crossmatch See Detail 01/19/23 10:25 Vitals Last Vital Signs Temp 97.8 F 01/21/23 08:00 Pulse 78 01/21/23 08:00 Resp 19 H 01/21/23 10:32 BP 170/65 01/21/23 08:00 Pulse Ox 99 01/21/23 08:00 O2 Del Method Nasal Cannula 01/21/23 07:53 O2 Flow Rate 4 01/21/23 04:00 Discharge Plan Discharge Patient Disposition: Home Condition: Fair Prescriptions: New hydrocodone-acetaminophen 5-325 mg tablet 1 tab PO Q6H PRN (Reason: pain) Qty: 14 0RF calcium carbonate-vitamin D3 600 mg-10 mcg (400 unit) Tablet 1 tab PO BID 30 Days Qty: 60 0RF ondansetron 4 mg tablet,disintegrating 4 mg PO DAILY 5 Days Qty: 5 0RF Continued metoprolol tartrate 25 mg tablet 12.5 mg PO BID Qty: 30 11RF oxycodone-acetaminophen [Percocet] 5-325 mg tablet 1 tab PO Q8H PRN (Reason: pain) Qty: 20 0RF paroxetine HCl 10 mg tablet 10 mg PO QAM clopidogrel 75 mg tablet 75 mg PO QAM acetaminophen 500 mg Tablet 1,000 mg PO Q6H PRN (Reason: Pain) pantoprazole 40 mg tablet,delayed release (DR/EC) 40 mg PO QAM folic acid 1 mg tablet 1 mg PO QAM furosemide 20 mg tablet 20 mg PO QAM Vitamin B-12 5,000 mcg Tablet, Sublingual 5,000 mcg SUBLINGUAL QAM Held Eliquis 2.5 mg tablet 2.5 mg PO BID@10,20 Hold Instructions: Resume on 01/28/23. hold until follow up with PCP Discontinued lisinopril 10 mg tablet 10 mg PO QAM Discharge Orders: Discharge Order (Routine); Ordered 01/21/23 Ordered By: Zena Carroll Referrals: Rayo Hyman DO [Physician] - 01/30/23 1:32 pm Daquan Luna MD [Primary Care Provider] - 01/24/23 11:10 am Discharge Diet: Advance as tolerated Discharge Activity: Resume usual activity Patient Instructions: Arm Fracture in Adults (ED), Pelvic Fracture (ED), Opioid Safety Activity Restrictions/Additional Instructions: Orthopedic discharge instructions: Patient should be nonweightbearing to the right upper extremity Maintain sling Ice as needed for pain and swelling Encourage pendulum swings, okay to shower and come out of sling, no active range of motion of the right shoulder May weight-bear as tolerated to the right lower extremity Ice as needed for pubic rami fractures Supplement with Citracal vitamin D for bone health and healing Continue with Eliquis (blood thinner) for blood clot prevention Take pain medication as prescribed Follow-up with Dr. Hyman in the office in 2 weeks Contact the office for any questions or concerns Discharge Attestations Time Spent in Discharge Care*: greater than 30 min Quality Metrics Clinical Quality Measures [ No reported AMI, CVA or VTE this stay] Coding Level of Care Code Acute Code for Chg Fwd Diagnoses Fall W19.XXXA Encounter type: initial encounter Closed right humeral fracture S42.301A Closed fracture of pubic ramus S32.599A Anemia D64.9 Lightheadedness R42 S/P PTCA (percutaneous transluminal coronary angioplasty) Z98.61 S/P carotid endarterectomy Z98.890 Carotid stenosis, bilateral I65.23 Pulmonary embolism I26.99
[2023-01-21 12:30] LABS: Hematocrit 34.6 % (37.0-47.0); Hemoglobin 10.8 g/dL (11.5-15.3)
--- NOTE | 2023-01-21 14:33 | PC.NURSE ---
THIS NURSE REMOVED MIDLINE. CATHETER TIP INTACT. PRESSURE DRESSING APPLIED.
== END 2023-01-21 16:15 | disposition home or self-care (01) | DRG 964 ==
LOC: ER 20:05 → MEDSURG 20:44
PROVIDERS: Admitting Provider Family Medicine; Emergency Provider Emergency Medicine; PCP Family Medicine; Visit Provider Student in an Organized Health Care Education/Training Program
DX: S42.211A Unspecified displaced fracture of surgical neck of right humerus, initial encounter for closed fracture (principal); S06.5X0A Traumatic subdural hemorrhage without loss of consciousness, initial encounter; S32.591A Other specified fracture of right pubis, initial encounter for closed fracture; F10.188 Alcohol abuse with other alcohol-induced disorder; N17.9 Acute kidney failure, unspecified; W18.30XA Fall on same level, unspecified, initial encounter; D64.9 Anemia, unspecified; Z86.73 Personal history of transient ischemic attack (TIA), and cerebral infarction without residual deficits; I25.10 Atherosclerotic heart disease of native coronary artery without angina pectoris; Z95.5 Presence of coronary angioplasty implant and graft; R27.0 Ataxia, unspecified; G62.1 Alcoholic polyneuropathy; I25.2 Old myocardial infarction; Z86.711 Personal history of pulmonary embolism; Z99.81 Dependence on supplemental oxygen; I95.9 Hypotension, unspecified; Z87.891 Personal history of nicotine dependence; Z66 Do not resuscitate; Z79.02 Long term (current) use of antithrombotics/antiplatelets; Z79.891 Long term (current) use of opiate analgesic
CPT/HCPCS: 36415; 36430; 36569; 70450; 70470; 71260; 72125; 73030; 73130; 73502; 74176; 74177; 80048; 80053; 80306; 80307; 81003; 82550; 82728; 83540; 83550; 83605; 83735; 83880; 84100; 84145; 84443; 84484; 85014; 85018; 85025; 86140; 86850; 86900; 86920; 93005; 93880; 93925; 94664; 96361; 96372; 96374; 97110; 97161; 97167; 97530; 97535; 99285; C1751; G0378; J1170; J2060; J2270; J2405; J3475; J7030; P9016; Q9967

== ENCOUNTER 2023-01-23 09:50 | Emergency (ER) | payer MEDICARE, MEDICAID, SELFPAY ==
[2023-01-23] VITALS (10 sets, daily range): BP systolic 90–186; BP diastolic 52–128; PULSE 111; RESP 18; TEMP 36.6; O2SAT 93–98
--- NOTE | 2023-01-23 10:11 | CT_ITS ---
WS: [id number] CTA OF THE CHEST WITH PULMONARY EMBOLISM PROTOCOL TECHNIQUE: High-resolution contrast enhanced CTA of the chest with coronal and sagittal reformatted i mages with pulmonary embolism protocol. MIP images are also reviewed. CLINICAL INFORMATION: PE off anticoagulant COMPARISON: 01/16/2023 and 12/03/2022 DLP: 506.[address] scans at [facility] use at least one of these dose optimization techniques: automated e xposure control; mA and/or kV adjustment per patient size (includes targeted exams where dose is matc hed to clinical indication); or iterative reconstruction. FINDINGS: Chronic LEFT rib fractures similar to the prior recent examinations. Small LEFT pleural effusion. Com pressive atelectasis LEFT lower lobe. This is similar to January 16, 2023. Trace RIGHT pleural fluid. C hronic emphysematous changes. Upper lungs are well aerated. Cardiomegaly. Aortic calcification. Proximal main pulmonary arteries are normal. Normal segmental and subsegmental pulmonary arteries. No evidence of pulmonary embolus. No mediastinal or hilar lymphadenopathy. No axillary lymphadenopathy. Adrenal glands are normal. Small to moderate esophageal hiatal hernia. Splenic artery calcification. Previously described pulmonary emboli about the RIGHT hilum inferiorly appear to have resolved. No ne w or progressed pulmonary emboli. CT/CT angio chest PE protcl [id number] IMPRESSION: 1. No new or progressed pulmonary emboli today. Previously described RIGHT inf erior hilum pulmonary emboli appear to have resolved. 2. Small LEFT pleural effusion with compressive atelectasis LEFT lower lobe si milar to the prior examinations. 3. Trace RIGHT pleural fluid. Lungs are otherwise well aerated. 4. Cardiomegaly. 5. Chronic LEFT rib fractures with chronic fracture medial head LEFT clavicle. 6. Small to moderate esophageal hiatal hernia.
[2023-01-23 10:26] LABS: Basophils % 0.6 %; Eosinophils # 0.4 10^3/uL (0.0-0.8); Eosinophils % 5.5 %; Hematocrit 38.2 % (37.0-47.0); Hemoglobin 12.1 g/dL (11.5-15.3); Lymphocytes # 2.5 10^3/uL (0.8-4.8); Lymphocytes % 37.9 %; Mean Corpuscular HGB Conc 31.7 g/dL (30.0-36.0); Mean Corpuscular Hemoglobin 30.5 pg (28.0-34.0); Mean Corpuscular Volume 96.2 fl (81-99); Monocytes # 0.8 10^3/uL (0.2-0.9); Monocytes % 12.2 %; Neutrophils # 2.91 10^3/uL (1.8-7.7); Neutrophils % 43.5 %; Nucleated Red Blood Cells % 0 %; Platelet Count 302 10^3/cmm (130-400); Red Blood Count 3.97 10^6/uL (4.1-5.3); Red Cell Distribution Width 16.7 % (12.1-15.1); White Blood Count 6.7 10^3/uL (4.0-10.0)
--- NOTE | 2023-01-23 10:37 | ECG_ITS ---
[facility] Test Date: 2023-01-23 Pat Name: Terri Pride Department: Room: Gender: Female Molder Sweep: : 1945 Requested By: Luis A Willams Order Number: [id number] Reading MD: Kalen Lyons M.D. Measurements Intervals [place] Rate: 92 P: 29 SC: 157 QRS: -7 QRSD: 77 T: 21 QT: 325 QTc: 404 Interpretive Statements SINUS RHYTHM POSSIBLE INFERIOR MYOCARDIAL INFARCTION , PROBABLY OLD [30 ms Q WAVE IN II/aVF] MODERATE T-WAVE ABNORMALITY, CONSIDER ANTERIOR ISCHEMIA [-0.1+ mV T-WAVE IN V3/V4] Compared to ECG 01/17/2023 03:28:55 Myocardial infarct finding now present T-wave abnormality still present Possible ischemia still present Electronically Signed On 01-23-2023 14:29:33 CDT by Kalen Lyons M.D. [id number]
[2023-01-23 10:48] LABS: Troponin(5th) Baseline 10 ng/L (0-10)
[2023-01-23 10:50] LABS: Alanine Aminotransferase 6 U/L (0-33); Albumin Level 2.7 g/dL (3.5-5.2); Alkaline Phosphatase 129 U/L (35-105); Anion Gap 8.9 (5-19); Aspartate Amino Transferase 11 U/L (0-32); Blood Urea Nitrogen 8 mg/dL (8-23); Calcium 8.8 mg/dL (8.5-10.5); Carbon Dioxide 33 mmol/L (22-29); Chloride 97 mmol/L (98-107); Globulin 4.4 g/dL (1.3-4.6); Glucose 86 mg/dL (65-115); Osmolality Calculated 278 mOsm/kg (285-295); Potassium 3.9 mmol/L (3.5-5.1); Sodium 135 mmol/L (136-145); Total Bilirubin 0.6 mg/dL (0.15-1.2); Total Protein 7.1 g/dL (6.6-8.7)
[2023-01-23 10:59] LABS: ABG PCO2 46.2 mmHg (35-45); ABG PH Result 7.47 (7.35-7.45); Alveolar-Arterial Oxygen Gradi 11.2 mmHg (5-10); Arterial Blood Gas Hematocrit 35.7 % (37-47); Base Excess ABG 8.8 mmol/L (-2.0-2.0); Blood Gas Allen Test Pos; Blood Gas Operator Identificat glc; Blood Gas Sample Site Radial, left; Blood Gas Sample Type Arterial; Carboxyhemoglobin 1.3 %THgb (0.4-20.1); HCO3 ABG 33.6 mmol/L (22-26); HGB O2 Sat 96.2 % (95-100); Ionized Calcium Level - ABG 1.2 mmol/L (1.1-1.4); Methemoglobin 0.3 % (0.4-1.5); Oxygen Device NC; Oxygen Saturation ABG 97.8; PO2 ABG 87.1 mmHg (80.0-100.0); Potassium Level - ABG 3.9 mmol/L (3.5-5.0); Total Hemoglobin 11.7 g/dL (12-16)
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
[2023-01-23] MEDS: iohexol 350 mg/mL 500 mL Btl (per mL) IV (11:42)
[2023-01-23 12:22] LABS: Troponin 5 2HR 9.43 ng/L (0-10)
[2023-01-23 12:26] LABS: Troponin 5 2HR Delta -0.57 ABS# (0-10)
[2023-01-23] MEDS: sodium chloride 0.9% 500 ML 999 ML IV (12:27)
[2023-01-23] MEDS: morphine 4 mg/mL SDV 1 mL 2 MG IVP (12:28)
--- NOTE | 2023-01-23 12:34 | ECG_ITS ---
[facility] Test Date: 2023-01-23 Pat Name: Terri Pride Department: Room: Gender: Female Squirrel Man: : 1945 Requested By: Luis A Willams Order Number: [id number] Noel MD: Kalen Lyons M.D. Measurements Intervals [place] Rate: 88 P: 29 [place]: 160 QRS: 13 QRSD: 82 T: 17 QT: 349 QTc: 424 Interpretive Statements [address]INUS RHYTHM [address] DEVIATION AND MODERATE T-WAVE ABNORMALITY, CONSIDER ANTERIOR ISCHEMIA [-0.1+ mV T-WAVE IN V3/V4] Compared to ECG 01/23/2023 10:37:05 Myocardial infarct finding no longer present T-wave abnormality still present Possible ischemia still present Electronically Signed On 01-23-2023 14:34:07 CDT by Kalen Lyons M.D. [id number]
--- NOTE | 2023-01-23 12:36 | CT_ITS ---
WS: [id number] CT HEAD TECHNIQUE: Noncontrast CT of the head obtained from the skullbase to the vertex. CLINICAL INFORMATION: dizzy COMPARISON: January 20, 2023 DLP: 1077.[address] scans at [facility] use at least one of these dose optimization techniques: automated e xposure control; mA and/or kV adjustment per patient size (includes targeted exams where dose is matc hed to clinical indication); or iterative reconstruction. FINDINGS: No evidence of intracranial hemorrhage or mass effect. Ventricular system and basal cisterns are nance nt. Mild small vessel changes with moderate parenchymal volume loss. No extra-axial fluid collections . No evidence of mass or mass effect. Intracranial vascular calcification. Slight decrease in size of the RIGHT frontal scalp hematoma compared to January 20, 2023. Residual cont rast in the intracranial vessels due to recent PE study. CT/CT head wo con* [id number] IMPRESSION: 1. No evidence of intracranial hemorrhage or mass effect. 2. RIGHT frontal scalp hematoma measuring 2.3 x 1.0 cm slightly decreased in s ize compared to previous. 3. Evidence of intracranial contrast from recent PE study. 4. Otherwise no acute intracranial findings.
[2023-01-23] MEDS: acetaminophen 500 mg Tablet 1000 MG PO (14:20)
[2023-01-23] MEDS: FUROsemide 10 mg/mL SDV 4mL 40 MG IVP (14:20)
== END 2023-01-23 15:37 | disposition home or self-care (01) ==
PROVIDERS: Family Medicine; Emergency Provider Emergency Medicine; PCP Family Medicine
DX: R06.00 Dyspnea, unspecified (principal); J90 Pleural effusion, not elsewhere classified; Z79.82 Long term (current) use of aspirin; Z79.02 Long term (current) use of antithrombotics/antiplatelets; S00.03XA Contusion of scalp, initial encounter; Z86.73 Personal history of transient ischemic attack (TIA), and cerebral infarction without residual deficits; I25.2 Old myocardial infarction; Z87.891 Personal history of nicotine dependence; W19.XXXA Unspecified fall, initial encounter; Z86.711 Personal history of pulmonary embolism
CPT/HCPCS: 36415; 36600; 70450; 71275; 80051; 80053; 82330; 82805; 84484; 85025; 93005; 96361; 96374; 96375; 99285; J1940; J2270; J7040; Q9967

== ENCOUNTER → 2023-02-06 13:32 | Outpatient (BNVA) | payer MEDICARE, MEDICAID, SELFPAY | PROVIDERS: PCP Family Medicine; Visit Provider Student in an Organized Health Care Education/Training Program | DX: S32.591A Other specified fracture of right pubis, initial encounter for closed fracture (principal); X58.XXXA Exposure to other specified factors, initial encounter; S42.301A Unspecified fracture of shaft of humerus, right arm, initial encounter for closed fracture | CPT/HCPCS: 23600; 72190; 73030; 99214 ==

== ENCOUNTER → 2023-04-06 13:17 | Outpatient (BNVA) | payer MEDICARE, MEDICAID, SELFPAY | PROVIDERS: PCP Family Medicine; Visit Provider Student in an Organized Health Care Education/Training Program | DX: S42.201A Unspecified fracture of upper end of right humerus, initial encounter for closed fracture (principal); S32.591A Other specified fracture of right pubis, initial encounter for closed fracture; X58.XXXA Exposure to other specified factors, initial encounter | CPT/HCPCS: 72190; 73030; 99213 ==

== ENCOUNTER 2023-05-05 12:54 | Outpatient (RCR) | payer MEDICARE, MEDICAID, SELFPAY | END 2023-06-01 23:59 | disposition home or self-care (01) | LOC: SPT 12:54 | PROVIDERS: PCP Family Medicine; Visit Provider Student in an Organized Health Care Education/Training Program | DX: M84.422D Pathological fracture, left humerus, subsequent encounter for fracture with routine healing (principal) | CPT/HCPCS: 97110; 97161 ==

== ENCOUNTER 2023-05-26 09:57 | Emergency (ER) | payer MEDICARE, MEDICAID, SELFPAY ==
[2023-05-26 10:06] VITALS: BP 173/84; PULSE 94; RESP 16; TEMP 36.7; O2SAT 99; BMI 21.0
--- NOTE | 2023-05-26 10:18 | ECG_ITS ---
[facility] Test Date: 2023-05-26 Pat Name: Terri Pride Department: Room: Gender: Female Manager Administration: : 1945 Requested By: Luis A Willams Order Number: [id number] Noel MD: Katiuska Brown M.D. Measurements Intervals [place] Rate: 91 P: 16 [place]: 159 QRS: 59 QRSD: 81 T: -5 QT: 373 QTc: 459 Interpretive Statements SINUS RHYTHM ABNORMAL QRS-T ANGLE [QRS-T AXIS DIFFERENCE > 60] Poor R wave progression Compared to ECG 01/23/2023 12:34:58 T-wave abnormality no longer present Possible ischemia no longer present Electronically Signed On 05-26-2023 18:16:13 CDT by Katiuska Brown M.D. [id number]
[2023-05-26 11:19] VITALS: BP 169/129; PULSE 82; RESP 19; O2SAT 98
--- NOTE | 2023-05-26 11:22 | XRR_ITS ---
PROCEDURE INFORMATION: Exam: XR Right Hand Exam date and time: 05/26/2023 11:51 AM Age: 77 years old Clinical indication: Injury or trauma; Fall; Blunt trauma (contusions or hematomas); Wrist and hand; Right TECHNIQUE: Imaging protocol: Radiologic exam of the right hand. Views: 3 or more views. COMPARISON: CR XR hand RT min 3V* [id number] 01/17/2023 2:50 PM FINDINGS: Bones/joints: There is a transverse fracture through the base of the proximal phalanx of the middle finger with mild dorsal tilting of the distal fragment. Soft tissues: Normal. XR/XR hand RT min 3V* [id number] IMPRESSION: Fracture of the base of the proximal phalanx of the middle finger.
--- NOTE | 2023-05-26 11:22 | XRR_ITS ---
PROCEDURE INFORMATION: Exam: XR Right Wrist Exam date and time: 05/26/2023 11:54 AM Age: 77 years old Clinical indication: Injury or trauma; Fall; Blunt trauma (contusions or hematomas); Wrist and hand; Right TECHNIQUE: Imaging protocol: Radiologic exam of the right wrist. Views: 3 or more views. COMPARISON: CR XR hand RT min 3V* [id number] 05/26/2023 11:51 AM FINDINGS: Bones/joints: There is diffuse decreased bone density. No fracture, dislocation or other acute abnormality is seen. Chronic degenerative changes are present with joint space narrowing and cartilage calcifications. Soft tissues: Otherwise unremarkable. Vasculature: Prominent atherosclerotic calcifications. XR/XR wrist RT min 3V* [id number] IMPRESSION: No acute abnormality.
--- NOTE | 2023-05-26 11:23 | XRR_ITS ---
PROCEDURE INFORMATION: Exam: XR Chest Exam date and time: 05/26/2023 11:45 AM Age: 77 years old Clinical indication: Cough and dyspnea and shortness of breath; Additional info: Dyspnea/cough TECHNIQUE: Imaging protocol: Radiologic exam of the chest. Views: 1 view. COMPARISON: CT chest abdpel w/*[id number] 01/16/2023 6:57 PM FINDINGS: Lungs: Mild left basilar atelectasis. No acute pulmonary infiltrates. Pleural spaces: Unremarkable. No pleural effusion. No pneumothorax. Heart/Mediastinum: Unremarkable. No cardiomegaly. Bones/joints: There are multiple old healed left rib fractures. XR/XR chest 1V portable [id number] IMPRESSION: No acute abnormality.
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
[2023-05-26 11:56] LABS: Basophils # 0.1 10^3/uL (0.0-0.1); Basophils % 1.2 %; Eosinophils # 0.2 10^3/uL (0.0-0.8); Eosinophils % 5.1 %; Hematocrit 39.1 % (36-47); Lymphocytes # 1.6 10^3/uL (0.8-4.8); Lymphocytes % 37.8 %; Mean Corpuscular Hemoglobin 31.5 pg (27-33); Mean Corpuscular Volume 95.4 fl (85-98); Mean Platelet Volume 9.5 fL (7.4-10.4); Monocytes # 0.5 10^3/uL (0.2-0.9); Monocytes % 10.8 %; Neutrophils # 1.87 10^3/uL (1.8-7.7); Neutrophils % 45.1 %; Nucleated Red Blood Cells % 0 %; Platelet Count 275 10^3/cmm (157-399); Red Cell Distribution Width 12.7 % (12.1-15.1); White Blood Count 4.15 10^3/uL (3.29-11.43)
[2023-05-26 12:13] LABS: Alanine Aminotransferase < 5 U/L (0-33); Albumin Level 3.7 g/dL (3.5-5.2); Alkaline Phosphatase 125 U/L (35-105); Anion Gap 16.2 (5-19); Aspartate Amino Transferase 13 U/L (0-32); Blood Urea Nitrogen 11 mg/dL (8-23); Calcium 9.6 mg/dL (8.5-10.5); Carbon Dioxide 24 mmol/L (22-29); Chloride 102 mmol/L (98-107); Globulin 3.8 g/dL (1.3-4.6); Glucose 92 mg/dL (65-115); Osmolality Calculated 285 mOsm/kg (285-295); Potassium 4.2 mmol/L (3.5-5.1); Sodium 138 mmol/L (136-145); Total Bilirubin 0.6 mg/dL (0.15-1.2); Total Protein 7.5 g/dL (6.6-8.7)
[2023-05-26 12:14] LABS: Troponin(5th) Baseline 10 ng/L (0-10)
[2023-05-26] MEDS: acetaminophen 500 mg Tablet 1000 MG PO (12:32)
[2023-05-26 12:34] VITALS: BP 192/105; PULSE 101; RESP 18; O2SAT 99
--- NOTE | 2023-05-26 13:23 | ECG_ITS ---
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 Measurements Intervals [place] Rate: 86 P: 52 SD: 166 QRS: 40 QRSD: 77 T: 55 QT: 375 QTc: 449 Interpretive Statements SINUS RHYTHM Poor R wave progression NONSPECIFIC T-WAVE ABNORMALITY Compared to ECG 05/26/2023 10:18:53 T-wave abnormality now present Electronically Signed On 05-26-2023 18:21:11 CDT by Katiuska Brown M.D. [id number]
[2023-05-26] MEDS: FUROsemide 10 mg/mL SDV 2mL 20 MG IVP (13:52)
[2023-05-26] MEDS: hyDRALAzine 20 mg/mL INJ 1 mL IVP (13:53)
[2023-05-26] MEDS: metoprolol tartrate 25 mg Tablet 12.5 MG PO (13:55)
[2023-05-26] MEDS: metoprolol tartrate 1 mg/1 mL SDV 5 mL 2.5 MG IVP (13:56)
[2023-05-26 14:01] VITALS: BP 195/120; PULSE 89; RESP 18; O2SAT 96
[2023-05-26 14:38] LABS: Troponin 5 2HR 9.53 ng/L (0-10); Troponin 5 2HR Delta -0.47 ABS# (0-10)
[2023-05-26 15:37] VITALS: BP 195/120; PULSE 89; RESP 18; O2SAT 96
--- NOTE | 2023-05-29 08:17 | DCPLANNER ---
Addendum entered by Fani Hdz 06/08/23 11:18: Patient did attend appointment scheduled with ortho. Addendum entered by Fani Hdz 05/31/23 11:36: Patient has a follow up appointment scheduled for Tuesday, June 06, 2023 at 3:00 with Rayo Hyman at ortho. Addendum entered by Fani Hdz 05/30/23 14:32: corporate safety manager received the following message from the ortho clinic regarding follow up appointment: attempt made to contact patient - left vm to call our clinic to schedule w/ dr hyman - we can get her in this or monday Original Note: corporate safety manager had message to schedule a follow up appointment for patient for ortho. corporate safety manager sent patients information to the front office staff at ortho. Patients information will be printed and reviewed. Clinic will call patient with appointment information.
--- NOTE | 2023-05-29 15:11 | DCPLANNER ---
Addendum entered by Fani Hdz 05/31/23 12:28: Patient has an outpatient stress test scheduled for Friday, June 16, 2023 at 3:00. Original Note: market relationship manager had message to schedule an outpatient stress test for patient. market relationship manager faxed signed order to centralized scheduling, who will call patient with appointment information.
== END 2023-05-26 15:38 | disposition home or self-care (01) ==
PROVIDERS: Emergency Provider Family Medicine; PCP Family Medicine
DX: S62.612A Displaced fracture of proximal phalanx of right middle finger, initial encounter for closed fracture (principal); I10 Essential (primary) hypertension; W18.30XA Fall on same level, unspecified, initial encounter
CPT/HCPCS: 29125; 36415; 71045; 73110; 73130; 80053; 84484; 85025; 93005; 96374; 96375; 99285; J0360; J1940; J3490

== ENCOUNTER 2023-06-06 06:00 | Outpatient (CLI) | payer MEDICARE, MEDICAID, SELFPAY | END 2023-06-06 06:01 | disposition home or self-care (01) | LOC: SOT 06-08 13:13 | PROVIDERS: Visit Provider Student in an Organized Health Care Education/Training Program | DX: Z46.89 Encounter for fitting and adjustment of other specified devices (principal); S62.602D Fracture of unspecified phalanx of right middle finger, subsequent encounter for fracture with routine healing; X58.XXXD Exposure to other specified factors, subsequent encounter | CPT/HCPCS: 26720; 97760; 99213; L3923 ==

== ENCOUNTER → 2023-06-06 14:39 | Outpatient (BNVA) | payer MEDICARE, MEDICAID, SELFPAY | PROVIDERS: PCP Family Medicine; Referring Provider Family Medicine; Visit Provider Student in an Organized Health Care Education/Training Program | DX: S62.612A Displaced fracture of proximal phalanx of right middle finger, initial encounter for closed fracture; X58.XXXA Exposure to other specified factors, initial encounter | CPT/HCPCS: 73130 ==

== ENCOUNTER 2023-06-13 13:30 | Outpatient (RCR) | payer MEDICARE, MEDICAID, SELFPAY | END 2023-07-01 23:59 | disposition home or self-care (01) | LOC: SOT 13:30 | PROVIDERS: Visit Provider Student in an Organized Health Care Education/Training Program | DX: S62.602D Fracture of unspecified phalanx of right middle finger, subsequent encounter for fracture with routine healing (principal); W19.XXXD Unspecified fall, subsequent encounter | CPT/HCPCS: 97110; 97140; 97165 ==

== ENCOUNTER 2023-06-16 08:53 | Outpatient (CLI) | payer MEDICARE, MEDICAID, SELFPAY ==
--- NOTE | 2023-06-16 | ECG_ITS ---
[facility] Test Date: 2023-06-16 Pat Name: Terri Pride Department: Room: Gender: Female [employer] Administrator: Graham Sanchez : 1945 Requested By: Luis A Willams Order Number: [id number] Noel MD: Katiuska Brown M.D. Interpretive Statements NAME OF STUDY: LEXISCAN SESTAMIBI STRESS TEST INDICATION: Shortness of Breath on exertion, PROCEDURE: At the baseline, the EKG revealed normal sinus rhythm with poor R wave progression. Some nonspecific ST change. The baseline heart was 60 bpm with a blood pressue of 106/75 mm of Hg Lexiscan was infused over a period of 20 seconds. A total of 0.4 milligrams of Lexiscan was infused. The stress phase was continued for a total of 5 minutes. Heart rate at the end of the stress phase was 67 bpm with a blood pressure 82/47 mm of Hg. The EKG at the peak infusion revealed no significant changes. Sestamibi was injected 20 seconds after the Lexiscan infusion. Heart rate at the end of the recovery phase was 67 bpm with a blood pressure of 111/88 mm of Hg. CONCLUSION: 1. No significant EKG changes with the LexiScan infusion 2. No LexiScan induced chest pain or cardiac arrhythmia 3. Normal blood pressure and heart rate response 4. Sestamibi/sestamibi perfusion scan pending; see separate report. Electronically Signed On 06-17-2023 19:00:44 CDT by Katiuska Brown M.D. [id number]
[2023-06-16 09:09] VITALS: BMI 21.1
--- NOTE | 2023-06-16 09:10 | NMCV_ITS ---
NM emperatriz perf SPECT r/s* [id number] Terri Pride Age: 77 Gender: F : 1945 Exam Date: 06/16/2023 09:52 Ordering Phys: Luis A Golden DO Technologist: CARISSA Yeung Exam Location: [facility] Indications: SHORTNESS OF BREATH STRESS TEST Please see separate stress test report in [facility] for full findings IMAGE PROTOCOL Rest/Stress 1 Lexiscan Day Radiopharmaceutical Dose (mCi) Administration Site Administered by Rest: Tc-99m 10.6 IV Caden Rivers, RESIDENCE LIFE DIRECTOR Sestamibi Stress:Tc-99m 32.6 IV Caden Rivers, RESIDENCE LIFE DIRECTOR Sestamibi Rest: 16-Jun-2023 60 Discovery 630 Stress: 16-Jun-2023 30 Discovery 630 0.4mg Lexiscan. Supine position only as patient was unable to lay prone. SPECT RESULTS Technical Quality: Excellent Raw Data Analysis: Normal Image Corrections: No attenuation or motion correction applied Summed Stress Score: 0 Summed Rest Score: 0 Summed Difference Score: 0 PERFUSION FINDINGS SPECT images demonstrate homogeneous tracer distribution throughout the myocardium. FUNCTIONAL RESULTS (calculated via Gated SPECT) Stress Image LV EF (%): 85 Stress EDV (mL):53 TID: 1.29 Stress ESV (mL):8 FUNCTIONAL FINDINGS: Segmental wall motion analysis revealing no gross wall motion abnormalities Elevated transient ischemic dilatation ratio IMPRESSIONS 1. Unremarkable Myocardial perfusion imaging 2. Normal LV ejection fraction of 85%. 3. LV wall motion analysis revealing no gross wall motion abnormalities. 4. Normal LV volume Elevated transient ischemic dilatation ratio may suggest endocardial ischemia. However the positive predictive value of this finding is limited. Dr Katiuska Brown MD FACC (Electronically Signed) Final Date: 16 June 2023 14:10 S
[2023-06-16] MEDS: regadenoson 0.4 Mg/5 ml Syringe IVP (10:29)
[2023-06-16 10:55] VITALS: BP 111/88; PULSE 64
== END 2023-06-16 08:54 | disposition home or self-care (01) ==
LOC: CDL 08:54
PROVIDERS: PCP Family Medicine; Visit Provider Family Medicine
DX: R06.02 Shortness of breath (principal)
CPT/HCPCS: 36415; 78452; 93017; 96374; A9500; J2785

== ENCOUNTER → 2023-07-27 12:22 | Outpatient (BNVA) | payer MEDICARE, MEDICAID, SELFPAY | PROVIDERS: PCP Family Medicine; Visit Provider Family Medicine | DX: J06.9 Acute upper respiratory infection, unspecified (principal) | CPT/HCPCS: 87426 ==

== ENCOUNTER 2023-12-02 09:58 | Emergency (ER) | payer MEDICARE, MEDICAID, SELFPAY ==
[2023-12-02 10:08] VITALS: BP 185/98; PULSE 90; RESP 17; TEMP 37; O2SAT 96; BMI 24.7
--- NOTE | 2023-12-02 11:31 | XRR_ITS ---
PROCEDURE INFORMATION: Exam: XR Chest Exam date and time: 12/02/2023 11:49 AM Age: 78 years old Clinical indication: Pain; Chest pressure; Additional info: Weakness TECHNIQUE: Imaging protocol: Radiologic exam of the chest. Views: 2 views. COMPARISON: CR XR chest 1V portable [id number] 05/26/2023 11:45 AM FINDINGS: Lungs: Unremarkable. No consolidation. Pleural spaces: Unremarkable. No pleural effusion. No pneumothorax. Heart/Mediastinum: Unremarkable. No cardiomegaly. Bones/joints: Multiple healing left-sided rib fractures re-identified. XR/XR chest 2V* [id number] IMPRESSION: No acute cardiopulmonary process.
--- NOTE | 2023-12-02 11:31 | CTR_ITS ---
PROCEDURE INFORMATION: Exam: CT Head Without Contrast Exam date and time: 12/02/2023 11:43 AM Age: 78 years old Clinical indication: Altered mental status/memory loss; Confusion or disorientation; Additional info: Weakness and AMS TECHNIQUE: Imaging protocol: Computed tomography of the head without contrast. Radiation optimization: All CT scans at this facility use at least one of these dose optimization techniques: automated exposure control; mA and/or kV adjustment per patient size (includes targeted exams where dose is matched to clinical indication); or iterative reconstruction. COMPARISON: CT head wo con* [id number] 01/23/2023 12:47 PM RADIATION DOSE METRICS: Total DLP (mGy-cm): 933.3 FINDINGS: Brain: There is an old left lacunar infarct involving the internal capsule, was not present in 01/23/2023. No intracranial mass, bleed or recent large territorial infarct. Cerebral ventricles: No ventriculomegaly. Paranasal sinuses: Visualized sinuses are unremarkable. No fluid levels. Mastoid air cells: Visualized mastoid air cells are well aerated. Bones/joints: Unremarkable. No acute fracture. Soft tissues: Unremarkable. CT/CT head wo con* [id number] IMPRESSION: No large territorial infarct or intracranial bleed.
--- NOTE | 2023-12-02 11:34 | CTR_ITS ---
PROCEDURE INFORMATION: Exam: CT Cervical Spine Without Contrast Exam date and time: 12/02/2023 11:43 AM Age: 78 years old Clinical indication: Neck pain; Additional info: AMS with neck pain TECHNIQUE: Imaging protocol: Computed tomography of the cervical spine without contrast. Radiation optimization: All CT scans at this facility use at least one of these dose optimization techniques: automated exposure control; mA and/or kV adjustment per patient size (includes targeted exams where dose is matched to clinical indication); or iterative reconstruction. COMPARISON: CT cervical spin wo con* [id number] 01/16/2023 6:50 PM RADIATION DOSE METRICS: Total DLP (mGy-cm): 434.3 FINDINGS: Bones/joints: CPPD changes around dens. Advanced degenerative disease at the anterior C1-C2 articulation. No compression deformities of the vertebral bodies. No spondylolisthesis. There is moderate degenerative disease at C5-C6 and C6-C7 with disc space narrowing and anterior osteophytes. Lungs: Lung apices are normal. Vasculature: There are bilateral carotid and vertebral artery calcifications. Soft tissues: Unremarkable. CT/CT cervical spin wo con* [id number] IMPRESSION: 1. No acute fracture or dislocation. 2. Degenerative disease of the cervical spine, most pronounced at C5-C6 and C6-C7.
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
[2023-12-02 12:31] LABS: Basophils % 0.2 %; Eosinophils % 0.1 %; Hematocrit 40.3 % (36-47); Lymphocytes % 10.1 %; Mean Platelet Volume 9.7 fL (7.4-10.4); Monocytes # 1.1 10^3/uL (0.2-0.9); Monocytes % 11.8 %; Neutrophils # 7.24 10^3/uL (1.8-7.7); Neutrophils % 77.3 %; Nucleated Red Blood Cells % 0 %; Platelet Count 204 10^3/cmm (157-399); Red Blood Count 4.03 10^6/uL (3.85-5.65); Red Cell Distribution Width 11.6 % (12.1-15.1); White Blood Count 9.38 10^3/uL (3.29-11.43)
[2023-12-02 12:50] LABS: Alanine Aminotransferase 6 U/L (0-33); Albumin Level 3.7 g/dL (3.5-5.2); Alkaline Phosphatase 96 U/L (35-105); Aspartate Amino Transferase 14 U/L (0-32); Blood Urea Nitrogen 10 mg/dL (8-23); C Reactive Protein 88.7 mg/L (0.0-4.9); Calcium 8.9 mg/dL (8.5-10.5); Carbon Dioxide 22 mmol/L (22-29); Chloride 93 mmol/L (98-107); Creatinine Clr Calc Pharmacy 49.9131; Globulin 4.6 g/dL (1.3-4.6); Glucose 84 mg/dL (65-115); Osmolality Calculated 270 mOsm/kg (285-295); Sodium 131 mmol/L (136-145); Total Bilirubin 0.8 mg/dL (0.15-1.2); Total Protein 8.3 g/dL (6.6-8.7)
[2023-12-02 12:51] LABS: Lactic Sepsis W/Reflex 0.9 mmol/L (0.5-2.2)
[2023-12-02] MEDS: acetaminophen 325 mg Tablet 650 MG PO (12:56)
[2023-12-02] MEDS: sodium chloride 0.9% 500 ML IV (12:57)
[2023-12-02 15:01] LABS: Protein Urine Trace (Negative); Specific Gravity, Urine 1.015 (1.005-1.030); Urine Appearance Cloudy (CLEAR); Urine Color Straw (Yellow); pH Urine 5 (5-7)
[2023-12-02 15:02] LABS: Add Urine Culture? Yes; Add Urine Microscopic? YES; Bacteria Urine 3+ /hpf; Bilirubin Urine Neg (Negative); Blood Urine 2+ (Negative); Glucose Urine UA Norm (Normal); Ketones Urine 2+ (Negative); Leukocyte Esterase Urine 2+ (Negative); Nitrate Urine Positive (Negative); RBC Urine RARE /hpf (0-2); Squamous Epithelial Cell Urine 0-4 /hpf (0-5); Urobilinogen Urine Norm (Negative); WBC Urine 80-100 /hpf (0-5)
== END 2023-12-02 15:40 | disposition home or self-care (01) ==
PROVIDERS: Emergency Provider General Practice; PCP Family Medicine
DX: M54.2 Cervicalgia (principal); N30.00 Acute cystitis without hematuria; Z79.02 Long term (current) use of antithrombotics/antiplatelets; Z79.82 Long term (current) use of aspirin; Z87.891 Personal history of nicotine dependence; Z86.73 Personal history of transient ischemic attack (TIA), and cerebral infarction without residual deficits; I25.2 Old myocardial infarction
CPT/HCPCS: 36415; 70450; 71046; 72125; 80053; 81001; 83605; 85025; 86140; 87077; 87086; 87186; 96360; 99285; J7040

== ENCOUNTER → 2023-12-12 15:10 | Outpatient (BNVA) | payer MEDICARE, MEDICAID, SELFPAY | PROVIDERS: PCP Family Medicine; Visit Provider Clinical Nurse Specialist Adult Health | DX: F44.89 Other dissociative and conversion disorders (principal); N39.0 Urinary tract infection, site not specified | CPT/HCPCS: 81000; 87077; 87086; 87184 ==

== ENCOUNTER → 2024-01-01 13:40 | Outpatient (BNVA) | payer MEDICARE, MEDICAID, SELFPAY | PROVIDERS: PCP Family Medicine; Visit Provider Family Medicine | DX: J06.9 Acute upper respiratory infection, unspecified (principal) | CPT/HCPCS: 87400; 87426 ==

== ENCOUNTER 2024-01-04 16:53 | Emergency (ER) | payer MEDICARE, MEDICAID, SELFPAY ==
[2024-01-04 16:55] VITALS: BP 144/72; PULSE 74; RESP 20; TEMP 37.1; O2SAT 93; BMI 21.7
--- NOTE | 2024-01-04 16:55 | XRR_ITS ---
PROCEDURE INFORMATION: Exam: XR Chest Exam date and time: 01/04/2024 5:21 PM Age: 78 years old Clinical indication: Other: Weakness TECHNIQUE: Imaging protocol: Radiologic exam of the chest. Views: 1 view. COMPARISON: CR (CHEST, ) 12/02/2023 11:49 AM FINDINGS: Lungs: Unremarkable. No consolidation or mass. Pleural spaces: Unremarkable. No pleural effusion. No pneumothorax. Heart/Mediastinum: Unremarkable. No cardiomegaly. Bones/joints: Unremarkable. XR/XR chest 1V portable [id number] IMPRESSION: No acute findings.
--- NOTE | 2024-01-04 16:59 | CTR_ITS ---
PROCEDURE INFORMATION: Exam: CT Chest With Contrast; Diagnostic Exam date and time: 01/04/2024 6:02 PM Age: 78 years old Clinical indication: Abdominal pain; Generalized; Other: Weakness, frequent falls; Prior surgery; Surgery date: 6+ months; Surgery type: Hyst; Additional info: Fall TECHNIQUE: Imaging protocol: Diagnostic computed tomography of the chest with contrast. Radiation optimization: All CT scans at this facility use at least one of these dose optimization techniques: automated exposure control; mA and/or kV adjustment per patient size (includes targeted exams where dose is matched to clinical indication); or iterative reconstruction. Contrast material: OMNI 350; Contrast volume: 90 ml; Contrast route: INTRAVENOUS (IV); COMPARISON: CT angio chest PE protcl [id number] 01/23/2023 11:27 AM RADIATION DOSE METRICS: Total DLP (mGy-cm): 228.7 FINDINGS: Lungs: There is subsegmental atelectasis in the lung bases. There is no consolidation. Pleural spaces: There is no pleural effusion or pneumothorax. Heart: Heart size is normal. There is no pericardial effusion. Mediastinal space: There is no mediastinal hematoma. Lymph nodes: There is no mediastinal or hilar lymphadenopathy. Vasculature: Visible portions of the pulmonary arteries are unremarkable. There is moderate aortic atherosclerotic disease. 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 Diaphragm: There is a small sliding-type hiatal hernia. Bones/joints: There are multiple healed left rib fractures. There is a chronic displaced left clavicle fracture. There is moderate degenerative disease at both shoulders. No visible scapular fracture. Mild chronic T12 superior endplate compression fracture. Thoracic spine is intact otherwise. The sternum is intact. Soft tissues: The extrathoracic soft tissues are unremarkable. PROCEDURE INFORMATION: Exam: CT Abdomen And Pelvis With Contrast Exam date and time: 01/04/2024 6:02 PM Age: 78 years old Clinical indication: Abdominal pain; Generalized; Other: Weakness, frequent falls; Prior surgery; Surgery date: 6+ months; Surgery type: Hyst; Additional info: Fall TECHNIQUE: Imaging protocol: Computed tomography of the abdomen and pelvis with contrast. Radiation optimization: All CT scans at this facility use at least one of these dose optimization techniques: automated exposure control; mA and/or kV adjustment per patient size (includes targeted exams where dose is matched to clinical indication); or iterative reconstruction. Contrast material: OMNI 350; Contrast volume: 90 ml; Contrast route: INTRAVENOUS (IV); COMPARISON: CT chest abdpel w/*[id number] 01/16/2023 6:57 PM RADIATION DOSE METRICS: Total DLP (mGy-cm): 339.7 FINDINGS: Lungs: There is subsegmental atelectasis in the lung bases. Diaphragm: There is a small sliding-type hiatal hernia. Liver: The liver is normal. Gallbladder and bile ducts: The gallbladder is distended. The wall is thin. No gallstones. There is no intrahepatic or extrahepatic bile duct dilation. Pancreas: Mild fatty atrophy of the pancreas. Spleen: The spleen is unremarkable. Adrenal glands: The adrenal glands are unremarkable. Kidneys and ureters: Asymmetric moderate right renal atrophy and multifocal renal cortical scarring. Mild focal cortical scarring at the upper pole of the left kidney. There is no hydronephrosis or stones. Stomach and bowel: There is a non-inflamed diverticulum in the proximal duodenum. The stomach is nondistended, limiting assessment of wall thickness. The small bowel is nondilated. The colon is unremarkable. Appendix: The appendix is not visible. Intraperitoneal space: There is no free air or significant intraperitoneal free fluid. Vasculature: There is severe calcific plaque at the bilateral renal artery origins with probable hemodynamically significant stenosis. The superior mesenteric artery is widely patent. There is less than 50% stenosis of the celiac artery origin. There is severe aortic atherosclerotic disease. The portal, splenic and superior mesenteric veins are patent. Lymph nodes: There is no lymphadenopathy in the retroperitoneum, mesentery, pelvis or inguinal regions. Urinary bladder: The urinary bladder is unremarkable. Reproductive: The uterus is absent. There is no adnexal mass or large cyst. Bones/joints: There is moderate degenerative disease in the lumbar spine. There are healed right pubic fractures. There is moderate degenerative disease of the right hip. There is mild degenerative disease at the left hip. No acute fracture. Bones are diffusely osteopenic. Soft tissues: There are small bilateral fat containing inguinal hernias. There is a small fat containing umbilical hernia. CT/CT chest abdpel w/*[id number] IMPRESSION: 1. No sign of acute traumatic injury in the thorax. 2. 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 3. Incidental findings above. IMPRESSION: 1. No sign of acute traumatic injury in the abdomen or pelvis. 2. Incidental findings above.
--- NOTE | 2024-01-04 16:59 | CTR_ITS ---
PROCEDURE INFORMATION: Exam: CT Cervical Spine Without Contrast Exam date and time: 01/04/2024 5:55 PM Age: 78 years old Clinical indication: Injury or trauma; Other: Weakness, frequent falls; Additional info: Fall TECHNIQUE: Imaging protocol: Computed tomography of the cervical spine without contrast. Radiation optimization: All CT scans at this facility use at least one of these dose optimization techniques: automated exposure control; mA and/or kV adjustment per patient size (includes targeted exams where dose is matched to clinical indication); or iterative reconstruction. COMPARISON: CT cervical spin wo con* [id number] 12/02/2023 11:43 AM RADIATION DOSE METRICS: Total DLP (mGy-cm): 374.7 FINDINGS: Bones/joints: The vertebral body alignment and stature is maintained. No fracture or subluxation. Disc space narrowing with mild degenerative endplate changes at C5-C6 and C6-C7. Small posterior disc bulges at C2-C3, C3-C4, and C4-C5 without central canal stenosis. No significant foraminal stenosis. Degenerative atlanto-odontoid joint. The facets are intact with degenerative changes. Lungs: Lung apices are normal. Thyroid: 1.3 cm calcified left thyroid nodule. Vasculature: Bilateral carotid bulb calcifications. Soft tissues: Unremarkable. CT/CT cervical spin wo con* [id number] IMPRESSION: 1. No acute findings. 2. 1.3 cm calcified left thyroid nodule. Ultrasound follow-up is recommended. COMMENTS: Consistent with the [employer]'s Incidental Findings Committee white paper (J Am Shira Radiol 2015): In patients aged 35 years and older with an incidental thyroid nodule equal to or greater than 1.[address], MRI or extrathyroidal US, further evaluation with dedicated thyroid US is recommended for patients with normal life expectancy and without comorbidities. For smaller nodules without suspicious features, no further evaluation or follow up is recommended.
--- NOTE | 2024-01-04 16:59 | CTR_ITS ---
PROCEDURE INFORMATION: Exam: CT Head Without Contrast Exam date and time: 01/04/2024 5:55 PM Age: 78 years old Clinical indication: Injury or trauma; Fall; Other: Weakness TECHNIQUE: Imaging protocol: Computed tomography of the head without contrast. Radiation optimization: All CT scans at this facility use at least one of these dose optimization techniques: automated exposure control; mA and/or kV adjustment per patient size (includes targeted exams where dose is matched to clinical indication); or iterative reconstruction. COMPARISON: CT head wo con* [id number] 12/02/2023 11:43 AM RADIATION DOSE METRICS: Total DLP (mGy-cm): 933.3 FINDINGS: Brain: Moderate diffuse cortical volume loss. Mild hypodensities in supratentorial periventricular and subcortical white matter, consistent with microangiopathy. No intracranial hemorrhage. Stable chronic lacunar infarct in the genu of the left internal capsule. Cerebral ventricles: No ventriculomegaly. Paranasal sinuses: Visualized sinuses are unremarkable. No fluid levels. Mastoid air cells: Visualized mastoid air cells are well aerated. Orbital cavities: Prior cataract surgery. Bones/joints: Unremarkable. No acute fracture. Soft tissues: Benign scalp calcifications. Vasculature: No hyperdense artery. CT/CT head wo con* [id number] IMPRESSION: 1. No acute intracranial abnormality.
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
[2024-01-04] MEDS: multivitamin therapeutic Tablet 1 TAB PO (17:10)
[2024-01-04 17:12] LABS: Basophils % 0.1 %; Eosinophils % 0.1 %; Hematocrit 42.7 % (36-47); Lymphocytes # 0.7 10^3/uL (0.8-4.8); Lymphocytes % 9.8 %; Mean Corpuscular HGB Conc 31.9 g/dL (30-55); Mean Corpuscular Hemoglobin 32.1 pg (27-33); Mean Corpuscular Volume 100.7 fl (85-98); Mean Platelet Volume 9.6 fL (7.4-10.4); Monocytes % 0.1 %; Neutrophils # 6.02 10^3/uL (1.8-7.7); Neutrophils % 89.5 %; Nucleated Red Blood Cells % 0 %; Platelet Count 173 10^3/cmm (157-399); Red Blood Count 4.24 10^6/uL (3.85-5.65); Red Cell Distribution Width 12.3 % (12.1-15.1); White Blood Count 6.74 10^3/uL (3.29-11.43)
[2024-01-04 17:16] VITALS: BP 154/86; PULSE 97; O2SAT 92
--- NOTE | 2024-01-04 17:21 | ECG_ITS ---
[facility] Test Date: 2024-01-04 Pat Name: Terri Pride Department: Room: Gender: Female Clock Assembler: : 1945 Requested By: Evangelina Haynes Order Number: [id number] Reading MD: Katiuska Brown M.D. Measurements Intervals [place] Rate: 99 P: 0 CA: 0 QRS: 6 QRSD: 76 T: 63 QT: 331 QTc: 425 Interpretive Statements Supraventricular rhythm ANTERIOR MYOCARDIAL INFARCTION , PROBABLY OLD [40+ ms Q WAVE AND/OR ST/T ABNORMALITY IN V3/V4] Compared to ECG 05/26/2023 14:08:56 Myocardial infarct finding now present Sinus rhythm no longer present Because of heavy baseline artifact, comparison with the previous EKG is difficult Electronically Signed On 01-05-2024 17:05:38 CDT by Katiuska Brown M.D. [id number]
[2024-01-04 17:34] LABS: Ammonia 39 umol/L (11-51)
[2024-01-04 17:38] LABS: Glucose Point of Care 62 mg/dL (70-110)
[2024-01-04 17:41] LABS: Alanine Aminotransferase 14 U/L (0-33); Albumin Level 3.5 g/dL (3.5-5.2); Alkaline Phosphatase 141 U/L (35-105); Aspartate Amino Transferase 30 U/L (0-32); Blood Urea Nitrogen 11 mg/dL (8-23); Calcium 9.2 mg/dL (8.5-10.5); Carbon Dioxide 21 mmol/L (22-29); Chloride 101 mmol/L (98-107); Creatinine Clr Calc Pharmacy 40.2937; Glucose 99 mg/dL (65-115); Magnesium 1.3 mg/dL (1.7-2.3); Osmolality Calculated 289 mOsm/kg (285-295); Sodium 140 mmol/L (136-145); Thyroid Stimulating Hormone 2.62 uIU/mL (0.27-4.20); Total Bilirubin 0.6 mg/dL (0.15-1.2); Total Protein 7.5 g/dL (6.6-8.7)
[2024-01-04 17:47] LABS: Alcohol Level < 10 mg/dL (0-10); Anion Gap 21.5 (5-19); Potassium 3.5 mmol/L (3.5-5.1)
[2024-01-04 17:54] LABS: ABG PCO2 36.4 mmHg (35-45); ABG PH Result 7.38 (7.35-7.45); Arterial Blood Gas Hematocrit 39.2 % (37-47); Base Excess ABG -3.3 mmol/L (-2.0-2.0); Blood Gas Allen Test Pos; Blood Gas Operator Identificat CAK; Blood Gas Sample Site Brachial, left; Blood Gas Sample Type Arterial; HCO3 ABG 21.4 mmol/L (22-26); Oxygen Device NC; PO2 FiO2 Ratio Arterial Blood 0
[2024-01-04] MEDS: iohexol 350 mg/mL 500 mL Btl (per mL) IV (18:11)
[2024-01-04] MEDS: dextrose 10% 125 ML 750 ML IV (18:12)
[2024-01-04 18:25] LABS: Glucose Point of Care 77 mg/dL (70-110)
[2024-01-04 18:40] VITALS: BP 170/146
[2024-01-04 18:45] LABS: Add Urine Microscopic? NO; Charge for UA Resulting for Rev
[2024-01-04 18:53] LABS: Bilirubin Urine Neg (Negative); Blood Urine Neg (Negative); Glucose Urine UA Norm (Normal); Ketones Urine Negative (Negative); Leukocyte Esterase Urine Negative (Negative); Nitrate Urine Negative (Negative); Protein Urine Neg (Negative); Urine Appearance Clear (CLEAR); Urine Color Yellow (Yellow); Urobilinogen Urine Norm (Negative); pH Urine 6 (5-7)
[2024-01-04 19:43] VITALS: PULSE 98; RESP 18
== END 2024-01-04 19:18 | disposition home or self-care (01) ==
PROVIDERS: Emergency Provider Emergency Medicine; PCP Family Medicine
DX: R53.1 Weakness (principal); Z79.02 Long term (current) use of antithrombotics/antiplatelets; Z87.891 Personal history of nicotine dependence; I25.2 Old myocardial infarction; Z86.73 Personal history of transient ischemic attack (TIA), and cerebral infarction without residual deficits
CPT/HCPCS: 36416; 36600; 70450; 71045; 71260; 72125; 74177; 80053; 80307; 81003; 82140; 82803; 82962; 83735; 84443; 85025; 93005; 96361; 96374; 99285; J3411; J7799; Q9967

== ENCOUNTER 2024-03-24 13:42 | Emergency (ER) | payer MEDICARE, MEDICAID, SELFPAY ==
[2024-03-24 13:48] VITALS: BP 115/81; PULSE 86; RESP 17; TEMP 37.1; O2SAT 98; BMI 21.2
--- NOTE | 2024-03-24 14:04 | CTR_ITS ---
PROCEDURE INFORMATION: Exam: CT Abdomen And Pelvis With Contrast Exam date and time: 03/24/2024 3:25 PM Age: 78 years old Clinical indication: Abdominal pain; Localized; Right lower quadrant (rlq); Additional info: Right lower quadrant tenderness, await CR TECHNIQUE: Imaging protocol: Computed tomography of the abdomen and pelvis with contrast. Radiation optimization: All CT scans at this facility use at least one of these dose optimization techniques: automated exposure control; mA and/or kV adjustment per patient size (includes targeted exams where dose is matched to clinical indication); or iterative reconstruction. Contrast material: OMNI 350; Contrast volume: 80 ml; Contrast route: INTRAVENOUS (IV); COMPARISON: CT chest abdpel w/*[id number] 01/04/2024 6:02 PM RADIATION DOSE METRICS: Total DLP (mGy-cm): 338.73 FINDINGS: Coronary arteries: Multivessel atherosclerotic disease which involves the coronary arteries. Diaphragm: Small hiatal hernia. Liver: Normal. No mass. Gallbladder and biliary ducts: Normal. No calcified stones. No ductal dilation. Pancreas: Normal. No ductal dilation. Spleen: Normal. No splenomegaly. Adrenal glands: Normal. No mass. Kidneys and ureters: Normal. No hydronephrosis. Stomach and bowel: Unremarkable. No obstruction. No mucosal thickening. Appendix: There has been an appendectomy. Intraperitoneal space: Unremarkable. No free air. No significant fluid collection. Vasculature: Unremarkable. No abdominal aortic aneurysm. Lymph nodes: Unremarkable. No enlarged lymph nodes. Urinary bladder: The bladder wall is thickened and ill-defined with hazy stranding in the pericystic fat. Reproductive: The uterus is not visualized, consistent with hysterectomy. Bones/joints: Old/healed right pelvic fractures. There are degenerative changes across the hip joints, pubic symphysis, and sacroiliac joints. Degenerative changes are present in the visualized spine. Moderate chronic compression fracture of the T12 superior endplate. Multilevel lumbar broad-based disc osteophyte complexes with varying degrees of canal and neural foraminal narrowing at the L4-L5 and L5-S1 levels. Soft tissues: Unremarkable. CT/CT abdomen pelvis w con* [id number] IMPRESSION: The bladder wall is thickened. This is nonspecific and may represent bladder outlet obstruction, inflammation or infection. Neoplastic process is included in the differential. Acute cystitis/bladder infection is thought the most likely secondary to the associated hazy stranding in the pericystic fat.
[2024-03-24] MEDS: ketorolac 30 mg/mL INJ 15 MG IVP (14:26)
[2024-03-24] MEDS: sodium chloride 0.9% 500 ML IV (14:27)
[2024-03-24 14:34] LABS: Basophils % 0.4 %; Eosinophils # 0.1 10^3/uL (0.0-0.8); Eosinophils % 0.8 %; Hematocrit 43.2 % (36-47); Lymphocytes # 1.7 10^3/uL (0.8-4.8); Lymphocytes % 23.6 %; Mean Corpuscular HGB Conc 33.6 g/dL (30-55); Mean Corpuscular Hemoglobin 31.7 pg (27-33); Mean Corpuscular Volume 94.5 fl (85-98); Mean Platelet Volume 9.5 fL (7.4-10.4); Monocytes # 0.9 10^3/uL (0.2-0.9); Monocytes % 12.4 %; Neutrophils # 4.48 10^3/uL (1.8-7.7); Neutrophils % 62.4 %; Nucleated Red Blood Cells % 0 %; Platelet Count 301 10^3/cmm (157-399); Red Blood Count 4.57 10^6/uL (3.85-5.65); Red Cell Distribution Width 12.2 % (12.1-15.1); White Blood Count 7.19 10^3/uL (3.29-11.43)
[2024-03-24 14:43] LABS: Erythrocyte Sedimentation Rate 61 mm/hr (0-15)
[2024-03-24 14:45] LABS: INR 0.84 (0.8-1.2)
[2024-03-24 14:52] LABS: Alanine Aminotransferase < 5 U/L (0-33); Albumin Level 3.3 g/dL (3.5-5.2); Alkaline Phosphatase 123 U/L (35-105); Anion Gap 17.9 (5-19); Aspartate Amino Transferase 9 U/L (0-32); Blood Urea Nitrogen 9 mg/dL (8-23); Calcium 9.8 mg/dL (8.5-10.5); Carbon Dioxide 25 mmol/L (22-29); Chloride 96 mmol/L (98-107); Creatinine Clr Calc Pharmacy 46.7592; Globulin 5.1 g/dL (1.3-4.6); Glucose 89 mg/dL (65-115); Osmolality Calculated 278 mOsm/kg (285-295); Potassium 3.9 mmol/L (3.5-5.1); Sodium 135 mmol/L (136-145); Total Bilirubin 0.5 mg/dL (0.15-1.2); Total Protein 8.4 g/dL (6.6-8.7)
[2024-03-24] MEDS: iohexol 350 mg/mL 500 mL Btl (per mL) IV (15:26)
--- NOTE | 2024-03-24 15:26 | XRR_ITS ---
PROCEDURE INFORMATION: Exam: XR Right Wrist Exam date and time: 03/24/2024 3:46 PM Age: 78 years old Clinical indication: Injury or trauma; Blunt trauma (contusions or hematomas); Right; Patient HX: RT wrist pain/erythema post fall TECHNIQUE: Imaging protocol: Radiologic exam of the right wrist. Views: 3 or more views. COMPARISON: CR XR wrist RT min 3V* [id number] 05/26/2023 11:54 AM FINDINGS: Bones/joints: Multi-articular primary osteoarthritic changes including joint space narrowing, subchondral cystic/sclerotic changes, and marginal osteophyte formations. Generalized osteopenia. Soft tissues: There are benign-appearing soft tissue calcifications. Vasculature: There are peripheral vascular calcifications. XR/XR wrist RT min 3V* [id number] IMPRESSION: No acute findings.Non acute findings as described above.
[2024-03-24 16:41] VITALS: BP 108/68; PULSE 75; RESP 16; O2SAT 94
[2024-03-24] MEDS: dexamethasone 10 mg/mL INJ 6 MG IVP (16:52)
[2024-03-24 16:54] LABS: Specific Gravity, Urine 1.005 (1.005-1.030); Urine Appearance Cloudy (CLEAR); Urine Color Yellow (Yellow); pH Urine 7 (5-7)
[2024-03-24 16:55] LABS: Add Urine Culture? Yes; Add Urine Microscopic? YES; Bacteria Urine 1+ /hpf; Bilirubin Urine Neg (Negative); Blood Urine 2+ (Negative); Glucose Urine UA Norm (Normal); Ketones Urine 1+ (Negative); Leukocyte Esterase Urine 2+ (Negative); Nitrate Urine Negative (Negative); Protein Urine 2+ (Negative); RBC Urine 0-4 /hpf (0-2); Urobilinogen Urine Norm (Negative); WBC Urine TOO NUMEROUS TO CNT /hpf (0-5)
[2024-03-24 16:56] LABS: Uric Acid 5.1 mg/dL (2.4-5.7)
[2024-03-24] MEDS: cefTRIAXone 2,000 MG in sodium chloride 0.9% (plus) 50 ML 100 MG IV (17:05)
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
[2024-03-24 17:33] VITALS: BP 130/75; PULSE 71; RESP 16; TEMP 37.1; O2SAT 95
== END 2024-03-24 17:34 | disposition home or self-care (01) ==
PROVIDERS: Emergency Provider Emergency Medicine; PCP Family Medicine
DX: N39.0 Urinary tract infection, site not specified (principal); M12.831 Other specific arthropathies, not elsewhere classified, right wrist; Z79.02 Long term (current) use of antithrombotics/antiplatelets; Z87.891 Personal history of nicotine dependence; I25.2 Old myocardial infarction; Z86.73 Personal history of transient ischemic attack (TIA), and cerebral infarction without residual deficits
CPT/HCPCS: 36415; 51701; 73110; 74177; 80053; 81001; 84550; 85025; 85610; 85651; 85730; 87086; 96361; 96365; 96375; 99285; J0696; J1100; J1885; J7040; Q9967

== ENCOUNTER 2024-04-01 21:32 | Emergency (ER) | payer MEDICARE, MEDICAID, SELFPAY ==
[2024-04-01 21:36] VITALS: BP 84/57; PULSE 77; RESP 18; TEMP 36.5; O2SAT 93; BMI 21.2
--- NOTE | 2024-04-01 21:50 | XRR_ITS ---
PROCEDURE INFORMATION: Exam: XR Chest Exam date and time: 04/01/2024 9:57 PM Age: 78 years old Clinical indication: Other: Weakness TECHNIQUE: Imaging protocol: Radiologic exam of the chest. Views: 1 view. COMPARISON: CT chest abdpel w/*[id number] 01/04/2024 6:02 PM FINDINGS: Lungs: There is minimal scarring and/or atelectasis at the left lung base. Pleural spaces: Unremarkable. No pleural effusion. No pneumothorax. Heart/Mediastinum: Unremarkable. No cardiomegaly. Vasculature: There is calcified plaque in the thoracic aorta. Bones/joints: Multiple old left rib fracture sites are similar to the prior CT scan. XR/XR chest 1V portable [id number] IMPRESSION: No acute findings.Non acute findings as described above.
[2024-04-01 22:34] LABS: Alanine Aminotransferase 9 U/L (0-33); Albumin Level 3.3 g/dL (3.5-5.2); Alcohol Level 94 mg/dL (0-10); Alkaline Phosphatase 125 U/L (35-105); Anion Gap 18.6 (5-19); Aspartate Amino Transferase 15 U/L (0-32); Blood Urea Nitrogen 7 mg/dL (8-23); C Reactive Protein 7.9 mg/L (0.0-4.9); Calcium 8.5 mg/dL (8.5-10.5); Carbon Dioxide 24 mmol/L (22-29); Chloride 97 mmol/L (98-107); Creatinine Clr Calc Pharmacy 46.7592; Globulin 3.9 g/dL (1.3-4.6); Glucose 87 mg/dL (65-115); Osmolality Calculated 279 mOsm/kg (285-295); Potassium 3.6 mmol/L (3.5-5.1); Sodium 136 mmol/L (136-145); Total Bilirubin 0.2 mg/dL (0.15-1.2); Total Protein 7.2 g/dL (6.6-8.7)
[2024-04-01 22:35] LABS: Lactic Sepsis W/Reflex 3.7 mmol/L (0.5-2.2)
[2024-04-01 22:36] LABS: Basophils % 0.2 %; Eosinophils # 0.2 10^3/uL (0.0-0.8); Eosinophils % 1.7 %; Hematocrit 42.9 % (36-47); Lymphocytes # 0.8 10^3/uL (0.8-4.8); Lymphocytes % 8.1 %; Mean Corpuscular HGB Conc 33.1 g/dL (30-55); Mean Corpuscular Volume 93.7 fl (85-98); Mean Platelet Volume 9.8 fL (7.4-10.4); Monocytes # 0.5 10^3/uL (0.2-0.9); Monocytes % 5.3 %; Neutrophils % 84.3 %; Nucleated Red Blood Cells % 0 %; Platelet Count 303 10^3/cmm (157-399); Red Blood Count 4.58 10^6/uL (3.85-5.65); Red Cell Distribution Width 12.4 % (12.1-15.1); White Blood Count 9.85 10^3/uL (3.29-11.43)
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
--- NOTE | 2024-04-01 23:06 | PC.NURSE ---
Updated daughter in law Hope on patient status.
--- NOTE | 2024-04-01 23:13 | PC.NURSE ---
Patient could not urinate, and patient refused option of straight cath.
[2024-04-01 23:14] VITALS: BP 89/70; PULSE 70; O2SAT 94
[2024-04-01] MEDS: sodium chloride 0.9% 1,000 ML 999 ML IV (23:41)
[2024-04-02] LABS: Reflex Lactate Order REFLEX LACTIC ORDERD
[2024-04-02] MEDS: sodium chloride 0.9% 1,000 ML 999 ML IV (00:38)
[2024-04-02 00:57] LABS: Bilirubin Urine Neg (Negative); Blood Urine Neg (Negative); Glucose Urine UA Norm (Normal); Ketones Urine Negative (Negative); Leukocyte Esterase Urine Negative (Negative); Nitrate Urine Negative (Negative); Protein Urine Neg (Negative); Specific Gravity, Urine 1.005 (1.005-1.030); Squamous Epithelial Cell Urine 0-4 /hpf (0-5); Urine Appearance Clear (CLEAR); Urine Color Yellow (Yellow); Urobilinogen Urine Neg (Negative); pH Urine 6 (5-7)
[2024-04-02 00:58] LABS: Add Urine Culture? No
[2024-04-02] MEDS: cefTRIAXone 1,000 mg SDV 1000 MG IVP (01:18)
[2024-04-02 01:21] VITALS: BP 131/60; PULSE 81; O2SAT 96
--- NOTE | 2024-04-02 02:21 | PC.NURSE ---
Family member Hope notified of patient's decision to leave AMA.
== END 2024-04-02 02:25 | disposition left against medical advice (07) ==
PROVIDERS: Emergency Medicine; Emergency Provider Physician Assistant; PCP Family Medicine
DX: N39.0 Urinary tract infection, site not specified (principal); R74.02 Elevation of levels of lactic acid dehydrogenase [LDH]; Z53.29 Procedure and treatment not carried out because of patient's decision for other reasons; Z79.02 Long term (current) use of antithrombotics/antiplatelets; I25.2 Old myocardial infarction; Z86.73 Personal history of transient ischemic attack (TIA), and cerebral infarction without residual deficits
CPT/HCPCS: 36415; 71045; 80053; 80307; 81000; 81001; 83605; 85025; 86140; 87040; 87086; 96361; 96374; 99284; J0696; J7030

== ENCOUNTER 2024-06-15 14:11 | Emergency (ER) | payer MEDICARE, MEDICAID, SELFPAY ==
[2024-06-15 14:17] VITALS: BP 111/55; PULSE 52; RESP 16; TEMP 36.8; O2SAT 90
[2024-06-15 14:23] VITALS: BP 111/55; PULSE 53; RESP 17; O2SAT 92
--- NOTE | 2024-06-15 14:30 | XRR_ITS ---
PROCEDURE INFORMATION: Exam: XR Lumbosacral Spine Exam date and time: 06/15/2024 3:13 PM Age: 78 years old Clinical indication: Lumbago; Patient HX: Lower back pain post fall TECHNIQUE: Imaging protocol: Radiologic exam of the lumbosacral spine. Views: 2 or 3 views. COMPARISON: CT abdomen pelvis w con* [id number] 03/24/2024 3:25 PM FINDINGS: Bones/joints: There are degenerative changes throughout the visualized spine including marginal osteophyte formations, endplate degenerative changes, and facet arthropathy. Multilevel disc space narrowing. Degenerative changes extend across the hip joints, sacroiliac joints, and pubic symphysis. Old fractures through the right inferior and superior pubic rami with callus formation. Minimal anterior compression fracture of the L2 vertebra is of unknown chronicity however it was not present on the prior CT scan dated 03/24/2024. Chronic anterior compression fracture of the T12 vertebra stable from the prior CT scan. Soft tissues: Unremarkable. Vasculature: There is calcified plaque in the aorta and iliac arteries. XR/XR lumbar spine 2-3V* [id number] IMPRESSION: 1. Minimal anterior compression fracture of the L2 vertebra is of unknown chronicity however it was not present on the prior CT scan dated 03/24/2024. 2. Chronic anterior compression fracture of the T12 vertebra stable from the prior CT scan.
--- NOTE | 2024-06-15 14:30 | XRR_ITS ---
PROCEDURE INFORMATION: Exam: XR Chest Exam date and time: 06/15/2024 3:13 PM Age: 78 years old Clinical indication: Shortness of breath and syncope. TECHNIQUE: Imaging protocol: Radiologic exam of the chest. Views: 1 view. COMPARISON: CR XR chest 1V portable [id number] 04/01/2024 9:57 PM FINDINGS: Lungs: There is scarring and or atelectasis at the left lung base. Pleural spaces: Unremarkable. No pleural effusion. No pneumothorax. Heart/Mediastinum: Unremarkable. No cardiomegaly. Vasculature: Calcified plaque is present within the aortic arch. Bones/joints: Multiple old left rib fracture sites. Incidental benign costochondral calcifications. XR/XR chest 1V portable [id number] IMPRESSION: There is scarring and/or atelectasis at the left lung base.
--- NOTE | 2024-06-15 14:30 | CTR_ITS ---
PROCEDURE INFORMATION: Exam: CT Head Without Contrast Exam date and time: 06/15/2024 3:48 PM Age: 78 years old Clinical indication: Syncope and collapse; status post fall. TECHNIQUE: Imaging protocol: Computed tomography of the head without contrast. Radiation optimization: All CT scans at this facility use at least one of these dose optimization techniques: automated exposure control; mA and/or kV adjustment per patient size (includes targeted exams where dose is matched to clinical indication); or iterative reconstruction. COMPARISON: CT head wo con* [id number] 01/04/2024 5:55 PM RADIATION DOSE METRICS: Total DLP (mGy-cm): 1076.98 FINDINGS: Brain: There is diffuse cerebral atrophy present, consistent with this patient's age.Periventricular and subcortical white matter low densities are present which at this age likely represent microvascular ischemic change. There are chronic lacunar infarcts in the left basal ganglia and internal capsule.No evidence for large acute ischemic infarction. Please note acute ischemia can be occult by head CT. No evidence for acute intracranial hemorrhage. Calcified plaque is present within the intracranial vasculature. Cerebral ventricles: No ventriculomegaly. Paranasal sinuses: Visualized sinuses are unremarkable. No fluid levels. Mastoid air cells: Visualized mastoid air cells are well aerated. Bones: Unremarkable. No acute fracture. Soft tissues: Unremarkable. CT/CT head wo con* [id number] IMPRESSION: There are senescent changes of the brain as described above. No evidence for large acute ischemic infarction or acute intracranial injury.
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
[2024-06-15 15:24] LABS: Basophils # 0.1 10^3/uL (0.0-0.1); Basophils % 0.4 %; Eosinophils # 0.2 10^3/uL (0.0-0.8); Eosinophils % 1.9 %; Hematocrit 36.9 % (36-47); Lymphocytes % 16.8 %; Mean Corpuscular HGB Conc 32.5 g/dL (30-55); Mean Corpuscular Hemoglobin 29.3 pg (27-33); Mean Corpuscular Volume 90.2 fl (85-98); Mean Platelet Volume 10.2 fL (7.4-10.4); Monocytes # 0.9 10^3/uL (0.2-0.9); Monocytes % 7.7 %; Nucleated Red Blood Cells % 0 %; Platelet Count 218 10^3/cmm (157-399); Red Blood Count 4.09 10^6/uL (3.85-5.65); Red Cell Distribution Width 14.7 % (12.1-15.1); White Blood Count 11.94 10^3/uL (3.29-11.43)
[2024-06-15 15:43] LABS: Alanine Aminotransferase 8 U/L (0-33); Albumin Level 3.4 g/dL (3.5-5.2); Alkaline Phosphatase 98 U/L (35-105); Anion Gap 17.9 (5-19); Aspartate Amino Transferase 15 U/L (0-32); Blood Urea Nitrogen 14 mg/dL (8-23); Calcium 8.7 mg/dL (8.5-10.5); Carbon Dioxide 22 mmol/L (22-29); Chloride 94 mmol/L (98-107); Creatine Phosphokinase 29 U/L (26-192); Globulin 3.9 g/dL (1.3-4.6); Glucose 84 mg/dL (65-115); Magnesium 1.5 mg/dL (1.7-2.3); Osmolality Calculated 270 mOsm/kg (285-295); Potassium 3.9 mmol/L (3.5-5.1); Sodium 130 mmol/L (136-145); Total Bilirubin 0.4 mg/dL (0.15-1.2); Total Protein 7.3 g/dL (6.6-8.7)
[2024-06-15 15:44] LABS: Troponin(5th) Baseline 10 ng/L (0-10)
--- NOTE | 2024-06-15 15:54 | ECG_ITS ---
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 Measurements Intervals [place] Rate: 59 P: 52 SC: 166 QRS: 40 QRSD: 80 T: 71 QT: 424 QTc: 420 Interpretive Statements SINUS BRADYCARDIA LEFT VENTRICULAR HYPERTROPHY AND ST-T CHANGE [VOLTAGE CRITERIA PLUS ST/T ABNORMALITY] Compared to ECG 01/04/2024 17:21:55 Left ventricular hypertrophy now present ST (T wave) deviation now present Supraventricular rhythm no longer present Myocardial infarct finding no longer present Electronically Signed On 06-16-2024 9:15:35 CDT by Caleb Romero M.D. [email or web address]
--- NOTE | 2024-06-15 16:39 | ECG_ITS ---
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 Measurements Intervals [place] Rate: 57 P: 41 TN: 175 QRS: 23 QRSD: 81 T: 62 QT: 444 QTc: 435 Interpretive Statements SINUS BRADYCARDIA Compared to ECG 06/15/2024 15:54:43 Left ventricular hypertrophy no longer present ST (T wave) deviation no longer present Electronically Signed On 06-16-2024 9:24:17 CDT by Caleb Romero M.D. [id number]
[2024-06-15 16:42] LABS: Prolactin 26.38 ng/mL (4.8-23.3)
[2024-06-15 16:53] VITALS: BP 154/68; PULSE 60; RESP 20; O2SAT 97
[2024-06-15 17:26] LABS: Add Urine Microscopic? YES; Bilirubin Urine Neg (Negative); Blood Urine 2+ (Negative); Glucose Urine UA Norm (Normal); Ketones Urine Negative (Negative); Leukocyte Esterase Urine 2+ (Negative); Nitrate Urine Positive (Negative); Protein Urine Trace (Negative); Urine Appearance Cloudy (CLEAR); Urine Color Yellow (Yellow); Urobilinogen Urine Norm (Negative); pH Urine 6 (5-7)
[2024-06-15 17:27] LABS: Add Urine Culture? Yes; Bacteria Urine 2+ /hpf; WBC Urine TOO NUMEROUS TO CNT /hpf (0-5)
[2024-06-15 18:15] LABS: Troponin 5 2HR 8.23 ng/L (0-10)
[2024-06-15 18:16] LABS: Troponin 5 2HR Delta -1.77 ABS# (0-10)
[2024-06-15 18:49] VITALS: BP 138/70; PULSE 56; RESP 17; O2SAT 96
== END 2024-06-15 18:50 | disposition home or self-care (01) ==
PROVIDERS: Emergency Provider Emergency Medicine; PCP Family Medicine
DX: S32.020A Wedge compression fracture of second lumbar vertebra, initial encounter for closed fracture (principal); N39.0 Urinary tract infection, site not specified; Z79.02 Long term (current) use of antithrombotics/antiplatelets; I25.2 Old myocardial infarction; Z86.73 Personal history of transient ischemic attack (TIA), and cerebral infarction without residual deficits; W18.39XA Other fall on same level, initial encounter
CPT/HCPCS: 36415; 70450; 71045; 72100; 80053; 81001; 82550; 83735; 84146; 84484; 85025; 85610; 87077; 87086; 87186; 93005; 99285

== ENCOUNTER 2024-09-05 14:38 | Emergency (ER) | payer MEDICARE, MEDICAID, SELFPAY ==
[2024-09-05 15:00] VITALS: BP 125/81; PULSE 88; RESP 20; TEMP 36.6; O2SAT 100; BMI 20.1
--- NOTE | 2024-09-05 15:05 | ECG_ITS ---
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 Measurements Intervals [place] Rate: 91 P: 46 FL: 161 QRS: 18 QRSD: 76 T: 58 QT: 353 QTc: 435 Interpretive Statements SINUS RHYTHM ANTERIOR MYOCARDIAL INFARCTION , OF INDETERMINATE AGE [40+ ms Q WAVE AND/OR ST/T ABNORMALITY IN V3/V4] Compared to ECG 06/15/2024 16:39:21 Myocardial infarct finding now present Sinus bradycardia no longer present Electronically Signed On 09-06-2024 17:00:54 SLEEVE SETTER LOCKSTITCH by Katiuska Brown M.D. [email or web address]
--- NOTE | 2024-09-05 15:09 | XRR_ITS ---
PROCEDURE INFORMATION: Exam: XR Chest Exam date and time: 09/05/2024 4:06 PM Age: 79 years old Clinical indication: Injury or trauma; Fall; Blunt trauma (contusions or hematomas); Injury details: SOB and right ankle pain since yesterday. PT states she slipped and twisted her ankle yesterday. Deneis any cardiac or copd HX. TECHNIQUE: Imaging protocol: Radiologic exam of the chest. Views: 1 view. COMPARISON: CR XR chest 1V portable [id number] 06/15/2024 3:13 PM FINDINGS: Lungs: Mild left basilar atelectasis. No focal consolidation. Pleural spaces: Unremarkable. No pleural effusion. No pneumothorax. Heart/Mediastinum: Unremarkable. No cardiomegaly. Vasculature: Atherosclerotic aortic calcifications. Bones/joints: Multiple old left rib fractures again seen. XR/XR chest 1V portable [id number] IMPRESSION: No acute cardiopulmonary findings.
--- NOTE | 2024-09-05 15:54 | XRR_ITS ---
PROCEDURE INFORMATION: Exam: XR Right Ankle Exam date and time: 09/05/2024 4:23 PM Age: 79 years old Clinical indication: Swelling or effusion of joint; Ankle; Additional info: Injury/swelling TECHNIQUE: Imaging protocol: Radiologic exam of the right ankle. Views: 3 or more views. COMPARISON: No relevant prior studies available. FINDINGS: Bones/joints: Cortical irregularity along the distal fibular metadiaphysis. No dislocation. Small plantar calcaneal enthesophyte. Soft tissues: Mild lateral soft tissue swelling. Vasculature: Scattered vascular calcifications. XR/XR ankle RT min 3V* [id number] IMPRESSION: 1. Cortical irregularity along the distal fibular metadiaphysis may represent an old fracture with mild remodeling. Acute fracture considered less likely but not entirely excluded. Correlate with point tenderness. 2. Mild lateral soft tissue swelling.
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
[2024-09-05 16:03] VITALS: BP 120/73; PULSE 93; RESP 16; O2SAT 99
[2024-09-05 16:20] LABS: Basophils % 0.5 %; Eosinophils % 0.5 %; Lymphocytes # 1.8 10^3/uL (0.8-4.8); Lymphocytes % 21.6 %; Mean Corpuscular HGB Conc 32.8 g/dL (30-55); Mean Corpuscular Hemoglobin 28.1 pg (27-33); Mean Corpuscular Volume 85.7 fl (85-98); Mean Platelet Volume 9.8 fL (7.4-10.4); Monocytes # 0.9 10^3/uL (0.2-0.9); Monocytes % 11.1 %; Neutrophils # 5.58 10^3/uL (1.8-7.7); Neutrophils % 65.9 %; Nucleated Red Blood Cells % 0 %; Platelet Count 337 10^3/cmm (157-399); Red Blood Count 4.55 10^6/uL (3.85-5.65); Red Cell Distribution Width 14.6 % (12.1-15.1); White Blood Count 8.46 10^3/uL (3.29-11.43)
[2024-09-05 16:42] LABS: Alanine Aminotransferase < 5 U/L (0-33); Albumin Level 3.8 g/dL (3.5-5.2); Alkaline Phosphatase 117 U/L (35-105); Anion Gap 18.1 (5-19); Aspartate Amino Transferase 11 U/L (0-32); Blood Urea Nitrogen 10 mg/dL (8-23); Calcium 9.8 mg/dL (8.5-10.5); Carbon Dioxide 23 mmol/L (22-29); Chloride 93 mmol/L (98-107); Creatinine Clr Calc Pharmacy 45.0249; Globulin 4.7 g/dL (1.3-4.6); Glucose 94 mg/dL (65-115); Osmolality Calculated 269 mOsm/kg (285-295); Potassium 4.1 mmol/L (3.5-5.1); Sodium 130 mmol/L (136-145); Total Bilirubin 0.8 mg/dL (0.15-1.2); Total Protein 8.5 g/dL (6.6-8.7)
[2024-09-05 16:48] VITALS: BP 103/72; PULSE 95; RESP 20; O2SAT 98
[2024-09-05 16:48] LABS: Procalcitonin 0.06 ng/mL (0-0.5)
--- NOTE | 2024-09-05 17:36 | PC.NURSE ---
PT DOES HAVE POOR CIRCULATION IN LEGS AND FEET BILATERALLY, CAP REFILL ON AFFECTED EXTREMITY IS LESS THAN 3 SECONDS AT PTS BASELINE.
[2024-09-05 17:52] VITALS: BP 150/76; PULSE 110; RESP 20; O2SAT 95
[2024-09-05 18:02] LABS: Covid PCR NEGATIVE (Negative); Influenza A NEGATIVE (Negative); Influenza B NEGATIVE (Negative); Respiratory Syncytial Virus Ce NEGATIVE (Negative)
--- NOTE | 2024-09-06 07:55 | DCPLANNER ---
messaged podiatry for er f/u
== END 2024-09-05 17:54 | disposition home or self-care (01) ==
PROVIDERS: Emergency Provider Physician Assistant; PCP Family Medicine
DX: M25.571 Pain in right ankle and joints of right foot (principal); Z79.82 Long term (current) use of aspirin; Z79.02 Long term (current) use of antithrombotics/antiplatelets; Z86.73 Personal history of transient ischemic attack (TIA), and cerebral infarction without residual deficits
CPT/HCPCS: 0241U; 29515; 36415; 71045; 73610; 80053; 84145; 85025; 93005; 99285

== ENCOUNTER → 2024-11-12 13:23 | Outpatient (BNVA) | payer MEDICARE, MEDICAID, SELFPAY | PROVIDERS: PCP Family Medicine; Visit Provider Emergency Medicine | DX: M79.671 Pain in right foot (principal) | CPT/HCPCS: 73630 ==

== ENCOUNTER 2024-12-20 17:09 | Emergency (ER) | payer MEDICARE, MEDICAID, SELFPAY ==
[2024-12-20 17:15] VITALS: BP 112/85; PULSE 71; RESP 16; TEMP 36.4; O2SAT 100; BMI 23.6
--- NOTE | 2024-12-20 17:20 | CTR_ITS ---
PROCEDURE INFORMATION: Exam: CT Cervical Spine Without Contrast Exam date and time: 12/20/2024 6:24 PM Age: 79 years old Clinical indication: Injury or trauma; Blunt trauma; Prior surgery; Surgery date: 6+ months; Surgery type: Carotid endarterectomy; Fall face first onto gravel driveway. Abraion to RT frontal and nasion. History of dementia TECHNIQUE: Imaging protocol: Computed tomography of the cervical spine without contrast. Radiation optimization: All CT scans at this facility use at least one of these dose optimization techniques: automated exposure control; mA and/or kV adjustment per patient size (includes targeted exams where dose is matched to clinical indication); or iterative reconstruction. COMPARISON: CT cervical spin wo con* [id number] 01/04/2024 5:55 PM RADIATION DOSE METRICS: Total DLP (mGy-cm): 163.1 FINDINGS: Bones: No compression deformity or traumatic subluxation. Cervical lordosis is maintained. No significant disc bulge or herniation. No severe spinal canal stenosis. No significant neural foraminal narrowing. Lungs: Lung apices are normal. Soft tissues: Unremarkable. CT/CT cervical spin wo con* [id number] IMPRESSION: No compression deformity or traumatic subluxation within cervical spine.
--- NOTE | 2024-12-20 17:20 | CTR_ITS ---
PROCEDURE INFORMATION: Exam: CT Head Without Contrast Exam date and time: 12/20/2024 6:24 PM Age: 79 years old Clinical indication: Injury or trauma; Blunt trauma (contusions or hematomas); Fall face first onto gravel driveway. Abraion to RT frontal and nasion. History of dementia TECHNIQUE: Imaging protocol: Computed tomography of the head without contrast. Radiation optimization: All CT scans at this facility use at least one of these dose optimization techniques: automated exposure control; mA and/or kV adjustment per patient size (includes targeted exams where dose is matched to clinical indication); or iterative reconstruction. COMPARISON: CT head wo con* [id number] 06/15/2024 3:48 PM RADIATION DOSE METRICS: Total DLP (mGy-cm): 1220.3 FINDINGS: Brain: Parenchymal volume loss with scattered white matter periventricular and subcortical hypodensities, most compatible with chronic microvascular ischemic changes. No acute intracranial hemorrhage, mass effect or midline shift. Cerebral ventricles: No ventriculomegaly. Paranasal sinuses: Visualized sinuses are unremarkable. No fluid levels. Mastoid air cells: Visualized mastoid air cells are well aerated. Bones: Unremarkable. No acute fracture. Soft tissues: Unremarkable. CT/CT head wo con* [id number] IMPRESSION: No acute intracranial abnormality.
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
[2024-12-20 17:48] LABS: Basophils # 0.1 10^3/uL (0.0-0.1); Eosinophils # 0.2 10^3/uL (0.0-0.8); Eosinophils % 3.3 %; Hematocrit 32.8 % (36-47); Lymphocytes # 2.3 10^3/uL (0.8-4.8); Lymphocytes % 40.1 %; Mean Corpuscular HGB Conc 32.6 g/dL (30-55); Mean Corpuscular Hemoglobin 26.8 pg (27-33); Mean Platelet Volume 9.1 fL (7.4-10.4); Monocytes # 0.8 10^3/uL (0.2-0.9); Monocytes % 13.4 %; Neutrophils % 41.9 %; Nucleated Red Blood Cells % 0 %; Platelet Count 270 10^3/cmm (157-399); Red Cell Distribution Width 14.7 % (12.1-15.1); White Blood Count 5.74 10^3/uL (3.29-11.43)
--- NOTE | 2024-12-20 18:06 | CTR_ITS ---
PROCEDURE INFORMATION: Exam: CT Maxillofacial Without Contrast Exam date and time: 12/20/2024 6:24 PM Age: 79 years old Clinical indication: Injury or trauma; Blunt trauma (contusions or hematomas); Forehead and nose; Fall face first onto gravel driveway. Abraion to RT frontal and nasion. History of dementia TECHNIQUE: Imaging protocol: Computed tomography of the face without contrast. Radiation optimization: All CT scans at this facility use at least one of these dose optimization techniques: automated exposure control; mA and/or kV adjustment per patient size (includes targeted exams where dose is matched to clinical indication); or iterative reconstruction. COMPARISON: CT facial bones wo con* [id number] 11/01/2022 7:51 PM RADIATION DOSE METRICS: Total DLP (mGy-cm): 582.9 FINDINGS: Paranasal sinuses: No air-fluid levels. Orbital cavities: Orbits are normal. Globes are unremarkable. Bones: No acute fracture. Partially included cervical spine demonstrates no evidence of compression deformity. Soft tissues: Unremarkable. No radiopaque foreign bodies. CT/CT facial bones wo con* [id number] IMPRESSION: No acute displaced fracture identified.
[2024-12-20 18:12] LABS: Alanine Aminotransferase 7 U/L (0-33); Albumin Level 3.5 g/dL (3.5-5.2); Alkaline Phosphatase 97 U/L (35-105); Anion Gap 16.9 (5-19); Aspartate Amino Transferase 16 U/L (0-32); Blood Urea Nitrogen 14 mg/dL (8-23); Carbon Dioxide 20 mmol/L (22-29); Chloride 87 mmol/L (98-107); Creatinine Clr Calc Pharmacy 46.2326; Globulin 4.2 g/dL (1.3-4.6); Glucose 77 mg/dL (65-115); Osmolality Calculated 249 mOsm/kg (285-295); Potassium 3.9 mmol/L (3.5-5.1); Sodium 120 mmol/L (136-145); Total Bilirubin 0.2 mg/dL (0.15-1.2); Total Protein 7.7 g/dL (6.6-8.7)
[2024-12-20 18:16] LABS: Bilirubin Urine Negative (Negative); Blood Urine Trace (Negative); Glucose Urine UA Negative (Normal); Ketones Urine Negative (Negative); Leukocyte Esterase Urine 3+ (Negative); Nitrate Urine Negative (Negative); Protein Urine Negative (Negative); Urine Appearance Cloudy (CLEAR); Urine Color Yellow (Yellow); Urobilinogen Urine 0.2 mg/dL (Negative); pH Urine 6.5 (5-7)
[2024-12-20 18:21] LABS: Add Urine Microscopic? YES; Bacteria Urine 4+ /hpf; Hyaline Casts Urine 1.65 /lpf; Squamous Epithelial Cell Urine 0-5 /hpf (0-5); WBC Urine >100 /hpf (0-5)
[2024-12-20 18:23] LABS: Add Urine Culture? Yes
[2024-12-20] MEDS: cefTRIAXone 1,000 MG in water for injection-sterile 2.1 ML 2.1 MG IM (20:23)
== END 2024-12-20 20:51 | disposition left against medical advice (07) ==
PROVIDERS: Family Medicine; Emergency Provider Emergency Medicine; PCP Family Medicine
DX: N30.00 Acute cystitis without hematuria (principal); E87.1 Hypo-osmolality and hyponatremia; G93.41 Metabolic encephalopathy; W19.XXXA Unspecified fall, initial encounter; Z79.02 Long term (current) use of antithrombotics/antiplatelets; Z79.82 Long term (current) use of aspirin; Z86.73 Personal history of transient ischemic attack (TIA), and cerebral infarction without residual deficits
CPT/HCPCS: 36415; 70450; 70486; 72125; 80053; 81001; 85025; 87086; 96372; 99284; J0696

== ENCOUNTER 2025-01-26 13:04 | Observation (INO) | payer MEDICARE, MEDICAID, SELFPAY ==
[2025-01-26] VITALS (10 sets, daily range): BP systolic 106–160; BP diastolic 61–111; PULSE 61–85; RESP 16–20; TEMP 36.4–36.9; O2SAT 93–100; BMI 19.8
--- NOTE | 2025-01-26 13:09 | ECG_ITS ---
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
--- NOTE | 2025-01-26 13:13 | CTR_ITS ---
PROCEDURE INFORMATION: Exam: CT Head Without Contrast Exam date and time: 01/26/2025 1:40 PM Age: 79 years old Clinical indication: Altered mental status/memory loss and syncope and collapse; Confusion or disorientation; Additional info: AMS TECHNIQUE: Imaging protocol: Computed tomography of the head without contrast. Radiation optimization: All CT scans at this facility use at least one of these dose optimization techniques: automated exposure control; mA and/or kV adjustment per patient size (includes targeted exams where dose is matched to clinical indication); or iterative reconstruction. COMPARISON: CT head wo con* [id number] 12/20/2024 6:24 PM RADIATION DOSE METRICS: Total DLP (mGy-cm): 1028.28 FINDINGS: Brain: Stable lacunar infarct in the left internal capsule/anterior thalamus. Cerebral ventricles: No ventriculomegaly. Paranasal sinuses: Visualized sinuses are unremarkable. No fluid levels. Mastoid air cells: Visualized mastoid air cells are well aerated. Bones: Unremarkable. No acute fracture. Soft tissues: Unremarkable. CT/CT head wo con* [id number] IMPRESSION: 1. No acute findings. 2. Stable left internal capsule/anterior thalamic lacunar infarct.
--- NOTE | 2025-01-26 13:13 | XRR_ITS ---
PROCEDURE INFORMATION: Exam: XR Chest Exam date and time: 01/26/2025 1:17 PM Age: 79 years old Clinical indication: Other: AMS TECHNIQUE: Imaging protocol: Radiologic exam of the chest. Views: 1 view. COMPARISON: CR XR chest 1V portable [id number] 09/05/2024 4:06 PM FINDINGS: Lungs: Unremarkable. No consolidation. Pleural spaces: Unremarkable. No pleural effusion. No pneumothorax. Heart/Mediastinum: Unremarkable. No cardiomegaly. Bones/joints: Old right humeral neck fracture and old left rib fractures. XR/XR chest 1V portable [id number] IMPRESSION: No acute findings.
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
[2025-01-26] MEDS: sodium chloride 0.9% 1,000 ML 999 ML IV (13:36)
[2025-01-26 13:41] LABS: ABG PCO2 28.4 mmHg (35-45); ABG PH Result 7.53 (7.35-7.45); Alveolar-Arterial Oxygen Gradi 4.2 mmHg (5-10); Arterial Blood Gas Hematocrit 36.6 % (37-47); Base Excess ABG 1.8 mmol/L (-2.0-2.0); Blood Gas Operator Identificat AMH; Blood Gas Sample Site Brachial, left; Blood Gas Sample Type Arterial; HCO3 ABG 23.7 mmol/L (22-26); HGB O2 Sat 95.7 % (95-100); Ionized Calcium Level - ABG 1.2 mmol/L (1.1-1.4); Methemoglobin 0.9 % (0.4-1.5); Oxygen Saturation ABG 97.6; PO2 ABG 81.4 mmHg (80.0-100.0); Total Hemoglobin 11.9 g/dL (12-16)
[2025-01-26 13:42] LABS: Oxygen Device ROOM AIR; PO2 FiO2 Ratio Arterial Blood 387
[2025-01-26 13:48] LABS: Basophils % 0.6 %; Eosinophils # 0.1 10^3/uL (0.0-0.8); Eosinophils % 2.7 %; Hematocrit 40.3 % (36-47); Lymphocytes # 1.8 10^3/uL (0.8-4.8); Lymphocytes % 37.8 %; Mean Corpuscular Hemoglobin 26.6 pg (27-33); Mean Corpuscular Volume 83.1 fl (85-98); Mean Platelet Volume 9.4 fL (7.4-10.4); Monocytes # 0.5 10^3/uL (0.2-0.9); Monocytes % 11.2 %; Neutrophils # 2.24 10^3/uL (1.8-7.7); Neutrophils % 47.5 %; Nucleated Red Blood Cells % 0 %; Platelet Count 223 10^3/cmm (157-399); Red Blood Count 4.85 10^6/uL (3.85-5.65); Red Cell Distribution Width 15.2 % (12.1-15.1); White Blood Count 4.73 10^3/uL (3.29-11.43)
[2025-01-26 13:51] LABS: Bilirubin Urine Negative (Negative); Blood Urine Negative (Negative); Glucose Urine UA Negative (Normal); Ketones Urine Negative (Negative); Leukocyte Esterase Urine 3+ (Negative); Nitrate Urine Negative (Negative); Protein Urine Negative (Negative); Specific Gravity, Urine 1.009 (1.005-1.030); Urine Appearance Cloudy (CLEAR); Urine Color Yellow (Yellow); Urobilinogen Urine 0.2 mg/dL (Negative); pH Urine 7.5 (5-7)
[2025-01-26 13:56] LABS: Add Urine Microscopic? YES; Bacteria Urine Trace /hpf; Hyaline Casts Urine 1.21 /lpf; RBC Urine 0-2 /hpf (0-2); Squamous Epithelial Cell Urine 21-50 /hpf (0-5); WBC Urine 21-50 /hpf (0-5)
[2025-01-26 13:58] LABS: Amphetamines Screen Urine Negative (Negative); Barbiturates Screen Urine Negative (Negative); Benzodiazepines Screen Urine Negative (Negative); Cocaine Screen Urine Negative (Negative); Opiate Screen Urine Negative (Negative); PCP Screen Urine Negative (Negative); THC Screen Urine Negative (Negative)
[2025-01-26 14:10] LABS: Troponin(5th) Baseline 11 ng/L (0-10)
[2025-01-26 14:12] LABS: Alanine Aminotransferase 7 U/L (0-33); Albumin Level 3.7 g/dL (3.5-5.2); Alkaline Phosphatase 104 U/L (35-105); Anion Gap 17.6 (5-19); Aspartate Amino Transferase 14 U/L (0-32); Blood Urea Nitrogen 16 mg/dL (8-23); Calcium 9.5 mg/dL (8.5-10.5); Carbon Dioxide 22 mmol/L (22-29); Chloride 92 mmol/L (98-107); Creatine Phosphokinase 38 U/L (26-192); Globulin 3.9 g/dL (1.3-4.6); Glucose 90 mg/dL (65-115); Osmolality Calculated 265 mOsm/kg (285-295); Potassium 4.6 mmol/L (3.5-5.1); Sodium 127 mmol/L (136-145); Total Bilirubin 0.4 mg/dL (0.15-1.2); Total Protein 7.6 g/dL (6.6-8.7)
[2025-01-26 14:13] LABS: Acetaminophen < 5.0 ug/mL (10-30); Alcohol Level < 10 mg/dL (0-10); Salicylate < 0.3 mg/dL (3-10)
[2025-01-26 14:14] LABS: Lactic Sepsis W/Reflex 1.3 mmol/L (0.5-2.2)
[2025-01-26 14:18] LABS: Procalcitonin 0.04 ng/mL (0-0.5)
[2025-01-26] MEDS: LORazepam 2 mg/mL INJ 1 mL 1 MG IVP (15:10)
[2025-01-26 15:18] LABS: Bilirubin Urine Negative (Negative); Blood Urine Negative (Negative); Glucose Urine UA Negative (Normal); Ketones Urine Negative (Negative); Leukocyte Esterase Urine Negative (Negative); Nitrate Urine Negative (Negative); Protein Urine Negative (Negative); Specific Gravity, Urine 1.007 (1.005-1.030); Urine Appearance Clear (CLEAR); Urine Color Yellow (Yellow); Urobilinogen Urine 0.2 mg/dL (Negative); pH Urine 7.5 (5-7)
[2025-01-26 15:20] LABS: Add Urine Microscopic? YES; Bacteria Urine None Seen /hpf; Hyaline Casts Urine 0.81 /lpf; RBC Urine 0-2 /hpf (0-2); Squamous Epithelial Cell Urine 0-5 /hpf (0-5); WBC Urine 0-5 /hpf (0-5)
--- NOTE | 2025-01-26 15:27 | PC.NURSE ---
pt pulled out right FA IV. pressure dressing applied. this nurse assessed, iv catheter was intact upon removal. New IV established.
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
[2025-01-26 15:35] LABS: Troponin 5 2HR 10.32 ng/L (0-10)
[2025-01-26 15:36] LABS: Troponin 5 2HR Delta -0.68 ABS# (0-10)
--- NOTE | 2025-01-26 15:44 | ECG_ITS ---
[facility] Date: 2025-01-26 Pat Name: Terri Pride Department: Room: Gender: Female Receiving Operator: : 1945 Requested By: Elvi Bower Order Number: [id number] Reading MD: RUBEN KASPER Measurements Intervals [place] Rate: 80 P: 72 [place]: 168 QRS: 12 QRSD: 75 T: 57 QT: 385 QTc: 446 Interpretive Statements SINUS RHYTHM Compared to ECG 01/26/2025 13:09:36 No significant changes Electronically Signed On 01-27-2025 21:01:05 CDT by RUBEN KASPER [id number]
--- NOTE | 2025-01-26 16:21 | PC.NURSE ---
Pt continues to refuse bp cuff, upon cuff being inflated pt removes cuff. Will reattempt.
--- NOTE | 2025-01-26 16:39 | PC.NURSE ---
pt report called to Med surg, Nurse Nicol it taking pt.
[2025-01-26 16:53] LABS: Procalcitonin 0.03 ng/mL (0-0.5)
[2025-01-26] MEDS: sodium chloride 0.9% 1,000 ML 100 ML IV (18:02)
[2025-01-26] MEDS: aspirin 81 mg EC Tablet PO (18:02)
[2025-01-26] MEDS: metoprolol tartrate 25 mg Tablet 12.5 MG PO (18:02)
--- NOTE | 2025-01-26 19:14 | ECG_ITS ---
[facility] Date: 2025-01-26 Pat Name: Terri Pride Department: Room: Gender: Female Vocational Aide: : 1945 Requested By: Elvi Bower Order Number: [id number] Reading MD: Measurements Intervals [place] Rate: 71 P: 46 GA: 177 QRS: 6 QRSD: 76 T: 37 QT: 395 QTc: 430 Interpretive Statements SINUS RHYTHM NONSPECIFIC T-WAVE ABNORMALITY Compared to ECG 01/26/2025 15:44:08 T-wave abnormality now present [email or web address]
[2025-01-26 19:54] LABS: Troponin 5 6HR 16.57 ng/L (0-10); Troponin 5 6HR Delta 5.57 ng/L (0-12)
[2025-01-26] MEDS: trazodone 50 mg Tablet 25 MG PO (20:18)
[2025-01-27] VITALS: BP 100/86; PULSE 77; RESP 18; TEMP 36.7; O2SAT 97
[2025-01-27] MEDS: sodium chloride 0.9% 1,000 ML 100 ML IV ×2 (02:55→13:39)
[2025-01-27 03:30] VITALS: BP 111/66; PULSE 71; RESP 14; TEMP 37; O2SAT 97
[2025-01-27 03:32] VITALS: BMI 20.7
[2025-01-27 05:28] LABS: Basophils % 0.7 %; Eosinophils # 0.2 10^3/uL (0.0-0.8); Eosinophils % 4.6 %; Hematocrit 34.9 % (36-47); Lymphocytes # 1.9 10^3/uL (0.8-4.8); Lymphocytes % 42.8 %; Mean Corpuscular HGB Conc 31.8 g/dL (30-55); Mean Corpuscular Hemoglobin 26.3 pg (27-33); Mean Corpuscular Volume 82.7 fl (85-98); Mean Platelet Volume 9.9 fL (7.4-10.4); Monocytes # 0.7 10^3/uL (0.2-0.9); Monocytes % 15.6 %; Neutrophils # 1.57 10^3/uL (1.8-7.7); Neutrophils % 36.1 %; Nucleated Red Blood Cells % 0 %; Platelet Count 207 10^3/cmm (157-399); Red Blood Count 4.22 10^6/uL (3.85-5.65); Red Cell Distribution Width 15.3 % (12.1-15.1); White Blood Count 4.35 10^3/uL (3.29-11.43)
[2025-01-27 05:43] LABS: Alanine Aminotransferase 6 U/L (0-33); Albumin Level 3.1 g/dL (3.5-5.2); Alkaline Phosphatase 87 U/L (35-105); Anion Gap 14.1 (5-19); Aspartate Amino Transferase 12 U/L (0-32); Blood Urea Nitrogen 15 mg/dL (8-23); Carbon Dioxide 19 mmol/L (22-29); Chloride 103 mmol/L (98-107); Creatinine Clr Calc Pharmacy 43.7114; Globulin 3.8 g/dL (1.3-4.6); Glucose 87 mg/dL (65-115); Osmolality Calculated 274 mOsm/kg (285-295); Potassium 4.1 mmol/L (3.5-5.1); Sodium 132 mmol/L (136-145); Total Bilirubin 0.3 mg/dL (0.15-1.2); Total Protein 6.9 g/dL (6.6-8.7)
[2025-01-27 07:13] VITALS: BP 116/72; PULSE 69; RESP 16; TEMP 36.8; O2SAT 97
[2025-01-27] MEDS: metoprolol tartrate 25 mg Tablet 12.5 MG PO (07:41)
[2025-01-27] MEDS: clopidogrel 75 mg Tablet PO (07:41)
[2025-01-27] MEDS: aspirin 81 mg EC Tablet PO (07:41)
[2025-01-27] MEDS: PARoxetine 20 mg Tablet PO (07:41)
[2025-01-27] MEDS: pantoprazole DR 40 mg Tablet PO (07:41)
[2025-01-27] MEDS: amlodipine 5 mg Tablet 2.5 MG PO (07:42)
--- NOTE | 2025-01-27 08:00 | PC.PHAR ---
Pt altered and unable to verify home medications. Verified with last fill dates and day supply. Will follow up with [facility] when they open at 9M
--- NOTE | 2025-01-27 09:39 | PC.CHAP ---
Pastoral Care Encounter/Spiritual Assessment Type of Contact [] Declined mill manager visit [] Patient/Family/Request visit [] Outpatient visit [] Follow-up visit [] Physician referral [] Code/Alert [x] Routine visit [] Staff referral [] Actively dying [x] Patient sleeping [] Family support [] [] Out of room [] Palliative care [] [] Receiving care in room [] Pre-surgical visit [] Trauma [] Long length of stay [] ICU visit [] Other: Relational/Emotional Strength [] Patient feels connected with others/family/visitors/staff [] Distress [] Loneliness/isolation [] Abandonment Spirituality of Patient [] Person of Juanis [] Attends Adventism of their Juanis [] Believes in Prayer [] Reads Bible or Uatsdin materials [] There are Spiritual issues to be addressed Die Maker Interventions [x] Prayer [] Active listening [] Non-anxious presence [] Spiritual/emotional support [] Crisis/trauma care [] Spiritual counseling [] Bereavement support [] Provided bereavement packet [] Provided Bible/devotional materials [] Provided toy/stuffed animal, coloring book to patient or family member [] Provided Communion [] Anointing/[place] [] Salvation [] Completed spiritual assessment [] Other: Impact on Illness or Injury [] Angry [] Fearful [] Anxious [] Often cries [] Exhaustion [] Unable to work [] Unable to attend zoroastrian [] Unable to walk/stand [] Unable to read [] Unable to drive [] Unable to eat/drink [] Unable to sleep [] Unable to be with family [] Patient intubated [] Other: Summary Time spent with patient
[2025-01-27 11:25] VITALS: BP 87/53; PULSE 60; RESP 17; TEMP 36.8; O2SAT 99
[2025-01-27 15:12] VITALS: BP 118/70
--- NOTE | 2025-01-27 15:33 | PC.NURSE ---
Patients ride home expected to be here around 1600.
--- NOTE | 2025-01-27 15:57 | P.DS_ITS ---
Discharge Providers Date of Admission: 01/26/25 15:40 Date of Discharge: January 27, 2025 Attending Provider at Admission: Isai Freedman MD Attending Provider at Discharge: Zena Carroll MD Primary Care Provider: Daquan Luna MD Diagnoses at Discharge Discharge Diagnosis (1) Altered mental status: Status: Acute (2) Hyponatremia: Status: Acute (3) S/P carotid endarterectomy: Status: Acute (4) Carotid stenosis, bilateral: Status: Acute (5) PVD (peripheral vascular disease): Status: Acute (6) Essential hypertension: Status: Acute Reason for Visit Reason for Visit: [facility] Hospital Course Hospital Course Terri Pride is a 77 year old female's of CVA, CAD status post PTCA, bilateral carotid artery stenosis and subclavian artery stenosis status post carotid artery endarterectomy, alcohol abuse related ataxia, neuropathy, history of traumatic left sided rib fracture complicated with pneumothorax, h/o PE off a/c due to h/o SDH. She was admitted to the hospital yesterday on January 26, 2025 with chief complaints of confusion and altered mental status. At baseline it appears patient has been diagnosed with dementia. However she is able to be conversational, normally tells her name age etc. However yesterday upon arrival she was agitated, disoriented, she needed a sitter for frequent reorientation. She was noted to have mild hyponatremia with a sodium of 127. This improved to 132 with hydration today. Initially concern for UTI, however her for specimen was not a clean-catch. A repeat clean-catch specimen was repeated and was negative for UTI. Suspect her altered mentation was related to hyponatremia versus worsening dementia. CT of her head was completed which showed old lacunar infarcts which were seen on previous CTs as well. Suspect patient has underlying vascular dementia which may be worsened. At the time of my assessment today patient is alert awake oriented. She is able to correctly tell me her name, correct date of , she knows she is in a hospital. She correctly tells me that she lives with his son and [id number] and has no current concerns with her living situation. She is slightly forgetful and that she mistakingly thinks her family was here to visit her earlier today however when reoriented seems to recover pretty quickly. Overall she is clinically stable and appears being discharged in improved condition Amlodipine has been discontinued at discharge due to noted soft blood pressures. Metoprolol dose has been reduced to 12.5 mg p.o. daily. Physical Exam Narrative: General: No acute distress, AO x3 HEENT: PERRLA, pupils bilaterally equal and reactive, pallors not present Chest: Normal vesicular breath sounds, no added sounds, equal good air entry bilaterally CVS: S1-S2 regular, no murmurs, no tachycardia, no gallops, no rubs Abdomen: Soft, nontender, no organomegaly, bowel sounds present Neuro: No focal deficits, no facial deformity, AO x3, power 5/5 in all limbs Discharge Data Studies Completed and Pending Completed Studies During Hospitalization Category Date Time Status CT head wo con* [id number] Urgent Cat Scan 01/26/25 13:13 Completed XR chest 1V portable [id number] Urgent Exams 01/26/25 13:13 Completed Pending at discharge Category Date Time Status Blood Culture Stat Lab 01/26/25 13:25 Results Radiology Impressions Chest X-Ray 01/26/25 13:13 IMPRESSION: No acute findings. Head CT 01/26/25 13:13 IMPRESSION: 1. No acute findings. 2. Stable left internal capsule/anterior thalamic lacunar infarct. Laboratory Results WBC 4.35 10^3/uL (3.29-11.43) 01/27/25 04:43 RBC 4.22 10^6/uL (3.85-5.65) 01/27/25 04:43 Hgb 11.10 g/dL (11.27-16.99) L 01/27/25 04:43 Hct 34.9 % (36-47) L 01/27/25 04:43 MCV 82.7 fl (85-98) L 01/27/25 04:43 MCH 26.3 pg (27-33) L 01/27/25 04:43 MCHC 31.8 g/dL (30-55) 01/27/25 04:43 RDW 15.3 % (12.1-15.1) H 01/27/25 04:43 Plt Count 207 10^3/cmm (157-399) 01/27/25 04:43 MPV 9.9 fL (7.4-10.4) 01/27/25 04:43 Neut % (Auto) 36.1 % 01/27/25 04:43 Lymph % (Auto) 42.8 % 01/27/25 04:43 [place] % (Auto) 15.6 % 01/27/25 04:43 Eos % (Auto) 4.6 % 01/27/25 04:43 Baso % (Auto) 0.7 % 01/27/25 04:43 Neut # (Auto) 1.57 10^3/uL (1.8-7.7) L 01/27/25 04:43 Lymph # (Auto) 1.9 10^3/uL (0.8-4.8) 01/27/25 04:43 [place] # (Auto) 0.7 10^3/uL (0.2-0.9) 01/27/25 04:43 Eos # (Auto) 0.2 10^3/uL (0.0-0.8) 01/27/25 04:43 Baso # (Auto) 0.0 10^3/uL (0.0-0.1) 01/27/25 04:43 Nucleated RBC % (auto) 0 % 01/27/25 04:43 Nucleated RBCs # 0.0 /100WBC 01/27/25 04:43 Specimen Type Arterial 01/26/25 13:25 Sample Site Brachial, left 01/26/25 13:25 ABG pH 7.53 (7.35-7.45) H 01/26/25 13:25 ABG pCO2 28.4 mmHg (35-45) L 01/26/25 13:25 ABG pO2 81.4 mmHg (80.0-100.0) 01/26/25 13:25 ABG PO2/FiO2 Ratio 387 01/26/25 13:25 ABG HCO3 23.7 mmol/L (22-26) 01/26/25 13:25 ABG O2 Saturation 97.6 01/26/25 13:25 ABG Base Excess 1.8 mmol/L (-2.0-2.0) 01/26/25 13:25 Az Test N/a 01/26/25 13:25 A-a O2 Gradient 4.2 mmHg (5-10) L 01/26/25 13:25 Hematocrit 36.6 % (37-47) L 01/26/25 13:25 Hgb O2 Saturation 95.7 % (95-100) 01/26/25 13:25 Carboxyhemoglobin 1.0 %THgb (0.4-20.1) 01/26/25 13:25 Methemoglobin 0.9 % (0.4-1.5) 01/26/25 13:25 Total Hemoglobin 11.9 g/dL (12-16) L 01/26/25 13:25 Sodium 128.0 mmol/L (131-143) L 01/26/25 13:25 Potassium 4.0 mmol/L (3.5-5.0) 01/26/25 13:25 Glucose 100.0 mg/dL (70-115) 01/26/25 13:25 Ionized Calcium 1.2 mmol/L (1.1-1.4) 01/26/25 13:25 O2 Delivery Device Room air 01/26/25 13:25 FiO2 21.0 % 01/26/25 13:25 Shine Worker ID Amh 01/26/25 13:25 Sodium 132 mmol/L (136-145) L 01/27/25 04:43 Potassium 4.1 mmol/L (3.5-5.1) 01/27/25 04:43 Chloride 103 mmol/L (98-107) 01/27/25 04:43 Carbon Dioxide 19 mmol/L (22-29) L 01/27/25 04:43 Anion Gap 14.1 (5-19) 01/27/25 04:43 BUN 15 mg/dL (8-23) 01/27/25 04:43 Creatinine 0.6 mg/dL (0.5-0.9) 01/27/25 04:43 GFR Calculation Not Reportable 01/27/25 04:43 Glucose 87 mg/dL (65-115) 01/27/25 04:43 Calculated Osmolality 274 mOsm/kg (285-295) L 01/27/25 04:43 Lactic Acid 1.3 mmol/L (0.5-2.2) 01/26/25 13:25 Calcium 9.0 mg/dL (8.5-10.5) 01/27/25 04:43 Total Bilirubin 0.3 mg/dL (0.15-1.2) 01/27/25 04:43 AST 12 U/L (0-32) 01/27/25 04:43 ALT 6 U/L (0-33) 01/27/25 04:43 Alkaline Phosphatase 87 U/L (35-105) 01/27/25 04:43 Creatine Kinase 38 U/L (26-192) 01/26/25 13:25 Troponin T Baseline 11 ng/L (0-10) H 01/26/25 13:25 Troponin T 120 Minute 10.32 ng/L (0-10) H 01/26/25 15:00 Delta Troponin T -0.68 ABS# (0-10) L 01/26/25 15:00 Troponin T Hi Sens 6Hr 16.57 ng/L (0-10) H 01/26/25 19:30 Troponin T Hi Sens 6Hr Delta 5.57 ng/L (0-12) 01/26/25 19:30 Total Protein 6.9 g/dL (6.6-8.7) 01/27/25 04:43 Albumin 3.1 g/dL (3.5-5.2) L 01/27/25 04:43 Globulin 3.8 g/dL (1.3-4.6) 01/27/25 04:43 Procalcitonin 0.03 ng/mL (0-0.5) 01/26/25 15:00 Urine Color Yellow (Yellow) 01/26/25 15:11 Urine Appearance Clear (CLEAR) 01/26/25 15:11 Urine pH 7.5 (5-7) 01/26/25 15:11 Ur Specific [place] 1.007 (1.005-1.030) 01/26/25 15:11 Urine Protein Negative (Negative) 01/26/25 15:11 Urine Glucose (UA) Negative (Normal) 01/26/25 15:11 Urine Ketones Negative (Negative) 01/26/25 15:11 Urine Blood Negative (Negative) 01/26/25 15:11 Urine Nitrate Negative (Negative) 01/26/25 15:11 Urine Bilirubin Negative (Negative) 01/26/25 15:11 Urine Urobilinogen 0.2 mg/dL (Negative) 01/26/25 15:11 Ur Leukocyte Esterase Negative (Negative) 01/26/25 15:11 Urine RBC 0-2 /hpf (0-2) 01/26/25 15:11 Urine WBC 0-5 /hpf (0-5) 01/26/25 15:11 Ur Squamous Epith Cells 0-5 /hpf (0-5) 01/26/25 15:11 Amorphous Sediment Not Reportable 01/26/25 15:11 Urine Bacteria None seen /hpf (NONE) 01/26/25 15:11 Hyaline Casts 0.81 /lpf 01/26/25 15:11 Salicylates < 0.3 mg/dL (3-10) L 01/26/25 13:25 Urine Opiates Screen Negative ng/mL (Negative) 01/26/25 13:24 Acetaminophen < 5.0 ug/mL (10-30) L 01/26/25 13:25 Ur Barbiturates Screen Negative ng/mL (Negative) 01/26/25 13:24 Ur Phencyclidine Scrn Negative ng/mL (Negative) 01/26/25 13:24 Ur Amphetamines Screen Negative ng/mL (Negative) 01/26/25 13:24 U Benzodiazepines Scrn Negative ng/mL (Negative) 01/26/25 13:24 Urine Cocaine Screen Negative ng/mL (Negative) 01/26/25 13:24 U Marijuana (THC) Screen Negative ng/mL (Negative) 01/26/25 13:24 Ethyl Alcohol < 10 mg/dL (0-10) 01/26/25 13:25 Vitals Last Vital Signs Temp 98.3 F 01/27/25 11:25 Pulse 60 01/27/25 11:25 Resp 17 01/27/25 11:25 BP 118/70 01/27/25 15:12 Pulse Ox 99 01/27/25 11:25 O2 Del Method Room Air 01/27/25 11:25 Discharge Plan Discharge Patient Disposition: Home Condition: Stable Prescriptions: New metoprolol tartrate 25 mg Tablet 12.5 mg PO DAILY 30 Days Qty: 30 0RF Continued (DME) right third finger custom yoke splint See Rx Instructions .Route .MEDSUPPLY Qty: 1 0RF Rx Instructions: maintain mp extension weekly therapy albuterol sulfate 90 mcg/actuation HFA aerosol inhaler 2 puff inhalation Q6H PRN (Reason: shortness of breath or wheezing) Qty: 8.5 0RF aspirin 81 mg tablet,delayed release (DR/EC) 81 mg PO BID 14 Days Qty: 28 0RF clopidogrel 75 mg tablet See Rx Instructions .ROUTE .COMPLEX Qty: 30 11RF Dose Instruction: Take 1 tablet by mouth once daily Rx Instructions: Take 1 tablet by mouth once daily pantoprazole 40 mg tablet,delayed release (DR/EC) See Rx Instructions .ROUTE .COMPLEX Qty: 30 11RF Dose Instruction: Take 1 tablet by mouth once daily Rx Instructions: Take 1 tablet by mouth once daily paroxetine HCl [Paxil] 20 mg tablet 20 mg PO DAILY Qty: 30 11RF folic acid 1 mg tablet See Rx Instructions .ROUTE .COMPLEX Qty: 30 11RF Dose Instruction: Take 1 tablet by mouth once daily Rx Instructions: Take 1 tablet by mouth once daily acetaminophen 500 mg Tablet 1,000 mg PO Q6H PRN (Reason: Pain) cyanocobalamin (vitamin B-12) [Vitamin B-12] 5,000 mcg Tablet, Sublingual 5,000 mcg SUBLINGUAL QAM ibuprofen 200 mg Capsule 400 mg PO Q6H PRN (Reason: Pain) calcium carbonate 500 mg calcium (1,250 mg) Tablet 500 mg PO DAILY cholecalciferol (vitamin D3) [Vitamin D3] 50 mcg (2,000 unit) Capsule 50 mcg PO DAILY Discontinued amlodipine 2.5 mg tablet 2.5 mg PO DAILY Qty: 30 11RF Discharge Orders: Discharge Order (Routine); Ordered 01/27/25 Ordered By: Zena Carroll Referrals: Daquan Luna MD [Primary Care Provider] - 02/03/25 1:10 pm (hospital discharge follow up ) Discharge Diet: Usual diet Discharge Activity: Resume usual activity Patient Instructions: Metoprolol (By mouth), Hyponatremia (DC), Altered Mental Status (ED), Opioid Safety Discharge Attestations Time Spent in Discharge Care*: greater than 30 min Quality Metrics Clinical Quality Measures [ No reported AMI, CVA or VTE this stay] Coding Level of Care Code Acute Code for Chg Fwd Diagnoses Altered mental status R41.82 Hyponatremia E87.1 S/P carotid endarterectomy Z98.890 Carotid stenosis, bilateral I65.23 PVD (peripheral vascular disease) I73.9 Essential hypertension I10
== END 2025-01-27 16:07 | disposition home or self-care (01) ==
LOC: ER 16:33 → MEDSURG 17:18
PROVIDERS: Admitting Provider Family Medicine; Emergency Provider Physician Assistant; PCP Family Medicine; Visit Provider Student in an Organized Health Care Education/Training Program
DX: R41.82 Altered mental status, unspecified (principal); E87.1 Hypo-osmolality and hyponatremia; I10 Essential (primary) hypertension; I73.9 Peripheral vascular disease, unspecified; Z98.890 Other specified postprocedural states; K21.9 Gastro-esophageal reflux disease without esophagitis; Z79.82 Long term (current) use of aspirin; R27.0 Ataxia, unspecified; Z66 Do not resuscitate; I25.2 Old myocardial infarction; I95.9 Hypotension, unspecified; Z82.49 Family history of ischemic heart disease and other diseases of the circulatory system; Z86.73 Personal history of transient ischemic attack (TIA), and cerebral infarction without residual deficits; I25.10 Atherosclerotic heart disease of native coronary artery without angina pectoris; Z95.5 Presence of coronary angioplasty implant and graft; Z86.711 Personal history of pulmonary embolism; F03.90 Unspecified dementia, unspecified severity, without behavioral disturbance, psychotic disturbance, mood disturbance, and anxiety; Z91.81 History of falling; Z86.718 Personal history of other venous thrombosis and embolism
CPT/HCPCS: 36415; 36600; 70450; 71045; 80051; 80053; 80306; 80307; 81001; 82330; 82550; 82805; 83605; 84145; 84484; 85025; 87040; 93005; 93010; 96374; 99285; G0378; J2060; J7030; J9999

== ENCOUNTER → 2025-02-03 13:12 | Outpatient (BNVA) | payer MEDICARE, MEDICAID, SELFPAY | PROVIDERS: PCP Family Medicine; Visit Provider Family Medicine | DX: E87.1 Hypo-osmolality and hyponatremia (principal) | CPT/HCPCS: 80048 ==

== ENCOUNTER 2025-02-26 16:14 | Observation (INO) | payer MEDICARE, MEDICAID, SELFPAY ==
--- NOTE | 2025-02-26 16:15 | CTR_ITS ---
PROCEDURE INFORMATION: Exam: CT Head Without Contrast Exam date and time: 02/26/2025 4:14 PM Age: 79 years old Clinical indication: Stroke-like symptoms; Left facial droop; Lt upper extremity weakness; Additional info: Stroke symptoms TECHNIQUE: Imaging protocol: Computed tomography of the head without contrast. Radiation optimization: All CT scans at this facility use at least one of these dose optimization techniques: automated exposure control; mA and/or kV adjustment per patient size (includes targeted exams where dose is matched to clinical indication); or iterative reconstruction. Other technique: STROKE PROTOCOL was implemented. COMPARISON: CT head wo con* [id number] 01/26/2025 1:40 PM RADIATION DOSE METRICS: Total DLP (mGy-cm): 1036.38 FINDINGS: Brain: Chronic infarction left caudate body and genu of internal capsule. Moderate hypoattenuating foci are noted in the posterior superior periatrial and anterior lateral ventricular periventricular white matter bilaterally. No intracranial hemorrhage. No mass or acute cortical infarction identified. Ventricles: Prominence of the ventricular system and subarachnoid spaces is consistent with the patient's age of 79 years. Paranasal sinuses: Visualized sinuses are unremarkable. No fluid levels. Mastoid air cells: Visualized mastoid air cells are well aerated. Orbital cavities: Bilateral prior cataract surgery. Bones: Unremarkable. No acute fracture. Soft tissues: Subcutaneous benign calcifications lateral left occipital region, right parietal region. Vasculature: Atherosclerotic calcifications are present involving the carotid artery siphons and vertebral arteries bilaterally. CT/CT head thrombolytic [id number] IMPRESSION: 1. Chronic infarction left caudate body and genu of internal capsule. 2. Age appropriate supratentorial and infratentorial atrophy. 3. Moderate chronic white matter microvascular ischemic disease. 4. No acute intracranial abnormality identified. ASSESSMENT: ASPECTS ([place] Stroke Program Early CT Score) is 10.
--- NOTE | 2025-02-26 16:21 | CTR_ITS ---
PROCEDURE INFORMATION: Exam: CTA Head With Contrast, Arteriography Exam date and time: 02/26/2025 4:23 PM Age: 79 years old Clinical indication: Weakness; Additional info: Stroke symptoms TECHNIQUE: Imaging protocol: Computed tomographic angiography of the head with contrast. Exam focused on the arteries. 3D rendering (Not supervised by radiologist): MIP reconstructed images were created by the technologist. Radiation optimization: All CT scans at this facility use at least one of these dose optimization techniques: automated exposure control; mA and/or kV adjustment per patient size (includes targeted exams where dose is matched to clinical indication); or iterative reconstruction. Contrast material: OMNIPAQUE 350; Contrast volume: 100 ml; Contrast route: INTRAVENOUS (IV); COMPARISON: CT head thrombolytic [id number] 02/26/2025 4:14 PM RADIATION DOSE METRICS: Total DLP (mGy-cm): 312.77 FINDINGS: ANTERIOR CIRCULATION: Right internal carotid artery: Right internal carotid artery cavernous and paraclinoid segment calcified plaque, less than 40% stenosis. Right middle cerebral artery: No occlusion or significant stenosis. No aneurysm. Right anterior cerebral artery: No occlusion or significant stenosis. No aneurysm. Left internal carotid artery: Left internal carotid artery cavernous and paraclinoid segment calcified plaque, less than 40% stenosis. Left middle cerebral artery: No occlusion or significant stenosis. No aneurysm. Left anterior cerebral artery: No occlusion or significant stenosis. No aneurysm. POSTERIOR CIRCULATION: Right vertebral artery: Atherosclerotic calcifications proximal and mid right vertebral artery V4 segment, less than 30% stenosis. Left vertebral artery: Atherosclerotic calcifications of the proximal left vertebral artery V4 segment, less than 30% stenosis. Basilar artery: No occlusion or significant stenosis. No aneurysm. Right posterior cerebral artery: Predominately embryonic origin of the right posterior cerebral artery, normal variant. No stenosis/occlusion. Left posterior cerebral artery: No occlusion or significant stenosis. No aneurysm. Brain: No definite mass, mass effect, or midline shift. Ventricles: No hydrocephalus. Bones/joints: No acute abnormality. No acute fracture. Soft tissues: Unremarkable. PROCEDURE INFORMATION: Exam: CTA Neck With Contrast Exam date and time: 02/26/2025 4:23 PM Age: 79 years old Clinical indication: Weakness; Additional info: Stroke symptoms TECHNIQUE: Imaging protocol: Computed tomographic angiography of the neck with contrast. Exam focused on the cervical segments of the vasculature. 3D rendering (Not supervised by radiologist): MIP reconstructed images were created by the technologist. Radiation optimization: All CT scans at this facility use at least one of these dose optimization techniques: automated exposure control; mA and/or kV adjustment per patient size (includes targeted exams where dose is matched to clinical indication); or iterative reconstruction. Contrast material: OMNIPAQUE 350; Contrast volume: 100 ml; Contrast route: INTRAVENOUS (IV); COMPARISON: CT cervical spin wo con* [id number] 12/20/2024 6:24 PM RADIATION DOSE METRICS: Total DLP (mGy-cm): 312.77 FINDINGS: Right common carotid artery: Moderate right common carotid artery bifurcation calcified plaque, less than 25% stenosis. Right internal carotid artery: Proximal right internal carotid artery calcified and noncalcified smooth plaque, 55-65 % stenosis. Right external carotid artery: No occlusion or stenosis of the origin. Left common carotid artery: Left common carotid artery bifurcation regional surgical clips with widely patent lumen suggesting previous endarterectomy. Calcified plaques of the mid left common carotid artery, less than 30% stenosis. Left internal carotid artery: No stenosis of the extracranial segment. No dissection or occlusion. Left external carotid artery: No occlusion or stenosis of the origin. Right vertebral artery: Atherosclerotic calcifications of the distal right vertebral artery V3 segment, less than 20% stenosis. Left vertebral artery: Atherosclerotic calcifications of the distal left cervical vertebral artery V3 segment, less than 25% stenosis. Moderate stenosis left vertebral artery origin. 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 Thyroid: Calcified left thyroid lesion measuring 8.5 mm. No specific follow-up imaging is recommended. Soft tissues: Normal. No significant soft tissue swelling. Bones/joints: Diffuse osteopenia. Moderate left C2-C3 primary facet osteoarthritis. Moderate left C2-C3 and C3-C4 neural foraminal narrowing. Moderately severe right C3-C4 neural foraminal narrowing. Mild right C7-T1 primary facet osteoarthritis. Lungs: Medial left upper lobe mild pulmonary parenchymal scarring. CT/CT angio headneck* [id number] IMPRESSION: No acute intracranial vascular abnormality identified. IMPRESSION: 1. No acute extracranial vascular abnormality identified. 2. Proximal right internal carotid artery calcified and noncalcified smooth plaque, 55-65 % stenosis. 3. Moderate stenosis left vertebral artery origin. 4. 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 Consider vertebral artery steal syndrome. COMMENTS: Consistent with the [employer]'s Incidental Findings Committee white paper (J Am Shira Radiol 2015): In patients aged 35 years and older with an incidental thyroid nodule equal to or greater than 1.[address], MRI or extrathyroidal US, further evaluation with dedicated thyroid US is recommended for patients with normal life expectancy and without comorbidities. For smaller nodules without suspicious features, no further evaluation or follow up is recommended. REFERENCES: NASCET CRITERIA. The degree of stenosis in the cervical segment of the internal carotid artery is based on NASCET criteria. Normal is no stenosis. Mild is less than 50% stenosis. Moderate is 50-69% stenosis. Severe is 70% to 99% stenosis. Total occlusion is no detectable patent lumen.
[2025-02-26] MEDS: iohexol 350 mg/mL 500 mL Btl (per mL) IV (16:26)
--- NOTE | 2025-02-26 16:45 | XRR_ITS ---
PROCEDURE INFORMATION: Exam: XR Chest Exam date and time: 02/26/2025 4:47 PM Age: 79 years old Clinical indication: Other: CVA workup; Additional info: CVA workup vs encephalopathy TECHNIQUE: Imaging protocol: Radiologic exam of the chest. Views: 1 view. Other technique: Frontal portable upright view of the chest. COMPARISON: CR (CHEST, ) 01/26/2025 1:17 PM FINDINGS: Tubes, catheters and devices: EKG leads are present overlying the chest. Lungs: The lungs are clear bilaterally. The pulmonary vasculature is normal. Pleural spaces: No pleural effusion. No pneumothorax. Heart/Mediastinum: The heart is normal in size and contour. Mediastinum: Stable. Vasculature: Moderate aortic arch atherosclerotic calcification without ectasia. Bones/joints: Stable. XR/XR chest 1V portable [id number] IMPRESSION: No acute cardiopulmonary abnormality identified.
--- NOTE | 2025-02-26 16:45 | ECG_ITS ---
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 Measurements Intervals [place] Rate: 67 P: 51 NC: 175 QRS: 19 QRSD: 75 T: 66 QT: 396 QTc: 419 Interpretive Statements SINUS RHYTHM Compared to ECG 01/26/2025 20:39:27 T-wave abnormality no longer present Electronically Signed On 03-04-2025 11:55:58 CDT by Caleb Romero M.D. [email or web address]
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
[2025-02-26 17:29] VITALS: BP 107/68; PULSE 71; RESP 16; O2SAT 100
[2025-02-26 17:34] VITALS: PULSE 69; RESP 16; O2SAT 100
[2025-02-26] MEDS: folic acid 1 MG, multivitamin inj 10 ML, thiamine 100 MG in sodium chloride 0.9% 1,000 ML 252.8 MG IV (17:52)
[2025-02-26 17:55] LABS: Basophils % 0.3 %; Eosinophils # 0.1 10^3/uL (0.0-0.8); Eosinophils % 1.6 %; Hematocrit 36.2 % (36-47); Lymphocytes # 1.4 10^3/uL (0.8-4.8); Lymphocytes % 18.2 %; Mean Corpuscular HGB Conc 32.3 g/dL (30-55); Mean Corpuscular Hemoglobin 27.1 pg (27-33); Mean Platelet Volume 9.7 fL (7.4-10.4); Monocytes # 0.7 10^3/uL (0.2-0.9); Monocytes % 8.8 %; Neutrophils # 5.29 10^3/uL (1.8-7.7); Neutrophils % 70.8 %; Nucleated Red Blood Cells % 0 %; Platelet Count 233 10^3/cmm (157-399); Red Blood Count 4.31 10^6/uL (3.85-5.65); Red Cell Distribution Width 15.5 % (12.1-15.1); White Blood Count 7.47 10^3/uL (3.29-11.43)
[2025-02-26 18:17] LABS: INR 0.87 (0.8-1.2); Partial Thromboplastin Time 26.1 SECONDS (23.9-36.7)
[2025-02-26 18:18] LABS: Bilirubin Urine Negative (Negative); Blood Urine 1+ (Negative); Glucose Urine UA Negative (Normal); Ketones Urine Negative (Negative); Leukocyte Esterase Urine 3+ (Negative); Nitrate Urine Negative (Negative); Protein Urine Negative (Negative); Urine Appearance Cloudy (CLEAR); Urine Color Yellow (Yellow); Urobilinogen Urine 0.2 mg/dL (Negative); pH Urine 7.5 (5-7)
[2025-02-26 18:23] LABS: Add Urine Microscopic? YES; Bacteria Urine 2+ /hpf; Hyaline Casts Urine 0.81 /lpf; RBC Urine 0-2 /hpf (0-2); Squamous Epithelial Cell Urine 0-5 /hpf (0-5); WBC Urine >100 /hpf (0-5)
[2025-02-26 18:24] LABS: Amphetamines Screen Urine Negative (Negative); Barbiturates Screen Urine Negative (Negative); Benzodiazepines Screen Urine Negative (Negative); Cocaine Screen Urine Negative (Negative); Opiate Screen Urine Negative (Negative); PCP Screen Urine Negative (Negative); THC Screen Urine Negative (Negative)
[2025-02-26 18:25] LABS: Alanine Aminotransferase 7 U/L (0-33); Albumin Level 3.5 g/dL (3.5-5.2); Alkaline Phosphatase 111 U/L (35-105); Anion Gap 20.2 (5-19); Aspartate Amino Transferase 15 U/L (0-32); Blood Urea Nitrogen 23 mg/dL (8-23); Calcium 9.3 mg/dL (8.5-10.5); Carbon Dioxide 21 mmol/L (22-29); Chloride 93 mmol/L (98-107); Creatinine Clr Calc Pharmacy 38.6276; Globulin 4.3 g/dL (1.3-4.6); Glucose 93 mg/dL (65-115); Osmolality Calculated 273 mOsm/kg (285-295); Potassium 4.2 mmol/L (3.5-5.1); Sodium 130 mmol/L (136-145); Total Bilirubin 0.3 mg/dL (0.15-1.2); Total Protein 7.8 g/dL (6.6-8.7)
[2025-02-26 18:26] VITALS: BP 136/82; PULSE 72; RESP 16; O2SAT 97
[2025-02-26 18:28] LABS: Alcohol Level < 10 mg/dL (0-10)
[2025-02-26 18:37] LABS: Ammonia 23 umol/L (11-51)
[2025-02-26 18:38] LABS: Specific Gravity, Urine 1.038 (1.005-1.030); UA Slide Review UA Slide Review Perf
[2025-02-26 18:39] LABS: Add Urine Culture? Yes
[2025-02-26] MEDS: cefTRIAXone 2,000 mg SDV 2000 MG IVP (18:59)
[2025-02-26 19:28] VITALS: BP 208/91; PULSE 69; RESP 16; O2SAT 97
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
[2025-02-26 20:25] LABS: Glucose Point of Care 103 mg/dL (70-110)
[2025-02-26 21:35] VITALS: BP 151/63; PULSE 67; RESP 17; TEMP 36.6; O2SAT 98
--- NOTE | 2025-02-26 21:52 | PC.NURSE ---
Sitter was pulled back to the ER, pt bed alarm was set.
[2025-02-26 22:16] VITALS: BMI 20.1
[2025-02-26] MEDS: heparin 5,000 unit/mL INJ 1 mL 5000 UNIT SUBCUT (22:44)
[2025-02-26] MEDS: OLANZapine 5 mg ODT 2.5 MG PO (22:45)
[2025-02-26] MEDS: sodium chloride 0.9% 1,000 ML 100 ML IV (22:45)
[2025-02-27] VITALS (8 sets, daily range): BP systolic 100–152; BP diastolic 60–90; PULSE 63–86; RESP 15–18; TEMP 36.4–37.2; O2SAT 94–99
--- NOTE | 2025-02-27 00:15 | PC.NURSE ---
patient impulsive, gets out of bed without help, very unsteady on her feet. patient alert and oriented but asking where her dog is. patient pleasant.
[2025-02-27 05:35] LABS: Anion Gap 15.2 (5-19); Blood Urea Nitrogen 24 mg/dL (8-23); Calcium 8.5 mg/dL (8.5-10.5); Carbon Dioxide 20 mmol/L (22-29); Chloride 104 mmol/L (98-107); Creatinine Clr Calc Pharmacy 45.0249; Glucose 94 mg/dL (65-115); Osmolality Calculated 284 mOsm/kg (285-295); Potassium 4.2 mmol/L (3.5-5.1); Sodium 135 mmol/L (136-145)
[2025-02-27] MEDS: sodium chloride 0.9% 1,000 ML 100 ML IV (09:29)
[2025-02-27] MEDS: aspirin 81 mg EC Tablet PO ×2 (09:30→17:24)
--- NOTE | 2025-02-27 09:30 | PC.NURSE ---
Patient absolutely refused taking heparin shot. This nurse explained what the injection was for. Patient still refused.
--- NOTE | 2025-02-27 10:50 | PC.PHAR ---
Pharmacy states pt has Metoprolol Tartarate 25mg-12.5mg daily-never picked up.
[2025-02-27] MEDS: cefTRIAXone 1,000 mg SDV 1000 MG IVP (17:25)
[2025-02-27] MEDS: OLANZapine 5 mg ODT 2.5 MG PO (17:25)
--- NOTE | 2025-02-27 17:44 | P.PN_ITS ---
Subjective 2 Subjective: Patient is alert awake and oriented x 3 today. Denies any specific complaints. Urine noted to have increased WBCs greater than 100, 3+ leukocyte esterase, awaiting urine culture. Vitals/I&O/Wt Last Vital Signs Temp 98.3 F 02/27/25 15:26 Pulse 63 02/27/25 15:26 Resp 16 02/27/25 15:26 BP 104/66 02/27/25 15:26 Pulse Ox 97 02/27/25 15:26 O2 Del Method Room Air 02/27/25 15:26 02/27/25 02/27/25 02/27/25 06:59 14:59 22:59 Intake Total 480 / 1491.2 1240 / 1240 Balance 480 / 1491.2 1240 / 1240 Weight last 48 hrs Weight 50.009 kg Weight 49.895 kg Weight 48.988 kg Weight 45.359 kg Physical Exam 2 Narrative: General: No acute distress, AO x3 HEENT: PERRLA, pupils bilaterally equal and reactive, pallors not present Chest: Normal vesicular breath sounds, no added sounds, equal good air entry bilaterally CVS: S1-S2 regular, no murmurs, no tachycardia, no gallops, no rubs Abdomen: Soft, nontender, no organomegaly, bowel sounds present Neuro: No focal deficits, no facial deformity, AO x3, power 5/5 in all limbs Data 02/26/25 17:31 02/27/25 04:49 A&P Assessment and plan (1) Acute UTI: Continue with Rocephin pending cultures. She has had Enterobacter and Klebsiella sensitive to Rocephin in the past (2) Infectious encephalopathy: Monitor symptoms PT evaluation in the morning (3) Hyponatremia: Saline infusion and repeat mini panel in the morning Plan February 27, 2025 Overnight labs and H&P reviewed. On exam today patient has right lower extremity slightly weaker compared to the left side. Upper extremities are bilateral equal strength. Head and neck CTA reviewed from overnight which showed a 55 to 65% stenosis of the proximal right ICA. 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 Vertebral artery steal syndrome is certainly a possibility which could explain patient's recurrent falls. Reviewing prior CTs, this was finding was present even on CAT scan dating back to January 2024. Patient will need vascular surgery as outpatient. At this time patient is awake alert and oriented x 3. She does not recall the events leading up to admission. Likely that recurrent syncope is related to vertebral steal rather than UTI. We will await urine culture to treat the current episode. Anticipate discharge in the upcoming 24 hours on oral antibiotics with referral to vascular surgery as outpatient. PDMP PDMP Reviewed: Not Reviewed Attestations 2 Medical Necessity Statement*: Awaiting urine culture Coding Level of Care Code Acute Code for Chg Fwd Diagnoses Acute UTI N39.0 Infectious encephalopathy G93.49; B99.9 Hyponatremia E87.1
[2025-02-28 04:00] VITALS: BP 136/74; PULSE 84; RESP 16; TEMP 36.6; O2SAT 98
[2025-02-28 06:24] LABS: Anion Gap 17.3 (5-19); Blood Urea Nitrogen 22 mg/dL (8-23); Carbon Dioxide 21 mmol/L (22-29); Chloride 101 mmol/L (98-107); Creatinine Clr Calc Pharmacy 45.8743; Glucose 94 mg/dL (65-115); Osmolality Calculated 283 mOsm/kg (285-295); Potassium 4.3 mmol/L (3.5-5.1); Sodium 135 mmol/L (136-145)
[2025-02-28 07:23] VITALS: BP 145/67; PULSE 77; RESP 16; TEMP 36.8; O2SAT 95
--- NOTE | 2025-02-28 08:06 | PC.NURSE ---
This nurse called patients son, Fortino, and informed him that pt was discharging this morning and verified pharmacy. Fortino will be here in about 1 hour to black pickler pt.
[2025-02-28] MEDS: aspirin 81 mg EC Tablet PO (08:27)
--- NOTE | 2025-02-28 16:54 | PM.DCS ---
Discharge Providers Date of Admission: 02/26/25 19:28 Date of Discharge: February 28, 2025 Attending Provider at Admission: Dougie Hoover MD Attending Provider at Discharge: Zena Carroll MD Primary Care Provider: Daquan Luna MD Diagnoses at Discharge Discharge Diagnosis (1) Acute UTI: Status: Acute (2) Infectious encephalopathy: Status: Acute (3) Hyponatremia: Status: Acute Reason for Visit Reason for Visit: Stroke Alert Hospital Course Hospital Course Terri Pride is a 79 year old female with history of CVA came in to the emergency room on 06/29/2025 with complaints of altered mental status. She was found to have some flattening of her nasolabial fold and was diffusely weak and fatigued. She had a symmetrical right-sided weakness. She was found to have had a fall in the kitchen earlier that afternoon. CT of the head and CTA of the head and neck did not show any acute stroke however she was found to have proximal right internal carotid artery calcification and smooth plaque 55 to 65% stenosis. There was moderate stenosis of the left vertebral artery origin. There was additionally a focal aneurysm at the left subclavian artery with proximal left subclavian artery occlusion and distal reconstitution with consideration for vertebral artery steal syndrome. Similar findings were noted on CT of the chest in January 2024. Possible that vertebral artery steal syndrome may be a cause of patient's recurrent falls. Her weakness recovered during the hospital course. Seems less likely to be acute stroke. Noted to be chronic changes including a chronic infarction in the left caudate body. Patient has been referred to vascular surgery at [facility] for further assessment. She was also found to have a urinary tract infection with urine WBC greater than 100, 3+ leukocyte esterase. Urine culture is pending at the time of discharge. She was discharged empirically on ciprofloxacin 500 mg twice daily for 3 days. Instructed to follow-up with primary care physician within 2 to 3 days of discharge. Physical Exam Narrative: General: No acute distress, AO x3 HEENT: PERRLA, pupils bilaterally equal and reactive, pallors not present Chest: Normal vesicular breath sounds, no added sounds, equal good air entry bilaterally CVS: S1-S2 regular, no murmurs, no tachycardia, no gallops, no rubs Abdomen: Soft, nontender, no organomegaly, bowel sounds present Neuro: No focal deficits, no facial deformity, AO x3, power 5/5 in all limbs Discharge Data Studies Completed and Pending Completed Studies During Hospitalization Category Date Time Status CT angio headneck* [id number] Stat Cat Scan 02/26/25 16:[address] head thrombolytic [id number] Stat Cat Scan 02/26/25 16:15 Completed XR chest 1V portable [id number] Stat Exams 02/26/25 16:45 Completed Pending at discharge Category Date Time Status Urine Culture Stat Lab 02/26/25 18:01 Results Radiology Impressions Head CT 02/26/25 16:15 IMPRESSION: 1. Chronic infarction left caudate body and genu of internal capsule. 2. Age appropriate supratentorial and infratentorial atrophy. 3. Moderate chronic white matter microvascular ischemic disease. 4. No acute intracranial abnormality identified. ASSESSMENT: ASPECTS ([place] Stroke Program Early CT Score) is 10. ADDENDUM: 02/26/25 [id number] THIS REPORT CONTAINS FINDINGS THAT MAY BE CRITICAL TO PATIENT CARE. The findings were verbally communicated by me to DR. CLARISSE SANTOS via telephone conference at 4:29 PM CDT on 02/26/2025. The findings were acknowledged and understood. Head/Neck CTA 02/26/25 16:21 IMPRESSION: No acute intracranial vascular abnormality identified. IMPRESSION: 1. No acute extracranial vascular abnormality identified. 2. Proximal right internal carotid artery calcified and noncalcified smooth plaque, 55-65 % stenosis. 3. Moderate stenosis left vertebral artery origin. 4. 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 Consider vertebral artery steal syndrome. COMMENTS: Consistent with the [employer]'s Incidental Findings Committee white paper (J Am Shira Radiol 2015): In patients aged 35 years and older with an incidental thyroid nodule equal to or greater than 1.[address], MRI or extrathyroidal US, further evaluation with dedicated thyroid US is recommended for patients with normal life expectancy and without comorbidities. For smaller nodules without suspicious features, no further evaluation or follow up is recommended. REFERENCES: NASCET CRITERIA. The degree of stenosis in the cervical segment of the internal carotid artery is based on NASCET criteria. Normal is no stenosis. Mild is less than 50% stenosis. Moderate is 50-69% stenosis. Severe is 70% to 99% stenosis. Total occlusion is no detectable patent lumen. Chest X-Ray 02/26/25 16:45 IMPRESSION: No acute cardiopulmonary abnormality identified. Laboratory Results WBC 7.47 10^3/uL (3.29-11.43) 02/26/25 17: RBC 4.31 10^6/uL (3.85-5.65) 02/26/25 17: Hgb 11.70 g/dL (11.27-16.99) 02/26/25 17: Hct 36.2 % (36-47) 02/26/25 17: MCV 84.0 fl (85-98) L 02/26/25 17: MCH 27.1 pg (27-33) 02/26/25 17: MCHC 32.3 g/dL (30-55) 02/26/25 17: RDW 15.5 % (12.1-15.1) H 02/26/25 17: Plt Count 233 10^3/cmm (157-399) 02/26/25 17: MPV 9.7 fL (7.4-10.4) 02/26/25 17: Neut % (Auto) 70.8 % 02/26/25 17: Lymph % (Auto) 18.2 % 02/26/25 17: [place] % (Auto) 8.8 % 02/26/25: Eos % (Auto) 1.6 % 02/26/25: Baso % (Auto) 0.3 % 02/26/25 17: Neut # (Auto) 5.29 10^3/uL (1.8-7.7) 02/26/25 17: Lymph # (Auto) 1.4 10^3/uL (0.8-4.8) 02/26/25 17: [place] # (Auto) 0.7 10^3/uL (0.2-0.9) 02/26/25 17: Eos # (Auto) 0.1 10^3/uL (0.0-0.8) 02/26/25 17: Baso # (Auto) 0.0 10^3/uL (0.0-0.1) 02/26/25 17:31 Nucleated RBC % (auto) 0 % 02/26/25 17:31 Nucleated RBCs # 0.0 /100WBC 02/26/25 17:31 PT 12.50 SECONDS (12.1-14.9) 02/26/25 17:31 INR 0.87 (0.8-1.2) 02/26/25 17:31 APTT 26.1 SECONDS (23.9-36.7) 02/26/25 17:31 Sodium 135 mmol/L (136-145) L 02/28/25 05:53 Potassium 4.3 mmol/L (3.5-5.1) 02/28/25 05:53 Chloride 101 mmol/L (98-107) 02/28/25 05:53 Carbon Dioxide 21 mmol/L (22-29) L 02/28/25 05:53 Anion Gap 17.3 (5-19) 02/28/25 05:53 BUN 22 mg/dL (8-23) 02/28/25 05:53 Creatinine 0.7 mg/dL (0.5-0.9) 02/28/25 05:53 GFR Calculation Not Reportable 02/28/25 05:53 Glucose 94 mg/dL (65-115) 02/28/25 05:53 POC Glucose 103 mg/dL (70-110) 02/26/25 16:32 Calculated Osmolality 283 mOsm/kg (285-295) L 02/28/25 05:53 Calcium 9.0 mg/dL (8.5-10.5) 02/28/25 05:53 Total Bilirubin 0.3 mg/dL (0.15-1.2) 02/26/25 17:31 AST 15 U/L (0-32) 02/26/25 17:31 ALT 7 U/L (0-33) 02/26/25 17:31 Alkaline Phosphatase 111 U/L (35-105) H 02/26/25 17:31 Ammonia 23 umol/L (11-51) 02/26/25 17:31 Total Protein 7.8 g/dL (6.6-8.7) 02/26/25 17:31 Albumin 3.5 g/dL (3.5-5.2) 02/26/25 17:31 Globulin 4.3 g/dL (1.3-4.6) 02/26/25 17:31 Urine Color Yellow (Yellow) 02/26/25 18:01 Urine Appearance Cloudy (CLEAR) A 02/26/25 18:01 Urine pH 7.5 (5-7) 02/26/25 18:01 Ur Specific [place] 1.038 (1.005-1.030) H 02/26/25 18:01 Urine Protein Negative (Negative) 02/26/25 18:01 Urine Glucose (UA) Negative (Normal) 02/26/25 18:01 Urine Ketones Negative (Negative) 02/26/25 18:01 Urine Blood 1+ (Negative) A 02/26/25 18:01 Urine Nitrate Negative (Negative) 02/26/25 18: Urine Bilirubin Negative (Negative) 02/26/25 18: Urine Urobilinogen 0.2 mg/dL (Negative) 02/26/25 18:01 Ur Leukocyte Esterase 3+ (Negative) A 02/26/25 18:01 Urine RBC 0-2 /hpf (0-2) 02/26/25 18:01 Urine WBC >100 /hpf (0-5) H 02/26/25 18:01 Ur Squamous Epith Cells 0-5 /hpf (0-5) 02/26/25 18:01 Amorphous Sediment Not Reportable 02/26/25 18:01 Urine Bacteria 2+ /hpf (NONE) H 02/26/25 18:01 Hyaline Casts 0.81 /lpf 02/26/25 18:01 Urine Opiates Screen Negative ng/mL (Negative) 02/26/25 18:01 Ur Barbiturates Screen Negative ng/mL (Negative) 02/26/25 18:01 Ur Phencyclidine Scrn Negative ng/mL (Negative) 02/26/25 18:01 Ur Amphetamines Screen Negative ng/mL (Negative) 02/26/25 18:01 U Benzodiazepines Scrn Negative ng/mL (Negative) 02/26/25 18:01 Urine Cocaine Screen Negative ng/mL (Negative) 02/26/25 18:01 U Marijuana (THC) Screen Negative ng/mL (Negative) 02/26/25 18:01 Ethyl Alcohol < 10 mg/dL (0-10) 02/26/25 17:31 Vitals Last Vital Signs Temp 98.3 F 02/28/25 07:23 Pulse 77 02/28/25 07:23 Resp 16 02/28/25 07:23 BP 145/67 02/28/25 07:23 Pulse Ox 95 02/28/25 07:23 O2 Del Method Room Air 02/28/25 07:23 Discharge Plan Discharge Patient Disposition: Home Condition: Stable Prescriptions: New aspirin 81 mg Tablet,Delayed Release (Dr/Ec) 81 mg PO BID Qty: 0 0RF ciprofloxacin HCl [Cipro] 500 mg tablet 500 mg PO BID 3 Days Qty: 6 0RF Continued albuterol sulfate 90 mcg/actuation HFA aerosol inhaler 2 puff INHALATION Q6H PRN (Reason: Shortness Of Breath) No Action (DME) right third finger custom yoke splint See Rx Instructions .Route .MEDSUPPLY Qty: 1 0RF Rx Instructions: maintain mp extension weekly therapy Discharge Orders: Discharge Order (Routine); Ordered 02/28/25 Ordered By: Zena Carroll Referrals: [facility] [Outside] Referral Note: carotid stenosis sent referall they should contact you Daquan Luna MD [Primary Care Provider, Family Practice] - 03/06/25 1:20 pm Referral Note: Patient Instructions: Ciprofloxacin (By mouth), Aspirin (By mouth), Urinary Tract Infection in Women (GEN), Hyponatremia (GEN), Opioid Safety Discharge Attestations Time Spent in Discharge Care*: greater than 30 min Quality Metrics Clinical Quality Measures [ No reported AMI, CVA or VTE this stay] Coding Level of Care Code Acute Code for Chg Fwd Diagnoses Acute UTI N39.0 Infectious encephalopathy G93.49; B99.9 Hyponatremia E87.1
== END 2025-02-28 09:22 | disposition home or self-care (01) ==
LOC: ER 18:54 → MEDSURG 02-27 00:27
PROVIDERS: Admitting Provider Internal Medicine; Emergency Provider Emergency Medicine; PCP Family Medicine; Visit Provider Student in an Organized Health Care Education/Training Program
DX: N39.0 Urinary tract infection, site not specified (principal); G93.49 Other encephalopathy; B99.9 Unspecified infectious disease; E78.1 Pure hyperglyceridemia; Z86.73 Personal history of transient ischemic attack (TIA), and cerebral infarction without residual deficits; Z79.82 Long term (current) use of aspirin; Z66 Do not resuscitate; I25.2 Old myocardial infarction; I95.9 Hypotension, unspecified; I65.21 Occlusion and stenosis of right carotid artery
CPT/HCPCS: 36415; 36416; 70450; 70496; 70498; 71045; 80048; 80053; 80306; 80307; 81001; 82140; 82962; 85025; 85610; 85730; 87077; 87086; 87186; 93005; 96372; 96374; 96376; 99285; G0378; J0696; J1644; J3411; J3490; J7030; J9999

== ENCOUNTER 2025-03-05 10:48 | Emergency (ER) | payer MEDICARE, MEDICAID, SELFPAY ==
[2025-03-05 10:49] VITALS: BP 159/85; PULSE 71; RESP 20; TEMP 36.4; O2SAT 100
--- NOTE | 2025-03-05 10:57 | CT_ITS ---
WS: [id number] CT THORACIC SPINE TECHNIQUE: Noncontrast CT of the thoracic spine with coronal and sagittal reformatted images. CLINICAL INFORMATION: Traumatic upper back pain COMPARISON: None. DLP: 2407.[address] scans at [facility] use at least one of these dose optimization techniques: automated exposure control; mA and/or kV adjustment per patient size (includes targeted exams where dose is matched to clinical indication); or iterative reconstruction. FINDINGS: Mild thoracic curve. Moderate thoracic kyphosis. Osteopenia. Chronic appearing compression anterior wedging at T12. Minimal slight compression deformity superior endplates in the upper thoracic spine at T3 and T4 likely chronic. L2 compression fracture described on the lumbar spine MRI. No definite acute appearing compression fractures. No high-grade central canal stenosis. Dense vascular calcification. Aortic calcification. No mediastinal or hilar lymphadenopathy. Adrenal glands are normal. Moderate esophageal hiatal hernia. CT/CT thoracic spin wo con* [id number] IMPRESSION: 1. No acute appearing compression fractures in the thoracic spine. 2. Chronic appearing mild compression superior plate T12. 3. Slight compression superior endplates of T3 and T4 likely chronic.
--- NOTE | 2025-03-05 10:57 | CT_ITS ---
WS: [id number] CT HEAD TECHNIQUE: Noncontrast CT of the head obtained from the skullbase to the vertex. CLINICAL INFORMATION: trauma COMPARISON: 02/26/2025 DLP: 2407.[address] scans at [facility] use at least one of these dose optimization techniques: automated exposure control; mA and/or kV adjustment per patient size (includes targeted exams where dose is matched to clinical indication); or iterative reconstruction. FINDINGS: No evidence of intracranial hemorrhage or mass effect. Ventricular system and basal cisterns are patent. Moderate small vessel changes with moderate parenchymal volume loss. No extra-axial fluid collections. No evidence of mass or mass effect. Chronic lacunar infarcts involving the nash radiata and genu LEFT internal capsule unchanged. Vascular calcification. Paranasal sinuses are well aerated. Mastoid air cells are well aerated. Normal posterior nasopharynx. CT/CT head wo con* [id number] IMPRESSION: 1. No evidence of intracranial hemorrhage or mass effect. 2. No acute intracranial findings.
--- NOTE | 2025-03-05 10:57 | CT_ITS ---
WS: [id number] CT CERVICAL TRAUMA TECHNIQUE: Noncontrast CT of the cervical spine with coronal and sagittal reformatted images. CLINICAL INFORMATION: trauma, neck pain COMPARISON: 12/20/2024 DLP: 2407.[address] scans at [facility] use at least one of these dose optimization techniques: automated exposure control; mA and/or kV adjustment per patient size (includes targeted exams where dose is matched to clinical indication); or iterative reconstruction. FINDINGS: Straightening of the normal cervical lordosis. Moderate spondylitic changes. Disc space narrowing worse at C5-C6 and C6-C7. Normal craniocervical junction. Normal C1-C2 articulation. Dens is normal in appearance. Normal occipital condyles. No high-grade spinal canal narrowing. Normal C1 ring. No evidence of acute fracture or dislocation. Normal prevertebral soft tissues. Small partially calcified LEFT thyroid nodule. Vascular calcification. Mastoids air cells are well aerated. CT/CT cervical spin wo con* [id number] IMPRESSION: No evidence of acute fracture or dislocation.
--- NOTE | 2025-03-05 10:57 | CT_ITS ---
WS: [id number] CT LUMBAR SPINE TECHNIQUE: Noncontrast CT of the lumbar spine with coronal and sagittal reformatted images. CLINICAL INFORMATION: low back pain COMPARISON: CT chest abdomen pelvis 01/04/2024 DLP: 2407.[address] scans at [facility] [place] use at least one of these dose optimization techniques: automated exposure control; mA and/or kV adjustment per patient size (includes targeted exams where dose is matched to clinical indication); or iterative reconstruction. FINDINGS: Compression fracture superior endplate L2 with loss of approximately 30 to 40% vertebral body height with endplate sclerosis. This is new since 01/04/2024 but may be subacute to chronic . Slight age-indeterminate compression superior endplate L3 eccentric to the LEFT. No other compression fractures. Moderate chronic central canal stenosis L4-5 due to disc bulging with facet arthropathy and ligamentum flavum hypertrophy. Disc bulging L5-S1 eccentric to the LEFT impinges the LEFT S1 nerve root with moderate LEFT foraminal narrowing. Adrenal glands are normal. Moderate esophageal hiatal hernia. Splenic artery calcification. Atrophic RIGHT kidney. Normal transverse processes. Osteopenia. Moderate facet arthropathy lower lumbar spine. Disc space narrowing worse at L5- S1 with vacuum disc phenomenon. CT/CT lumbar spine wo con* [id number] IMPRESSION: 1. Compression fracture superior endplate L2 with loss of approximately 30 to 40% vertebral body height with endplate sclerosis. This is new since 01/04/2024 but may be subacute to chronic in age 2. Slight age-indeterminate compression superior endplate L3 eccentric to the LEFT. No other compression fractures.
--- NOTE | 2025-03-05 10:58 | XR_ITS ---
WS: [id number] XR chest 1V portable [id number] REASON FOR EXAM: Weakness FINDINGS: Chest is unchanged compared to 02/26/2025. Calcification in the aortic arch with minimal tortuosity of the thoracic aorta. Heart size is within normal limits. Calcified granulomatous disease bilaterally. No acute pulmonary parenchymal or pleural abnormality. Old healed left clavicle, right humeral, and left rib fractures. Significant osteoarthritis in both glenohumeral joints. Mild degenerative spondylosis in the thoracic spine. XR/XR chest 1V portable [id number] IMPRESSION: Stable chest without acute abnormality.
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
--- NOTE | 2025-03-05 11:08 | PC.NURSE ---
PT is alert to person, place, situation. PT is unable to state the correct year or month.
--- NOTE | 2025-03-05 11:29 | PC.NURSE ---
Adult protective services contacted by this nurse.
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
[2025-03-05 12:01] VITALS: BP 146/90; PULSE 70; O2SAT 100
[2025-03-05 12:42] LABS: Basophils % 0.7 %; Eosinophils # 0.2 10^3/uL (0.0-0.8); Eosinophils % 2.9 %; Hematocrit 40.9 % (36-47); Lymphocytes # 1.9 10^3/uL (0.8-4.8); Lymphocytes % 35.1 %; Mean Corpuscular HGB Conc 30.1 g/dL (30-55); Mean Corpuscular Hemoglobin 27.2 pg (27-33); Mean Corpuscular Volume 90.5 fl (85-98); Mean Platelet Volume 9.6 fL (7.4-10.4); Monocytes # 0.6 10^3/uL (0.2-0.9); Monocytes % 11.3 %; Neutrophils # 2.72 10^3/uL (1.8-7.7); Neutrophils % 49.8 %; Nucleated Red Blood Cells % 0 %; Platelet Count 250 10^3/cmm (157-399); Red Blood Count 4.52 10^6/uL (3.85-5.65); Red Cell Distribution Width 15.7 % (12.1-15.1); White Blood Count 5.47 10^3/uL (3.29-11.43)
[2025-03-05 13:09] LABS: Alanine Aminotransferase 7 U/L (0-33); Albumin Level 3.3 g/dL (3.5-5.2); Alkaline Phosphatase 105 U/L (35-105); Blood Urea Nitrogen 15 mg/dL (8-23); Calcium 9.4 mg/dL (8.5-10.5); Carbon Dioxide 20 mmol/L (22-29); Chloride 100 mmol/L (98-107); Creatinine Clr Calc Pharmacy 43.3916; Globulin 4.7 g/dL (1.3-4.6); Glucose 86 mg/dL (65-115); Osmolality Calculated 274 mOsm/kg (285-295); Sodium 132 mmol/L (136-145); Total Bilirubin 0.4 mg/dL (0.15-1.2)
[2025-03-05 13:14] LABS: Anion Gap 16.5 (5-19); Potassium 4.5 mmol/L (3.5-5.1)
[2025-03-05 13:15] LABS: Aspartate Amino Transferase 19 U/L (0-32)
--- NOTE | 2025-03-05 13:56 | PC.SOCIAL ---
Spoke with patient in room regarding discharge disposition. Patient's son and [id number] called this CM and questioned about process of getting patient into a SNF. CM explained that patient would have to be willing to go since there is not a DPOA in place. Patient tells CM that she wants to return home with her son and DIL and she feels safe at home. She states that she wants to go home and wants her son to come and get her. Spoke with her in depth regarding HCD/DPOA. She states that she doesn't want to complete at this time, but will take a copy home with her.
[2025-03-05 14:18] VITALS: BP 180/76; PULSE 70; O2SAT 100
== END 2025-03-05 14:19 | disposition home or self-care (01) ==
PROVIDERS: Emergency Provider Emergency Medicine; PCP Family Medicine
DX: S32.020A Wedge compression fracture of second lumbar vertebra, initial encounter for closed fracture (principal); S40.022A Contusion of left upper arm, initial encounter; S40.021A Contusion of right upper arm, initial encounter; Z86.73 Personal history of transient ischemic attack (TIA), and cerebral infarction without residual deficits; Y04.8XXA Assault by other bodily force, initial encounter
CPT/HCPCS: 36415; 70450; 71045; 72125; 72128; 72131; 80053; 83605; 85025; 99284

== ENCOUNTER 2025-03-13 14:47 | Emergency (ER) | payer MEDICARE, MEDICAID, SELFPAY ==
[2025-03-13 15:02] VITALS: BP 130/72; PULSE 70; RESP 18; TEMP 36.7; O2SAT 98
--- NOTE | 2025-03-13 15:02 | ECG_ITS ---
[facility] Date: 2025-03-13 Pat Name: Terri Pride Department: Room: Gender: Female International Logistics Coordinator: : 1945 Requested By: Mary Willams Order Number: [id number] Noel MD: Caleb Romero M.D. Measurements Intervals Bucks Rate: 64 P: 54 MI: 175 QRS: 12 QRSD: 82 T: 61 QT: 406 QTc: 421 Interpretive Statements SINUS RHYTHM NONSPECIFIC T-WAVE ABNORMALITY Compared to ECG 02/26/2025 17:23:54 T-wave abnormality now present Electronically Signed On 03-14-2025 14:51:57 CDT by Caleb Romero M.D. [email or web address]
--- NOTE | 2025-03-13 15:02 | XR_ITS ---
WS: [id number] Portable AP upright chest, 03/13/2025 Clinical Data: psych clearance Comparison: Portable chest, 03/05/2025 Findings: No nodules, masses or effusions are seen. The heart is normal. The pulmonary vascularity is not increased. No pneumonia or pneumothorax is seen. The diaphragms are flattened. The aortic arch and descending thoracic aorta show calcification and tortuosity. There is an old right humeral neck fracture, proximal left clavicular fracture and left rib fractures. XR/XR chest 1V portable [id number] Impression: Atherosclerosis and hyperinflation.
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
[2025-03-13 15:31] LABS: Basophils % 0.7 %; Eosinophils # 0.4 10^3/uL (0.0-0.8); Eosinophils % 6.3 %; Hematocrit 35.9 % (36-47); Lymphocytes # 2.1 10^3/uL (0.8-4.8); Lymphocytes % 37.1 %; Mean Corpuscular HGB Conc 32.3 g/dL (30-55); Mean Corpuscular Hemoglobin 27.5 pg (27-33); Mean Corpuscular Volume 85.1 fl (85-98); Mean Platelet Volume 9.6 fL (7.4-10.4); Monocytes # 0.6 10^3/uL (0.2-0.9); Monocytes % 10.7 %; Neutrophils # 2.52 10^3/uL (1.8-7.7); Nucleated Red Blood Cells % 0 %; Platelet Count 308 10^3/cmm (157-399); Red Blood Count 4.22 10^6/uL (3.85-5.65); Red Cell Distribution Width 15.2 % (12.1-15.1)
[2025-03-13 15:51] LABS: Bilirubin Urine Negative (Negative); Blood Urine Non-haemolysed trace (Negative); Glucose Urine UA Negative (Normal); Ketones Urine Negative (Negative); Leukocyte Esterase Urine Negative (Negative); Nitrate Urine Negative (Negative); Protein Urine Trace (Negative); Specific Gravity, Urine 1.015 (1.005-1.030); Urine Appearance Clear (CLEAR); Urine Color Yellow (Yellow); Urobilinogen Urine 0.2 mg/dL (Negative)
[2025-03-13 15:56] LABS: Add Urine Microscopic? YES; Bacteria Urine None Seen /hpf; Squamous Epithelial Cell Urine 0-5 /hpf (0-5); WBC Urine 0-5 /hpf (0-5)
[2025-03-13 16:02] LABS: Amphetamines Screen Urine Negative (Negative); Barbiturates Screen Urine Negative (Negative); Benzodiazepines Screen Urine Negative (Negative); Cocaine Screen Urine Negative (Negative); Opiate Screen Urine Negative (Negative); PCP Screen Urine Negative (Negative); THC Screen Urine Negative (Negative)
[2025-03-13 16:04] LABS: Acetaminophen < 5.0 ug/mL (10-30); Alanine Aminotransferase 8 U/L (0-33); Albumin Level 3.5 g/dL (3.5-5.2); Alcohol Level < 10 mg/dL (0-10); Alkaline Phosphatase 124 U/L (35-105); Anion Gap 15.1 (5-19); Aspartate Amino Transferase 16 U/L (0-32); Blood Urea Nitrogen 18 mg/dL (8-23); Calcium 9.3 mg/dL (8.5-10.5); Carbon Dioxide 23 mmol/L (22-29); Chloride 102 mmol/L (98-107); Globulin 4.3 g/dL (1.3-4.6); Glucose 82 mg/dL (65-115); Osmolality Calculated 283 mOsm/kg (285-295); Potassium 4.1 mmol/L (3.5-5.1); Salicylate < 0.3 mg/dL (3-10); Sodium 136 mmol/L (136-145); Total Bilirubin 0.3 mg/dL (0.15-1.2); Total Protein 7.8 g/dL (6.6-8.7)
[2025-03-13 16:28] LABS: UA Slide Review UA Slide Review Perf
[2025-03-13 16:30] LABS: Influenza A NEGATIVE (Negative); Influenza B NEGATIVE (Negative); Respiratory Syncytial Virus Ce NEGATIVE (Negative); SARS-CoV-2 PCR NEGATIVE (Negative)
[2025-03-13 18:58] VITALS: PULSE 77; O2SAT 95
[2025-03-14 01:53] VITALS: BP 85/47; PULSE 105; RESP 16; TEMP 36.8; O2SAT 97
[2025-03-14 03:20] VITALS: BP 122/64; PULSE 66; O2SAT 97
--- NOTE | 2025-03-14 07:18 | PC.PHAR ---
Will follow up with [facility] for qty on Tramadol, when they open at 8am. Pt has Medication history of Amlodipine 2.5mg daily, Clopidogrel 75mg daily, Paroxetine 20mg daily, Pantoprazole 40mg daily, and folic acid 1mg daily BUT last fill date on all5 meds was 07/21/24. I would say she is no longer taking them.
--- NOTE | 2025-03-14 07:41 | PC.NURSE ---
ADULT PROTECTIVE SERVICES CALLED REQUESTING UPDATE ON PT.
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
== END 2025-03-14 12:46 | disposition short-term general hospital (02) ==
PROVIDERS: Emergency Provider Emergency Medicine; PCP Family Medicine
DX: F03.90 Unspecified dementia, unspecified severity, without behavioral disturbance, psychotic disturbance, mood disturbance, and anxiety (principal); Z91.83 Wandering in diseases classified elsewhere; Z11.52 Encounter for screening for COVID-19; Z86.73 Personal history of transient ischemic attack (TIA), and cerebral infarction without residual deficits
CPT/HCPCS: 36415; 71045; 80053; 80306; 80307; 81001; 84443; 85025; 87637; 93005; 99285

== ENCOUNTER 2025-07-17 07:43 | Emergency (ER) | payer MEDICARE, MEDICAID, SELFPAY ==
[2025-07-17 07:44] VITALS: BP 167/80; PULSE 73; RESP 16; TEMP 36.8; O2SAT 92; BMI 20.1
--- NOTE | 2025-07-17 07:46 | XR_ITS ---
WS: [id number] XR hip RT 2-3V wo/w pel* [id number] REASON FOR EXAM: Trauma FINDINGS: Moderately decreased bone density. Old healed fracture of the superior and inferior pubic rami on the right with significant pelvic deformity. Significant osteoarthritis of the right hip joint. Equivocal incomplete occult intertrochanteric fracture possible, more likely artifactual. XR/XR hip RT 2-3V wo/w pel* [id number] IMPRESSION: Equivocal for fracture as above. CT scan to resolve would be reasonable if clin ically appropriate.
--- NOTE | 2025-07-17 07:52 | ECG_ITS ---
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 Measurements Intervals [place] Rate: 72 P: 59 ME: 182 QRS: 53 QRSD: 77 T: 81 QT: 398 QTc: 438 Interpretive Statements SINUS RHYTHM LEFT VENTRICULAR HYPERTROPHY AND ST-T CHANGE [VOLTAGE CRITERIA PLUS ST/T ABNORMALITY] Compared to ECG 03/13/2025 16:10:02 Left ventricular hypertrophy now present ST (T wave) deviation now present T-wave abnormality no longer present Electronically Signed On 07-19-2025 12:04:24 CDT by Caleb Romero M.D. [email or web address]
--- NOTE | 2025-07-17 07:52 | XR_ITS ---
WS: [id number] XR chest 1V portable [id number] REASON FOR EXAM: dyspnea/cough FINDINGS: Compared to the previous examination of 03/13/2025 there is subtle hazy groundglass lung opacity with peribronchial cuffing with areas of linear lung opacity. The chronicity of these findings is unknown. There is mild central pulmonary venous congestion. The heart is at the upper limits of normal in size. The chest is otherwise unchanged compared to the previous study. XR/XR chest 1V portable [id number] IMPRESSION: Interval new findings in the chest compared to the previous study as above. Fin dings are compatible with either acute/subacute pneumonitis or congestive failu re.
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
--- OUTSIDE RECORDS SUMMARY | 2025-07-17 07:56 | XMS_ITS | Patient Health Record ---
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 Name Role Phone David Campos Unavailable [phone] Allergies No Known Allergies Reason For Referral No Information Medications Medication SIG (Take, Route, Frequency, Duration) Notes Start Date End Date Status Escitalopram Oxalate 10 MG Tablet 1 tablet Orally Once a day Active Zaleplon 5 MG Capsule 1 capsule at bedti me as needed Orally Once a day Active Acetaminophen 325 MG Tablet 1 tablet as needed Orally every 6 hrs Active Problems Problem Type SNOMED Code ICD Code Onset Dates Problem Status W/U Status Risk Notes Problem Anxiety (71818384) Anxiety (F41.9) Active confirmed Problem Anxiety disorder (075250284) Anxiety disorder (F41.9) Active confirmed Problem Insomnia (058354380) Insomnia (G47.00) Active confirmed Problem Adult failure to thrive syndrome (532898376) Failure to thrive in adult (R62.7) Active confirmed Problem Acute insomnia (437785152) Acute insomnia (G47.00) Active confirmed Problem Chronic kidney disease stage 2 (448014564) Chronic kidney disease (CKD) stage G2/A1, mildly decreased glomerular filtration rate (GFR) between 60-89 mL/min/1.73 square meter and albuminuria creatinine ratio less than 30 mg/g (N18.2) Active confirmed Problem Iron deficiency anemia (47317908) Anemia, iron deficiency (D50.9) Active confirmed Problem Dementia with behavioral disturbance (disorder) (4939045233380) Unspecified dementia, unspecified severity, with other behavioral disturbance (F03.918) Active confirmed Problem Unspecified dementia, severe, with other behavioral disturbance (F03.C18) Active confirmed Encounters Encounter Location Date Provider Diagnosis [facility] [address] [place] [address] 04/11/2025 David Campos Insomnia G47.00 ; Failure to thrive in adult R62.7 and Unspecified dementia, severe, with other behavioral disturbance F03.C18 [facility] [address] [place] [address] 04/25/2025 David Campos Anxiety disorder F41.9 ; Acute insomnia G47.00 and Failure to thrive in adult R62.7 [facility] [address] [place] [address] 05/16/2025 David Campos Anxiety disorder F41.9 ; Acute insomnia G47.00 and Failure to thrive in adult R62.7 [facility] [address] [place] [address] 05/23/2025 David Campos Insomnia G47.00 ; Failure to thrive in adult R62.7 ; Unspecified dementia, severe, with other behavioral disturbance F03.C18 and Depression, unspecified F32.A [facility] [address] [place] [id number] 04/17/2025 David Campos Assessments Encounter Date Diagnosis (ICD Code) Assessment Notes Treatment Notes Treatment Clinical Notes Section Notes 04/11/2025 Insomnia (ICD-10 - G47.00) Medications reviewed, orders signed and documented with nursing staff. Vitals taken and recorded at [facility]. 04/11/2025 Failure to thrive in adult (ICD-10 - R62.7) 05/16/2025 Anxiety disorder (ICD-10 - F41.9) Medications were reviewed. I will continue without changes. Nursing staff is to contact me with any symptoms arising. Orders signed and documented with nursing staff. Vitals taken and recorded at [facility]. 05/23/2025 Insomnia (ICD-10 - G47.00) 05/23/2025 Failure to thrive in adult (ICD-10 - R62.7) 04/25/2025 Anxiety disorder (ICD-10 - F41.9) Medications were reviewed. I will continue without changes. Nursing staff is to contact me with any symptoms arising. Orders signed and documented with nursing staff. Vitals taken and recorded at [facility]. 04/25/2025 Acute insomnia (ICD-10 - G47.00) 05/16/2025 Acute insomnia (ICD-10 - G47.00) 05/23/2025 Unspecified dementia, severe, with other behavioral disturbance (ICD-10 - F03.C18) Medications reviewed, orders signed and documented with nursing staff. Vitals taken and recorded at [facility]. Pt approved for discharge. Time spent managing discharge: 25 mins 04/11/2025 Unspecified dementia, severe, with other behavioral disturbance (ICD-10 - F03.C18) 05/16/2025 Failure to thrive in adult (ICD-10 - R62.7) 05/23/2025 Depression, unspecified (ICD-10 - F32.A) 04/25/2025 Failure to thrive in adult (ICD-10 - R62.7) Plan Of Treatment No Information Insurance Providers Payer Name Payer Address Payer Phone Subscriber Number Group Number Insured Name Patient Relationship to Insured Coverage Start Date Coverage End Date [employer] - [place] [address] [address] [place] [address] [id number] [employer] Self - patient is the insured [place] Medicaid [address] [place] [address] [id number] [employer] Self - patient is the insured Medical (General) History Medical History History ICD Code Unspecified dementia, unspec ified severity, with other behavioral disturbance F03.918 Major depressive disorder, 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
--- OUTSIDE RECORDS SUMMARY | 2025-07-17 07:56 | XMS_ITS | Continuity of Care Document ---
Author Organization [facility] ([facility]) Address [address] [place] [address] Insurance Providers Payer Plan Claims Address Claims Phone Policy Number Group Number Relation Employer Guarantor Name Guarantor Guarantor Address Guarantor Phone aHley Kathleen r [address] [address], [facility] [place] [address] tel:[phone] [id number] Self Terri Pride [address] [place] [address] [place] [employer] [address], [place] [address] tel:[phone] Self Terri Pride [address] [place] [address] Problems Condition ICD9 code ICD10 code SNOMED code Start Date End Date S tatus Senile degeneration of brain, 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 05/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 Active Unspecified dementia without behavioral disturbance F03.90 05/26/2025 Active Encounter for palliative care Z51.5 05/23/2025 Active Atherosclerotic heart disease of [place] coronary artery without angina pectoris I25.10 05/23/2025 Active Peripheral vascular disease, unspecified I73.9 05/23/2025 Acti ve senior care (current) use of aspirin Z79.82 05/23/2025 Active Chronic systolic (congestive) heart failure I50.22 05/26/2025 Active Chronic kidney disease, stage 2 (mild) N18.2 05/23/2025 Active Depression, unspecified F32.A 05/26/2025 Active Psychophysiologic insomnia F51.04 05/26/2025 Active Do not resuscitate Z66 05/23/2025 Ac tive Unspecified dementia, unspecified severity, with mood disturbance F03.93 05/26/2025 Act keyla Results Test Result Date/Time Value / Unit Interp. Refere nce Range Tuberculosis reaction wheal[ 83917-9] Tuberculosis reaction wheal [18660-8] 05/26/2025 05:00 PM 0 mm NEG Tuberculosis reaction wheal[ 89947-4] Tuberculosis reaction wheal [83706-1] 05/24/2025 04:03 PM 0 mm NEG Allergies, adverse reactions, alerts Substance Reaction Date Status Type bacitracin 05/21/2025 Non Drug neomycin 05/21/2025 Non Drug Polymyxins 05/21/2025 Non Drug Zyrtec 05/21/2025 Non Drug Immunizations Vaccine Route Date Status COVID-19 Vaccine Unassigned Route of Administration Completed COVID-19 Vaccine Unassigned Route of Administration Completed COVID-19 Vaccine Unassigned Route of Administration Refused Medications Medication Instructions Route Dosage Frequency Start Date Stop Date Indications Status acetaminophen 325 mg tablet (acetaminophen ) 2 tabs (650mg), oral, Every 6 Hours - PRN, for pain/fever oral 1.0 6.0 h 2024 Active aspirin 81 mg tablet,chewabl e (aspirin) 1 tab, oral, Once A Day oral 1.0 1.0 d 2024 Active Dulcolax (bisacodyl) (bisacodyl) 10 mg suppository (Dulcolax (bisacodyl) (bisacodyl)) 1 suppository, rectal, Once A Day - PRN, Give rectally if can't take p/o, if no results from MOM rectal 1.0 1.0 d 2024 Active escitalopram oxalate 10 mg tablet (escitalopram oxalate) 1 tab, oral, Once A Day oral 1.0 1.0 d 2024 Active trazodone 50 mg tablet (trazodone) 1, oral, At Bedtime oral 1.0 06/12 Active zaleplon 5 mg capsule (zaleplon) 1 cap, oral, At Bedtime, exempt G47.00 oral 1.0 06/12 Active aripiprazole 5 mg tablet (aripiprazole) 1 tab, oral, At Bedtime oral 1.0 05/26 Active Tubersol (tuberculin ppd) 5 tub. unit /0.1 mL solution (Tubersol (tuberculin ppd)) 0.1ml, intradermal, Once - One Time, Administer the morning after admission intradermal 1.0 05/24 Active Tubersol (tuberculin ppd) 5 tub. unit /0.1 mL solution (Tubersol (tuberculin ppd)) 0.1ml, intradermal, Once - One Time, Administer on the day shift intradermal 1.0 05/30 Active Vital Signs Date Vital Result Comment 06/06/2025 02:40 PM Body Weight (88180-1) 101.8 [lb_av ] Body Mass Index (07375-7) 22.03 kg/m2 06/06/2025 10:56 AM Oxygen Saturation (55877-8) 93 % 06/05/2025 09:46 PM Oxygen Saturation (99941-5) 97 % 06/05/2025 04:45 PM Oxygen Saturation (78926-5) 98 % 06/05/2025 12:47 PM Body Weight (12240-0) 101.8 [lb_av ] Body Mass Index (26501-4) 22.03 kg/m2 06/04/2025 09:07 PM Oxygen Saturation (59496-3) 92 % 06/04/2025 01:33 PM Body Weight (63386-8) 102.6 [lb_av ] Body Mass Index (10427-2) 22.2 kg/m2 06/04/2025 12:39 PM Oxygen Saturation (92703-2) 94 % 06/04/2025 12:26 AM Oxygen Saturation (39992-8) 94 % 06/03/2025 08:19 AM Oxygen Saturation (06456-8) 93 % 06/02/2025 10:19 PM Oxygen Saturation (53725-8) 94 % 06/02/2025 10:41 AM Body Weight (04916-3) 100 [lb_av] Body Mass Index (50287-6) 21.64 kg/m2 06/02/2025 09:01 AM Oxygen Saturation (46297-5) 95 % 06/01/2025 11:50 PM Oxygen Saturation (86631-4) 96 % 05/28/2025 11:33 AM Body Weight (82308-7) 102.6 [lb_av ] Body Mass Index (47751-3) 22.2 kg/m2 05/25/2025 07:17 PM Temperature (8310-5) 98.7 [degF] Respiratory Rate (9279-1) 19 /min Heart Rate (8867-4) 87 /min Blood Pressure Systolic (8480-6) 143 mm[Hg] Blood Pressure Diastolic (8462-4) 82 mm[Hg] 05/25/2025 12:44 PM Temperature (8310-5) 96.9 [degF] 05/25/2025 12:27 PM Temperature (8310-5) 96.9 [degF] Respiratory Rate (9279-1) 20 /min Heart Rate (8867-4) 96 /min Blood Pressure Systolic (8480-6) 151 mm[Hg] Blood Pressure Diastolic (8462-4) 94 mm[Hg] 05/25/2025 10:32 AM Body Weight (46054-0) 104.4 [lb_av ] Body Mass Index (93736-3) 22.59 kg/m2 05/25/2025 12:08 AM Temperature (8310-5) 98.4 [degF] Respiratory Rate (9279-1) 17 /min Heart Rate (8867-4) 68 /min Blood Pressure Systolic (8480-6) 114 mm[Hg] Blood Pressure Diastolic (8462-4) 71 mm[Hg] 05/24/2025 03:40 PM Body Weight (10800-2) 104 [lb_av] Body Mass Index (19161-8) 22.5 kg/m2 05/24/2025 01:32 PM Temperature (8310-5) 98 [degF] Respiratory Rate (9279-1) 18 /min Heart Rate (8867-4) 71 /min Blood Pressure Systolic (8480-6) 109 mm[Hg] Blood Pressure Diastolic (8462-4) 69 mm[Hg] 05/23/2025 10:13 PM Respiratory Rate (9279-1) 17 /min Heart Rate (8867-4) 76 /min Blood Pressure Systolic (8480-6) 96 mm[Hg] Blood Pressure Diastolic (8462-4) 57 mm[Hg] 05/23/2025 06:42 PM Temperature (8310-5) 98.2 [degF] 05/23/2025 05:26 PM Temperature (8310-5) 98.9 [degF] Respiratory Rate (9279-1) 16 /min Heart Rate (8867-4) 87 /min Blood Pressure Systolic (8480-6) 74 mm[Hg] Blood Pressure Diastolic (8462-4) 35 mm[Hg] Body Height (8302-2) 57 [in_us] Body Weight (62410-9) 106 [lb_av] Body Mass Index (80732-0) 22.94 kg/m2 06/06/2025 11:09 PM Oxygen Saturation (08099-3) 95 % 06/07/2025 09:04 AM Oxygen Saturation (97598-7) 96 % 06/08/2025 12:09 AM Oxygen Saturation (60744-7) 95 % 06/08/2025 01:45 PM Oxygen Saturation (79023-7) 99 % 06/08/2025 11:49 PM Oxygen Saturation (56522-1) 97 % 06/09/2025 09:41 AM Oxygen Saturation (18683-6) 90 % 06/09/2025 09:06 PM Oxygen Saturation (73337-3) 95 % 06/10/2025 09:11 AM Oxygen Saturation (80153-0) 93 % 06/10/2025 07:22 PM Oxygen Saturation (47577-9) 92 % 06/11/2025 03:42 PM Oxygen Saturation (63460-1) 98 % 06/11/2025 03:41 PM Oxygen Saturation (05946-8) 98 % 06/11/2025 02:24 PM Body Weight (07575-0) 101.4 [lb_av ] Body Mass Index (33910-0) 21.94 kg/m2 06/11/2025 08:38 PM Oxygen Saturation (04252-6) 96 % 06/12/2025 08:46 PM Oxygen Saturation (45829-9) 97 % 06/12/2025 05:41 PM Oxygen Saturation (33014-3) 98 % 06/13/2025 04:41 PM Oxygen Saturation (65008-7) 94 % 06/13/2025 11:29 PM Oxygen Saturation (52430-9) 92 % 06/14/2025 12:06 PM Oxygen Saturation (71336-7) 96 % 06/14/2025 06:43 PM Oxygen Saturation (11648-1) 97 % 06/15/2025 02:54 PM Oxygen Saturation (70694-1) 94 % 06/15/2025 06:34 PM Oxygen Saturation (07039-8) 96 % 06/16/2025 11:19 AM Oxygen Saturation (81239-2) 97 % 06/16/2025 07:07 PM Oxygen Saturation (72941-2) 96 % 06/17/2025 08:46 AM Oxygen Saturation (13374-7) 95 % 06/18/2025 02:26 AM Oxygen Saturation (62030-0) 93 % 06/18/2025 03:17 PM Oxygen Saturation (69968-9) 96 % 06/18/2025 06:45 PM Oxygen Saturation (64113-9) 94 % 06/18/2025 06:34 PM Body Weight (62061-1) 100 [lb_av] Body Mass Index (66441-5) 21.64 kg/m2 06/19/2025 11:56 AM Oxygen Saturation (78315-9) 95 % 06/19/2025 06:16 PM Oxygen Saturation (78985-1) 96 % 06/20/2025 02:56 PM Oxygen Saturation (48805-3) 96 % 06/20/2025 08:28 PM Oxygen Saturation (53908-4) 95 % 06/21/2025 02:09 PM Oxygen Saturation (02858-0) 93 % 06/21/2025 11:24 PM Oxygen Saturation (55027-1) 98 % 06/22/2025 08:49 AM Oxygen Saturation (06344-5) 91 % 06/22/2025 08:54 PM Oxygen Saturation (78885-7) 93 % 06/23/2025 09:40 AM Oxygen Saturation (35357-7) 97 % 06/23/2025 07:43 PM Oxygen Saturation (01151-9) 96 % 06/24/2025 08:25 AM Oxygen Saturation (27263-1) 97 % 06/24/2025 07:46 PM Oxygen Saturation (55163-0) 95 % 06/25/2025 12:54 PM Oxygen Saturation (54450-9) 93 % 06/25/2025 06:55 PM Oxygen Saturation (22859-5) 93 % 06/26/2025 10:53 AM Oxygen Saturation (96278-6) 94 % 06/26/2025 06:35 PM Oxygen Saturation (29813-8) 95 % 06/27/2025 04:24 PM Oxygen Saturation (59894-5) 94 % 06/27/2025 09:44 PM Oxygen Saturation (75147-7) 97 % 06/28/2025 08:37 AM Oxygen Saturation (77039-1) 97 % 06/28/2025 08:26 PM Oxygen Saturation (85249-8) 93 % 06/29/2025 04:30 AM Temperature (8310-5) 98.6 [degF] 06/29/2025 10:28 AM Oxygen Saturation (48865-0) 98 % 06/30/2025 06:00 AM Oxygen Saturation (96410-9) 95 % 06/30/2025 11:13 AM Oxygen Saturation (80963-7) 97 % 06/30/2025 06:42 PM Oxygen Saturation (61529-3) 95 % 07/01/2025 08:53 AM Oxygen Saturation (11534-1) 98 % 07/01/2025 03:37 PM Temperature (8310-5) 97.4 [degF] 07/01/2025 06:54 PM Oxygen Saturation (95124-7) 95 % 07/02/2025 11:14 AM Body Weight (94407-8) 102.4 [lb_av ] Body Mass Index (22914-4) 22.16 kg/m2 07/02/2025 05:11 PM Oxygen Saturation (91551-3) 99 % 07/02/2025 07:01 PM Oxygen Saturation (22174-3) 97 % 07/03/2025 06:30 AM Temperature (8310-5) 98.1 [degF] 07/03/2025 09:25 AM Oxygen Saturation (90145-4) 92 % 07/03/2025 07:34 PM Oxygen Saturation (31509-6) 93 % 06/29/2025 09:50 PM Temperature (8310-5) 98.6 [degF] 07/04/2025 03:08 PM Oxygen Saturation (98203-9) 94 % 07/04/2025 10:42 PM Oxygen Saturation (12223-3) 95 % 07/05/2025 09:01 AM Oxygen Saturation (82888-0) 93 % 07/05/2025 11:12 PM Temperature (8310-5) 98.1 [degF] 07/05/2025 07:40 PM Oxygen Saturation (62861-4) 98 % 07/06/2025 11:10 AM Oxygen Saturation (85799-0) 93 % 07/06/2025 08:12 PM Oxygen Saturation (86584-5) 95 % 07/07/2025 12:29 PM Oxygen Saturation (51450-7) 94 % 07/07/2025 08:21 PM Oxygen Saturation (57396-7) 94 % 07/08/2025 10:02 AM Oxygen Saturation (69805-7) 97 % 07/08/2025 06:32 PM Oxygen Saturation (91878-0) 96 % 07/09/2025 07:44 AM Oxygen Saturation (68908-2) 94 % 07/09/2025 06:50 PM Oxygen Saturation (21200-5) 95 % 07/10/2025 02:58 PM Oxygen Saturation (04161-1) 97 % 07/10/2025 07:01 PM Oxygen Saturation (43922-0) 97 % 07/11/2025 04:14 PM Oxygen Saturation (26345-1) 96 % 07/12/2025 12:21 AM Oxygen Saturation (28626-4) 98 % 07/12/2025 12:56 PM Oxygen Saturation (70027-2) 97 % 07/12/2025 10:24 PM Oxygen Saturation (69609-0) 97 % 07/13/2025 09:30 AM Oxygen Saturation (73170-4) 94 % 07/14/2025 04:17 AM Oxygen Saturation (12272-5) 95 % 07/14/2025 02:59 PM Oxygen Saturation (65318-6) 95 % 07/14/2025 06:57 PM Oxygen Saturation (07974-0) 95 % 07/15/2025 10:58 AM Oxygen Saturation (81069-2) 96 % 07/15/2025 07:03 PM Oxygen Saturation (98805-3) 96 % 07/16/2025 09:39 AM Oxygen Saturation (91830-0) 92 % 07/16/2025 09:17 PM Oxygen Saturation (43835-7) 95 % Social History No smoking Hx information available Encounters Type CPT Code Date Location Provider Indication s encounter report 05/23/2025 04:06 PM Michelle Rivera DO 01 Advance Directives Directive Description Verification Date Supporting Document(s) Resuscitation Other Directive
--- OUTSIDE RECORDS SUMMARY | 2025-07-17 07:56 | XMS_ITS | Continuity of Care Document ---
Author Organization [facility] Address [address] [place] [address] Care Team Providers Care Arabic Teacher Name Role Phone Dr. Kamran Rivera DO Attending Physician Medications Medication Frequency Instructions Diagnosis Start Date End Date Last Administered acetaminophen 325 mg tablet Every 6 Hours - PRN 2 tabs (650mg), oral, Every 6 Hours - PRN, for pain/fever 05/22/2007/05/2025 11:14 PM aspirin 81 mg tablet,chewable Once A Day 1 tab, oral, Once A Day 05/22/2007/16/2025 06:23 AM Dulcolax (bisacodyl) (bisacodyl) 10 mg suppository Once A Day - PRN 1 suppository, rectal, Once A Day - PRN, Give rectally if can't take p/o, if no results from MOM 05/23/20 escitalopram oxalate 10 mg tablet Once A Day 1 tab, oral, Once A Day 05/22/2007/16/2025 06:23 AM Problems Code Type Problem ICD Code Effective Date Status ICD-10 Senile degeneration of brain, 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 05/23/2025 Active ICD-10 Unspecified dementia , unspecified severity, with mood disturbance F03.93 05/26/2025 Active ICD-10 Encounter for palliative care Z51.5 2024 Active ICD-10 Atherosclerotic hear t disease of [place] coronary artery without angina pectoris I25.10 05/23/2025 Active ICD-10 Peripheral vascular disease, unspecified I73.9 05/23/2025 Active ICD-10 management analyst (current) use of aspirin Z79.82 0 05/23/2025 Active ICD-10 Chronic systolic (congestive) heart failure I50 .22 05/26/2025 Active ICD-10 Chronic kidney disease, stage 2 (mild) N18.2 05/23/2025 Active ICD-10 Depression, unspecified F32.A 05/26/2025 A ctive ICD-10 Psychophysiologic insomnia F51.04 Active ICD-10 Do not resuscitate Z66 05/23/2025 Active Current Allergies and Intolerances Category Substance Type Reaction Severity Begin Date Status Drug allergy bacitracin Allergy 05/21/2025 Activ e Drug allergy neomycin Allergy 05/21/2025 Active Drug allergy Polymyxins Allergy 05/21/2025 Activ e Drug allergy Zyrtec Allergy 05/21/2025 Active Vital Signs Height: 57.0 in Date / Time Temperature Pulse (per minute) Respirations (per minute) Systolic BP (mmHg) Diastolic BP (mmHg) O2 Saturation (%) Weight BMI 2024 09:39 AM 92.0 2024 07:03 PM 96.0 2024 10:58 AM 96.0 2024 06:57 PM 95.0 2024 02:59 PM 95.0 2024 04:17 AM 95.0 2024 09:30 AM 94.0 2024 10:24 PM 97.0 2024 12:56 PM 97.0 2024 12:21 AM 98.0 2024 11:12 PM 98.1 F 2024 06:30 AM 98.1 F 2024 11:14 AM 102.4 lbs 22.1 6 2024 03:37 PM 97.4 F 2024 09:50 PM 98.6 F 2024 04:30 AM 98.6 F 2024 06:34 PM 100.0 lbs 21.6 4 2024 02:24 PM 101.4 lbs 21.9 4 2024 02:40 PM 101.8 lbs 22.0 3 2024 12:47 PM 101.8 lbs 22.0 3 2024 01:33 PM 102.6 lbs 22.2 2024 10:41 AM 100.0 lbs 21.6 4 2024 11:33 AM 102.6 lbs 22.2 2024 07:17 PM 98.7 F 87 19 143 82 2024 12:44 PM 96.9 F 2024 12:27 PM 96.9 F 96 20 151 94 2024 10:32 AM 104.4 lbs 22.5 9 2024 12:08 AM 98.4 F 68 17 114 71 2024 03:40 PM 104.0 lbs 22.5 2024 01:32 PM 98.0 F 71 18 109 69 2024 10:13 PM 76 17 96 57 2024 05:26 PM 87 16 74 35 106.0 lbs 22.9 4 Advance Directives Directive Note Do Not Resuscitate (DNR) Hospice Insurance Providers Payer Policy type Group Name Group number Policy ID Address Ph one Medicare Part A Medicare Part A [id number] Phone: Fax: Medicare Part B Medicare Part B [id number] Phone: Fax: Medicaid [place] Medicaid ([facility]) [id number] Ph one: Fax: Hospice [place] - [facility] Medicaid ([facility]) [id number] Phone: Fax: Private Private Phone: Fax: Private Interest Private Phone: Fax: Private Copay - Ins/HMO Private Phone: Fax: Patient Liability Private Phone: Fax: Immunizations Vaccine [employer] Date Status Dose Series Complete COVID-19 Vaccine Moderna 04/21/2021 Completed COVID-19 Vaccine Moderna 01/18/2021 Completed COVID-19 Vaccine 05/23/2025 Refused Influenza Vaccine 05/23/2025 Refused Pneumococcal Vaccine 05/23/2025 Refused RSV Vaccine 05/23/2025 Refused Procedures Not available for this record Results Name Date Time Positive/Negative Value Unit Range TB test 05/26/2025 Negative 0.0 mm TB test 05/24/2025 11:03 AM Negative 0.0 mm Goals Goal Date Will have a BM at least ever y 3 days for 120 days since update/last review AND/OR will not experience any complications r/t to colostomy for 120 days from update/ last review AND/OR Will not experience any GI complications for 120 days since update/last review AND/OR Will remain clean, dry between incontinent episodes thru 120days from update/last review 09/03/2025 ADL approaches will meet the resident?s needs to enhance ability, maintain abilities, or provide quality. 09/03/2025 Will participate in at least one group activity of preference weekly through next assessment 09/03/2025 Terri will maintain or improve nutritio nal status through next review 09/03/2025 Advanced directives will be honored as outlined by patient/family on daily basis thru 120days from update/last review 09/03/2025 Resident will initiate conve rsation with another without becoming ___ (e.g., anxious, agitated, etc). 09/03/2025 Will maintain maximum qualit y of life as possible while their needs continue to be met for 120days from update/last review AND/OR Will receive comfort care according to Hospice philosophy for 120 days from update/ last review 09/03/2025 Resident's skin will remain intact. 11/2024 Resident will remain free from falls. Adverse drug reactions will be identified with interventions initiated for 120 days from update/last review 09/03/2025 Encounters Admission Date Discharge Date Description MRN Visit Count 05/23/2025 16:06 LTPAC Admission [id number] 01
--- NOTE | 2025-07-17 08:01 | CT_ITS ---
WS: [id number] CT HEAD NONCONTRAST HISTORY: Trauma TECHNIQUE: Contiguous axial imaging performed through the brain. Bone and soft tissue windows. Sagittal and coronal reformats reviewed. All CT scans at [facility] use at least one of these dose optimization techniques: automated exposure control; mA and/or kV adjustment per patient size (includes targeted exams where dose is matched to clinical indication); or iterative reconstruction. DLP: 1069.48 mGy.cm COMPARISON: 03/05/2025 No acute intracranial hemorrhage, midline shift or mass effect. Moderate cerebral and cerebellar volume loss and small vessel disease. Prior lacunar infarct genu LEFT internal capsule. Tiny lacunar infarct in the RIGHT caudate. Ventricles: Mildly prominent ventricles on the basis of atrophy. Advanced atherosclerotic plaque in the intracranial carotid arteries and distal vertebral arteries. Paranasal sinuses: As visualized are clear. Mastoid air cells: Well pneumatized. Calvarium and scalp: Skull is intact with no soft tissue edema or swelling. CT/CT head wo con* [id number] IMPRESSION: 1. No acute intracranial hemorrhage or edema. 2. Moderate cerebral and cerebellar atrophy with small vessel disease. 3. Remote lacunar infarcts genu LEFT internal capsule and RIGHT caudate. 4. No skull fracture.
[2025-07-17 08:02] LABS: Hematocrit 32.1 % (36-47); Hemoglobin 10.70 g/dL (11.27-16.99); Mean Corpuscular HGB Conc 33.3 g/dL (30-55); Mean Corpuscular Hemoglobin 27.2 pg (27-33); Mean Corpuscular Volume 81.5 fl (85-98); Nucleated Red Blood Cells % 0 %; Platelet Count 226 10^3/cmm (157-399); Red Blood Count 3.94 10^6/uL (3.85-5.65); White Blood Count 7.29 10^3/uL (3.29-11.43)
--- NOTE | 2025-07-17 08:13 | CT_ITS ---
WS: [id number] CT PELVIS NONCONTRAST HISTORY: Trauma hip pain TECHNIQUE: Contiguous imaging is performed of the pelvis without contrast. Coronal and sagittal reformats are reviewed. All CT scans at [facility] use at least one of these dose optimization techniques: automated exposure control; mA and/or kV adjustment per patient size (includes targeted exams where dose is matched to clinical indication); or iterative reconstruction. DLP: 250.18 mGy.cm COMPARISON: 03/24/2024, hip radiograph 07/17/2025 Bones are severely osteopenic. No acute sacral fracture is identified. No change in appearance of the SI joints or sacrum. Remote healed RIGHT superior and inferior pubic rami fractures. There is a nondisplaced fracture extending through the greater trochanter. Cannot confirm extension of the fracture through the femoral neck or head. Bones are severely osteopenic. Vertical sclerotic line through the femoral neck to the lesser trochanter was also present on the prior study. Mild soft tissue edema over the RIGHT hip consistent with a contusion from fall. Urinary bladder is overly distended. It advanced atherosclerotic plaque in the distal aorta and iliac arteries. CT/CT pelvis wo con [id number] IMPRESSION: 1. Acute nondisplaced fracture through the RIGHT greater trochanter. 2. Severe osteopenia. 3. Remote healed fractures involving the RIGHT superior and inferior pubic bibi i. 4. Cannot confirm acute fracture extension through the RIGHT femoral head or n kandi. Due to the osteopenia MRI of the RIGHT hip may be of benefit to evaluate f or marrow edema. Abbreviated MRI RIGHT hip protocol recommended for acute fract ure evaluation. 5. Soft tissue contusion centered around the RIGHT hip. Notified Luis A Golden DO at 07/17/2025 8:40 AM.
[2025-07-17 08:17] LABS: Alanine Aminotransferase 10 U/L (0-33); Albumin Level 3.3 g/dL (3.5-5.2); Alkaline Phosphatase 106 U/L (35-105); Blood Urea Nitrogen 12 mg/dL (8-23); Calcium 8.9 mg/dL (8.5-10.5); Carbon Dioxide 23 mmol/L (22-29); Chloride 92 mmol/L (98-107); Creatinine Clr Calc Pharmacy 45.0249; Globulin 4.1 g/dL (1.3-4.6); Glucose 95 mg/dL (65-115); Osmolality Calculated 264 mOsm/kg (285-295); Sodium 127 mmol/L (136-145); Total Protein 7.4 g/dL (6.6-8.7)
[2025-07-17 08:20] LABS: Anion Gap 16.3 (5-19); Aspartate Amino Transferase 18 U/L (0-32); Potassium 4.3 mmol/L (3.5-5.1)
--- NOTE | 2025-07-17 08:43 | MR_ITS ---
WS: [id number] MRI RIGHT HIP WITHOUT CONTRAST. COMPARISON: Pelvis CT 07/17/2025 Multiplanar, multisequence imaging is performed without contrast. Abbreviated MRI evaluation of the RIGHT hip to evaluate for occult fracture due to osteopenia. Reidentified is the acute fracture involving greater trochanter which was seen on CT. The fracture line with cortical edema does extend through the base of the femoral neck and into the proximal femur. There is no displacement of the fracture. Moderate soft tissue contusion and edema centered over the greater trochanter and into the gluteus medius muscle. There is a very tiny amount of edema in the far lateral superior acetabulum which could be a very tiny evulsion fracture. Urinary bladder is overly distended. LEFT hip is negative. MR/MR hip RT wo con* [id number] IMPRESSION: 1. Acute nondisplaced greater trochanter fracture RIGHT hip. 2. Acute nondisplaced fracture with marrow edema extends from the greater troc hanter inferiorly into the proximal femur and just inferior to the base the fem oral neck. 3. Soft tissue contusion and hematoma centered over the greater trochanter RIG HT hip. 4. Tiny amount of marrow edema in the far lateral superior acetabulum could be a tiny avulsion fracture from an osteophyte.
[2025-07-17 08:49] LABS: Glucose Urine UA Negative (Normal); Nitrate Urine Negative (Negative); Specific Gravity, Urine 1.011 (1.005-1.030)
[2025-07-17 08:54] LABS: Add Urine Microscopic? YES; Universal Test for UA Present (0)
[2025-07-17] MEDS: cefTRIAXone 1,000 mg SDV 1000 MG IVP (10:42)
[2025-07-17 10:44] VITALS: BP 150/82; PULSE 77; O2SAT 94
[2025-07-17 10:49] LABS: Lactic Sepsis W/Reflex 0.8 mmol/L (0.5-2.2)
--- NOTE | 2025-07-17 11:08 | DCPLANNER ---
messaged ortho for er f/u
[2025-07-17 11:18] VITALS: BP 160/72; PULSE 77; O2SAT 95
== END 2025-07-17 11:22 | disposition home or self-care (01) ==
PROVIDERS: Emergency Provider Family Medicine; PCP Family Medicine
DX: S72.114A Nondisplaced fracture of greater trochanter of right femur, initial encounter for closed fracture (principal); S72.044A Nondisplaced fracture of base of neck of right femur, initial encounter for closed fracture; N30.90 Cystitis, unspecified without hematuria; J18.9 Pneumonia, unspecified organism; Z86.73 Personal history of transient ischemic attack (TIA), and cerebral infarction without residual deficits; W06.XXXA Fall from bed, initial encounter
CPT/HCPCS: 36415; 70450; 71045; 72192; 73502; 73721; 80053; 81001; 83605; 85025; 87040; 87086; 93005; 96374; 99285; J0696

== ENCOUNTER 2025-07-18 17:52 | Emergency (ER) | payer MEDICARE, MEDICAID, SELFPAY ==
[2025-07-18] VITALS (10 sets, daily range): BP systolic 74–143; BP diastolic 52–98; PULSE 78–96; RESP 18; TEMP 36.8; O2SAT 87–99
--- OUTSIDE RECORDS SUMMARY | 2025-07-18 17:59 | XMS_ITS | Patient Health Record ---
Author Organization [facility] Address [address] [place] [address] Care Team Providers Care Railcar Carpenter Name Role Phone David Campos Unavailable Allergies No Known Allergies Reason For Referral [...] Status W/U Status Risk Notes Problem Anxiety (66011095) Anxiety (F41.9) Active confirmed Problem Anxiety disorder (285794604) Anxiety disorder (F41.9) Active confirmed Problem Insomnia (068662104) Insomnia (G47.00) Active confirmed Problem Adult failure to thrive syndrome (267166950) Failure to thrive in adult (R62.7) Active confirmed Problem Acute insomnia (459022521) Acute insomnia (G47.00) Active confirmed Problem Chronic kidney disease stage 2 (233173169) Chronic kidney disease (CKD) stage G2/A1, mildly decreased glomerular filtration rate (GFR) between 60-89 mL/min/1.73 square meter and albuminuria creatinine ratio less than 30 mg/g (N18.2) Active confirmed Problem Iron deficiency anemia (56965782) Anemia, iron deficiency (D50.9) Active confirmed Problem Dementia with behavioral disturbance (disorder) (8086618362029) Unspecified dementia, unspecified severity, with other behavioral disturbance (F03.918) Active confirmed Problem Unspecified dementia, severe, with other behavioral disturbance (F03.C18) Active confirmed Encounters Encounter Location Date Provider Diagnosis [facility] [address] [place] [address] 04/11/2025 David Campos Insomnia G47.00 ; Failure to thrive in adult R62.7 and Unspecified dementia, severe, with other behavioral disturbance F03.C18 [facility] [address] [place] [address] 04/25/2025 David Campos Anxiety disorder F41.9 ; Acute insomnia G47.00 and Failure to thrive in adult R62.7 [facility] [address] [place] [address] 05/16/2025 David Campos Anxiety disorder F41.9 ; Acute insomnia G47.00 and Failure to thrive in adult R62.7 [facility] [address] [place] [address] 05/23/2025 Jdzina Campos Insomnia G47.00 ; Failure to thrive in adult R62.7 ; Unspecified dementia, severe, with other behavioral disturbance F03.C18 and Depression, unspecified F32.A [facility] [address] [place] [phone] 04/17/2025 David Campos Assessments Encounter Date Diagnosis (ICD Code) Assessment Notes Treatment Notes Treatment Clinical Notes Section Notes 04/25/2025 Anxiety disorder (ICD-10 - F41.9) Medications were reviewed. I will continue without changes. Nursing staff is to contact me with any symptoms arising. Orders signed and documented with nursing staff. Vitals taken and recorded at [facility]. 05/16/2025 Anxiety disorder (ICD-10 - F41.9) Medications were reviewed. I will continue without changes. Nursing staff is to contact me with any symptoms arising. Orders signed and documented with nursing staff. Vitals taken and recorded at [facility]. 05/23/2025 Insomnia (ICD-10 - G47.00) 05/23/2025 Failure to thrive in adult (ICD-10 - R62.7) 04/11/2025 Insomnia (ICD-10 - G47.00) Medications reviewed, orders signed and documented with nursing staff. Vitals taken and recorded at [facility]. 04/11/2025 Failure to thrive in adult (ICD-10 - R62.7) 04/11/2025 Unspecified dementia, severe, with other behavioral disturbance (ICD-10 - F03.C18) 05/23/2025 Unspecified dementia, severe, with other behavioral disturbance (ICD-10 - F03.C18) Medications reviewed, orders signed and documented with nursing staff. Vitals taken and recorded at [facility]. Pt approved for discharge. Time spent managing discharge: 25 mins 04/25/2025 Acute insomnia (ICD-10 - G47.00) 05/16/2025 Acute insomnia (ICD-10 - G47.00) 05/23/2025 Depression, unspecified (ICD-10 - F32.A) 05/16/2025 Failure to thrive in adult (ICD-10 - R62.7) 04/25/2025 Failure to thrive in adult (ICD-10 - R62.7) Plan Of Treatment No Information Insurance Providers Payer Name Payer Address Payer Phone Subscriber Number Group Number Insured Name Patient Relationship to Insured Coverage Start Date Coverage End Date [employer] - [employer] [address] [address] [place] [address] [id number] ALKA WEAVER Self - patient is the insured [place] Medicaid [address] [place] [address] [id number] ALKA WEAVER Self - patient is the [...]
--- OUTSIDE RECORDS SUMMARY | 2025-07-18 17:59 | XMS_ITS | Continuity of Care Document ---
Author Organization [facility] ([facility]) Address [address] [place] [address] Insurance Providers Payer Plan Claims Address Claims Phone Policy Number Group Number Relation Employer Guarantor Name Guarantor Guarantor Address Guarantor Phone Haley Sterling tra rick [address] [address], [place] [address] tel:[phone] [id number] Self Terri Pride [address] [place] [address] [employer] [address], [place] [address] tel:[phone] Self Terri Pride [address] [place] [address] 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 05/23/2025 Active Unspecified dementia without behavioral disturbance F03.90 05/26/2025 Active Encounter for palliative care Z51.5 05/23/2025 Active Atherosclerotic heart disease of [place] coronary artery without angina pectoris I25.10 05/23/2025 Active Peripheral vascular disease, unspecified I73.9 05/23/2025 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 Z79.82 05/23/2025 Active Chronic systolic (congestive) heart failure I50.22 05/26/2025 Active Chronic kidney disease, stage 2 (mild) N18.2 05/23/2025 Active Depression, unspecified F32.A 05/26/2025 Active Psychophysiologic insomnia F51.04 05/26/2025 Active Do not resuscitate Z66 05/23/2025 Ac tive Unspecified dementia, unspecified severity, with mood disturbance F03.93 05/26/2025 Act keyla Displaced fracture of greater trochanter of right femur, subsequent encounter for closed fracture with routine healing S72.111D 07/17/2025 Active Pneumonia, unspecified organism J18.9 07/17/2025 Active Acute cystitis without hematuria N30.00 07/17/2025 Active Results Test Result Date/Time Value / Unit Interp. Refere nce Range Tuberculosis reaction wheal[ 56817-4] Tuberculosis reaction wheal [33308-7] 05/26/2025 05:00 PM 0 mm NEG Tuberculosis reaction wheal[ 27869-5] Tuberculosis reaction wheal [56563-1] 05/24/2025 04:03 PM 0 mm NEG Allergies, adverse reactions, alerts Substance Reaction Date Status Type bacitracin 05/21/2025 Non Drug Polymyxins 05/21/2025 Non Drug Zyrtec 05/21/2025 Non Drug neomycin 05/21/2025 Non Drug Immunizations Vaccine Route Date [...] oral, At Bedtime oral 1.0 06/12 Active aripiprazole 5 mg tablet (aripiprazole) 1 tab, oral, At Bedtime oral 1.0 05/26 Active zaleplon 5 mg capsule (zaleplon) 1 cap, oral, At Bedtime, exempt G47.00 oral 1.0 06/12 Active Tubersol (tuberculin ppd) 5 tub. unit /0.1 mL solution (Tubersol (tuberculin ppd)) 0.1ml, intradermal, Once - One Time, Administer the morning after admission intradermal 1.0 05/24 Active Tubersol (tuberculin ppd) 5 tub. unit /0.1 mL solution (Tubersol (tuberculin ppd)) 0.1ml, intradermal, Once - One Time, Administer on the day shift intradermal 1.0 05/30 Active cefdinir 300 mg capsule (cefdinir) 1 cap, oral, Twice A Day, Administer 1 cap po BID x 7 days for early pneumonitis/U TI oral 1.0 12.0 h 07/23 Active fentanyl 25 mcg/hr patch 72 hour (fentanyl) 1 patch, transdermal, Once A Day Every 3 Days, clinical indication: severe pain transdermal 1.0 1.0 d 2024 Active hydrocodone-ac etaminophen 5-325 mg tablet (hydrocodone-a cetaminophen) 1 tab, oral, Every 6 Hours - PRN, Administer 1 tab po Q 6hrs PRN pain oral 1.0 6.0 h 2024 Active Vital Signs Date Vital Result Comment 06/04/2025 01:33 PM Body Weight (98835-3) 102.6 [lb_av ] Body Mass Index (16800-7) 22.2 kg/m2 05/25/2025 12:08 AM Temperature (8310-5) 98.4 [degF] Respiratory Rate (9279-1) 17 /min Heart Rate (8867-4) 68 /min Blood Pressure Systolic (8480-6) 114 mm[Hg] Blood Pressure Diastolic (8462-4) 71 mm[Hg] 05/23/2025 05:26 PM Temperature (8310-5) 98.9 [degF] Respiratory Rate (9279-1) 16 /min Heart Rate (8867-4) 87 /min Blood Pressure Systolic (8480-6) 74 mm[Hg] Blood Pressure Diastolic (8462-4) 35 mm[Hg] Body Height (8302-2) 57 [in_us] Body Weight (58790-1) 106 [lb_av] Body Mass Index (86744-7) 22.94 kg/m2 05/24/2025 01:32 PM Temperature (8310-5) 98 [degF] Respiratory Rate (9279-1) 18 /min Heart Rate (8867-4) 71 /min Blood Pressure Systolic (8480-6) 109 mm[Hg] Blood Pressure Diastolic (8462-4) 69 mm[Hg] 06/05/2025 04:45 PM Oxygen Saturation (74030-7) 98 % 06/02/2025 09:01 AM Oxygen Saturation (22978-9) 95 % 06/06/2025 10:56 AM Oxygen Saturation (98929-3) 93 % 06/03/2025 08:19 AM Oxygen Saturation (28683-6) 93 % 06/05/2025 12:47 PM Body Weight (07710-7) 101.8 [lb_av ] Body Mass Index (80836-4) 22.03 kg/m2 05/28/2025 11:33 AM Body Weight (46066-2) 102.6 [lb_av ] Body Mass Index (66694-0) 22.2 kg/m2 05/23/2025 10:13 PM Respiratory Rate (9279-1) 17 /min Heart Rate (8867-4) 76 /min Blood Pressure Systolic (8480-6) 96 mm[Hg] Blood Pressure Diastolic (8462-4) 57 mm[Hg] 06/04/2025 12:39 PM Oxygen Saturation (94681-8) 94 % 05/25/2025 12:27 PM Temperature (8310-5) 96.9 [degF] Respiratory Rate (9279-1) 20 /min Heart Rate (8867-4) 96 /min Blood Pressure Systolic (8480-6) 151 mm[Hg] Blood Pressure Diastolic (8462-4) 94 mm[Hg] 06/05/2025 09:46 PM Oxygen Saturation (03149-2) 97 % 06/02/2025 10:19 PM Oxygen Saturation (27018-9) 94 % 06/02/2025 10:41 AM Body Weight (30670-9) 100 [lb_av] Body Mass Index (41429-0) 21.64 kg/m2 05/25/2025 07:17 PM Temperature (8310-5) 98.7 [degF] Respiratory Rate (9279-1) 19 /min Heart Rate (8867-4) 87 /min Blood Pressure Systolic (8480-6) 143 mm[Hg] Blood Pressure Diastolic (8462-4) 82 mm[Hg] 06/04/2025 09:07 PM Oxygen Saturation (62923-6) 92 % 05/23/2025 06:42 PM Temperature (8310-5) 98.2 [degF] 05/25/2025 12:44 PM Temperature (8310-5) 96.9 [degF] 05/25/2025 10:32 AM Body Weight (89818-2) 104.4 [lb_av ] Body Mass Index (69228-7) 22.59 kg/m2 06/04/2025 12:26 AM Oxygen Saturation (19782-5) 94 % 06/01/2025 11:50 PM Oxygen Saturation (15570-9) 96 % 05/24/2025 03:40 PM Body Weight (52866-6) 104 [lb_av] Body Mass Index (80240-9) 22.5 kg/m2 06/06/2025 02:40 PM Body Weight (10676-2) 101.8 [lb_av ] Body Mass Index (84883-1) 22.03 kg/m2 06/06/2025 11:09 PM Oxygen Saturation (21946-6) 95 % 06/07/2025 09:04 AM Oxygen Saturation (87323-0) 96 % 06/08/2025 12:09 AM Oxygen Saturation (37988-7) 95 % 06/08/2025 01:45 PM Oxygen Saturation (56887-0) 99 % 06/08/2025 11:49 PM Oxygen Saturation (43386-2) 97 % 06/09/2025 09:41 AM Oxygen Saturation (61829-5) 90 % 06/09/2025 09:06 PM Oxygen Saturation (05830-7) 95 % 06/10/2025 09:11 AM Oxygen Saturation (47262-4) 93 % 06/10/2025 07:22 PM Oxygen Saturation (35666-3) 92 % 06/11/2025 03:41 PM Oxygen Saturation (20156-7) 98 % 06/11/2025 02:24 PM Body Weight (73813-4) 101.4 [lb_av ] Body Mass Index (36899-8) 21.94 kg/m2 06/11/2025 03:42 PM Oxygen Saturation (80972-1) 98 % 06/11/2025 08:38 PM Oxygen Saturation (08130-0) 96 % 06/12/2025 05:41 PM Oxygen Saturation (67084-3) 98 % 06/12/2025 08:46 PM Oxygen Saturation (53699-1) 97 % 06/13/2025 04:41 PM Oxygen Saturation (80557-3) 94 % 06/13/2025 11:29 PM Oxygen Saturation (38729-1) 92 % 06/14/2025 12:06 PM Oxygen Saturation (54396-7) 96 % 06/14/2025 06:43 PM Oxygen Saturation (28041-6) 97 % 06/15/2025 02:54 PM Oxygen Saturation (79648-2) 94 % 06/15/2025 06:34 PM Oxygen Saturation (30153-4) 96 % 06/16/2025 11:19 AM Oxygen Saturation (29937-7) 97 % 06/16/2025 07:07 PM Oxygen Saturation (93254-9) 96 % 06/17/2025 08:46 AM Oxygen Saturation (43352-6) 95 % 06/18/2025 02:26 AM Oxygen Saturation (93422-5) 93 % 06/18/2025 03:17 PM Oxygen Saturation (98028-5) 96 % 06/18/2025 06:34 PM Body Weight (68277-3) 100 [lb_av] Body Mass Index (66290-6) 21.64 kg/m2 06/18/2025 06:45 PM Oxygen Saturation (44199-0) 94 % 06/19/2025 11:56 AM Oxygen Saturation (90597-0) 95 % 06/19/2025 06:16 PM Oxygen Saturation (02681-4) 96 % 06/20/2025 02:56 PM Oxygen Saturation (06302-1) 96 % 06/20/2025 08:28 PM Oxygen Saturation (05292-4) 95 % 06/21/2025 02:09 PM Oxygen Saturation (45499-8) 93 % 06/21/2025 11:24 PM Oxygen Saturation (65166-2) 98 % 06/22/2025 08:49 AM Oxygen Saturation (55536-4) 91 % 06/22/2025 08:54 PM Oxygen Saturation (13311-1) 93 % 06/23/2025 09:40 AM Oxygen Saturation (17699-5) 97 % 06/23/2025 07:43 PM Oxygen Saturation (68075-6) 96 % 06/24/2025 08:25 AM Oxygen Saturation (08620-8) 97 % 06/24/2025 07:46 PM Oxygen Saturation (45375-4) 95 % 06/25/2025 12:54 PM Oxygen Saturation (65432-8) 93 % 06/25/2025 06:55 PM Oxygen Saturation (73990-6) 93 % 06/26/2025 10:53 AM Oxygen Saturation (97018-9) 94 % 06/26/2025 06:35 PM Oxygen Saturation (98453-1) 95 % 06/27/2025 04:24 PM Oxygen Saturation (29189-4) 94 % 06/27/2025 09:44 PM Oxygen Saturation (73961-4) 97 % 06/28/2025 08:37 AM Oxygen Saturation (24614-5) 97 % 06/28/2025 08:26 PM Oxygen Saturation (90182-2) 93 % 06/29/2025 04:30 AM Temperature (8310-5) 98.6 [degF] 06/29/2025 10:28 AM Oxygen Saturation (89015-1) 98 % 06/30/2025 06:00 AM Oxygen Saturation (35180-4) 95 % 06/30/2025 11:13 AM Oxygen Saturation (58634-8) 97 % 06/30/2025 06:42 PM Oxygen Saturation (98083-3) 95 % 07/01/2025 08:53 AM Oxygen Saturation (23286-7) 98 % 07/01/2025 03:37 PM Temperature (8310-5) 97.4 [degF] 07/01/2025 06:54 PM Oxygen Saturation (88886-9) 95 % 07/02/2025 11:14 AM Body Weight (62324-0) 102.4 [lb_av ] Body Mass Index (52790-0) 22.16 kg/m2 07/02/2025 05:11 PM Oxygen Saturation (89565-1) 99 % 07/02/2025 07:01 PM Oxygen Saturation (83114-0) 97 % 07/03/2025 06:30 AM Temperature (8310-5) 98.1 [degF] 07/03/2025 09:25 AM Oxygen Saturation (59043-7) 92 % 06/29/2025 09:50 PM Temperature (8310-5) 98.6 [degF] 07/03/2025 07:34 PM Oxygen Saturation (35881-5) 93 % 07/04/2025 03:08 PM Oxygen Saturation (35919-8) 94 % 07/04/2025 10:42 PM Oxygen Saturation (06177-2) 95 % 07/05/2025 09:01 AM Oxygen Saturation (94887-3) 93 % 07/05/2025 07:40 PM Oxygen Saturation (62234-7) 98 % 07/05/2025 11:12 PM Temperature (8310-5) 98.1 [degF] 07/06/2025 11:10 AM Oxygen Saturation (10026-9) 93 % 07/06/2025 08:12 PM Oxygen Saturation (56898-6) 95 % 07/07/2025 12:29 PM Oxygen Saturation (87120-6) 94 % 07/07/2025 08:21 PM Oxygen Saturation (80822-1) 94 % 07/08/2025 10:02 AM Oxygen Saturation (78442-0) 97 % 07/08/2025 06:32 PM Oxygen Saturation (39977-1) 96 % 07/09/2025 07:44 AM Oxygen Saturation (40602-6) 94 % 07/09/2025 06:50 PM Oxygen Saturation (05706-9) 95 % 07/10/2025 02:58 PM Oxygen Saturation (73335-5) 97 % 07/10/2025 07:01 PM Oxygen Saturation (53653-3) 97 % 07/11/2025 04:14 PM Oxygen Saturation (85981-6) 96 % 07/12/2025 12:21 AM Oxygen Saturation (59607-1) 98 % 07/12/2025 12:56 PM Oxygen Saturation (09937-3) 97 % 07/12/2025 10:24 PM Oxygen Saturation (00206-5) 97 % 07/13/2025 09:30 AM Oxygen Saturation (16839-5) 94 % 07/14/2025 04:17 AM Oxygen Saturation (08840-6) 95 % 07/14/2025 02:59 PM Oxygen Saturation (64759-3) 95 % 07/14/2025 06:57 PM Oxygen Saturation (05990-7) 95 % 07/15/2025 10:58 AM Oxygen Saturation (40850-1) 96 % 07/15/2025 07:03 PM Oxygen Saturation (04831-9) 96 % 07/16/2025 09:39 AM Oxygen Saturation (90911-0) 92 % 07/16/2025 09:17 PM Oxygen Saturation (48916-4) 95 % 07/17/2025 12:32 PM Oxygen Saturation (63562-2) 95 % 07/17/2025 12:31 PM Temperature (8310-5) 97.9 [degF] Respiratory Rate (9279-1) 18 /min Heart Rate (8867-4) 82 /min Blood Pressure Systolic (8480-6) 126 mm[Hg] Blood Pressure Diastolic (8462-4) 74 mm[Hg] 07/17/2025 06:30 AM Temperature (8310-5) 97.9 [degF] Respiratory Rate (9279-1) 17 /min Heart Rate (8867-4) 64 /min Blood Pressure Systolic (8480-6) 118 mm[Hg] Blood Pressure Diastolic (8462-4) 74 mm[Hg] 07/17/2025 07:11 PM Oxygen Saturation (32489-5) 93 % Social History No smoking Hx information available Encounters Type CPT Code Date Location Provider Indication s encounter report 05/23/2025 04:0 6 PM - 07/17/2025 07:36 AM Kamran Rivera DO 01 Advance Directives Directive Description Verification Date Supporting Document(s) Resuscitation Other Directive
--- NOTE | 2025-07-18 18:03 | XRR_ITS ---
PROCEDURE INFORMATION: Exam: XR Chest Exam date and time: 07/18/2025 6:18 PM Age: 79 years old Clinical indication: Injury or trauma; Fall; Blunt trauma (contusions or hematomas) TECHNIQUE: Imaging protocol: Radiologic exam of the chest. Views: 1 view. Total images: 2 COMPARISON: 1. CR XR chest 1V portable [id number] 07/17/2025 7:55 AM 2. CR XR chest 1V portable [id number] 03/13/2025 3:03 PM 3. CR XR chest 1V portable [id number] 03/05/2025 11:04 AM 4. CR XR chest 1V portable [id number] 02/26/2025 4:47 PM FINDINGS: Limitations: No fiducial skin marker was placed at the site of clinical concern. Lungs: Stable mild nonspecific prominence of the central pulmonary vasculature. Right perihilar coarse calcification probably calcified mediastinal lymph node. Reticular interstitial thickening, likely chronic, without focal consolidation. Left base streaky linear opacities characteristic of atelectasis or postinflammatory parenchymal scarring. Pleural spaces: Unremarkable. No pleural effusion. No pneumothorax. Heart/Mediastinum: Normal heart size. Vasculature: Moderate aortic atherosclerotic calcification. Bones/joints: Left old healed rib fracture deformities. Moderate generalized degenerative changes of the vertebral column, including multilevel osteophytes, degenerative disc height loss, and facet arthrosis, consistent with patient age. Acromioclavicular joint mild chronic degenerative arthrosis. Shoulder glenohumeral osteoarthritis. Narrowed right subacromial joint space characteristic of chronic massive rotator cuff disruption. No acute displaced fracture, subluxation or dislocation. Qualitative demineralization of bones (osteopenia) limiting evaluation for nondisplaced fractures. Soft tissues: Soft tissues are normal as visualized, demonstrating no masses or swelling/induration. Left neck thyroid bed or carotid region surgical clips noted once again. XR/XR chest 1V portable [id number] IMPRESSION: 1. Left base streaky linear opacities characteristic of atelectasis or postinflammatory parenchymal scarring, less likely earliest manifestations of focal alveolar infiltrate. 2. Stable central interstitial prominence, likely chronic, without definite focal alveolar consolidation. Appearance most consistent with chronic fibrotic interstitial change, age-related/nonspecific. Recommend correlation with clinical history; pulmonary function tests if clinically indicated. 3. Advanced age-appropriate degenerative spinal changes, with other chronic/non-acute findings as described above. 4. Old left-sided healed rib fractures. No acute displaced fracture with an low degree of confidence due to osteopenia/suboptimal visualization of the osseous structures. COMMENTS: 1. Repeat CR in 7-10 days with fiducial marker, or CT earlier for higher clinical concern. 2. Qualitative demineralization of bones (osteopenia) limiting evaluation for nondisplaced fractures.
--- NOTE | 2025-07-18 18:04 | XRR_ITS ---
PROCEDURE INFORMATION: Exam: XR Right Hip Exam date and time: 07/18/2025 6:18 PM Age: 79 years old Clinical indication: Injury or trauma; Fall; Blunt trauma (contusions or hematomas); Right; Hip; Additional info: Fall/ dx with fracture yesterday TECHNIQUE: Imaging protocol: Radiologic exam of the right hip. Views: 1 view hip with pelvis when performed. Total images: 1 COMPARISON: 1. CT pelvis wo con [id number] 07/17/2025 8:16 AM 2. CR XR hip RT 2-3V wo/w pel* [id number] 07/17/2025 7:[address] abdomen pelvis w con* [id number] 03/24/2024 3:25 PM 4. CR XR pelvis min 3V [id number] 02/06/2023 1:36 PM FINDINGS: Bones/joints: Right greater trochanter avulsion fracture is better appreciated at CT performed yesterday (07/17/2025 at 8:18 a.m.). Qualitative demineralization of bones (osteopenia) limiting evaluation for nondisplaced fractures. Severe chronic generalized degenerative changes of the vertebral column, including multilevel osteophytes, degenerative disc height loss, vacuum disc phenomenon, and facet arthrosis, consistent with patient age. Old healed right superior and inferior pubic ramus fracture deformities. Pubic symphysis mild degenerative changes (osteitis pubis). Sacroiliac joint degenerative manifestations. Generalized bony tendon origin/insertion proliferative enthesopathy, mild. Soft tissues: Soft tissues are normal as visualized, demonstrating no masses or swelling/induration. Gastrointestinal tract: No obstructive findings insofar as bowel visualized. Organs: Urinary bladder appears mildly distended with urine. XR/XR hip RT 2-3V wo/w pel* [id number] IMPRESSION: 1. Right greater trochanter avulsion fracture is better appreciated at CT performed yesterday (07/17/2025 at 8:18 a.m.) antwan ppearing unchanged today. No additional fractures are identified radiographically compared with prior CT. 2. Old posttraumatic healed fracture deformities of right pubic rami. 3. Advanced age-appropriate degenerative spinal changes, with other chronic/non-acute findings as described above. COMMENTS: 1. Qualitative demineralization of bones (osteopenia) limiting evaluation for nondisplaced fractures. 2. If symptoms persist or worsen, additional cross-sectional imaging with fiducial skin marker at clinically troublesome area, or follow-up study in 7-10 days may be warranted based on clinical context.
--- NOTE | 2025-07-18 18:07 | CTR_ITS ---
PROCEDURE INFORMATION: Exam: CT Head Without Contrast Exam date and time: 07/18/2025 7:07 PM Age: 79 years old Clinical indication: Injury or trauma; Blunt trauma (contusions or hematomas); EMS arrival from detention for fall with headstrike. Patient hypotensive. Positive for RT greater trochanter fracture from a fall yesterday. ; Additional info: Fall today, hit head TECHNIQUE: Imaging protocol: Computed tomography of the head without contrast. Total images: 968 Radiation optimization: All CT scans at this facility use at least one of these dose optimization techniques: automated exposure control; mA and/or kV adjustment per patient size (includes targeted exams where dose is matched to clinical indication); or iterative reconstruction. COMPARISON: 1. CT head wo con* [id number] 07/17/2025 8:[address] head wo con* [id number] 03/05/2025 11:13 AM RADIATION DOSE METRICS: Total DLP (mGy-cm): 1034.49 FINDINGS: Brain: Genu left internal capsule old lacunar infarct. Brain parenchyma advanced generalized involutional (atrophic) changes. Deep white matter advanced low attenuation, a nonspecific finding most frequently accounted for by chronic microangiopathic changes in a patient of this age, which can be interpreted based on clinical context. No specific abnormal density within the brain parenchyma. No mass-effect or edema, or pathologic shift of midline structures. No acute intracranial hemorrhage. Satisfactory lockhart-white matter differentiation. Normal anatomy of the posterior fossa, cerebellum, joy and medulla allowing for the degree of cerebral parenchymal volume loss. Cerebral ventricles: CSF spaces demonstrate mild generalized enlargement of the ventricles, cisterns and other subarachnoid spaces commensurate with patient's age. Paranasal sinuses: The sinuses are normal. Mastoid air cells: Mastoid air cells and tympanic cavities appear aerated without pathologic fluid accumulation. Orbital cavities: Thinning of the lenses of the globes consistent with prior lens surgery. Teeth: The patient is edentulous. Bones: No acute fracture or bone lesions. No intrinsic osseous abnormality identified. Soft tissues: Soft tissues are normal as visualized, demonstrating no masses or induration. Right scalp solitary benign dermal or superficial subcutaneous calcification mentioned for completeness and not known to be of clinical significance. Vasculature: Satisfactory major vessel density and caliber characteristic of flowing intravascular blood. Vascular structures demonstrate atherosclerosis. CT/CT head wo con* [id number] IMPRESSION: 1. No acute intracranial abnormalities identified. Specifically no CT evidence of mass, hemorrhage, or acute infarction. 2. Age-expected severe cerebral atrophy with chronic small vessel ischemic changes. 3. Stable old left-sided lacunar infarct genu internal capsule. COMMENTS: Noncontrast head CT is not sensitive for the detection of acute ischemic infarct or early white matter manifestations of migrainous disease. If acute ischemic infarct or migrainous disease is of high clinical concern, additional imaging, specifically MRI brain without contrast recommended if readily available.
--- NOTE | 2025-07-18 18:08 | CTR_ITS ---
PROCEDURE INFORMATION: Exam: CT Cervical Spine Without Contrast Exam date and time: 07/18/2025 7:09 PM Age: 79 years old Clinical indication: Injury or trauma; Blunt trauma; EMS arrival from care home for fall with headstrike. Patient hypotensive. Positive for RT greater trochanter fracture from a fall yesterday. ; Additional info: Fall/hit head TECHNIQUE: Imaging protocol: Computed tomography of the cervical spine without contrast. Total images: 288 Radiation optimization: All CT scans at this facility use at least one of these dose optimization techniques: automated exposure control; mA and/or kV adjustment per patient size (includes targeted exams where dose is matched to clinical indication); or iterative reconstruction. COMPARISON: 1. CT cervical spin wo con* [id number] 03/05/2025 11:[address] cervical spin wo con* [id number] 12/20/2024 6:24 PM RADIATION DOSE METRICS: Total DLP (mGy-cm): 242.43 FINDINGS: Tubes, catheters and devices: Intravenous gas is likely related to IV catheter placement or/and contrast administration. Bones: Moderate generalized degenerative changes of the vertebral column, including multilevel osteophytes, degenerative disc height loss, and facet arthrosis, consistent with patient age. Severe degenerative arthrosis of the C1-C2 anterior atlantodental interval. C5-C6, C6-C7 severe degenerative disc height loss and prominent ventral (anterior) vertebral endplate osteophyte formation. Extensive calcification at the supraspinous ligament insertion on the tip of the T1 spinous process without evidence of acute fracture. No acute displaced fracture, subluxation or dislocation. Qualitative demineralization of bones (osteopenia) limiting evaluation for nondisplaced fractures. Teeth: Mandibular and maxillary alveolar ridge resorption consistent with edentulism. Pharynx: Nasopharyngeal; symmetric patel, normal adenoid tonsils and normal appearing lateral recesses and Eustachian tube orifices. Oropharynx; normal tonsillar pillars, palatine tonsils, tongue base and vallecula. Hypopharynx; normal piriform sinuses, posterior pharyngeal wall and post cricoid region. Smoothly contoured pharyngeal mucosal surfaces. Pharyngeal airway is patent. Larynx: Larynx; supraglottic, glottic, and subglottic, are symmetric and unremarkable. Epiglottis, aryepiglottic folds, false and true vocal cords are symmetric with no thickening or mass. Paraglottic space and preepiglottic fat are clear. Vocal cords are symmetric without mass or edema. No laryngeal airway narrowing. Salivary glands: The parotid and submandibular salivary glands are normal. Lungs: Lung apices demonstrate calcific pleural plaque with no pulmonary nodules or masses. Thyroid: Thyroid normal. Lymph nodes: Shotty bilateral cervical level IB submandibular prominent lymph nodes and a few upper internal jugular level II a shotty lymph nodes. No pathologically enlarged cervical lymph nodes. Vasculature: Surgical clips in the left neck probably associated with left carotid endarterectomy although not specific in this regard. Vascular structures demonstrate atherosclerosis. Soft tissues: Soft tissues are normal as visualized, demonstrating no masses or swelling/induration. No extranodal neck mass. Other findings: Lower airway patent without internal defects, secretions, or debris insofar as partially included within the field of view. CT/CT cervical spin wo con* [id number] IMPRESSION: 1. No acute displaced fracture. 2. Moderate age-appropriate degenerative spinal changes, with other chronic/non-acute findings as described above. COMMENTS: Qualitative demineralization of bones (osteopenia) limiting evaluation for nondisplaced fractures.
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
[2025-07-18 18:18] LABS: Hematocrit 33.8 % (36-47); Hemoglobin 11.10 g/dL (11.27-16.99); Mean Corpuscular HGB Conc 32.8 g/dL (30-55); Mean Corpuscular Hemoglobin 27.3 pg (27-33); Mean Corpuscular Volume 83.3 fl (85-98); Nucleated Red Blood Cells % 0 %; Platelet Count 237 10^3/cmm (157-399); Red Blood Count 4.06 10^6/uL (3.85-5.65); White Blood Count 9.14 10^3/uL (3.29-11.43)
--- NOTE | 2025-07-18 18:32 | ECG_ITS ---
[facility] Test Date: 2025-07-18 Pat Name: Terri Pride Department: Room: Gender: Female [employer]: : 1945 Requested By: Genaro Mueller Order Number: [id number] Noel MD: Caleb Romero M.D. Measurements Intervals [place] Rate: 79 P: 60 HI: 176 QRS: 37 QRSD: 82 T: 74 QT: 388 QTc: 445 Interpretive Statements SINUS RHYTHM Compared to ECG 07/17/2025 08:04:56 Left ventricular hypertrophy no longer present ST (T wave) deviation no longer present Electronically Signed On 07-19-2025 12:06:15 CDT by Caleb Romero M.D. [email or web address]
--- NOTE | 2025-07-18 18:33 | ECG_ITS ---
[facility] Test Date: 2025-07-18 Pat Name: Terri Pride Department: Room: Gender: Female Clod Puller: : 1945 Requested By: Genaro Mueller Order Number: [id number] Noel MD: Caleb Romero M.D. Measurements Intervals [place] Rate: 77 P: 60 TX: 180 QRS: 39 QRSD: 78 T: 74 QT: 392 QTc: 444 Interpretive Statements SINUS RHYTHM Compared to ECG 07/18/2025 18:32:40 No significant changes Electronically Signed On 07-19-2025 11:57:34 CDT by Caleb Romero M.D. [email or web address]
--- NOTE | 2025-07-18 18:37 | CTR_ITS ---
PROCEDURE INFORMATION: Exam: CTA Chest With Contrast Exam date and time: 07/18/2025 7:13 PM Age: 79 years old Clinical indication: Injury or trauma; Generalized; Blunt trauma (contusions or hematomas); EMS arrival from [facility] for fall with headstrike. Patient hypotensive. Positive for RT greater trochanter fracture from a fall yesterday. ; Additional info: SOB TECHNIQUE: Imaging protocol: Computed tomographic angiography of the chest with contrast. Exam focused on the arteries. 3D rendering (Not supervised by radiologist): MIP and/or 3D reconstructed images were created by the technologist. Total images: 3 Radiation optimization: All CT scans at this facility use at least one of these dose optimization techniques: automated exposure control; mA and/or kV adjustment per patient size (includes targeted exams where dose is matched to clinical indication); or iterative reconstruction. Contrast material: OMNI 350; Contrast volume: 100 ml; Contrast route: INTRAVENOUS (IV); COMPARISON: 1. CT angio chest PE protcl [id number] 01/23/2023 11:[address] angio chest PE protcl [id number] 12/03/2022 8:37 PM RADIATION DOSE METRICS: Total DLP (mGy-cm): 1335.74 FINDINGS: Pulmonary arteries: Pulmonary artery evaluation of good technical quality with no pulmonary artery embolism identified. 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 Lungs: Minimal subpleural interstitial thickening, likely chronic, without focal consolidation. Bibasilar streaky linear opacities characteristic of atelectasis or postinflammatory parenchymal scarring. Lingula solitary 2 mm pulmonary nodule (series 7, image 21). Pleural spaces: No significant pleural effusion. No pneumothorax. No significant pleural effusion. No pneumothorax. Heart: Mild cardiomegaly. Mitral valve annulus calcification. Aortic valve calcification is present, often associated with aortic stenosis. Lymph nodes: No lymphadenopathy. Diaphragm: Moderate-sized hiatal hernia. Bones/joints: Please see CT abdomen. Old healed rib fracture deformities present. Moderate generalized degenerative changes of the vertebral column, including multilevel osteophytes, degenerative disc height loss, and facet arthrosis, consistent with patient age. No acute displaced fracture, subluxation or dislocation. Qualitative demineralization of bones (osteopenia) limiting evaluation for nondisplaced fractures. Soft tissues: Soft tissues are normal as visualized, demonstrating no masses or swelling/induration. Other findings: Lower airway patent without internal defects, secretions, or debris. COMMENTS: 1. Please see CT abdomen regarding additional findings. 2. With regard to lung findings, patients at low risk (minimal or absent history of smoking and of other known risk factors), no routine follow-up is indicated. For patients at high risk (history of smoking or of other known risk factors), consider optional CT Chest at 12 months. (Reference: Genevieve) 3. Qualitative demineralization of bones (osteopenia) limiting evaluation for nondisplaced fractures. REFERENCES: Genevieve Miller et al. Guidelines for Management of Incidental Pulmonary Nodules Detected on CT Images: From the Fleischner Society 2017. Radiology. 2017;284(1):228-243. PROCEDURE INFORMATION: Exam: CT Abdomen And Pelvis With Contrast Exam date and time: 07/18/2025 7:13 PM Age: 79 years old Clinical indication: Injury or trauma; Generalized; Blunt trauma (contusions or hematomas); EMS arrival from [facility] for fall with headstrike. Patient hypotensive. Positive for RT greater trochanter fracture from a fall yesterday. ; Additional info: SOB TECHNIQUE: Imaging protocol: Computed tomography of the abdomen and pelvis with contrast. Radiation optimization: All CT scans at this facility use at least one of these dose optimization techniques: automated exposure control; mA and/or kV adjustment per patient size (includes targeted exams where dose is matched to clinical indication); or iterative reconstruction. Contrast material: OMNI 350; Contrast volume: 100 ml; Contrast route: INTRAVENOUS (IV); COMPARISON: 1. CT pelvis wo con [id number] 07/17/2025 8:[address] abdomen pelvis w con* [id number] 03/24/2024 3:25 PM RADIATION DOSE METRICS: Total DLP (mGy-cm): 1335.74 FINDINGS: Tubes, catheters and devices: Incidental intravenous gas bubble(s) likely accounted for by IV catheter placement or/and contrast administration. Diaphragm: Moderate-sized hiatal hernia. Liver: Liver is normal in size with no focal hepatic lesions or intrahepatic biliary dilatation. Gallbladder and biliary ducts: Gallbladder appears normal; nondistended, thin wall, no stones, no pericholecystic fluid/stranding. Pancreas: Pancreas of normal thickness and contour. Spleen: Spleen normal in size and contour. No focal splenic mass identified. Adrenal glands: Adrenal glands are normal. Kidneys and ureters: Bilateral multifocal renal cortical thinning consistent with scarring. Kidneys are otherwise normal. No evidence of obstructing urinary tract calculus, hydroureteronephrosis or perinephric edema. Stomach and bowel: There is a small duodenal diverticulum. No evidence of pathologic bowel distension or bowel wall thickening. No evidence of pathologic bowel distension or bowel wall thickening. Scattered colonic air-fluid levels with paucity of solid stool. No mural thickening or adjacent inflammatory changes. Appendix: Appendix is not identified, however there are no specific manifestations of acute appendicitis. Intraperitoneal space: No significant peritoneal free fluid. No free peritoneal air. Vasculature: No major vessel critical narrowing, occlusion, or aneurysm. Moderate scattered vascular calcifications. No major vessel critical narrowing, occlusion, or aneurysm. Lymph nodes: No lymphadenopathy. Urinary bladder: Bladder over distended, demonstrating at least 1 anterior bladder diverticulum, potentially obscuring subtle findings. Consider treatable causes of urinary retention and catheter placement if appropriate. Reproductive: Prior hysterectomy; vaginal cuff normal. No adnexal cysts or masses are identified. Bones/joints: Severe chronic generalized degenerative changes of the vertebral column, including multilevel osteophytes, degenerative disc height loss, vacuum disc phenomenon, and facet arthrosis, consistent with patient age. L5-S1 vacuum disc phenomenon and advanced degenerative facet arthrosis. Pubic symphysis mild degenerative changes (osteitis pubis). Sacroiliac joint degenerative manifestations. T12 compression deformity appears likely longstanding/chronic. L2 compression deformity appears likely longstanding/chronic. Old healed right superior and inferior pubic ramus fracture deformities. Right acute greater trochanter fracture with adjacent posttraumatic fluid. Qualitative demineralization of bones (osteopenia) limiting evaluation for nondisplaced fractures. Generalized bony tendon origin/insertion proliferative enthesopathy, mild. Soft tissues: Soft tissues are normal as visualized, demonstrating no masses or swelling/induration. CT/CT angio chest w abd pel w con IMPRESSION: 1. No acute chest pathology identified. 2. No pulmonary artery embolism identified. 3. Minimal subpleural interstitial thickening, likely chronic, without focal consolidation. Appearance most consistent with chronic fibrotic interstitial change, age-related/nonspecific. Recommend correlation with clinical history; pulmonary function tests if clinically indicated. 4. No acute displaced fracture, subluxation or dislocation. 5. Lingula solitary 2 mm pulmonary nodule (series 7, image 21). See comments and recommendations below. 6. Moderate age-appropriate degenerative spinal changes, with other chronic/non-acute findings as described above. 7. 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 A finding which may produce subclavian steal syndrome. IMPRESSION: 1. Right acute greater trochanter fracture with adjacent posttraumatic fluid. 2. Fluid-filled colon without mural thickening suggestive of infectious or functional diarrheal state (e.g., osmotic, secretory, or antibiotic related). 3. Bladder over distended, demonstrating an anterior bladder diverticulum. Distended bladder may potentially obscuring subtle pelvic findings. Consider treatable causes of urinary retention and catheter placement if appropriate. Repeat imaging may be useful (if clinically warranted). 4. Advanced age-appropriate degenerative spinal changes, with other chronic/non-acute findings as described above. COMMENTS: 1. Please see CTA chest regarding additional findings. 2. Qualitative demineralization of bones (osteopenia) limiting evaluation for nondisplaced fractures.
[2025-07-18 18:40] LABS: Lactic Sepsis W/Reflex 1.5 mmol/L (0.5-2.2)
[2025-07-18 18:41] LABS: Alanine Aminotransferase 7 U/L (0-33); Albumin Level 3.3 g/dL (3.5-5.2); Alkaline Phosphatase 104 U/L (35-105); Anion Gap 16.0 (5-19); Aspartate Amino Transferase 15 U/L (0-32); Blood Urea Nitrogen 16 mg/dL (8-23); Calcium 9.0 mg/dL (8.5-10.5); Carbon Dioxide 22 mmol/L (22-29); Chloride 92 mmol/L (98-107); Globulin 4.5 g/dL (1.3-4.6); Glucose 145 mg/dL (65-115); Osmolality Calculated 266 mOsm/kg (285-295); Potassium 4.0 mmol/L (3.5-5.1); Sodium 126 mmol/L (136-145); Total Protein 7.8 g/dL (6.6-8.7)
[2025-07-18] MEDS: iohexol 350 mg/mL 500 mL Btl (per mL) IV (19:11)
[2025-07-18 20:02] LABS: Respiratory Syncytial Virus Ce NEGATIVE (Negative); SARS-CoV-2 PCR NEGATIVE (Negative)
--- NOTE | 2025-07-18 20:10 | ECG_ITS ---
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 Measurements Intervals [place] Rate: 94 P: 68 PA: 199 QRS: 53 QRSD: 82 T: 74 QT: 349 QTc: 438 Interpretive Statements SINUS RHYTHM MODERATE VOLTAGE CRITERIA FOR LVH, CONSIDER NORMAL VARIANT [MEETS CRITERIA IN ONE OF: R(aVL), S(V1), R(V5), R(V5/V6)+S(V1)] Compared to ECG 07/18/2025 18:33:39 No significant changes Electronically Signed On 07-19-2025 12:06:12 CDT by Caleb Romero M.D. [email or web address]
[2025-07-18 20:15] LABS: Troponin(5th) Baseline 21 ng/L (0-10)
[2025-07-18 21:20] LABS: Glucose Urine UA Negative (Normal); Nitrate Urine Negative (Negative); Specific Gravity, Urine 1.020 (1.005-1.030)
[2025-07-18 21:28] LABS: Add Urine Microscopic? YES
[2025-07-18 21:57] LABS: Procalcitonin 0.18 ng/mL (0-0.5)
[2025-07-18 23:17] LABS: Troponin 5 2HR 22.29 ng/L (0-10); Troponin 5 2HR Delta 1.29 ABS# (0-10)
== END 2025-07-18 23:22 | disposition home or self-care (01) ==
PROVIDERS: Emergency Provider Physician Assistant; PCP Internal Medicine
DX: S72.114D Nondisplaced fracture of greater trochanter of right femur, subsequent encounter for closed fracture with routine healing (principal); N39.0 Urinary tract infection, site not specified; Z11.52 Encounter for screening for COVID-19; Z86.73 Personal history of transient ischemic attack (TIA), and cerebral infarction without residual deficits; W06.XXXD Fall from bed, subsequent encounter
CPT/HCPCS: 36415; 70450; 71045; 71275; 72125; 73502; 74177; 80053; 81001; 83605; 84145; 84484; 85025; 85651; 86140; 87040; 87086; 87637; 93005; 96360; 96361; 99285; J7030; J7040

== ENCOUNTER 2025-08-01 10:00 | Inpatient (IN) | payer MEDICARE, MEDICAID, SELFPAY ==
[2025-08-01] VITALS (9 sets, daily range): BP systolic 109–157; BP diastolic 55–67; PULSE 81–96; RESP 16–18; TEMP 36.6–37.4; O2SAT 91–99; BMI 18.6
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
--- NOTE | 2025-08-01 10:33 | CT_ITS ---
WS: [id number] CT CHEST, ABDOMEN AND PELVIS WITHOUT CONTRAST HISTORY: fall, rib fxs? L hip fracture TECHNIQUE: Contiguous 5 mm axial imaging performed through the chest, abdomen and pelvis without IV contrast, oral contrast has not been provided. Coronal and sagittal reformats chest. Coronal and sagittal reformats through the abdomen and pelvis. All CT scans at [facility] use at least one of these dose optimization techniques: automated exposure control; mA and/or kV adjustment per patient size (includes targeted exams where dose is matched to clinical indication); or iterative reconstruction. CONTRAST: None DLP: 407.84 mGy.cm COMPARISON: 07/18/2025, 03/24/[address]: Mild pulmonary hyperexpansion. No pulmonary contusion or laceration. No pneumothorax. Mild dependent changes at the lung bases. Extensive atherosclerotic plaque throughout the aorta. 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 Pseudoaneurysm has been present on prior examinations but better seen today as there is less motion artifact. Heavily calcified arteries. No mediastinal hematoma. Pulmonary artery is dilated. No adenopathy. Large hiatal hernia. Acute LEFT humeral neck fracture with impaction. There is a large amount of post traumatic bleeding and edema surrounding the LEFT shoulder. Numerous left-sided rib fractures are identified. These rib fractures are remote with healing. No acute fracture. Mild chronic anterior wedging of T12. Abdomen CT: No laceration to the liver or spleen. Mild variable density in the gallbladder. No adjacent inflammation. Atrophied pancreas. No adrenal mass. No renal obstruction. Dense calcification in the aorta. No mesenteric injury. No ascites or adenopathy. Pelvic CT: Urinary bladder is overly distended. There is a small amount of air in the bladder from catheterization. There is a Banuelos catheter present. Bones are severely osteopenic. Acute fracture involving the RIGHT greater trochanter was previously described. There is a new fracture involving the LEFT femoral neck with impaction and lateral displacement. Remote healed fracture inferior RIGHT pubic rami and superior pubic rami. No change in the fractures at L2 and T12. CT/[place] [id number] IMPRESSION: 1. No pulmonary contusion or pneumothorax. 2. Acute LEFT shoulder fracture with a large amount of surrounding edema and b lood. 3. Acute LEFT femoral neck fracture with superior and lateral displacement. 4. Patient also has a known recent RIGHT greater trochanter fracture. Marrow e hernandez is also noted extending distally suspicious for nondisplaced fracture. No change since 07/17/2025. 5. No acute rib fractures are identified. There are numerous healed rib fractu res. Subtle nondisplaced fractures may be difficult to visualize due to the sev ere osteopenia. 6. No acute thoracic or lumbar spine fracture identified. 7. No ascites or mesenteric injury.
[2025-08-01 10:46] LABS: Hematocrit 34.4 % (36-47); Hemoglobin 10.50 g/dL (11.27-16.99); Mean Corpuscular HGB Conc 30.5 g/dL (30-55); Mean Corpuscular Hemoglobin 26.6 pg (27-33); Mean Corpuscular Volume 87.1 fl (85-98); Nucleated Red Blood Cells % 0 %; Platelet Count 473 10^3/cmm (157-399); Red Blood Count 3.95 10^6/uL (3.85-5.65); White Blood Count 10.05 10^3/uL (3.29-11.43)
--- NOTE | 2025-08-01 10:58 | CT_ITS ---
WS: [id number] CT CERVICAL SPINE HISTORY: fall/trauma TECHNIQUE: Contiguous 2.0 mm axial imaging performed through the entire cervical spine. Sagittal and coronal reformats also performed. All CT scans at [facility] use at least one of these dose optimization techniques: automated exposure control; mA and/or kV adjustment per patient size (includes targeted exams where dose is matched to clinical indication); or iterative reconstruction. DLP: 1319.44 mGy.cm COMPARISON: 07/18/2025 Severe osteopenia. Alignment is similar to the study from 07/18/2025. Disc spaces are narrowed. No acute fracture identified. Facet joints are normally aligned. Lateral masses of C1 and C2 are aligned. The odontoid is intact. Craniocervical junction is normal. Marked facet joint arthritis and hypertrophic bone formation on the LEFT at C2-3 appears similar to prior studies. No acute fracture is identified. Additional multilevel facet joint arthritis. Lung apices are clear. The visualized ribs and the upper thorax are negative. CT/CT cervical spin wo con* [id number] IMPRESSION: 1. Marked osteopenia. 2. Advanced degenerative disc disease and facet arthritis. 3. No acute fractures or malalignment identified.
--- NOTE | 2025-08-01 10:58 | CT_ITS ---
WS: [id number] CT HEAD NONCONTRAST HISTORY: trauma TECHNIQUE: Contiguous axial imaging performed through the brain. Bone and soft tissue windows. Sagittal and coronal reformats reviewed. All CT scans at [facility] use at least one of these dose optimization techniques: automated exposure control; mA and/or kV adjustment per patient size (includes targeted exams where dose is matched to clinical indication); or iterative reconstruction. DLP: 1319.44 mGy.cm COMPARISON: 07/18/2025 No acute intracranial hemorrhage, midline shift or mass effect. Advanced atrophy and small vessel disease. No acute intracranial hemorrhage or edema. Prior lacunar infarct LEFT basal ganglia. Ventricles: Ventricles and extra-axial spaces are prominent on the basis of atrophy. Paranasal sinuses: As visualized are clear. Mastoid air cells: Well pneumatized. Calvarium and scalp: Skull is intact with no soft tissue edema or swelling. CT/CT head wo con* [id number] IMPRESSION: 1. No acute intracranial hemorrhage or edema. 2. Advanced atrophy and small vessel disease.
[2025-08-01] MEDS: ondansetron 2 mg/ML SDV 2 mL 4 MG IVP (11:06)
[2025-08-01] MEDS: morphine 4 mg/mL SDV 1 mL IVP (11:06)
[2025-08-01 11:11] LABS: Glucose Urine UA Negative (Normal); Nitrate Urine Negative (Negative); Specific Gravity, Urine 1.018 (1.005-1.030)
[2025-08-01 11:16] LABS: Add Urine Microscopic? YES
[2025-08-01 11:32] LABS: Alanine Aminotransferase 6 U/L (0-33); Albumin Level 3.0 g/dL (3.5-5.2); Alkaline Phosphatase 118 U/L (35-105); Anion Gap 16.0 (5-19); Aspartate Amino Transferase 14 U/L (0-32); Blood Urea Nitrogen 20 mg/dL (8-23); Calcium 9.3 mg/dL (8.5-10.5); Carbon Dioxide 26 mmol/L (22-29); Chloride 99 mmol/L (98-107); Creatinine Clr Calc Pharmacy 43.7182; Globulin 4.8 g/dL (1.3-4.6); Glucose 110 mg/dL (65-115); Osmolality Calculated 287 mOsm/kg (285-295); Potassium 4.0 mmol/L (3.5-5.1); Sodium 137 mmol/L (136-145); Total Protein 7.8 g/dL (6.6-8.7)
--- NOTE | 2025-08-01 13:40 | PC.SOCIAL ---
Pt has [facility] at home Jeni Pascual called & said pt is on their hospice services. She said they will d/c pt from Hospice, & when pt is discharging back home, they can pick pt back up on their services.
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
--- OUTSIDE RECORDS SUMMARY | 2025-08-01 19:32 | XMS_ITS | Continuity of Care Document ---
Author Organization [facility] ([facility]) Address [address] [place] [address] Insurance Providers Payer Plan Claims Address Claims Phone Policy Number Group Number Relation Employer Guarantor Name Guarantor Guarantor Address Guarantor Phone Haley Sterling tra rick [address] [address], [place] [address] tel:[phone] [id number] Self Terri Pride [address] [place] [address] Medic aid [address], [place] [address] tel:[phone] Self Terri Pride [address] [place] [id number] [facility] 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 Unspecified dementia without behavioral disturbance F03.90 05/26/2025 Active Encounter for palliative care Z51.5 05/23/2025 Active Atherosclerotic heart disease of [place] coronary artery without angina pectoris I25.10 05/23/2025 Active Peripheral vascular disease, unspecified I73.9 05/23/2025 Acti ve snf (current) use of aspirin Z79.82 05/23/2025 Active [...] Acute cystitis without hematuria N30.00 07/17/2025 Active Nondisplaced fracture of greater trochanter of right femur, subsequent encounter for closed fracture with routine healing S72.114D 07/17/2025 Active Unspecified nondisplaced fracture of surgical neck of left humerus, subsequent encounter for fracture with routine healing S42.215D 07/28/2025 Active Multiple fractures of ribs, left side, subsequent encounter for fracture with routine healing S22.42XD 07/28/2025 Active Results Test Result Date/Time Value / Unit Interp. Refere nce Range Tuberculosis reaction wheal[ 62474-2] Tuberculosis reaction wheal [04122-4] 05/26/2025 05:00 PM 0 mm NEG Tuberculosis reaction wheal[ 20523-5] Tuberculosis reaction wheal [86047-1] 05/24/2025 04:03 PM 0 mm NEG Allergies, adverse reactions, alerts Substance Reaction Date Status Type bacitracin 05/21/2025 Non Drug Zyrtec 05/21/2025 Non Drug Polymyxins 05/21/2025 Non Drug neomycin 05/21/2025 Non Drug Immunizations Vaccine Route Date Status COVID-19 Vaccine Unassigned Route of Administration Refused COVID-19 Vaccine Unassigned Route of Administration Completed COVID-19 Vaccine Unassigned Route of Administration Completed Medications Medication Instructions Route Dosage Frequency Start [...] indication: severe pain transdermal 1.0 1.0 d 07/29 Active hydrocodone-ac etaminophen 5-325 mg tablet (hydrocodone-a cetaminophen) 1 tab, oral, Every 6 Hours - PRN, Administer 1 tab po Q 6hrs PRN pain oral 1.0 6.0 h 07/17 Active cefdinir 300 mg capsule (cefdinir) 1 cap, oral, Twice A Day, Administer 1 cap po BID x 7 days for early pneumonitis/U TI oral 1.0 12.0 h 07/29 Active cefdinir 300 mg capsule (cefdinir) 1 cap, oral, Twice A Day, Administer 1 cap po BID x 7 days for early pneumonitis/U TI oral 1.0 12.0 h 07/19 Active ondansetron HCl 4 mg tablet (ondansetron HCl) 1-2, oral, Other, Give Ondansetron HCL 4 MG, 1-2 tablets every 6 hours as needed for nausea. oral 1.0 2024 Active fentanyl 50 mcg/hr patch 72 hour (fentanyl) 1 patch, transdermal, Every 72 Hours, Apply 1 patch topically Q 72hrs transdermal 1.0 72.0 h 2024 Active Vital Signs Date Vital Result Comment 06/06/2025 10:56 AM Oxygen Saturation (52749-0) 93 % 06/04/2025 09:07 PM Oxygen Saturation (00147-0) 92 % 06/05/2025 09:46 PM Oxygen Saturation (03219-2) 97 % 06/04/2025 12:39 PM Oxygen Saturation (35697-0) 94 % 05/25/2025 07:17 PM Temperature (8310-5) 98.7 [degF] Respiratory Rate (9279-1) 19 /min Heart Rate (8867-4) 87 /min Blood Pressure Systolic (8480-6) 143 mm[Hg] Blood Pressure Diastolic (8462-4) 82 mm[Hg] 05/25/2025 12:08 AM Temperature (8310-5) 98.4 [degF] Respiratory Rate (9279-1) 17 /min Heart Rate (8867-4) 68 /min Blood Pressure Systolic (8480-6) 114 mm[Hg] Blood Pressure Diastolic (8462-4) 71 mm[Hg] 06/06/2025 02:40 PM Body Weight (83509-4) 101.8 [lb_av ] Body Mass Index (63327-1) 22.03 kg/m2 06/02/2025 09:01 AM Oxygen Saturation (08410-9) 95 % 05/23/2025 05:26 PM Temperature (8310-5) 98.9 [degF] Respiratory Rate (9279-1) 16 /min Heart Rate (8867-4) 87 /min Blood Pressure Systolic (8480-6) 74 mm[Hg] Blood Pressure Diastolic (8462-4) 35 mm[Hg] Body Height (8302-2) 57 [in_us] Body Weight (75163-9) 106 [lb_av] Body Mass Index (87570-5) 22.94 kg/m2 05/28/2025 11:33 AM Body Weight (97029-7) 102.6 [lb_av ] Body Mass Index (90702-3) 22.2 kg/m2 06/04/2025 01:33 PM Body Weight (70118-6) 102.6 [lb_av ] Body Mass Index (23318-2) 22.2 kg/m2 06/04/2025 12:26 AM Oxygen Saturation (80026-6) 94 % 05/24/2025 01:32 PM Temperature (8310-5) 98 [degF] Respiratory Rate (9279-1) 18 /min Heart Rate (8867-4) 71 /min Blood Pressure Systolic (8480-6) 109 mm[Hg] Blood Pressure Diastolic (8462-4) 69 mm[Hg] 06/05/2025 04:45 PM Oxygen Saturation (08479-4) 98 % 06/02/2025 10:19 PM Oxygen Saturation (17250-1) 94 % 05/25/2025 10:32 AM Body Weight (71145-3) 104.4 [lb_av ] Body Mass Index (94151-9) 22.59 kg/m2 06/03/2025 08:19 AM Oxygen Saturation (47873-0) 93 % 05/25/2025 12:44 PM Temperature (8310-5) 96.9 [degF] 05/25/2025 12:27 PM Temperature (8310-5) 96.9 [degF] Respiratory Rate (9279-1) 20 /min Heart Rate (8867-4) 96 /min Blood Pressure Systolic (8480-6) 151 mm[Hg] Blood Pressure Diastolic (8462-4) 94 mm[Hg] 06/05/2025 12:47 PM Body Weight (65581-8) 101.8 [lb_av ] Body Mass Index (17375-9) 22.03 kg/m2 06/02/2025 10:41 AM Body Weight (01163-2) 100 [lb_av] Body Mass Index (38374-2) 21.64 kg/m2 05/23/2025 06:42 PM Temperature (8310-5) 98.2 [degF] 05/23/2025 10:13 PM Respiratory Rate (9279-1) 17 /min Heart Rate (8867-4) 76 /min Blood Pressure Systolic (8480-6) 96 mm[Hg] Blood Pressure Diastolic (8462-4) 57 mm[Hg] 06/01/2025 11:50 PM Oxygen Saturation (52704-9) 96 % 05/24/2025 03:40 PM Body Weight (51237-7) 104 [lb_av] Body Mass Index (89989-2) 22.5 kg/m2 06/06/2025 11:09 PM Oxygen Saturation (22981-5) 95 % 06/07/2025 09:04 AM Oxygen Saturation (44438-8) 96 % 06/08/2025 12:09 AM Oxygen Saturation (41122-5) 95 % 06/08/2025 01:45 PM Oxygen Saturation (48698-8) 99 % 06/08/2025 11:49 PM Oxygen Saturation (98700-2) 97 % 06/09/2025 09:41 AM Oxygen Saturation (59178-5) 90 % 06/09/2025 09:06 PM Oxygen Saturation (34903-5) 95 % 06/10/2025 09:11 AM Oxygen Saturation (24160-6) 93 % 06/10/2025 07:22 PM Oxygen Saturation (57048-7) 92 % 06/11/2025 03:41 PM Oxygen Saturation (02667-6) 98 % 06/11/2025 02:24 PM Body Weight (14993-0) 101.4 [lb_av ] Body Mass Index (56862-2) 21.94 kg/m2 06/11/2025 03:42 PM Oxygen Saturation (68151-6) 98 % 06/11/2025 08:38 PM Oxygen Saturation (73299-8) 96 % 06/12/2025 08:46 PM Oxygen Saturation (31411-0) 97 % 06/12/2025 05:41 PM Oxygen Saturation (24157-9) 98 % 06/13/2025 04:41 PM Oxygen Saturation (00709-4) 94 % 06/13/2025 11:29 PM Oxygen Saturation (36358-2) 92 % 06/14/2025 12:06 PM Oxygen Saturation (67865-7) 96 % 06/14/2025 06:43 PM Oxygen Saturation (00706-8) 97 % 06/15/2025 02:54 PM Oxygen Saturation (19063-9) 94 % 06/15/2025 06:34 PM Oxygen Saturation (89407-5) 96 % 06/16/2025 11:19 AM Oxygen Saturation (03204-9) 97 % 06/16/2025 07:07 PM Oxygen Saturation (29902-3) 96 % 06/17/2025 08:46 AM Oxygen Saturation (75170-1) 95 % 06/18/2025 02:26 AM Oxygen Saturation (64608-6) 93 % 06/18/2025 03:17 PM Oxygen Saturation (07950-6) 96 % 06/18/2025 06:45 PM Oxygen Saturation (74818-1) 94 % 06/18/2025 06:34 PM Body Weight (10123-5) 100 [lb_av] Body Mass Index (43215-0) 21.64 kg/m2 06/19/2025 11:56 AM Oxygen Saturation (49310-4) 95 % 06/19/2025 06:16 PM Oxygen Saturation (35131-3) 96 % 06/20/2025 02:56 PM Oxygen Saturation (03333-6) 96 % 06/20/2025 08:28 PM Oxygen Saturation (16585-5) 95 % 06/21/2025 02:09 PM Oxygen Saturation (76910-3) 93 % 06/21/2025 11:24 PM Oxygen Saturation (68202-5) 98 % 06/22/2025 08:49 AM Oxygen Saturation (00939-6) 91 % 06/22/2025 08:54 PM Oxygen Saturation (02332-8) 93 % 06/23/2025 09:40 AM Oxygen Saturation (99059-0) 97 % 06/23/2025 07:43 PM Oxygen Saturation (06535-3) 96 % 06/24/2025 08:25 AM Oxygen Saturation (45985-8) 97 % 06/24/2025 07:46 PM Oxygen Saturation (79783-9) 95 % 06/25/2025 12:54 PM Oxygen Saturation (90647-8) 93 % 06/25/2025 06:55 PM Oxygen Saturation (62576-2) 93 % 06/26/2025 10:53 AM Oxygen Saturation (15365-5) 94 % 06/26/2025 06:35 PM Oxygen Saturation (13867-8) 95 % 06/27/2025 04:24 PM Oxygen Saturation (50589-0) 94 % 06/27/2025 09:44 PM Oxygen Saturation (20591-2) 97 % 06/28/2025 08:37 AM Oxygen Saturation (52010-3) 97 % 06/28/2025 08:26 PM Oxygen Saturation (27435-3) 93 % 06/29/2025 04:30 AM Temperature (8310-5) 98.6 [degF] 06/29/2025 10:28 AM Oxygen Saturation (70785-1) 98 % 06/30/2025 06:00 AM Oxygen Saturation (64795-9) 95 % 06/30/2025 11:13 AM Oxygen Saturation (26305-1) 97 % 06/30/2025 06:42 PM Oxygen Saturation (52683-2) 95 % 07/01/2025 08:53 AM Oxygen Saturation (65133-6) 98 % 07/01/2025 03:37 PM Temperature (8310-5) 97.4 [degF] 07/01/2025 06:54 PM Oxygen Saturation (34946-3) 95 % 07/02/2025 05:11 PM Oxygen Saturation (94901-9) 99 % 07/02/2025 11:14 AM Body Weight (75161-7) 102.4 [lb_av ] Body Mass Index (84744-3) 22.16 kg/m2 07/02/2025 07:01 PM Oxygen Saturation (59849-8) 97 % 07/03/2025 06:30 AM Temperature (8310-5) 98.1 [degF] 07/03/2025 09:25 AM Oxygen Saturation (32582-7) 92 % 07/03/2025 07:34 PM Oxygen Saturation (95469-7) 93 % 06/29/2025 09:50 PM Temperature (8310-5) 98.6 [degF] 07/04/2025 03:08 PM Oxygen Saturation (12987-4) 94 % 07/04/2025 10:42 PM Oxygen Saturation (96467-4) 95 % 07/05/2025 09:01 AM Oxygen Saturation (45834-2) 93 % 07/05/2025 11:12 PM Temperature (8310-5) 98.1 [degF] 07/05/2025 07:40 PM Oxygen Saturation (00149-8) 98 % 07/06/2025 11:10 AM Oxygen Saturation (90633-0) 93 % 07/06/2025 08:12 PM Oxygen Saturation (40989-2) 95 % 07/07/2025 12:29 PM Oxygen Saturation (41380-3) 94 % 07/07/2025 08:21 PM Oxygen Saturation (97294-3) 94 % 07/08/2025 10:02 AM Oxygen Saturation (85770-6) 97 % 07/08/2025 06:32 PM Oxygen Saturation (42993-3) 96 % 07/09/2025 07:44 AM Oxygen Saturation (55607-4) 94 % 07/09/2025 06:50 PM Oxygen Saturation (97901-2) 95 % 07/10/2025 02:58 PM Oxygen Saturation (90160-7) 97 % 07/10/2025 07:01 PM Oxygen Saturation (09357-2) 97 % 07/11/2025 04:14 PM Oxygen Saturation (06462-8) 96 % 07/12/2025 12:21 AM Oxygen Saturation (47418-7) 98 % 07/12/2025 12:56 PM Oxygen Saturation (64544-4) 97 % 07/12/2025 10:24 PM Oxygen Saturation (88470-7) 97 % 07/13/2025 09:30 AM Oxygen Saturation (56551-3) 94 % 07/14/2025 04:17 AM Oxygen Saturation (55731-3) 95 % 07/14/2025 02:59 PM Oxygen Saturation (82278-9) 95 % 07/14/2025 06:57 PM Oxygen Saturation (95360-3) 95 % 07/15/2025 10:58 AM Oxygen Saturation (35999-9) 96 % 07/15/2025 07:03 PM Oxygen Saturation (04567-9) 96 % 07/16/2025 09:39 AM Oxygen Saturation (80588-9) 92 % 07/16/2025 09:17 PM Oxygen Saturation (52000-7) 95 % 07/17/2025 12:32 PM Oxygen Saturation (55867-6) 95 % 07/17/2025 12:31 PM Temperature (8310-5) [...] 74 mm[Hg] 07/17/2025 07:11 PM Oxygen Saturation (61002-5) 93 % 07/18/2025 05:52 PM Oxygen Saturation (68563-0) 100 % 07/19/2025 06:09 AM Oxygen Saturation (33256-0) 95 % 07/19/2025 11:56 AM Oxygen Saturation (86665-7) 91 % 07/19/2025 08:16 PM Oxygen Saturation (28116-2) 95 % 07/20/2025 08:33 AM Oxygen Saturation (80954-1) 91 % 07/20/2025 09:04 PM Oxygen Saturation (20335-7) 96 % 07/21/2025 11:34 AM Oxygen Saturation (27641-1) 97 % 07/21/2025 06:14 PM Oxygen Saturation (52453-1) 95 % 07/22/2025 12:17 PM Oxygen Saturation (83013-8) 96 % 07/22/2025 06:23 PM Oxygen Saturation (84845-1) 94 % 07/23/2025 08:37 AM Temperature (8310-5) 98.1 [degF] Oxygen Saturation (23522-4) 90 % Respiratory Rate (9279-1) 15 /min Heart Rate (8867-4) 71 /min Blood Pressure Systolic (8480-6) 138 mm[Hg] Blood Pressure Diastolic (8462-4) 76 mm[Hg] 07/23/2025 09:01 PM Oxygen Saturation (48700-3) 93 % 07/24/2025 09:44 AM Oxygen Saturation (37453-1) 90 % 07/24/2025 12:51 PM Temperature (8310-5) 98.1 [degF] 07/24/2025 08:59 PM Oxygen Saturation (96990-0) 95 % 07/25/2025 02:23 PM Oxygen Saturation (20357-8) 94 % 07/25/2025 07:04 PM Oxygen Saturation (29520-4) 93 % 07/26/2025 09:32 AM Oxygen Saturation (44404-6) 95 % 07/26/2025 09:27 PM Oxygen Saturation (38920-9) 99 % 07/27/2025 09:29 AM Oxygen Saturation (23008-5) 91 % 07/27/2025 11:04 PM Oxygen Saturation (49244-6) 94 % 07/28/2025 08:50 AM Oxygen Saturation (83723-4) 90 % 07/28/2025 06:24 PM Oxygen Saturation (71670-0) 93 % 07/29/2025 09:19 AM Oxygen Saturation (01559-8) 94 % 07/29/2025 07:05 PM Oxygen Saturation (56767-4) 93 % 07/30/2025 02:57 PM Temperature (8310-5) 97 [degF] Oxygen Saturation (14643-9) 94 % Respiratory Rate (9279-1) 19 /min Heart Rate (8867-4) 72 /min Blood Pressure Systolic (8480-6) 150 mm[Hg] Blood Pressure Diastolic (8462-4) 83 mm[Hg] 07/30/2025 06:34 PM Oxygen Saturation (90884-5) 93 % 07/31/2025 08:32 AM Oxygen Saturation (35321-3) 95 % Social History No smoking Hx information available Encounters Type CPT Code Date Location Provider Indication s encounter report 05/23/2025 04:0 6 PM - 07/17/2025 07:36 AM Kamran Rivera DO 01 encounter report 05/23/2025 04:0 6 PM - 08/01/2025 02:40 PM Kamran Rivera DO 01 Advance Directives Directive Description Verification Date Supporting Document(s) Other Directive Resuscitation
--- NOTE | 2025-08-01 20:14 | ECG_ITS ---
[facility] Date: 2025-08-01 Pat Name: Terri Pride Department: Room: 263 Gender: Female Physical Therapy Supervisor: : 1945 Requested By: Campos Fernandez Order Number: [id number] Reading MD: RUBEN KASPER Measurements Intervals [place] Rate: 94 P: 55 VT: 153 QRS: 24 QRSD: 78 T: 50 QT: 348 QTc: 437 Interpretive Statements SINUS RHYTHM Compared to ECG 07/18/2025 20:10:16 No significant changes Electronically Signed On 08-02-2025 21:20:27 CDT by RUBEN KASPER [email or web address]
[2025-08-01] MEDS: morphine 4 mg/mL SDV 1 mL 2 MG IVP (22:57)
[2025-08-02] VITALS (9 sets, daily range): BP systolic 119–157; BP diastolic 53–75; PULSE 81–94; RESP 16–21; TEMP 36.4–37.2; O2SAT 90–96
--- NOTE | 2025-08-02 00:14 | PC.NURSE ---
Addendum entered by Daisha Hernandez LPN 08/02/25 00:17: witnessed [email or web address] Schroeder dispose snf fentanyl patch x2 in sharps. Original Note: Patient fpc fentanyl patch x2 removed from upper back at this time with Joann Hernandez LPN at bedside. Patch disposed of in sharps container.
[2025-08-02 05:51] LABS: Hematocrit 27.7 % (36-47); Hemoglobin 8.50 g/dL (11.27-16.99); Mean Corpuscular HGB Conc 30.7 g/dL (30-55); Mean Corpuscular Hemoglobin 26.9 pg (27-33); Mean Corpuscular Volume 87.7 fl (85-98); Nucleated Red Blood Cells % 0 %; Platelet Count 391 10^3/cmm (157-399); Red Blood Count 3.16 10^6/uL (3.85-5.65); White Blood Count 7.88 10^3/uL (3.29-11.43)
[2025-08-02 06:10] LABS: Anion Gap 12.5 (5-19); Blood Urea Nitrogen 17 mg/dL (8-23); Calcium 8.5 mg/dL (8.5-10.5); Carbon Dioxide 25 mmol/L (22-29); Chloride 107 mmol/L (98-107); Creatinine Clr Calc Pharmacy 43.4733; Glucose 99 mg/dL (65-115); Osmolality Calculated 292 mOsm/kg (285-295); Potassium 4.5 mmol/L (3.5-5.1); Sodium 140 mmol/L (136-145)
[2025-08-02] MEDS: morphine 4 mg/mL SDV 1 mL 2 MG IVP ×2 (07:14→19:13)
--- NOTE | 2025-08-02 11:38 | P.PN_ITS ---
Subjective 2 Subjective: Patient seen and examined today. Patient is awake and responsive however she still has some dementia at baseline and at this point in time deferring to her son and cqwuysqb-dk-pqn for finalized medical care. I did call and speak with the rfulqpsg-ht-ftl and son today please see the plan below. Vitals/I&O/Wt Last Vital Signs Temp 97.6 F 08/02/25 11:29 Pulse 81 08/02/25 11:29 Resp 16 08/02/25 11:29 BP 127/66 08/02/25 11:29 Pulse Ox 96 08/02/25 11:29 O2 Del Method Nasal Cannula 08/02/25 11:29 O2 Flow Rate 2 08/02/25 08:00 08/01/25 08/02/25 08/02/25 22:59 06:59 14:59 Intake Total 0 / 0 Output Total 100 / 100 Balance 0 / 0 -100 / -100 Weight last 48 hrs Weight 100 lb 8 oz Weight 105 lb 9.623 oz Weight 102 lb Physical Exam 2 Narrative: Patient is able to to follow commands and perform a standard?examination.?? Examination left lower?extremity: Examination of the left lower?extremity demonstrates patient has tenderness palpation of the left?hip?as well as the left lower?extremity is shortened and?externally rotated pt has positive logroll on?examination unable to perform Stinchfield's secondary to pain and discomfort.? Patient is able wiggle toes but will not plantarflex or dorsiflex ankle, sensations intact to light touch distally.? Distal pulses are palpable left lower?extremity is warm and well- perfused.? Mild swelling noted about the left?hip.?? Secondary survey examination positive for swelling and tenderness palpation with bruising ecchymosis to the left shoulder sling is on the place in this area patient has tenderness palpation over the proximal humerus no appreciable angular deformity appreciated. She is able to wiggle her fingers and left upper extremities warm well-perfused brisk cap refill less than 2 seconds compartment soft compressible distal pulses palpable Secondary survey examination positive for tenderness palpation about the right hip with positive logroll examination unable to perform Stinchfield's secondary to pain and discomfort she is only able to wiggle her toes but will not plantarflex and dorsiflex ankle. She endorses sensations intact light touch distally. Swelling noted about the right hip with significant tenderness palpation over the intertrochanteric region and groin, unable to perform any active range of motion. Urinary Catheter Management: Banuelos: Cath Placed During This Visit: yes Reason for Continuing Indwelling Catheter: Other Urinary Catheter Date of Insertion: 08/01/25 Urinary Catheter Time of Insertion: 11:01 Data 08/05/25 04:27 08/05/25 04:27 Other Labs: AM labs 08/02/2025 listed below: Hemoglobin 8.5 WBC 7.88 Sodium 140, potassium 4.5, BUN 17, creatinine 0.5 A&P Assessment and plan 1. Closed displaced fracture of left femoral neck: Plan for left hip hemiarthroplasty tomorrow 2. Closed fracture of left proximal humerus: Plan for nonoperative treatment with left shoulder sling/immobilizer 3. Closed intertrochanteric fracture of right femur: Plan for right hip trochanteric femur nail Plan: Orthopedics consulted Hospitalist admitted patient is primary Imaging reviewed?displaced left?hip?femoral neck fracture, MRI consistent with a right greater trochanter fracture with intertrochanteric extension consistent with a nondisplaced right intertrochanteric femur fracture, left proximal humerus fracture Labs reviewed Pain control Nonweightbearing right lower extremity, nonweightbearing left lower extremity, nonweightbearing left upper extremity May have a diet today N.p.o. at midnight Plan for OR tomorrow for left hip hemiarthroplasty and right hip trochanteric femur nail At this point in time I discussed with the patient however she has some confusion dementia at baseline as a result deferring to her son and uciirgaf-ue-iht for discussion on her care options. At this point in time I had had a long thoughtful discussion with Hope her nfjmbcfd-lj-dnp last night and talked about just given them time to think about her options here moving forward we talked about a nonoperative approach towards more hospice and just comfort care versus surgical intervention for all the things that we have stated up above previously as far as for the left femoral neck we talked about nonoperative versus [place] versus hip hemiarthroplasty, for the left proximal humerus at this point in time would be recommending more of a nonoperative approach as I feel like none of the surgical intervention options would offer any earlier weightbearing option for this patient, the right hip we talked about nonoperative or operative invention for right hip trochanteric femur nail. This point in time we had a long and thoughtful discussion about each of these options. They state they had spoken with her just yesterday and she states she did not want to just lay in bed and . At this point in time they are leaning towards observing with proximal humerus fracture but would like potentially of attempting for fixation and treatment for the left hip and the right hip and ultimately see if this will provide her some more comfort while she is in bed so she can at least sit up and maybe try and mobilize some. They do understand her mobilization will have some challenges given the restrictions she will have with the proximal humerus fracture but as a result we feel as though through shared decision making this would give her at least a chance for some better quality of life and more comfort while in bed and while sitting up. As result through shared decision making they elect to proceed with a left hip hemiarthroplasty and a right hip trochanteric femur nail. Once again her age as well as this bilateral hip surgery could have significant toll on the patient and have complications as far as anesthetic complications cardiac arrest or on the table. At this point time per the wishes of the son and bmrtxbpo-uk-kcn they wish for no compressions if she were to code on the table which we talked about this with anesthesia as well. At this point in time they understand the risk the benefits complication alternative surgical nonsurgical treatment options. Risk of surge include but not limited to make a better make it worse, injury to nerves vessels or tendons, infection, hip instability leg length discrepancies hardware failure, blood clot, stroke on the table, anesthetic complications, postoperative anemia requiring transfusion. Understanding the risks with surgery patient's son and hrykyzwn-tj-nls elected proceed with surgical intervention all questions have been answered at this time. Will get her added on to surgery schedule tomorrow for stated procedure above all questions answered at this time. PDMP PDMP Reviewed: Not Reviewed Attestations 2 Medical Necessity Statement*: Ongoing care patient has a left proximal humerus fracture left subcapital femoral neck fracture displaced, right hip intertrochanteric femur fracture Coding Level of Care Code Acute Code for Chg Fwd Diagnoses Closed displaced fracture of left femoral neck S72.002A Closed fracture of left proximal humerus S42.202A Closed intertrochanteric fracture of right femur S72.141A Time Spent (min) 35
--- NOTE | 2025-08-02 12:58 | P.PN_ITS ---
Subjective 2 Subjective: - Patient was seen this morning - She is alert to person, not to place n ot to time she has no pain complaints -She does not follow commands, diffusely encephalopathic, I do not get any indication that she understands her situation, or her current hospitalization, or anything I am telling her, in my opinion currently she does not have capacity to make decisions -She is currently at [facility] at their [facility]'s unit, has dementia, currently on hospice - She has a fentanyl patch in place - Patient is listed as a DNR, DNR form merline arias from nursing: - Spoke to orthopedic service, therapeut ic service had a detailed discussion with patient's next of kin Fortino and Vani, who wanted to proceed with surgical intervention so that she has more mobility and pain control - I had a discussion with Lonny - Discussed that Terri has a history of CAD, history of carotid endarterectomy, history of pulmonary embolism, CVA, she is off all her medications, vertebral artery steal syndrome, she is off her medications - Nonetheless given her stage her age, h er risk factors, her underlying medical disease, she does have significant risk for surgery - But I understand their wish for sure t o have more mobility with her in fractures, and her pain - Discussed risk and benefits of surgeri es, patient's family voiced understanding, all questions answered, shared decision making, agreed to proceed - Discussed risks associate with surgery , will with her underlying comorbidities, they voiced understanding, all questions answered, agreed to proceed - Discussed her CODE STATUS, I have conf irmed that Terri is a DNR/DNI, and family wants to keep it that way - Ultimately if her condition starts to deteriorate, or she suffer significant complications, they want to proceed with comfort care - But they are okay with nonaggressive m edical interventions such as fluids/blood/antibiotics, but overall if her condition starts to deteriorate or she develops complications, they want her to be comfortable and overall the goal is to ease her pain and ease her suffering and allow her to be comfortable Vitals/I&O/Wt Last Vital Signs Temp 97.6 F 08/02/25 11:29 Pulse 81 08/02/25 11:29 Resp 16 08/02/25 11:29 BP 127/66 08/02/25 11:29 Pulse Ox 96 08/02/25 11:29 O2 Del Method Nasal Cannula 08/02/25 11:29 O2 Flow Rate 2 08/02/25 08:00 08/01/25 08/02/25 08/02/25 22:59 06:59 14:59 Intake Total 0 / 0 Output Total 100 / 100 Balance 0 / 0 -100 / -100 Weight last 48 hrs Weight 45.586 kg Weight 47.9 kg Weight 46.266 kg Physical Exam 2 Const: COMMON NORMALS: no acute distress Neck/C-Spine: COMMON NORMALS: no JVD Chest: OTHER: Left shoulder swelling, in the sling Resp: COMMON NORMALS: normal respiratory effort, No retractions, No use of accessory muscles and clear to auscultation bilaterally AUSCULTATION: clear to auscultation bilaterally Cardio: COMMON NORMALS: no JVD, regular rate, regular rhythm, S1 normal heart sound present and S2 normal heart sound present RATE: regular rate RHYTHM: regular rhythm HEART SOUNDS: S1 normal heart sound present and S2 normal heart sound present GI: COMMON NORMALS: Normal to inspection, nondistended, normoactive bowel sounds present and non-tender Extremity: COMMON NORMALS: no pedal edema Psych: COMMON NORMALS: mental status grossly normal Urinary Catheter Management: Banuelos: Cath Placed During This Visit: yes Reason for Continuing Indwelling Catheter: Other Urinary Catheter Date of Insertion: 08/01/25 Urinary Catheter Time of Insertion: 11:01 Data 08/02/25 05:14 08/02/25 05:14 A&P Assessment and plan 1. Closed displaced fracture of left femoral neck: 2. Closed left humeral fracture: 3. CAD (coronary artery disease): 4. PVD (peripheral vascular disease): 5. Carotid stenosis, bilateral: 6. S/P carotid endarterectomy: Plan: History of dementia, CAD status post stenting, off antiplatelet anticoagulant therapy, history of pulmonary embolism off anticoagulation therapy, history of CVA, history of carotid endarterectomy, history of peripheral vascular disease, history of subclavian artery stenosis on the left, currently on hospice Acute left shoulder fracture with large amount of surrounding edema and blood - Currently in a sling - Hold off on blood thinners Closed displaced fracture of left femoral neck -ct showing Acute LEFT femoral neck fracture with superior and lateral displacement. - Orthopedic service consulted - Continue fentanyl patch - Pain control - Aspirin for DVT prophylaxis - Lovenox currently on hold given anemia, hematoma left shoulder Closed right greater trochanter fracture -ct Marrow edema is also noted extending distally suspicious for nondisplaced fracture. No change since 07/17/2025. - Initially managed nonoperatively - Plan on surgical intervention Multiple rib fractures Recurrent falls. Dementia On hospice care residing at [facility]. Peripheral vascular disease : Chronic condition noted in history. Dementia - Son and [id number] are next of kin and decision makers, Does not have DPOA paperwork - DNR/DNI Follow-up : Recheck hemoglobin this afternoon will transfuse 1 unit PRBC if hemoglobin drops further, n.p.o. midnight for surgical intervention tomorrow PDMP PDMP Reviewed: Not Reviewed Attestations 2 Medical Necessity Statement*: Patient course hospitalization for left shoulder fracture, closed displaced fracture left femoral neck, right greater trochanteric fracture Diagnoses Closed displaced fracture of left femoral neck S72.002A Closed left humeral fracture S42.302A CAD (coronary artery disease) I25.10 PVD (peripheral vascular disease) I73.9 Carotid stenosis, bilateral I65.23 S/P carotid endarterectomy Z98.890
[2025-08-02 14:03] LABS: Hematocrit 28.0 % (36-47); Hemoglobin 8.70 g/dL (11.27-16.99)
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
[2025-08-02 22:04] LABS: Hematocrit 29.3 % (36-47); Hemoglobin 9.20 g/dL (11.27-16.99); Mean Corpuscular HGB Conc 31.4 g/dL (30-55); Mean Corpuscular Hemoglobin 27.3 pg (27-33); Mean Corpuscular Volume 86.9 fl (85-98); Nucleated Red Blood Cells % 0 %; Platelet Count 477 10^3/cmm (157-399); Red Blood Count 3.37 10^6/uL (3.85-5.65); White Blood Count 9.72 10^3/uL (3.29-11.43)
[2025-08-03] VITALS (54 sets, daily range): BP systolic 86–220; BP diastolic 50–98; PULSE 89–113; RESP 15–35; TEMP 36.6–37.2; O2SAT 90–100
[2025-08-03 05:12] LABS: Hematocrit 29.2 % (36-47); Hemoglobin 9.00 g/dL (11.27-16.99); Mean Corpuscular HGB Conc 30.8 g/dL (30-55); Mean Corpuscular Hemoglobin 26.8 pg (27-33); Mean Corpuscular Volume 86.9 fl (85-98); Nucleated Red Blood Cells % 0 %; Platelet Count 492 10^3/cmm (157-399); Red Blood Count 3.36 10^6/uL (3.85-5.65); White Blood Count 9.62 10^3/uL (3.29-11.43)
[2025-08-03] MEDS: morphine 4 mg/mL SDV 1 mL 2 MG IVP (05:20)
[2025-08-03 05:33] LABS: Blood Urea Nitrogen 17 mg/dL (8-23); Calcium 8.7 mg/dL (8.5-10.5); Carbon Dioxide 26 mmol/L (22-29); Chloride 104 mmol/L (98-107); Creatinine Clr Calc Pharmacy 43.4733; Glucose 94 mg/dL (65-115); Osmolality Calculated 287 mOsm/kg (285-295); Sodium 138 mmol/L (136-145)
[2025-08-03 06:05] LABS: Anion Gap 12.5 (5-19); Potassium 4.5 mmol/L (3.5-5.1)
--- NOTE | 2025-08-03 08:01 | W.PM.OPSUD ---
Surgery/Procedure H&P Update DATE OF PROCEDURE: August 03, 2025 DATE H&P PERFORMED: 08/01/25 H&P UPDATE INFORMATION: I have reviewed H&P completed within last 30 days, I have examined patient prior to procedure and No changes to prior documentation CHANGES TO PREVIOUS DOCUMENTATION: Seen and examined in the preoperative area once again reviewed the ins and outs of the procedure as well as the risk benefits complication alternatives with surgical surgical treatment options with patient's son and [id number]. At this point in time they understand the risks and agreed to proceed with surgical intervention all questions answered at this time. Plan will be to start off with the left hip hemiarthroplasty if she is doing well and stable from an anesthesia standpoint we will proceed with a right hip peritrochanteric femur nail. Per the patient's family's request intraoperatively if she were to have complications they requested for no chest compressions. This point in time they are ready to proceed with surgical intervention all questions answered. PREOP DIAGNOSIS: Left hip femoral neck fracture, right hip intertrochanteric femur fracture PRIMARY INDICATION FOR PROCEDURE: Left hip femoral neck fracture, right hip intertrochanteric femur fracture PLANNED PROCEDURE: Operation Date: 08/03/25 08:30 Proposed Procedures p Hemiarthroplasty Hip(Left) - Rayo Hyman DO s Trochanteric Femoral Nail(Right) - Rayo Hyman DO
[2025-08-03] MEDS: ceFAZolin 2,000 mg SDV 2000 MG IVP (08:08)
[2025-08-03] MEDS: tranexamic acid 1,000 MG/100 ML PREMIX 600 MG IV ×2 (08:09→16:41)
--- NOTE | 2025-08-03 10:30 | XR_ITS ---
WS: [id number] Right hip, C-arm fluoroscopy views, 08/03/2025 Clinical Data: RT TFN Comparison: Pelvis and right hip, 08/01/2025 Findings: Dr. Hyman reduced the intertrochanteric fracture of the right hip with an oblique nail in the femoral neck and a proximal intramedullary femoral kory. XR/XR hip RT 2-3V wo/w pel* [id number] Impression: Internal fixation of intertrochanteric fracture of the right hip.
--- NOTE | 2025-08-03 11:28 | W.PM.BPON ---
Date of Procedure: 08/03/2025 Surgeon: Rayo Hyman DO Confectionery Cooker(s): Harry Hyman PA-C Procedure(s) performed: Left hip hemiarthroplasty (cemented?posterior approach)?modifier 22?patient had significant complexity and left femoral neck fracture patient had multiple fracture lines that were longitudinal breaking into the calcar that was not visible on x-ray. These multiple fracture lines required extra longer incision, increased surgical time by 2x secondary to having to prophylactically cable the proximal femur and utilize cement Right hip trochanteric femur fracture Closed treatment left proximal humerus?shoulder immobilizer Findings of the procedure(s): Patient underwent procedure as planned without issues or complication she did have a comminuted fracture of the proximal femur particularly at the femoral neck on the left side this did have multiple fracture lines that extended to the level level of the lesser trochanter. There was no fracture line in the subtrochanteric region as a result I prophylactically cabled the subtrochanteric region and above the lesser in order to prevent any fracture propagation. Given her poor bone quality as well as comminution of the neck I did subsequently broach and cement the femur stem. We then trialed and had satisfactory fixation and left hip hemiarthroplasty. We also transition patient prior to surgical intervention for a left shoulder immobilizer for close treatment of left proximal humerus fracture. The right hip intertrochanteric femur fracture underwent procedure as planned without issues or complications. Patient did receive 1 unit of PRBC intraoperatively given her lower starting hemoglobin and 2 procedures during 1 anesthetic event. Given her receiving 1 unit PRBC her age as well as complexity of 2 hip surgeries underwent anesthesia, event patient is going to ICU in stable condition receiving 1 unit PRBC. Estimated blood loss: 200 mL Specimen(s) removed: Left hip femoral head removed Post-operative diagnosis: Left hip comminuted subcapital femoral neck fracture extending into the lesser trochanter, right hip intertrochanteric femur fracture
--- NOTE | 2025-08-03 11:34 | P.OP_ITS ---
Operative Report Date of procedure: August 03, 2025 Surgeon: Rayo Hyman DO Fisher Scallop: Harry Hyman PA-C: PA was necessary for assistance in this case with leg positioning, hip reductions, assistance with fracture fixation/cabling, retraction and protection of neurovascular structures as well as assistance in implantation/cementation as well as fracture fixation, assistance wound closure and dressing application. Procedure: Preoperative diagnosis: Left hip displaced femoral neck fracture Right hip intertrochanteric femur fracture post-op?diagnosis: Left hip comminuted subcapital femoral neck fracture with proximal femur extension extending into the lesser trochanter, right hip intertrochanteric femur fracture Procedure done: 1. Left hip hemiarthroplasty (cemented?posterior approach)?modifier 22?patient had significant complexity and left femoral neck fracture patient had multiple fracture lines that were longitudinal breaking into the calcar that was not visible on x-ray. These multiple fracture lines required extra longer incision, increased surgical time by 2x secondary to having to prophylactically cable the proximal femur and utilize cement 2. Right hip trochanteric femur fracture 3 Closed treatment left proximal humerus?shoulder immobilizer Implants: [place] Accolade C 127 degree femoral stem size 4 Unipolar head 43 mm Femoral head + 4 mm offset 8mm distal cement spacer 2 x [place] 2.0 mm bead cable sleeve set Shoulder immobilizer to left proximal humerus fracture [place] trochanteric femur nail 10 mm x 170 mm x 125 degree [place] lag screw 10.5 mm x 95 mm Distal interlocking screw 5 mm x 35 mm Surgeon: Rayo Hyman DO Estimated blood loss: 200 mL (150 mL?left hip hemiarthroplasty) (Right hip trochanteric nail?50 mL) IV fluids: 1200 mL Patient started on 1 unit PRBC Urine output: 100 mL Complications: Patient was found to have a complex fracture pattern extending into the lesser trochanter requiring cabling prior to doing a left hip hemiarthroplasty the extension on the incision as well as patient's lower baseline hemoglobin we started patient on 1 unit PRBC intraoperatively. She was stable at the end of the procedure however given patient receiving unit PRBC as well as complex extensive procedure and her age will have her taken to ICU postoperatively for monitoring. Findings: See?operative report Condition: stable Disposition: ICU Brief History: Patient was seen in the emergency department and subsequently admitted after fall.? Patient sustained a Left displaced femoral neck fracture, right hip intertrochanteric femur fracture, left proximal humerus fracture. Patient was subsequently admitted by the hospitalist team for medical management and preoperative ?optimization and the orthopedic surgery team was consulted for evaluation and treatment recommendations.? At that point time discussed with patient? treatment?options.? We talked about nonoperative versus?operative intervention talked about the risk benefits complication alternatives to surgical nonsurgical treatment?options.? Risks of surgery were discussed and patient's son and mnnxqolm-qh-ljy understands and agrees to proceed with procedure.? At this point time would recommend a Left?hip?hemiarthroplasty and right hip intertrochanteric femur nail.? This will offer patient pain control as well as early weightbearing to the bilateral lower extremities. Will treat the proximal humerus fracture at this time with a sling..? Patient was medically?optimized and by the primary team she was then taken to the OR.? Patient son/POA and zybukmja-gu-qvx understands risk benefits complication alternatives with surgical nonsurgical treatment?options.? At this point time elects to proceed with planned procedure above, all questions answered.? Patient son/POA and ryrorhdw-ae-wax understands agrees with current plan.? All questions answered. Procedure: Patient seen evaluated the preoperative holding area.? Consent was reviewed and signed with patient.? ?Pt was seen evaluated by the anesthesia department.? Once cleared for surgery patient patient was taken back to the?operative suite.? Patient was then transported onto the OR table.? pt underwent anesthesia per the anesthesia department.? Once appropriately anesthetized patient was then positioned in lateral decubitus position with the Left?hip?up.? Patient was placed on a pegboard appropriately secured to the bed all bony prominences well- padded.? Next the Left lower extremity was then prepped and draped in sterile orthopedic fashion.? Final timeout performed.? Patient received appropriate preoperative antibiotics. A standard posterolateral approach was then made over the lateral aspect of t he?hip.? Sharp scalpel incision was made through skin and subcutaneous tissue I then utilized a Aldridge elevator to mobilize over the fascia.? The fascia was then split longitudinally with electrocautery.? Next a bursectomy was then performed.? I then placed Hohmann underneath the abductors.? The?hip?was placed under tension with internal rotation.? I then utilizing electrocautery performed a full-thickness release of the short external rotators and capsule in 1 full thick sleeve for lateral repair.? This was then taken down to the lesser trochanter.? Immediately on capsulotomy hematoma was noticed and displaced femoral neck fracture appreciated.? I then placed a Hohmann above and below the neck.? At this point in time once Hohmann's were placed around the femoral neck it was clearly evident patient had had a initially a transcervical femoral neck fracture however this did have multiple longitudinal fracture lines 1 over the posterior cortices extending into the intertrochanteric region as well as fracture line on the inferior and medial calcar extending to the level of the lesser trochanter. At this point in time it was clearly evident a standard hip hemiarthroplasty was not going to be able to be performed from the standpoint of straightforward broaching and hemiarthroplasty placement. Given her age poor bone quality as well as comminution of the fracture with significant fracture lines extending inferiorly I worried about fracture propagation at this point time I extended my incision longitudinally at the midline substance I then continued my split on the IT band and came directly over the vastus. The vastus was then split longitudinally as well and mobilized with Aldridge elevator staying on bone circumferentially around the subtrochanteric region. It was clearly evident there was no fracture extension down to this area. I did stress the greater trochanter which was intact. At this point in time in preparation prior to broaching and plan was for cementation as well my plan was to cable around the fracture site. I then subsequently staying on bone utilize [place]'s 2.0 mm beaded cable set with utilizing hook passers this was carried staying on bone directly and passed a beaded cable set above the lesser trochanter and below the lesser trochanter to prevent from any fracture propagation these were set subsequently tensioned appropriately and then subsequently crimped to hold our tension. Once this was done I was satisfied with this this did require significant extension on the procedure for the hemiarthroplasty portion and given this comminution this required Janay is much time for hemiarthroplasty as a standard would be due to the increased dissection care of passing cables above and below the lesser trochanter as well as then requiring cementation technique. At this point in time I then proceeded with the further aspects of the hemiarthroplasty. I then once this was all cabled utilized the oscillating saw to freshen the fracture cut edge on the neck. This was a more standard lower neck cut due to the fracture pattern. ?I then utilized a corkscrew to remove the head.? This was then subsequently sized and measured to be a 43 mm head size.? I then thoroughly irrigated the acetabulum.? A Hohmann was placed anteriorly and thorough inspection of the acetabulum no significant arthritic changes were noted.? I then utilized a rongeur and Bovie to remove the pulvinar.? Once this was performed I then subsequently took my trial 43 mm head and trialed this which had excellent fit and appropriate suction fit noted.? This was then subsequently removed. Once this was performed I irrigated the socket and then turned my attention towards the femoral preparation.? I utilized Bovie and rongeur to remove the soft tissue off of the saddle.? Once this was done a box osteotome followed by a canal finder and? lateralizing rattail rasp was used to appropriately lateralized in the canal.? Next I then subsequently broached to a size 4 Accolad e C. Jason femoral stem which had appropriate fixation.? Given her poor bone quality as well as the stem this was unable to be fixed for excessive traveling I did not want to excessively trial this patient and cause potentially more fracture propagation as a result I did set and rested the size 4 Accolade C on the calcar where this would be position and this had the center of this head was at the greater trochanter which I felt would be able to be trialed once we cemented. At this point time I selected this is my final stem and proceeded with cementation. I then proceeded with standard cementation technique.? Cement was mixed on the back table the final implant was?opened and appropriately measurement on distal cement plug to accommodate the cement mantle and femoral stem.? This was set and impacted in place to appropriate depth.? Next I utilized the cement brush thoroughly irrigated the canal and then dry the canal tampon.? Once cement was appropriately mixed and ready for cementation informed anesthesia and they?optimize patient's oxygenation cement was then impacted using cement gun.? The femoral stem size 4 was then impacted in place with appropriate anteversion and held into place and all excess cement was removed and allowed to cure once cured I then trialed a up to a + 4 mm neck length on a 43 mm head which at that point there was which had excellent leg lengths as well as appropriate shuck, and excellent stability in all planes of motion with no evidence of instability.? At this point this was determined to being my final femoral head size.? This was subsequently dislocated the trial head was then removed the final implant of unipolar head 43 mm with a +4 mm offset was then?opened.? The trunnion was then cleaned and dried and this was impacted in place with excellent fixation.? I then reduced the?hip?this had excellent stability and appropriate leg lengths.? The wound bed was then thoroughly irrigated.? I then utilizing #5 Ethibond suture performed my repair of the capsule and short external rotators through bone tunnels.? ?Wound bed was then thoroughly irrigated,1 gram vanco powder placed in wound bed.? IT band was closed with strata fix suture and the deep subcutaneous and subcutaneous layers were closed with 0 strata fix and 2-0 strata fix.? Skin was then closed reapproximated with sharda.? Silverlon dressing applied.? Patient placed in abduction pillow posterior?hip?precautions.? At this point in time all drapes were then subsequently removed. Patient was transported onto supine position on the OR bed this was then moved over and then we subsequently brought in the [place] bed. At the end of the left hip hemiarthroplasty procedure given the increased surgical time secondary to cabling of the proximal femur prior to broaching as well as cementation patient have blood loss of roughly 150 mL in her lower chronic anemia baseline patient went ahead and started to receive 1 unit PRBC in preparation already for the other procedure of the right hip. She was doing well at this point in time from an anesthesia standpoint and was able to be able to continue to proceed with the right hip trochanteric femur nail procedure. He was updated throughout the procedure by the nursing staff. At this point in time patient maintained being anesthetized per the anesthesia apartment and then subsequently patient was placed on a fracture [place] table.? Patient was appropriately secured to the bed.? All bony prominences were well- padded.? At this point time patient?once again had received appropriate preoperative antibiotics.? Final timeout was performed.? Prior to beginning surgery a standard closed?reduction maneuver was placed on the [place] table and large C-arm was brought in.? After performing a closed?reduction maneuver there was able to achieve satisfactory?reduction of?right intertrochanteric femur fracture.? Fracture site did not extend into the subtrochanteric?region as?result plan was for a short?nail.?? This point time the?right lower extremity was then prepped and draped in standard orthopedic fashion. A standard longitudinal incision was made just proximal to the greater?trochanter?roughly 4 cm in length sharp scalpel vision was made through skin and subcutaneous tissue.? I then utilized a blunt Aldridge to split? fascia and mobilized directly down to the greater?trochanter.? I then inserted my starting guidewire which was placed appropriate starting position the tip of the greater?trochanter.? This was advanced in AP and lateral films to be in center center position and advanced to the level lesser?trochanter.? This was confirmed to be in center center position on AP and lateral imaging.? Once this was done I then introduced my opening?reamer which was then subsequently guide pin?removed.? I selected a 10 mm x 170 mm x 125 degree. At this point time the?nail?was then loaded onto the Emergent One gamma?trochanteric?nail?guide.? This was placed within the canal and confirmed with XR and the setscrew was then gently placed not locked.? The?nail?was then impacted to appropriate depth .? At this point time I then inserted my lag screw guide and subsequently made a small incision through skin and subcutaneous tissue splitting the IT band longitudinally and the guide was placed directly onto bone.? Next I then subsequently placed the guidewire in center center position in the head with an appropriate tip to apex distance this was confirmed with multiple orthogonal images.? Once I was satisfied with my planned lag screw placement I then measured which was?95?mm.? I then set my cannulated drill and subsequently?reamed this into the head at appropriate depth.? I then had my?rep open the 10.5 mm x 95 mm lag screw which was then opened on the back table and subsequently screwed into place over my cannulated drill guide.? This was placed with excellent tip to apex distance.? Next I then utilized the compressing device and subsequently compressed my fracture after I let off traction.? This had excellent fracture compression and opposition and closing down to my fracture line.? Next I then locked the?nail?by locking my setscrew.? This point time the guidewire as well as the sleeve was then?removed.? Next I plan for statically locking the?nail?distally.? This triple sleeve was then placed a small stab incision was made blunt dissection directly down to bone and the guide sleeve was placed and locked directly onto the bone.? I then inserted the drill bit and subsequently drilled bicortically measured appropriate length screw and then placed a 35?mm distal interlocking screw and had excellent fixation was appropriate length.? This point time is completed my construct I?remove the outer jig and took final images of AP and lateral of the?right intertrochanteric femur fracture which showed stable?reduction and stable fixation.? Incision was then thoroughly irrigated.? Hemostasis was maintained with electrocautery.? I then once again thoroughly irrigated the incisions and then subsequently closed in layered fashion of 0 Vicryl 2-0 Vicryl and sharda.? Silverlon dressings applied.? Patient was then awakened from anesthesia transported onto the hospital bed and taken to PACU in stable condition.? Patient tolerated procedure without complications. Disposition: Patient taken to ICU in stable condition will receive appropriate discharge directions as well as pain medication DVT prophylaxis postoperatively.? Patient continue to finish out her 1 unit PRBC in the ICU. Taken ICU in stable condition by the anesthesia team..? Patient will be we ightbearing as tolerated to the Left lower extremity and right lower extremity. Posterior precautions of the left lower extremity/hip. Abduction pillow in place.? DVT prophylaxis, pain medication, postoperative antibiotics.? Patient will work with PT/OT and discharge services for discharge planning.? Patient understands agrees with current plan.? All questions answered.? ?patient will?see Ortho in the office in 2 weeks.
--- NOTE | 2025-08-03 11:45 | XRR_ITS ---
PROCEDURE INFORMATION: Exam: XR Right Hip Exam date and time: 08/03/2025 1:12 PM Age: 79 years old Clinical indication: Injury or trauma; Fall; Blunt trauma (contusions or hematomas); Right; Prior surgery; Surgery date: Post-operative (0-2 days); Surgery type: [place] hips; Additional info: Post op right hip troch nail, do in icu TECHNIQUE: Imaging protocol: Radiologic exam of the right hip. Views: 2 or 3 views hip with pelvis when performed. COMPARISON: OT XR hip RT 2-3V wo/w pel* [id number] 08/03/2025 11:50 AM FINDINGS: Bones/joints: Status post ORIF right proximal femur with gamma nail and dynamic screw. Anatomic alignment achieved. Nnss-pd-rxnueohl joint space narrowing consistent with chronic arthrosis. Soft tissues: Expected postoperative soft tissue changes. XR/XR hip RT 2-3V wo/w pel* [id number] IMPRESSION: Status post ORIF right proximal femur with gamma nail and dynamic screw.
--- NOTE | 2025-08-03 11:45 | XRR_ITS ---
PROCEDURE INFORMATION: Exam: XR Left Hip Exam date and time: 08/03/2025 1:09 PM Age: 79 years old Clinical indication: Injury or trauma; Fall; Blunt trauma (contusions or hematomas); Left; Prior surgery; Surgery date: Post-operative (0-2 days); Surgery type: [place] hips; Additional info: Post op left hip jaycee, do in icu TECHNIQUE: Imaging protocol: Radiologic exam of the left hip. Views: 2 or 3 views hip with pelvis when performed. COMPARISON: [place] [id number] 08/01/2025 11:36 AM FINDINGS: Bones/joints: Status post left hip hemiarthroplasty. Expected postoperative soft tissue changes. Anatomic alignment. Soft tissues: See Bones/joints finding. XR/XR hip LT 2-3V wo/w pel* [id number] IMPRESSION: Status post left hip hemiarthroplasty.
--- NOTE | 2025-08-03 12:59 | ANE.PACU2 ---
Inpatient post-anesthesia follow up: Airway intact: Yes Vital signs: Temperature 98.9 F Pulse Rate 95 Respiratory Rate 15 Blood Pressure 165/84 Pulse Oximetry 100 Oxygen Delivery Me thod Room Air Oxygen Flow Rate 2 Fraction of Inspir ed Oxygen Hydration adequate: Yes Nausea and vomiting: No Mental status: Baseline Additional Comments: Patient did well. Appears comfortable in ICU
--- NOTE | 2025-08-03 13:47 | P.PN_ITS ---
Subjective 2 Subjective: Patient was seen in ICU, she is alert to person, not to place, not to time, nasal cannula, normotensive, no tachycardia, no family members at bedside, he can follow commands, denies any pain complaints, no evidence of respiratory distress, Vitals/I&O/Wt Last Vital Signs Temp 98 F 08/03/25 12:45 Pulse 106 H 08/03/25 13:00 Resp 18 08/03/25 13:00 BP 89/72 08/03/25 13:00 Pulse Ox 98 08/03/25 13:00 O2 Del Method Room Air 08/03/25 06:49 O2 Flow Rate 10 08/03/25 12:00 08/02/25 08/03/25 08/03/25 22:59 05:59 14:59 Intake Total 120 / 240 1690 / 1690 Output Total 400 / 600 50 / 650 400 / 400 Balance -280 / -360 -50 / -410 1290 / 1290 Weight last 48 hrs Weight 44.951 kg Weight 45.586 kg Weight 47.9 kg Physical Exam 2 Const: COMMON NORMALS: no acute distress Resp: COMMON NORMALS: normal respiratory effort, No retractions, No use of accessory muscles and clear to auscultation bilaterally AUSCULTATION: clear to auscultation bilaterally Cardio: COMMON NORMALS: regular rate, regular rhythm, S1 normal heart sound present and S2 normal heart sound present RATE: regular rate RHYTHM: r egular rhythm HEART SOUNDS: S1 normal heart sound present and S2 normal heart sound present GI: COMMON NORMALS: Normal to inspection, nondistended, normoactive bowel sounds present and non-tender Back/Pelvis: OTHER: Surgical site bilateral hips looks clean and dry Extremity: COMMON NORMALS: no pedal edema Psych: COMMON NORMALS: mental status grossly normal Urinary Catheter Management: Banuelos: Cath Placed During This Visit: yes Reason for Continuing Indwelling Catheter: Accurate Measurement of Urinary Output in Critically Ill Patients Urinary Catheter Date of Insertion: 08/01/25 Urinary Catheter Time of Insertion: 11:01 Data 08/03/25 05:02 08/03/25 05:02 A&P Assessment and plan 1. Closed displaced fracture of left femoral neck: 2. Closed left humeral fracture: 3. CAD (coronary artery disease): 4. PVD (peripheral vascular disease): 5. Carotid stenosis, bilateral: 6. S/P carotid endarterectomy: Plan: History of dementia, CAD status post stenting, off antiplatelet anticoagulant therapy, history of pulmonary embolism off anticoagulation therapy, history of CVA, history of carotid endarterectomy, history of peripheral vascular disease, history of subclavian artery stenosis on the left, currently on hospice Acute left shoulder fracture with large amount of surrounding edema and blood - Currently in a sling - Hold off on blood thinners, Closed displaced fracture of left femoral neck -ct showing Acute LEFT femoral neck fracture with superior and lateral displacement. - Orthopedic service consulted, status post surgical intervention -Received 1 unit intraoperatively -Recheck CBC this afternoon - Continue fentanyl patch - Pain control - Aspirin for DVT prophylaxis - Lovenox currently on hold given anemia, hematoma left shoulder Closed right greater trochanter fracture -ct Marrow edema is also noted extending distally suspicious for nondisplaced fracture. No change since 07/17/2025. - Initially managed nonoperatively - Status post surgical invention Multiple rib fractures Recurrent falls. Dementia On hospice care residing at [facility]. Peripheral vascular disease : Chronic condition noted in history. Dementia - Son and gergkakl-qk-wai are next of kin and decision makers, Does not have DPOA paperwork - DNR/DNI Follow-up : Monitor hemoglobin this afternoon, 1 unit PRBC on hold, will consider further transfusions based on hemoglobin trend, monitor ICU, monitor blood pressures, DNR/DNI PDMP PDMP Reviewed: Not Reviewed Attestations 2 Medical Necessity Statement*: Patient requires hospitalization for hip fracture, Diagnoses Closed displaced fracture of left femoral neck S72.002A Closed left humeral fracture S42.302A CAD (coronary artery disease) I25.10 PVD (peripheral vascular disease) I73.9 Carotid stenosis, bilateral I65.23 S/P carotid endarterectomy Z98.890
--- NOTE | 2025-08-03 14:43 | PC.NURSE ---
from surgery this pm. silvler dressing intact on both right and left hips post surgery left arm remains in restrictive sling , craft small amt of urine output noted has optifoam on left heel pressure area and on both buttocks. awaken well , weaned down to room air sats remain 96 iv right hand and right ac area confusion to place and time family at bedside post op
[2025-08-03] MEDS: ceFAZolin 2,000 MG in sodium chloride 0.9% (plus) 50 ML 100 MG IV (16:16)
[2025-08-03] MEDS: mupirocin oint 22 gm 1 APPLIC NASAL (17:21)
[2025-08-03] MEDS: chlorhexidine gluconate 0.12% Btl 473 mL 30 ML MUCOUS MEM (17:22)
[2025-08-03] MEDS: sennosides-docusate Tablet 2 TAB PO (17:23)
[2025-08-03] MEDS: calcium carb-vit d 600mg/400unit 1 Tablet 1 EACH PO (17:23)
[2025-08-03 18:09] LABS: Hematocrit 32.5 % (36-47); Hemoglobin 10.00 g/dL (11.27-16.99); Mean Corpuscular HGB Conc 30.8 g/dL (30-55); Mean Corpuscular Hemoglobin 27.9 pg (27-33); Mean Corpuscular Volume 90.8 fl (85-98); Nucleated Red Blood Cells % 0 %; Platelet Count 366 10^3/cmm (157-399); Red Blood Count 3.58 10^6/uL (3.85-5.65); White Blood Count 14.71 10^3/uL (3.29-11.43)
[2025-08-03] MEDS: HYDROcodone-acetaminophen 5-325 mg Tablet 1 TAB PO (18:12)
[2025-08-04] VITALS (69 sets, daily range): BP systolic 85–153; BP diastolic 51–78; PULSE 87–108; RESP 17–49; TEMP 36.6–37.5; O2SAT 83–100
[2025-08-04] MEDS: chlorhexidine gluconate 0.12% Btl 473 mL 30 ML MUCOUS MEM ×5 (00:03→22:34)
[2025-08-04] MEDS: ceFAZolin 2,000 MG in sodium chloride 0.9% (plus) 50 ML 100 MG IV ×2 (00:20→07:36)
[2025-08-04] MEDS: morphine 4 mg/mL SDV 1 mL 2 MG IVP ×4 (02:23→23:26)
[2025-08-04 03:56] LABS: Hematocrit 28.7 % (36-47); Hemoglobin 9.20 g/dL (11.27-16.99); Mean Corpuscular HGB Conc 32.1 g/dL (30-55); Mean Corpuscular Hemoglobin 28.0 pg (27-33); Mean Corpuscular Volume 87.5 fl (85-98); Nucleated Red Blood Cells % 0 %; Platelet Count 364 10^3/cmm (157-399); Red Blood Count 3.28 10^6/uL (3.85-5.65); White Blood Count 12.30 10^3/uL (3.29-11.43)
[2025-08-04] MEDS: HYDROcodone-acetaminophen 5-325 mg Tablet 1 TAB PO ×3 (03:57→18:11)
[2025-08-04 04:24] LABS: Anion Gap 15.6 (5-19); Blood Urea Nitrogen 29 mg/dL (8-23); Calcium 8.2 mg/dL (8.5-10.5); Carbon Dioxide 21 mmol/L (22-29); Chloride 114 mmol/L (98-107); Creatinine Clr Calc Pharmacy 43.2447; Glucose 143 mg/dL (65-115); Osmolality Calculated 310 mOsm/kg (285-295); Potassium 4.6 mmol/L (3.5-5.1); Sodium 146 mmol/L (136-145)
[2025-08-04] MEDS: calcium carb-vit d 600mg/400unit 1 Tablet 1 EACH PO ×2 (06:13→18:12)
[2025-08-04] MEDS: multivitamin therapeutic Tablet 1 TAB PO (06:14)
[2025-08-04] MEDS: sennosides-docusate Tablet 2 TAB PO ×2 (06:14→18:12)
[2025-08-04] MEDS: mupirocin oint 22 gm 1 APPLIC NASAL ×2 (06:16→18:16)
--- NOTE | 2025-08-04 10:51 | PC.PT ---
Patient is not appropriate for PT at this time.
[2025-08-04] MEDS: FUROsemide 10 mg/mL SDV 2mL 20 MG IVP (12:08)
--- NOTE | 2025-08-04 12:21 | PC.SOCIAL ---
IMM Updated Updated pt's family on IMM. No questions voiced. Provided pt a copy. Initialed, dated, & timed a copy & placed in chart.
--- NOTE | 2025-08-04 14:06 | PM.PN ---
Subjective Subjective: Patient was seen this morning, she is alert to person, not to place, to time, she is diffusely encephalopathic, she appears a bit short of breath, on nasal cannula, tachycardic, Vitals/I&O/Wt Last Vital Signs Temp 99.5 F 08/04/25 12:02 Pulse 106 H 08/04/25 12:02 Resp 32 H 08/04/25 13:54 BP 111/60 08/04/25 12:02 Pulse Ox 97 08/04/25 12:02 O2 Del Method Room Air 08/04/25 12:02 O2 Flow Rate 10 08/03/25 12:00 08/03/25 08/04/25 08/04/25 22:59 06:59 14:59 Intake Total 350 / 2040 1200 / 3240 1110 / 1110 Output Total 200 / 600 500 / 500 Balance 350 / 1640 1000 / 2640 610 / 610 Weight last 48 hrs Weight 44.9 kg Weight 44.951 kg Physical Exam Const: COMMON NORMALS: no acute distress and patient oriented x3 Resp: COMMON NORMALS: normal respiratory effort, No retractions and No use of accessory muscles AUSCULTATION: crackles and wheezes Cardio: COMMON NORMALS: regular rate, regular rhythm, S1 normal heart sound present and S2 normal heart sound present RATE: regular rate RHYTHM: regular rhythm HEART SOUNDS: S1 normal heart sound present and S2 normal heart sound present GI: COMMON NORMALS: Normal to inspection, nondistended, normoactive bowel sounds present and non-tender Extremity: COMMON NORMALS: no pedal edema Neuro: COMMON NORMALS: patient oriented x3 Psych: COMMON NORMALS: mental status grossly normal Urinary Catheter Management: Banuelos: Cath Placed During This Visit: yes, but has since been removed by the nurse Reason for Continuing Indwelling Catheter: Decision to DC Catheter Urinary Catheter Date of Insertion: 08/01/25 Urinary Catheter Time of Insertion: 11:01 Date Urinary Catheter Removed: 08/04/25 Time Urinary Catheter Discontinued: 11:44 Data 08/04/25 02:52 08/04/25 02:52 A&P Assessment and plan 1. Closed displaced fracture of left femoral neck: 2. Closed left humeral fracture: 3. CAD (coronary artery disease): 4. PVD (peripheral vascular disease): 5. Carotid stenosis, bilateral: 6. S/P carotid endarterectomy: Plan: History of dementia, CAD status post stenting, off antiplatelet anticoagulant therapy, history of pulmonary embolism off anticoagulation therapy, history of CVA, history of carotid endarterectomy, history of peripheral vascular disease, history of subclavian artery stenosis on the left, currently on hospice Acute encephalopathy with underlying dementia - Likely anesthetic effect - Concerns for delirium - IV diuresis Shortness of breath, mild respiratory distress - 1 dose of IV Lasix - Fluids stopped Acute left shoulder fracture with large amount of surrounding edema and blood - Currently in a sling - Hold off on blood thinners, Closed displaced fracture of left femoral neck -ct showing Acute LEFT femoral neck fracture with superior and lateral displacement. - Orthopedic service consulted, status post surgical intervention -Received 1 unit intraoperatively, - Monitor hemoglobin - Continue fentanyl patch - Pain control - Aspirin for DVT prophylaxis - Lovenox currently on hold given anemia, hematoma left shoulder Closed right greater trochanter fracture -ct Marrow edema is also noted extending distally suspicious for nondisplaced fracture. No change since 07/17/2025. - Initially managed nonoperatively - Status post surgical invention Multiple rib fractures Recurrent falls. Dementia On hospice care residing at [facility]. Peripheral vascular disease : Chronic condition noted in history. Dementia - Son and [id number] are next of kin and decision makers, Does not have DPOA paperwork - DNR/DNI Follow-up : Monitor respiratory status, moved to medical floors PDMP PDMP Reviewed: Not Reviewed Attestations Medical Necessity Statement*: Patient requires hospitalization for fluid overload, requiring IV diuresis, encephalopathy Diagnoses Closed displaced fracture of left femoral neck S72.002A Closed left humeral fracture S42.302A CAD (coronary artery disease) I25.10 PVD (peripheral vascular disease) I73.9 Carotid stenosis, bilateral I65.23 S/P carotid endarterectomy Z98.890
--- NOTE | 2025-08-04 14:11 | XR_ITS ---
WS: [id number] Portable AP upright chest, 08/04/2025 Clinical Data: sob Comparison: Portable chest, 07/18/2025 Findings: No nodules, masses or effusions are seen. The heart is normal. The pulmonary vascularity is not increased. No pneumonia or pneumothorax is seen. The aortic arch and descending thoracic aorta show calcification and tortuosity. There is a dextroscoliosis of the thoracic spine. There is osteoarthritis of both shoulders. There are old left rib fractures. There are left supraclavicular surgical clips. Monitor leads are on the chest wall. XR/XR chest 1V portable [id number] Impression: Atherosclerosis.
--- NOTE | 2025-08-04 15:47 | PC.OT ---
OT EVALUATION ATTEMPTED. PATIENT UNABLE TO ANSWER QUESTIONS WITH ANY ACCURACY. PATIENT IS ON HOSPICE AT SNF AND WILL RETURN TO SNF ON HOSPICE. NO FURTHER SKILLED OT REQUIRED.
[2025-08-04 15:56] LABS: NT Pro B Type Natriuretic Pept 2414 pg/mL (0-450)
--- NOTE | 2025-08-04 16:35 | P.PN_ITS ---
Subjective 2 Subjective: Patient seen and examined postoperative day 1. Patient recovering in ICU. Pain controlled medications. Vitals/I&O/Wt Last Vital Signs Temp 98.3 F 08/05/25 12:51 Pulse 93 08/05/25 12:51 Resp 28 H 08/05/25 12:51 BP 115/69 08/05/25 12:51 Pulse Ox 95 08/05/25 12:51 O2 Del Method Room Air 08/05/25 11:36 O2 Flow Rate 10 08/03/25 12:00 08/04/25 08/05/25 08/05/25 22:59 06:59 14:59 Intake Total 60 / 1170 2180 / 2180 Output Total 100 / 600 100 / 700 Balance -40 / 570 -100 / 470 2180 / 2180 Weight last 48 hrs Weight 98 lb Weight 98 lb 15.801 oz Physical Exam 2 Narrative: Patient shoulder immobilizer to the left upper extremity Patient has pillow between bilateral lower extremities. Dressings to the right hip are clean dry and intact dressings to the left hip are clean dry and intact. Patient is able to wiggle toes. Patient is still weak and unable to dorsiflex or plantarflex or assess on bilateral lower extremities. Distal pulses are palpable bilateral lower extremities warm well-perfused compartments soft and compressible. Normal postoperative swelling about the bilateral hips. Urinary Catheter Management: Banuelos: Cath Placed During This Visit: yes, but has since been removed by the nurse Reason for Continuing Indwelling Catheter: Acute Urinary Retention or Obstruction Urinary Catheter Date of Insertion: 08/04/25 Urinary Catheter Time of Insertion: 17:05 Date Urinary Catheter Removed: 08/04/25 Time Urinary Catheter Discontinued: 11:44 Data 08/05/25 04:27 08/05/25 04:27 Other Labs: AM labs 08/04/2025 WBC 12.3 hemoglobin 9.2 sodium 146 creatinine 0.7 Xray Ortho: Radiologist's impression: Patient: Terri Pride Unit #: [id number] : 1945 Age/Sex: 79 / F ADM Date: 08/01/25 Loc: ICU Room/Bed: [place] [address]: Brock Ordonez MD Ordering Provider/Ordering MD: Brock Ordonez MD Date of Service: 08/03/25 Procedure(s): XR hip RT 2-3V wo/w pel* [id number] Accession Number(s): [id number] Report Number: [id number] WS: [id number] Right hip, C-arm fluoroscopy views, 08/03/2025 Clinical Data: RT TFN Comparison: Pelvis and right hip, 08/01/2025 Findings: Dr. Hyman reduced the intertrochanteric fracture of the right hip with an oblique nail in the femoral neck and a proximal intramedullary femoral kory. XR/XR hip RT 2-3V wo/w pel* [id number] Impression: Internal fixation of intertrochanteric fracture of the right hip. Patient: Terri Pride Unit #: [id number] : 1945 Age/Sex: 79 / F ADM Date: 08/01/25 Loc: ICU Room/Bed: [place] [address]: Brock Ordonez MD Ordering Provider/Ordering MD: Rayo Hyman Date of Service: 08/03/25 Procedure(s): XR hip LT 2-3V wo/w pel* 38647 Accession Number(s): [id number] Report Number: [id number] PROCEDURE INFORMATION: Exam: XR Left Hip Exam date and time: 08/03/2025 1:09 PM Age: 79 years old Clinical indication: Injury or trauma; Fall; Blunt trauma (contusions or hematomas); Left; Prior surgery; Surgery date: Post-operative (0-2 days); Surgery type: Cayden hips; Additional info: Post op left hip jaycee, do in icu TECHNIQUE: Imaging protocol: Radiologic exam of the left hip. Views: 2 or 3 views hip with pelvis when performed. COM[place] [id number] 08/01/2025 11:36 AM FINDINGS: Bones/joints: Status post left hip hemiarthroplasty. Expected postoperative soft tissue changes. Anatomic alignment. Soft tissues: See Bones/joints finding. XR/XR hip LT 2-3V wo/w pel* [id number] IMPRESSION: Status post left hip hemiarthroplasty. [address] [address] XRay Report Signed Patient: Terri Pride Unit #: [id number] : 1945 Age/Sex: 79 / F ADM Date: 08/01/25 Loc: ICU Room/Bed: [place] [address]: Brock Ordonez MD Ordering Provider/Ordering MD: Rayo Hyman Date of Service: 08/03/25 Procedure(s): XR hip RT 2-3V wo/w pel* 04894 Accession Number(s): [id number] Report Number: [id number] PROCEDURE INFORMATION: Exam: XR Right Hip Exam date and time: 08/03/2025 1:12 PM Age: 79 years old Clinical indication: Injury or trauma; Fall; Blunt trauma (contusions or hematomas); Right; Prior surgery; Surgery date: Post-operative (0-2 days); Surgery type: Cayden hips; Additional info: Post op right hip troch nail, do in icu TECHNIQUE: Imaging protocol: Radiologic exam of the right hip. Views: 2 or 3 views hip with pelvis when performed. COMPARISON: OT XR hip RT 2-3V wo/w pel* [id number] 08/03/2025 11:50 AM FINDINGS: Bones/joints: Status post ORIF right proximal femur with gamma nail and dynamic screw. Anatomic alignment achieved. Nwor-[id number]-[id number] joint space narrowing consistent with chronic arthrosis. Soft tissues: Expected postoperative soft tissue changes. XR/XR hip RT 2-3V wo/w pel* [id number] IMPRESSION: Status post ORIF right proximal femur with gamma nail and dynamic screw. A&P Assessment and plan 1. Closed displaced fracture of left femoral neck: Postop day 1 left hip hemiarthroplasty 2. Closed fracture of left proximal humerus: Plan for nonoperative treatment with left shoulder sling/immobilizer 3. Closed intertrochanteric fracture of right femur: Postop day 1 right hip trochanteric femur nail Plan: Orthopedics consulted Hospitalist admitted patient is primary Imaging reviewed?stable fixation right hip intertrochanteric femur fracture with stable trochanteric nail, stable left hip hemiarthroplasty to with appropriate cement mantle and fixation cables on bone and securing calcar above and below the lesser trochanter Labs reviewed Pain control Weightbearing as tolerated to the bilateral lower extremities, nonweightbearing left upper extremity-shoulder immobilizer May have a diet today Change dressings as needed if becomes saturated PT/OT DVT prophylaxis per primary Ortho will continue to follow Patient's family updated orthopedically his dressings are stable and patient resting comfortably in bed today. PDMP PDMP Reviewed: Not Reviewed Attestations 2 Medical Necessity Statement*: Per primary Coding Level of Care Code Acute Code for Chg Fwd Diagnoses Closed displaced fracture of left femoral neck S72.002A Closed fracture of left proximal humerus S42.202A Closed intertrochanteric fracture of right femur S72.141A Time Spent (min) 15
[2025-08-04 17:35] LABS: C.Diff PCR (Lab) NEGATIVE (Negative)
[2025-08-04 17:47] LABS: Glucose Urine UA Negative (Normal); Nitrate Urine Negative (Negative); Specific Gravity, Urine 1.011 (1.005-1.030)
[2025-08-04 17:54] LABS: Add Urine Microscopic? YES
[2025-08-04 18:00] LABS: UA Slide Review UA Slide Review Perf
--- NOTE | 2025-08-04 19:29 | PC.NURSE ---
[facility] negative prior to transferring upstairs. Patient transferred in recliner.
[2025-08-05 03:55] VITALS: BP 110/72; PULSE 97; RESP 17; TEMP 36.8; O2SAT 92
[2025-08-05 05:22] LABS: Hematocrit 26.7 % (36-47); Hemoglobin 8.20 g/dL (11.27-16.99); Mean Corpuscular HGB Conc 30.7 g/dL (30-55); Mean Corpuscular Hemoglobin 27.2 pg (27-33); Mean Corpuscular Volume 88.4 fl (85-98); Nucleated Red Blood Cells % 0.1 %; Platelet Count 326 10^3/cmm (157-399); Red Blood Count 3.02 10^6/uL (3.85-5.65); White Blood Count 13.69 10^3/uL (3.29-11.43)
[2025-08-05 05:45] LABS: Anion Gap 13.7 (5-19); Blood Urea Nitrogen 35 mg/dL (8-23); Calcium 8.9 mg/dL (8.5-10.5); Carbon Dioxide 24 mmol/L (22-29); Chloride 114 mmol/L (98-107); Creatinine Clr Calc Pharmacy 43.0650; Glucose 120 mg/dL (65-115); Osmolality Calculated 315 mOsm/kg (285-295); Potassium 3.7 mmol/L (3.5-5.1); Sodium 148 mmol/L (136-145)
[2025-08-05 05:52] LABS: NT Pro B Type Natriuretic Pept 1607 pg/mL (0-450)
[2025-08-05] MEDS: multivitamin therapeutic Tablet 1 TAB PO (06:24)
[2025-08-05] MEDS: sennosides-docusate Tablet 2 TAB PO (06:24)
[2025-08-05] MEDS: chlorhexidine gluconate 0.12% Btl 473 mL 30 ML MUCOUS MEM (06:25)
[2025-08-05] MEDS: mupirocin oint 22 gm 1 APPLIC NASAL (06:25)
[2025-08-05] MEDS: calcium carb-vit d 600mg/400unit 1 Tablet 1 EACH PO (06:25)
[2025-08-05 07:35] VITALS: BP 111/63; PULSE 102; RESP 16; TEMP 36.9; O2SAT 93
[2025-08-05] MEDS: HYDROcodone-acetaminophen 5-325 mg Tablet 1 TAB PO ×2 (07:41→13:22)
[2025-08-05] MEDS: ondansetron 2 mg/ML SDV 2 mL 4 MG IVP (08:05)
[2025-08-05 10:56] VITALS: RESP 16
[2025-08-05] MEDS: morphine 4 mg/mL SDV 1 mL 2 MG IVP ×2 (10:56→11:57)
[2025-08-05 11:36] VITALS: BP 115/69; PULSE 93; RESP 28; TEMP 36.8; O2SAT 95
[2025-08-05 11:57] VITALS: RESP 16
[2025-08-05 12:51] VITALS: BP 115/69; PULSE 93; RESP 28; TEMP 36.8; O2SAT 95
--- NOTE | 2025-08-05 12:53 | PC.NURSE ---
Called report to [facility] and talked to RONALDO Mane.
--- NOTE | 2025-08-05 13:05 | PM.PN ---
Subjective Subjective: Postoperative day 2 patient is transferred out of ICU to [facility] and planning on discharge today. Patient will be discharged resuming being on hospice pain controlled medications. Vitals/I&O/Wt Last Vital Signs Temp 98.3 F 08/05/25 12:51 Pulse 93 08/05/25 12:51 Resp 28 H 08/05/25 12:51 BP 115/69 08/05/25 12:51 Pulse Ox 95 08/05/25 12:51 O2 Del Method Room Air 08/05/25 11:36 O2 Flow Rate 10 08/03/25 12:00 08/04/25 08/05/25 08/05/25 22:59 06:59 14:59 Intake Total 60 / 1170 2180 / 2180 Output Total 100 / 600 100 / 700 Balance -40 / 570 -100 / 470 2180 / 2180 Weight last 48 hrs Weight 98 lb Weight 98 lb 15.801 oz Physical Exam Narrative: Patient shoulder immobilizer to the left upper extremity Patient has pillow between bilateral lower extremities. Dressings to the right hip are clean dry and intact dressings to the left hip are clean dry and intact. Patient is able to wiggle toes. Patient is still weak and unable to dorsiflex or plantarflex or assess on bilateral lower extremities. Distal pulses are palpable bilateral lower extremities warm well-perfused compartments soft and compressible. Normal postoperative swelling about the bilateral hips. Urinary Catheter Management: Banuelos: Cath Placed During This Visit: yes, but has since been removed by the nurse Reason for Continuing Indwelling Catheter: Acute Urinary Retention or Obstruction Urinary Catheter Date of Insertion: 08/04/25 Urinary Catheter Time of Insertion: 17:05 Date Urinary Catheter Removed: 08/04/25 Time Urinary Catheter Discontinued: 11:44 Data 08/05/25 04:27 08/05/25 04:27 A&P Assessment and plan 1. Closed displaced fracture of left femoral neck: Postop day 2 left hip hemiarthroplasty 2. Closed fracture of left proximal humerus: Plan for nonoperative treatment with left shoulder sling/immobilizer 3. Closed intertrochanteric fracture of right femur: Postop day 2 right hip trochanteric femur nail Plan: Orthopedics consulted Hospitalist admitted patient is primary Imaging reviewed?stable fixation right hip intertrochanteric femur fracture with stable trochanteric nail, stable left hip hemiarthroplasty to with appropriate cement mantle and fixation cables on bone and securing calcar above and below the lesser trochanter Labs reviewed Pain control Weightbearing as tolerated to the bilateral lower extremities, nonweightbearing left upper extremity-shoulder immobilizer May have a diet today Change dressings as needed if becomes saturated PT/OT DVT prophylaxis per primary Patient stable for discharge from orthopedic standpoint. Orthopedic surgery team will sign off patient at this time follow peripherally. Patient will follow-up in the orthopedic office in 2 weeks. Patient will be on DVT prophylaxis per the primary team and follow-up in orthopedics in 2 weeks. Contact the orthopedic on-call for any questions or concerns PDMP PDMP Reviewed: Not Reviewed Attestations Medical Necessity Statement*: Ongoing care per primary Coding Level of Care Code Acute Code for Chg Fwd Diagnoses Closed displaced fracture of left femoral neck S72.002A Closed fracture of left proximal humerus S42.202A Closed intertrochanteric fracture of right femur S72.141A Time Spent (min) 10
--- NOTE | 2025-08-05 13:12 | PM.DCS ---
Discharge Providers Date of Admission: 08/01/25 13:40 Date of Discharge: August 05, 2025 Attending Provider at Admission: Campos Fernandez Attending Provider at Discharge: Brock Ordonez MD Primary Care Provider: Kamran Rivera DO Diagnoses at Discharge Discharge Diagnosis 1. Closed displaced fracture of left femoral neck: 2. Closed left humeral fracture: 3. CAD (coronary artery disease): 4. PVD (peripheral vascular disease): 5. Carotid stenosis, bilateral: 6. S/P carotid endarterectomy: Reason for Visit Reason for Visit: sent from clinic - left hip fx Hospital Course Hospital Course This is a 79-year-old female with a past medical history of dementia, CAD, peripheral vascular disease, carotid artery disease, prior stroke, cardiac the memory care unit at [facility], under hospice care Acute left shoulder fracture with large amount of surrounding edema and blood -Medically managed -discharged in sling Acute encephalopathy with underlying dementia - On discharge she is alert to person, not place, not to time - Concerns for delirium possible aspiration pneumonia - Discharged on Levaquin Concerns for aspiration pneumonia - Will be discharged on Levaquin Shortness of breath, mild respiratory distress - 1 dose of IV Lasix - Overall clinically improved, discharged on Levaquin for aspiration pneumonia Closed displaced fracture of left femoral neck -ct showing Acute LEFT femoral neck fracture with superior and lateral displacement. - Orthopedic service consulted, status post surgical intervention, by Dr. Hyman -Received 1 unit intraoperatively, - Hemoglobin stable on discharge - Continue fentanyl patch - Pain control, hydrocodone as needed - Patient is on Lovenox for DVT prophylaxis - Discharge to custodial facility, memory care unit, Closed right greater trochanter fracture -ct Marrow edema is also noted extending distally suspicious for nondisplaced fracture. No change since 07/17/2025. - Initially managed nonoperatively - Status post surgical intervention to [facility] by Dr. Hyman - Discharged with pain control anticoagulant therapy as above Multiple rib fractures - Pain control as above Dementia - Son and [id number] are next of kin and decision makers, Does not have DPOA paperwork - DNR/DNI Discharged on resuming hospice Physical Exam Const: COMMON NORMALS: no acute distress ORIENTATION/CONSCIOUSNESS: Yes awake and Yes oriented to person; not oriented to place and not oriented to time Eye: COMMON NORMALS: Equal, round and reactive pupils present and EOMs intact bilaterally PUPIL: Yes Equal, round and reactive pupils present Resp: COMMON NORMALS: normal respiratory effort, No retractions, No use of accessory muscles and clear to auscultation bilaterally AUSCULTATION: clear to auscultation bilaterally Cardio: COMMON NORMALS: regular rate, regular rhythm, S1 normal heart sound present and S2 normal heart sound present RATE: regular rate RHYTHM: regular rhythm HEART SOUNDS: S1 normal heart sound present and S2 normal heart sound present GI: COMMON NORMALS: Normal to inspection, nondistended, normoactive bowel sounds present and non-tender Extremity: COMMON NORMALS: no pedal edema Neuro: COMMON NORMALS: moves all extremities SENSORIUM/ORIENTATION: Yes oriented to person, No oriented to place and No oriented to time Psych: COMMON NORMALS: mental status grossly normal Urinary Catheter Management: Banuelos: Cath Placed During This Visit: yes, but has since been removed by the nurse Reason for Continuing Indwelling Catheter: Acute Urinary Retention or Obstruction Urinary Catheter Date of Insertion: 08/04/25 Urinary Catheter Time of Insertion: 17:05 Date Urinary Catheter Removed: 08/04/25 Time Urinary Catheter Discontinued: 11:44 Discharge Data Studies Completed and Pending Completed Studies During Hospitalization Category Date Time Status CT cervical spin wo con* [id number] Urgent Cat Scan 08/01/25 10:[address] chest abdomen pelvis [[place] [id number] Cat Scan 08/01/25 10:33 Completed ] Stat CT head wo con* [id number] Urgent Cat Scan 08/01/25 10:58 Completed XR chest 1V portable [id number] Routine Exams 08/04/25 14:11 Completed XR hip LT 2-3V wo/w pel* [id number] Routine Exams 08/03/25 11:45 Completed XR hip RT 2-3V wo/w pel* [id number] Routine Exams 08/03/25 10:30 Completed XR hip RT 2-3V wo/w pel* [id number] Routine Exams 08/03/25 11:45 Completed Pending at discharge Category Date Time Status Basic Metabolic Panel AM LABS Lab 08/06/25 04:00 Ordered Complete Blood Count w/Auto AM LABS Lab 08/06/25 04:00 Ordered Leukocyte Reduced RBC Stat Lab 08/03/25 07:55 Results NT Pro B Type Natriuretic Pept QAM Lab 08/06/25 06:00 Ordered NT Pro B Type Natriuretic Pept QAM Lab 08/07/25 06:00 Ordered Type and Screen Routine Lab 08/02/25 18:02 Results Radiology Impressions Chest/Abdomen/Pelvis CT 08/01/25 10:33 IMPRESSION: 1. No pulmonary contusion or pneumothorax. 2. Acute LEFT shoulder fracture with a large amount of surrounding edema and blood. 3. Acute LEFT femoral neck fracture with superior and lateral displacement. 4. Patient also has a known recent RIGHT greater trochanter fracture. Marrow edema is also noted extending distally suspicious for nondisplaced fracture. No change since 07/17/2025. 5. No acute rib fractures are identified. There are numerous healed rib fractures. Subtle nondisplaced fractures may be difficult to visualize due to the severe osteopenia. 6. No acute thoracic or lumbar spine fracture identified. 7. No ascites or mesenteric injury. Cervical Spine CT 08/01/25 10:58 IMPRESSION: 1. Marked osteopenia. 2. Advanced degenerative disc disease and facet arthritis. 3. No acute fractures or malalignment identified. Head CT 08/01/25 10:58 IMPRESSION: 1. No acute intracranial hemorrhage or edema. 2. Advanced atrophy and small vessel disease. Hip/Pelvis X-Ray 08/03/25 11:45 IMPRESSION: Status post left hip hemiarthroplasty. Chest X-Ray 08/04/25 14:11 Impression: Atherosclerosis. Laboratory Results WBC 13.69 10^3/uL (3.29-11.43) H 08/05/25 04:27 RBC 3.02 10^6/uL (3.85-5.65) L 08/05/25 04:27 Hgb 8.20 g/dL (11.27-16.99) L 08/05/25 04:27 Hct 26.7 % (36-47) L 08/05/25 04:27 MCV 88.4 fl (85-98) 08/05/25 04:27 MCH 27.2 pg (27-33) 08/05/25 04:27 MCHC 30.7 g/dL (30-55) 08/05/25 04:27 RDW 16.5 % (12.1-15.1) H 08/05/25 04:27 Plt Count 326 10^3/cmm (157-399) 08/05/25 04:27 MPV 10.3 fL (7.4-10.4) 08/05/25 04:27 Neut % (Auto) 70.5 % 08/05/25 04:27 Lymph % (Auto) 18.0 % 08/05/25 04:27 [place] % (Auto) 10.4 % 08/05/25 04:27 Eos % (Auto) 0.1 % 08/05/25 04:27 Baso % (Auto) 0.3 % 08/05/25 04:27 Neut # (Auto) 9.67 10^3/uL (1.8-7.7) H 08/05/25 04:27 Lymph # (Auto) 2.5 10^3/uL (0.8-4.8) 08/05/25 04:27 [place] # (Auto) 1.4 10^3/uL (0.2-0.9) H 08/05/25 04:27 Eos # (Auto) 0.0 10^3/uL (0.0-0.8) 08/05/25 04:27 Baso # (Auto) 0.0 10^3/uL (0.0-0.1) 08/05/25 04:27 Nucleated RBC % (auto) 0.1 % 08/05/25 04: Nucleated RBCs # 0.0 /100WBC 08/05/25 04:27 Sodium 148 mmol/L (136-145) H 08/05/25 04:27 Potassium 3.7 mmol/L (3.5-5.1) 08/05/25 04:27 Chloride 114 mmol/L (98-107) H 08/05/25 04:27 Carbon Dioxide 24 mmol/L (22-29) 08/05/25 04:27 Anion Gap 13.7 (5-19) 08/05/25 04:27 BUN 35 mg/dL (8-23) H 08/05/25 04:27 Creatinine 0.8 mg/dL (0.5-0.9) 08/05/25 04:27 GFR Calculation Not Reportable 08/05/25 04:27 Glucose 120 mg/dL (65-115) H 08/05/25 04:27 Calculated Osmolality 315 mOsm/kg (285-295) H 08/05/25 04:27 Calcium 8.9 mg/dL (8.5-10.5) 08/05/25 04:27 Total Bilirubin 0.5 mg/dL (0.15-1.2) 08/01/25 11:06 AST 14 U/L (0-32) 08/01/25 11:06 ALT 6 U/L (0-33) 08/01/25 11:06 Alkaline Phosphatase 118 U/L (35-105) H 08/01/25 11:06 NT-Pro-B Natriuret Pep 1607 pg/mL (0-450) H 08/05/25 04:27 Total Protein 7.8 g/dL (6.6-8.7) 08/01/25 11:06 Albumin 3.0 g/dL (3.5-5.2) L 08/01/25 11:06 Globulin 4.8 g/dL (1.3-4.6) H 08/01/25 11:06 Urine Color Yellow (Yellow) 08/04/25 17:10 Urine Appearance Clear (CLEAR) 08/04/25 17:10 Urine pH 5.5 (5-7) 08/04/25 17:10 Ur Specific [place] 1.011 (1.005-1.030) 08/04/25 17:10 Urine Protein Negative (Negative) 08/04/25 17:10 Urine Glucose (UA) Negative (Normal) 08/04/25 17:10 Urine Ketones Negative (Negative) 08/04/25 17:10 Urine Blood Negative (Negative) 08/04/25 17:10 Urine Nitrate Negative (Negative) 08/04/25 17:10 Urine Bilirubin Negative (Negative) 08/04/25 17:10 Urine Urobilinogen 0.2 mg/dL (Negative) 08/04/25 17:10 Ur Leukocyte Esterase Negative (Negative) 08/04/25 17:10 Urine RBC 0-2 /hpf (0-2) 08/04/25 17:10 Urine WBC 0-5 /hpf (0-5) 08/04/25 17:10 Ur Squamous Epith Cells 0-5 /hpf (0-5) 08/04/25 17:10 Amorphous Sediment Not Reportable 08/04/25 17:10 Urine Bacteria None seen /hpf (NONE) 08/04/25 17:10 Hyaline Casts 9.07 /lpf 08/04/25 17:10 C. difficile (PCR) Negative (Negative) 08/04/25 15:37 Blood Type B Positive 08/02/25 18:02 Rho(D) Type Rh positive 08/02/25 18:02 Antibody Screen Negative 08/02/25 18:02 Crossmatch See Detail 08/02/25 18:02 Vitals Last Vital Signs Temp 98.3 F 08/05/25 12:51 Pulse 93 08/05/25 12:51 Resp 28 H 08/05/25 12:51 BP 115/69 08/05/25 12:51 Pulse Ox 95 08/05/25 12:51 O2 Del Method Room Air 08/05/25 11:36 O2 Flow Rate 10 08/03/25 12:00 Discharge Plan Discharge Patient Disposition: Hospice - Medical Facility Condition: Stable Prescriptions: New enoxaparin 30 mg/0.3 mL Syringe 30 mg SUBCUT Q24H 35 Days Qty: 10.5 0RF levofloxacin 750 mg tablet 750 mg PO DAILY 5 Days Qty: 5 0RF Continued (DME) right third finger custom yoke splint See Rx Instructions .Route .MEDSUPPLY Qty: 1 0RF Rx Instructions: maintain mp extension weekly therapy fentanyl 50 mcg/hr patch 72 hour 50 patch transdermal Q72H ondansetron HCl 4 mg tablet 4 mg PO Q4-5H aspirin 81 mg tablet,chewable 81 mg PO QAM escitalopram oxalate 10 mg tablet 10 mg PO DAILY hydrocodone-acetaminophen 5-325 mg tablet 1 tab PO Q6H PRN (Reason: pain) Qty: 14 0RF Podiatrist Assistant OK for DC: Orthopedics Discharge Order = DC NOW: Discharge Order (Routine); Ordered 08/05/25 Ordered By: Brock Ordonez Referrals: [facility] [Outside] [facility] [Outside] Rayo Hyman DO [Physician, Orthopedics] - 08/20/25 3:30 pm Kamran Rivera DO [Primary Care Provider, Internal Medicine] Discharge Diet: Regular Discharge Activity: Limit activity as instructed Patient Instructions: Enoxaparin (By injection), Acute Wound Care (DC), Opioid Safety, Post Anesthesia Care, Patient Portal & Darren Instructions Activity Restrictions/Additional Instructions: Orthopedic discharge instructions: Patient may weight-bear as tolerated to the operative lower extremities Left Posterior hip precautions (avoid excess excessive hip flexion past 90 degrees and internal rotation) Take DVT prophylaxis (blood thinner) as prescribed Take pain medication as prescribed Take antinausea medication as needed Supplement with Citracal vitamin D for bone health and healing Ice as needed for pain and swelling Leave Silverlon bandage dressing on for 7 days after that may remove, rinse incision with warm soapy water/shower pat dry keep clean dry and intact and redress with a clean dry dressing. No baths or soaks May supplement for pain with Tylenol [id number] as needed(1000 mg every 8 hours-do not exceed more than 3000mg in 24-hour period) Follow-up in the orthopedic office in 2 weeks from date of surgery Contact the office for any questions or concerns per (fevers, increased drainage or redness around the incision site etc.) left shoulder keep in sling nonweightbearing, monitor Discharge Attestations Time Spent in Discharge Care*: greater than 30 min Quality Metrics Clinical Quality Measures [ No reported AMI, CVA or VTE this stay] Coding Level of Care Code 08534 Total time (in minutes) for Discharge: 45 Diagnoses Closed displaced fracture of left femoral neck S72.002A Closed left humeral fracture S42.302A CAD (coronary artery disease) I25.10 PVD (peripheral vascular disease) I73.9 Carotid stenosis, bilateral I65.23 S/P carotid endarterectomy Z98.890
== END 2025-08-05 13:22 | disposition hospice, home (50) | DRG 521 ==
LOC: ER 13:00 → ER IP 14:55 → MEDSURG 19:30 → ICU 08-03 10:46 → MEDSURG 08-04 19:22
PROVIDERS: Student in an Organized Health Care Education/Training Program; Admitting Provider Internal Medicine; Emergency Provider Physician Assistant; PCP Internal Medicine; Visit Provider Family Medicine
PROC: 0SRS0J9 Replacement of Left Hip Joint, Femoral Surface with Synthetic Substitute, Cemented, Open Approach (ICD-10-PCS; principal; 2025-08-03 08:00)
PROC: 0SRS0J9 Replacement of Left Hip Joint, Femoral Surface with Synthetic Substitute, Cemented, Open Approach (ICD-10-PCS; CPT 27245; 2025-08-03 08:00)
DX: S72.012A Unspecified intracapsular fracture of left femur, initial encounter for closed fracture (principal); J69.0 Pneumonitis due to inhalation of food and vomit; S72.141A Displaced intertrochanteric fracture of right femur, initial encounter for closed fracture; S42.202A Unspecified fracture of upper end of left humerus, initial encounter for closed fracture; S22.42XA Multiple fractures of ribs, left side, initial encounter for closed fracture; W01.0XXA Fall on same level from slipping, tripping and stumbling without subsequent striking against object, initial encounter; I73.9 Peripheral vascular disease, unspecified; I65.23 Occlusion and stenosis of bilateral carotid arteries; F03.90 Unspecified dementia, unspecified severity, without behavioral disturbance, psychotic disturbance, mood disturbance, and anxiety; I25.10 Atherosclerotic heart disease of native coronary artery without angina pectoris; Z66 Do not resuscitate; R00.0 Tachycardia, unspecified; I70.8 Atherosclerosis of other arteries; I25.2 Old myocardial infarction; Z79.82 Long term (current) use of aspirin; Z79.891 Long term (current) use of opiate analgesic; Z86.73 Personal history of transient ischemic attack (TIA), and cerebral infarction without residual deficits
CPT/HCPCS: 36415; 51702; 51798; 70450; 71045; 71250; 72125; 73502; 74176; 76000; 80048; 80053; 81001; 83880; 85014; 85018; 85025; 86850; 86900; 86920; 87493; 92523; 92610; 93005; 96372; 96374; 96375; 97162; 99285; A4216; A4565; C1713; C1776; J0690; J1100; J1650; J1938; J2270; J2371; J2405; J2704; J3010; J7030; J7120; J9999; L8699; P9016

== ENCOUNTER → 2025-08-20 13:27 | Outpatient (BNVA) | payer MEDICARE, MEDICAID, SELFPAY | PROVIDERS: PCP Internal Medicine; Visit Provider Physician Assistant | DX: Z98.890 Other specified postprocedural states (principal); S72.002D Fracture of unspecified part of neck of left femur, subsequent encounter for closed fracture with routine healing; S42.202D Unspecified fracture of upper end of left humerus, subsequent encounter for fracture with routine healing; W19.XXXD Unspecified fall, subsequent encounter | CPT/HCPCS: 73030; 73523; 99024 ==

== ENCOUNTER 2025-09-06 15:14 | Emergency (ER) | payer MEDICARE, MEDICAID, SELFPAY ==
[2025-09-06 15:13] VITALS: BP 108/70; PULSE 73; RESP 14; TEMP 36.6; O2SAT 100; BMI 17.4
--- NOTE | 2025-09-06 15:16 | CTR_ITS ---
PROCEDURE INFORMATION: Exam: CT Cervical Spine Without Contrast Exam date and time: 09/06/2025 3:28 PM Age: 80 years old Clinical indication: Injury or trauma; Fall; Blunt trauma TECHNIQUE: Imaging protocol: Computed tomography of the cervical spine without contrast. Radiation optimization: All CT scans at this facility use at least one of these dose optimization techniques: automated exposure control; mA and/or kV adjustment per patient size (includes targeted exams where dose is matched to clinical indication); or iterative reconstruction. COMPARISON: CT cervical spin wo con* [id number] 08/01/2025 11:31 AM RADIATION DOSE METRICS: Total DLP (mGy-cm): 140.1 FINDINGS: Bones: No acute fracture or malalignment. Unchanged appearance to severe degenerative disease at the C1-C2 articulation. Unchanged severe degenerative disc disease at C5-C6 and C6-C7. Persistent severe degenerative facet disease on the left at C2-C3 and C3-C4. Lungs: Lung apices are normal. Soft tissues: Severe atherosclerotic disease again noted involving the aortic branch vessels. No paraspinal masses. CT/CT cervical spin wo con* [id number] IMPRESSION: No acute cervical spine fracture.
--- NOTE | 2025-09-06 15:16 | CTR_ITS ---
PROCEDURE INFORMATION: Exam: CT Head Without Contrast Exam date and time: 09/06/2025 3:28 PM Age: 80 years old Clinical indication: Injury or trauma; Fall; Blunt trauma (contusions or hematomas) and laceration; Loss of consciousness unknown; Without residual foreign body; Scalp TECHNIQUE: Imaging protocol: Computed tomography of the head without contrast. Radiation optimization: All CT scans at this facility use at least one of these dose optimization techniques: automated exposure control; mA and/or kV adjustment per patient size (includes targeted exams where dose is matched to clinical indication); or iterative reconstruction. COMPARISON: CT head wo con* [id number] 08/01/2025 11:31 AM RADIATION DOSE METRICS: Total DLP (mGy-cm): 1092.3 FINDINGS: Brain: Old left basal ganglia infarct again noted. Mild cerebral white matter hypodensity which is most consistent with chronic small-vessel ischemic changes. Unchanged cerebral and cerebellar volume loss. No mass effect or midline shift. No intracranial hemorrhage Cerebral ventricles: No ventriculomegaly. Paranasal sinuses: Small right maxillary sinus retention cyst. Mastoid air cells: Visualized mastoid air cells are well aerated. Bones: No fractures. Soft tissues: Focal swelling and soft tissue gas is noted in the midline posterior parieto-occipital scalp. CT/CT head wo con* [id number] IMPRESSION: 1. No evidence for acute intracranial injury. 2. Posterior parieto-occipital scalp laceration and hematoma.
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
--- OUTSIDE RECORDS SUMMARY | 2025-09-06 15:25 | XMS_ITS | Continuity of Care Document ---
Author Organization [employer] [facility] ([facility]) Address [address] [place] [address] Insurance Providers Payer Plan Claims Address Claims Phone Policy Number Group Number Relation Employer Guarantor Name Guarantor Guarantor Address Guarantor Phone Haley Sterling tra rick [address] [address], [place] [address] tel:[phone] [id number] Self Terri Pride [address] [place] [address] Medic aid [address], [place] [address] tel:[phone] Self eTrri Pride [address] [place] [id number] [facility] 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 05/23/2025 Active Peripheral vascular disease, unspecified I73.9 05/23/2025 Acti ve longterm (current) use of aspirin Z79.82 05/23/2025 Active [...] fracture with routine healing S22.42XD 07/28/2025 Active Fracture of unspecified part of neck of left femur, subsequent encounter for closed fracture with routine healing S72.002D 08/05/2025 Active Presence of left artificial hip joint Z96.642 08/05/2025 Acti ve Unspecified fracture of shaft of humerus, left arm, subsequent encounter for fracture with routine healing S42.302D 07/28/2025 Active longterm (current) use of opiate analgesic Z79.891 08/05/2025 Activ e History of falling Z91.81 07/28/2025 Ac tive Occlusion and stenosis of bilateral carotid arteries I65.23 08/05/2025 Active Pressure ulcer of left heel, unstageable L89.620 08/11/2025 Active Pain in right hip M25.551 08/12/2025 Act keyla Other abnormalities of gait and mobility R26.89 08/12/2025 Active Cognitive communication deficit R41.841 08/18/2025 Active Dysphagia, oropharyngeal phase R13.12 08/18/2025 Active Pressure-induced deep tissue damage of right heel L89.616 08/27/2025 Active Unspecified open wound of lower back and pelvis without penetration into retroperitoneum, subsequent encounter S31.000D 08/14/2025 Acti ve Results Test Result Date/Time Value / Unit Interp. Refere nce Range Tuberculosis reaction wheal[ 62963-3] Tuberculosis reaction wheal [08464-6] 05/26/2025 05:00 PM 0 mm NEG Tuberculosis reaction wheal[ 30710-0] Tuberculosis reaction wheal [18734-4] 05/24/2025 04:03 PM 0 mm NEG Allergies, [...] PRN, for pain/fever oral 1.0 6.0 h 08/05 Active aspirin 81 mg tablet,chewabl e (aspirin) 1 tab, oral, Once A Day oral 1.0 1.0 d 08/05 Active Dulcolax (bisacodyl) (bisacodyl) 10 mg suppository (Dulcolax (bisacodyl) (bisacodyl)) 1 suppository, rectal, Once A Day - PRN, Give rectally if can't take p/o, if no results from MOM rectal 1.0 1.0 d 2024 Active escitalopram oxalate 10 mg tablet (escitalopram oxalate) 1 tab, oral, Once A Day oral 1.0 1.0 d 08/05 Active trazodone 50 mg tablet (trazodone) 1, [...] hours as needed for nausea. oral 1.0 08/05 Active fentanyl 50 mcg/hr patch 72 hour (fentanyl) 1 patch, transdermal, Every 72 Hours, Apply 1 patch topically Q 72hrs transdermal 1.0 72.0 h 08/05 Active aspirin 81 mg tablet,chewabl e (aspirin) 1 tab, oral, Once A Day oral 1.0 1.0 d 2024 Active chlorhexidine gluconate 0.12 % mouthwash (chlorhexidine gluconate) cap full, mucous membrane, Twice A Day - PRN, Fill cap to fill line swish for approx 30 seconds then spit out clinical indication dry mouth 1.0 12.0 h 2024 Active enoxaparin 30 mg/0.3 mL syringe (enoxaparin) 30 mg (0.3 mL), subcutaneous, Once A Day subcutaneou s 1.0 1.0 d 09/01 Active escitalopram oxalate 10 mg tablet (escitalopram oxalate) 1 tab, oral, Once A Day oral 1.0 1.0 d 2024 Active hydrocodone-ac etaminophen 5-325 mg tablet (hydrocodone-a cetaminophen) 1 tab, oral, Every 6 Hours - PRN, for pain; exempt R52 oral 1.0 6.0 h 2024 Active nystatin-triam cinolone 100,000-0.1 unit/g-% cream (nystatin-tria mcinolone) as directed buttock, topical, Every Shift, Apply to red areas to buttock q shift and BALWINDER topical 1.0 8.0 h 08/14 Active ondansetron HCl 4 mg tablet (ondansetron HCl) 1 tab, oral, Every 4 Hours - PRN, N/V oral 1.0 4.0 h 2024 Active hydrocodone-ac etaminophen 5-325 mg tablet (hydrocodone-a cetaminophen) 1 tab, oral, Every 6 Hours - PRN, Administer 1 tab po Q 6hrs PRN pain oral 1.0 6.0 h 08/05 Active fentanyl 50 mcg/hr patch 72 hour (fentanyl) 1 patch, transdermal, Every 72 Hours, remove old patch before placing new patch ; exempt R52 transdermal 1.0 72.0 h 08/25 Active MediHoney (honey) (honey) 80 % gel (MediHoney (honey) (honey)) as directed, topical, Every Shift, Buttock: Cleanse with ns and gauze, apply medi-honey to wound bed and cover with foam dressing q shift topical 1.0 8.0 h 08/27 Active nystatin 100,000 unit/gram cream (nystatin) as directed, topical, Every Shift, Apply to buttock q shift topical 1.0 8.0 h 2024 Active enoxaparin 30 mg/0.3 mL syringe (enoxaparin) 30 mg (0.3 mL), subcutaneous, Once A Day subcutaneou s 1.0 1.0 d 09/04 Active Vital Signs Date Vital Result Comment 06/06/2025 02:40 PM Body Weight (62669-3) 101.8 [lb_av ] Body Mass Index (93211-8) 22.03 kg/m2 06/06/2025 10:56 AM Oxygen Saturation (54375-0) 93 % 06/05/2025 09:46 PM Oxygen Saturation (30137-9) 97 % 06/05/2025 04:45 PM Oxygen Saturation (70780-2) 98 % 06/05/2025 12:47 PM Body Weight (52428-1) 101.8 [lb_av ] Body Mass Index (11149-7) 22.03 kg/m2 06/04/2025 09:07 PM Oxygen Saturation (25803-2) 92 % 06/04/2025 01:33 PM Body Weight (33500-4) 102.6 [lb_av ] Body Mass Index (10265-8) 22.2 kg/m2 06/04/2025 12:39 PM Oxygen Saturation (36007-7) 94 % 06/04/2025 12:26 AM Oxygen Saturation (42248-8) 94 % 06/03/2025 08:19 AM Oxygen Saturation (12777-0) 93 % 06/02/2025 10:19 PM Oxygen Saturation (92545-2) 94 % 06/02/2025 10:41 AM Body Weight (85227-4) 100 [lb_av] Body Mass Index (00178-0) 21.64 kg/m2 06/02/2025 09:01 AM Oxygen Saturation (03421-1) 95 % 06/01/2025 11:50 PM Oxygen Saturation (65414-4) 96 % 05/28/2025 11:33 AM Body Weight (80649-4) 102.6 [lb_av ] Body Mass Index (09331-3) 22.2 kg/m2 05/25/2025 07:17 PM Temperature (8310-5) [...] 94 mm[Hg] 05/25/2025 10:32 AM Body Weight (71168-3) 104.4 [lb_av ] Body Mass Index (35381-7) 22.59 kg/m2 05/25/2025 12:08 AM Temperature (8310-5) 98.4 [degF] Respiratory Rate (9279-1) 17 /min Heart Rate (8867-4) 68 /min Blood Pressure Systolic (8480-6) 114 mm[Hg] Blood Pressure Diastolic (8462-4) 71 mm[Hg] 05/24/2025 03:40 PM Body Weight (37681-1) 104 [lb_av] Body Mass Index (73296-7) 22.5 kg/m2 05/24/2025 01:32 PM Temperature (8310-5) [...] Body Height (8302-2) 57 [in_us] Body Weight (75891-0) 106 [lb_av] Body Mass Index (12603-3) 22.94 kg/m2 06/06/2025 11:09 PM Oxygen Saturation (32862-7) 95 % 06/07/2025 09:04 AM Oxygen Saturation (96986-6) 96 % 06/08/2025 12:09 AM Oxygen Saturation (08832-9) 95 % 06/08/2025 01:45 PM Oxygen Saturation (05259-1) 99 % 06/08/2025 11:49 PM Oxygen Saturation (40784-3) 97 % 06/09/2025 09:41 AM Oxygen Saturation (31043-6) 90 % 06/09/2025 09:06 PM Oxygen Saturation (77986-7) 95 % 06/10/2025 09:11 AM Oxygen Saturation (59549-6) 93 % 06/10/2025 07:22 PM Oxygen Saturation (72806-3) 92 % 06/11/2025 03:42 PM Oxygen Saturation (12688-7) 98 % 06/11/2025 03:41 PM Oxygen Saturation (28328-5) 98 % 06/11/2025 02:24 PM Body Weight (18075-5) 101.4 [lb_av ] Body Mass Index (80591-2) 21.94 kg/m2 06/11/2025 08:38 PM Oxygen Saturation (27827-9) 96 % 06/12/2025 08:46 PM Oxygen Saturation (46478-7) 97 % 06/12/2025 05:41 PM Oxygen Saturation (86499-0) 98 % 06/13/2025 04:41 PM Oxygen Saturation (08641-7) 94 % 06/13/2025 11:29 PM Oxygen Saturation (45455-3) 92 % 06/14/2025 12:06 PM Oxygen Saturation (66017-4) 96 % 06/14/2025 06:43 PM Oxygen Saturation (68423-5) 97 % 06/15/2025 02:54 PM Oxygen Saturation (61655-4) 94 % 06/15/2025 06:34 PM Oxygen Saturation (11675-3) 96 % 06/16/2025 11:19 AM Oxygen Saturation (18885-7) 97 % 06/16/2025 07:07 PM Oxygen Saturation (77968-6) 96 % 06/17/2025 08:46 AM Oxygen Saturation (43675-5) 95 % 06/18/2025 02:26 AM Oxygen Saturation (50355-8) 93 % 06/18/2025 03:17 PM Oxygen Saturation (96442-2) 96 % 06/18/2025 06:45 PM Oxygen Saturation (21948-5) 94 % 06/18/2025 06:34 PM Body Weight (61228-7) 100 [lb_av] Body Mass Index (03441-3) 21.64 kg/m2 06/19/2025 11:56 AM Oxygen Saturation (58706-5) 95 % 06/19/2025 06:16 PM Oxygen Saturation (73252-4) 96 % 06/20/2025 02:56 PM Oxygen Saturation (58159-3) 96 % 06/20/2025 08:28 PM Oxygen Saturation (92314-3) 95 % 06/21/2025 02:09 PM Oxygen Saturation (97072-5) 93 % 06/21/2025 11:24 PM Oxygen Saturation (54952-6) 98 % 06/22/2025 08:49 AM Oxygen Saturation (15788-3) 91 % 06/22/2025 08:54 PM Oxygen Saturation (91898-8) 93 % 06/23/2025 09:40 AM Oxygen Saturation (75489-1) 97 % 06/23/2025 07:43 PM Oxygen Saturation (95886-8) 96 % 06/24/2025 08:25 AM Oxygen Saturation (23192-2) 97 % 06/24/2025 07:46 PM Oxygen Saturation (66795-6) 95 % 06/25/2025 12:54 PM Oxygen Saturation (06373-0) 93 % 06/25/2025 06:55 PM Oxygen Saturation (36690-0) 93 % 06/26/2025 10:53 AM Oxygen Saturation (98618-2) 94 % 06/26/2025 06:35 PM Oxygen Saturation (84954-4) 95 % 06/27/2025 04:24 PM Oxygen Saturation (82188-8) 94 % 06/27/2025 09:44 PM Oxygen Saturation (41428-6) 97 % 06/28/2025 08:37 AM Oxygen Saturation (20937-1) 97 % 06/28/2025 08:26 PM Oxygen Saturation (09742-9) 93 % 06/29/2025 04:30 AM Temperature (8310-5) 98.6 [degF] 06/29/2025 10:28 AM Oxygen Saturation (48726-2) 98 % 06/30/2025 06:00 AM Oxygen Saturation (45719-7) 95 % 06/30/2025 11:13 AM Oxygen Saturation (97267-8) 97 % 06/30/2025 06:42 PM Oxygen Saturation (85160-6) 95 % 07/01/2025 08:53 AM Oxygen Saturation (93889-5) 98 % 07/01/2025 03:37 PM Temperature (8310-5) 97.4 [degF] 07/01/2025 06:54 PM Oxygen Saturation (30254-4) 95 % 07/02/2025 11:14 AM Body Weight (90639-2) 102.4 [lb_av ] Body Mass Index (37429-8) 22.16 kg/m2 07/02/2025 05:11 PM Oxygen Saturation (83101-9) 99 % 07/02/2025 07:01 PM Oxygen Saturation (76327-1) 97 % 07/03/2025 06:30 AM Temperature (8310-5) 98.1 [degF] 07/03/2025 09:25 AM Oxygen Saturation (37840-1) 92 % 07/03/2025 07:34 PM Oxygen Saturation (12669-0) 93 % 06/29/2025 09:50 PM Temperature (8310-5) 98.6 [degF] 07/04/2025 03:08 PM Oxygen Saturation (33427-2) 94 % 07/04/2025 10:42 PM Oxygen Saturation (85513-7) 95 % 07/05/2025 09:01 AM Oxygen Saturation (64488-2) 93 % 07/05/2025 11:12 PM Temperature (8310-5) 98.1 [degF] 07/05/2025 07:40 PM Oxygen Saturation (46169-7) 98 % 07/06/2025 11:10 AM Oxygen Saturation (40099-5) 93 % 07/06/2025 08:12 PM Oxygen Saturation (78530-8) 95 % 07/07/2025 12:29 PM Oxygen Saturation (42369-3) 94 % 07/07/2025 08:21 PM Oxygen Saturation (08024-6) 94 % 07/08/2025 10:02 AM Oxygen Saturation (47883-0) 97 % 07/08/2025 06:32 PM Oxygen Saturation (09197-0) 96 % 07/09/2025 07:44 AM Oxygen Saturation (43232-4) 94 % 07/09/2025 06:50 PM Oxygen Saturation (43309-5) 95 % 07/10/2025 02:58 PM Oxygen Saturation (69388-3) 97 % 07/10/2025 07:01 PM Oxygen Saturation (97724-2) 97 % 07/11/2025 04:14 PM Oxygen Saturation (19610-4) 96 % 07/12/2025 12:21 AM Oxygen Saturation (59015-6) 98 % 07/12/2025 12:56 PM Oxygen Saturation (12607-1) 97 % 07/12/2025 10:24 PM Oxygen Saturation (10558-7) 97 % 07/13/2025 09:30 AM Oxygen Saturation (50708-2) 94 % 07/14/2025 04:17 AM Oxygen Saturation (94728-0) 95 % 07/14/2025 02:59 PM Oxygen Saturation (36472-5) 95 % 07/14/2025 06:57 PM Oxygen Saturation (44173-5) 95 % 07/15/2025 10:58 AM Oxygen Saturation (83348-7) 96 % 07/15/2025 07:03 PM Oxygen Saturation (70402-2) 96 % 07/16/2025 09:39 AM Oxygen Saturation (26672-2) 92 % 07/16/2025 09:17 PM Oxygen Saturation (60783-8) 95 % 07/17/2025 06:30 AM Temperature (8310-5) 97.9 [degF] Respiratory Rate (9279-1) 17 /min Heart Rate (8867-4) 64 /min Blood Pressure Systolic (8480-6) 118 mm[Hg] Blood Pressure Diastolic (8462-4) 74 mm[Hg] 07/17/2025 12:31 PM Temperature (8310-5) 97.9 [degF] Respiratory Rate (9279-1) 18 /min Heart Rate (8867-4) 82 /min Blood Pressure Systolic (8480-6) 126 mm[Hg] Blood Pressure Diastolic (8462-4) 74 mm[Hg] 07/17/2025 12:32 PM Oxygen Saturation (11566-1) 95 % 07/17/2025 07:11 PM Oxygen Saturation (53477-1) 93 % 07/18/2025 05:52 PM Oxygen Saturation (96005-8) 100 % 07/19/2025 06:09 AM Oxygen Saturation (92219-7) 95 % 07/19/2025 11:56 AM Oxygen Saturation (92080-9) 91 % 07/19/2025 08:16 PM Oxygen Saturation (15486-3) 95 % 07/20/2025 08:33 AM Oxygen Saturation (71028-9) 91 % 07/20/2025 09:04 PM Oxygen Saturation (59001-4) 96 % 07/21/2025 11:34 AM Oxygen Saturation (73355-1) 97 % 07/21/2025 06:14 PM Oxygen Saturation (97159-6) 95 % 07/22/2025 12:17 PM Oxygen Saturation (20165-3) 96 % 07/22/2025 06:23 PM Oxygen Saturation (89220-5) 94 % 07/23/2025 08:37 AM Temperature (8310-5) 98.1 [degF] Oxygen Saturation (21665-9) 90 % Respiratory Rate (9279-1) 15 /min Heart Rate (8867-4) 71 /min Blood Pressure Systolic (8480-6) 138 mm[Hg] Blood Pressure Diastolic (8462-4) 76 mm[Hg] 07/23/2025 09:01 PM Oxygen Saturation (44404-2) 93 % 07/24/2025 12:51 PM Temperature (8310-5) 98.1 [degF] 07/24/2025 09:44 AM Oxygen Saturation (73508-0) 90 % 07/24/2025 08:59 PM Oxygen Saturation (41347-1) 95 % 07/25/2025 02:23 PM Oxygen Saturation (25283-9) 94 % 07/25/2025 07:04 PM Oxygen Saturation (18302-5) 93 % 07/26/2025 09:32 AM Oxygen Saturation (31377-4) 95 % 07/26/2025 09:27 PM Oxygen Saturation (99875-4) 99 % 07/27/2025 09:29 AM Oxygen Saturation (42919-1) 91 % 07/27/2025 11:04 PM Oxygen Saturation (38523-1) 94 % 07/28/2025 08:50 AM Oxygen Saturation (80730-6) 90 % 07/28/2025 06:24 PM Oxygen Saturation (95902-3) 93 % 07/29/2025 09:19 AM Oxygen Saturation (27302-1) 94 % 07/29/2025 07:05 PM Oxygen Saturation (05706-0) 93 % 07/30/2025 02:57 PM Temperature (8310-5) 97 [degF] Oxygen Saturation (49048-7) 94 % Respiratory Rate (9279-1) 19 /min Heart Rate (8867-4) 72 /min Blood Pressure Systolic (8480-6) 150 mm[Hg] Blood Pressure Diastolic (8462-4) 83 mm[Hg] 07/30/2025 06:34 PM Oxygen Saturation (34931-5) 93 % 07/31/2025 08:32 AM Oxygen Saturation (42973-0) 95 % 08/05/2025 02:29 PM Oxygen Saturation (34148-9) 94 % Body Weight (11237-4) 100.8 [lb_av] Body Mass Index (58710-8) 21.81 kg/m2 08/05/2025 09:02 PM Temperature (8310-5) 98.2 [degF] Oxygen Saturation (94140-0) 93 % Respiratory Rate (9279-1) 18 /min Heart Rate (8867-4) 96 /min Blood Pressure Systolic (8480-6) 94 mm[Hg] Blood Pressure Diastolic (8462-4) 61 mm[Hg] 08/05/2025 06:20 PM Oxygen Saturation (99751-8) 93 % 08/06/2025 05:09 PM Body Weight (17524-9) 98.6 [lb_av] Body Mass Index (41918-9) 21.33 kg/m2 08/06/2025 01:25 PM Temperature (8310-5) 97.7 [degF] Oxygen Saturation (26370-4) 96 % Respiratory Rate (9279-1) 20 /min Heart Rate (8867-4) 105 /min Blood Pressure Systolic (8480-6) 88 mm[Hg] Blood Pressure Diastolic (8462-4) 56 mm[Hg] 08/06/2025 08:51 AM Temperature (8310-5) 97.7 [degF] Respiratory Rate (9279-1) 20 /min Heart Rate (8867-4) 105 /min Blood Pressure Systolic (8480-6) 88 mm[Hg] Blood Pressure Diastolic (8462-4) 56 mm[Hg] 08/06/2025 06:53 PM Temperature (8310-5) 97.8 [degF] Oxygen Saturation (35387-6) 93 % Respiratory Rate (9279-1) 18 /min Heart Rate (8867-4) 76 /min Blood Pressure Systolic (8480-6) 98 mm[Hg] Blood Pressure Diastolic (8462-4) 70 mm[Hg] 08/07/2025 01:40 PM Body Weight (00372-1) 100 [lb_av] Body Mass Index (69947-5) 21.64 kg/m2 08/07/2025 11:04 AM Oxygen Saturation (72244-8) 98 % 08/07/2025 11:03 AM Temperature (8310-5) 97.6 [degF] Oxygen Saturation (61558-9) 98 % Respiratory Rate (9279-1) 16 /min Heart Rate (8867-4) 78 /min Blood Pressure Systolic (8480-6) 110 mm[Hg] Blood Pressure Diastolic (8462-4) 60 mm[Hg] 08/07/2025 08:12 PM Temperature (8310-5) 97.8 [degF] Oxygen Saturation (42411-6) 93 % Respiratory Rate (9279-1) 18 /min Heart Rate (8867-4) 78 /min Blood Pressure Systolic (8480-6) 100 mm[Hg] Blood Pressure Diastolic (8462-4) 64 mm[Hg] 08/08/2025 09:12 AM Temperature (8310-5) 98.1 [degF] Oxygen Saturation (45507-4) 99 % Respiratory Rate (9279-1) 17 /min Heart Rate (8867-4) 78 /min Blood Pressure Systolic (8480-6) 118 mm[Hg] Blood Pressure Diastolic (8462-4) 51 mm[Hg] 08/09/2025 12:11 AM Oxygen Saturation (28432-2) 93 % 08/09/2025 12:10 AM Temperature (8310-5) 97.9 [degF] Oxygen Saturation (67860-2) 93 % Respiratory Rate (9279-1) 20 /min Heart Rate (8867-4) 86 /min Blood Pressure Systolic (8480-6) 103 mm[Hg] Blood Pressure Diastolic (8462-4) 64 mm[Hg] 08/09/2025 12:22 PM Temperature (8310-5) 97.6 [degF] Oxygen Saturation (33727-4) 94 % Respiratory Rate (9279-1) 17 /min Heart Rate (8867-4) 75 /min Blood Pressure Systolic (8480-6) 124 mm[Hg] Blood Pressure Diastolic (8462-4) 64 mm[Hg] 08/10/2025 04:06 AM Oxygen Saturation (58675-5) 96 % 08/10/2025 05:13 AM Temperature (8310-5) 98 [degF] Oxygen Saturation (77666-8) 96 % Respiratory Rate (9279-1) 18 /min Heart Rate (8867-4) 82 /min Blood Pressure Systolic (8480-6) 116 mm[Hg] Blood Pressure Diastolic (8462-4) 72 mm[Hg] 08/10/2025 02:57 PM Temperature (8310-5) 98 [degF] Respiratory Rate (9279-1) 18 /min Heart Rate (8867-4) 78 /min Blood Pressure Systolic (8480-6) 122 mm[Hg] Blood Pressure Diastolic (8462-4) 70 mm[Hg] 08/10/2025 11:06 AM Oxygen Saturation (86813-8) 95 % 08/11/2025 02:47 PM Temperature (8310-5) 97.7 [degF] Oxygen Saturation (33165-7) 90 % Respiratory Rate (9279-1) 18 /min Heart Rate (8867-4) 88 /min Blood Pressure Systolic (8480-6) 113 mm[Hg] Blood Pressure Diastolic (8462-4) 32 mm[Hg] 08/11/2025 06:19 PM Temperature (8310-5) 97.8 [degF] Oxygen Saturation (25949-2) 93 % Respiratory Rate (9279-1) 18 /min Heart Rate (8867-4) 88 /min Blood Pressure Systolic (8480-6) 98 mm[Hg] Blood Pressure Diastolic (8462-4) 70 mm[Hg] 08/12/2025 01:25 PM Oxygen Saturation (59039-9) 94 % 08/12/2025 07:31 PM Oxygen Saturation (93349-6) 95 % 08/13/2025 05:09 PM Temperature (8310-5) 97.6 [degF] Oxygen Saturation (03092-0) 95 % Respiratory Rate (9279-1) 17 /min Heart Rate (8867-4) 86 /min Blood Pressure Systolic (8480-6) 93 mm[Hg] Blood Pressure Diastolic (8462-4) 54 mm[Hg] 08/13/2025 06:56 PM Oxygen Saturation (83661-6) 94 % 08/14/2025 12:03 PM Oxygen Saturation (79252-8) 95 % 08/14/2025 08:17 PM Oxygen Saturation (33744-4) 97 % 08/15/2025 05:15 PM Oxygen Saturation (02161-3) 94 % 08/15/2025 11:56 PM Oxygen Saturation (09730-6) 96 % 08/16/2025 10:58 AM Oxygen Saturation (58680-8) 96 % 08/17/2025 12:29 AM Oxygen Saturation (27635-4) 99 % 08/17/2025 01:39 PM Oxygen Saturation (94780-6) 94 % 08/17/2025 06:22 PM Oxygen Saturation (05391-6) 97 % 08/18/2025 02:49 PM Oxygen Saturation (52052-2) 95 % 08/18/2025 06:42 PM Oxygen Saturation (54909-9) 93 % 08/19/2025 10:35 AM Oxygen Saturation (20836-7) 99 % 08/19/2025 07:08 PM Oxygen Saturation (16499-1) 99 % 08/20/2025 09:34 AM Temperature (8310-5) 97.7 [degF] Oxygen Saturation (57263-1) 92 % Respiratory Rate (9279-1) 16 /min Heart Rate (8867-4) 83 /min Blood Pressure Systolic (8480-6) 112 mm[Hg] Blood Pressure Diastolic (8462-4) 49 mm[Hg] 08/20/2025 09:33 AM Oxygen Saturation (21543-5) 92 % 08/20/2025 07:10 PM Oxygen Saturation (85031-2) 94 % 08/21/2025 09:52 AM Oxygen Saturation (10118-6) 94 % 08/21/2025 09:34 PM Oxygen Saturation (35281-2) 93 % 08/22/2025 09:38 AM Oxygen Saturation (17608-5) 95 % 08/22/2025 07:56 PM Oxygen Saturation (03587-3) 95 % 08/23/2025 10:29 AM Oxygen Saturation (71766-2) 96 % 08/23/2025 08:32 PM Oxygen Saturation (48451-8) 97 % 08/24/2025 02:53 PM Oxygen Saturation (88532-1) 97 % 08/24/2025 09:45 PM Oxygen Saturation (92812-2) 93 % 08/25/2025 12:28 PM Oxygen Saturation (47202-6) 98 % 08/25/2025 06:12 PM Oxygen Saturation (30771-1) 96 % 08/26/2025 08:58 PM Oxygen Saturation (22480-4) 94 % 08/26/2025 11:00 AM Oxygen Saturation (65117-5) 94 % 08/27/2025 12:16 PM Temperature (8310-5) 96.8 [degF] Respiratory Rate (9279-1) 20 /min Heart Rate (8867-4) 77 /min Blood Pressure Systolic (8480-6) 94 mm[Hg] Blood Pressure Diastolic (8462-4) 59 mm[Hg] 08/27/2025 12:15 PM Oxygen Saturation (06683-9) 94 % 08/27/2025 06:33 PM Oxygen Saturation (94431-9) 93 % 08/28/2025 11:37 AM Oxygen Saturation (96497-7) 94 % 08/28/2025 09:34 PM Oxygen Saturation (15431-2) 96 % 08/29/2025 08:42 AM Oxygen Saturation (41344-3) 98 % 08/29/2025 07:45 PM Oxygen Saturation (88413-9) 98 % 08/30/2025 06:38 AM Oxygen Saturation (20673-7) 97 % 08/30/2025 08:50 PM Oxygen Saturation (33487-5) 92 % 08/31/2025 09:07 AM Oxygen Saturation (09959-2) 94 % 08/31/2025 11:13 PM Oxygen Saturation (10914-5) 100 % 09/01/2025 05:23 PM Body Weight (28653-2) 91 [lb_av] Body Mass Index (32574-9) 19.69 kg/m2 09/01/2025 10:01 AM Oxygen Saturation (25852-8) 94 % 09/01/2025 06:25 PM Oxygen Saturation (12172-2) 94 % 09/02/2025 09:55 AM Oxygen Saturation (81047-4) 94 % 09/02/2025 06:20 PM Oxygen Saturation (07746-2) 93 % 09/03/2025 10:13 AM Temperature (8310-5) 98.1 [degF] Oxygen Saturation (99865-3) 94 % Respiratory Rate (9279-1) 15 /min Heart Rate (8867-4) 77 /min Blood Pressure Systolic (8480-6) 151 mm[Hg] Blood Pressure Diastolic (8462-4) 76 mm[Hg] 09/03/2025 10:17 AM Oxygen Saturation (98223-7) 94 % 09/03/2025 09:10 PM Oxygen Saturation (43206-1) 96 % 09/04/2025 11:05 AM Oxygen Saturation (65667-6) 98 % 09/04/2025 06:13 PM Oxygen Saturation (71279-0) 93 % 2025 10:32 AM Oxygen Saturation (08821-5) 97 % 2025 09:13 PM Oxygen Saturation (40809-3) 96 % Social History No smoking Hx information available Encounters Type CPT Code Date Location Provider Indication s encounter report 05/23/2025 04:0 6 PM - 07/17/2025 07:36 AM Kamran Rivera DO 01 encounter report 05/23/2025 04:0 6 PM - 08/01/2025 02:40 PM Kamran Rivera DO 01 Advance Directives Directive Description Verification Date Supporting Document(s) Resuscitation Other Directive
--- OUTSIDE RECORDS SUMMARY | 2025-09-06 15:25 | XMS_ITS | Patient Health Record ---
Author Organization [facility] Address [address] [place] [address] Care Team Providers Care Qa Tester Name Role Phone David Campos Unavailable Allergies [...] Status W/U Status Risk Notes Problem Anxiety (84481063) Anxiety (F41.9) Active confirmed Problem Anxiety disorder (230742705) Anxiety disorder (F41.9) Active confirmed Problem Insomnia (164981561) Insomnia (G47.00) Active confirmed Problem Adult failure to thrive syndrome (349284351) Failure to thrive in adult (R62.7) Active confirmed Problem Acute insomnia (541296013) Acute insomnia (G47.00) Active confirmed Problem Chronic kidney disease stage 2 (891937165) Chronic kidney disease (CKD) stage G2/A1, mildly decreased glomerular filtration rate (GFR) between 60-89 mL/min/1.73 square meter and albuminuria creatinine ratio less than 30 mg/g (N18.2) Active confirmed Problem Iron deficiency anemia (21018137) Anemia, iron deficiency (D50.9) Active confirmed Problem Dementia with behavioral disturbance (disorder) (5282043669031) Unspecified dementia, unspecified severity, with other behavioral disturbance (F03.918) Active confirmed Problem Unspecified dementia, severe, with other behavioral disturbance (F03.C18) Active confirmed Encounters Encounter Location Date Provider Diagnosis [facility] [address] [place] [address] 04/11/2025 David Campos Insomnia G47.00 ; Failure to thrive in adult R62.7 and Unspecified dementia, severe, with other behavioral disturbance F03.C18 [facility] [address] [place] [address] 05/23/2025 Jacemicheal Campos Insomnia G47.00 ; Failure to thrive in adult R62.7 ; Unspecified dementia, severe, with other behavioral disturbance F03.C18 and Depression, unspecified F32.A [facility] [address] [place] [address] 05/16/2025 Jdzina Campos Anxiety disorder F41.9 ; Acute insomnia G47.00 and Failure to thrive in adult R62.7 [facility] [address] [place] [address] 04/25/2025 Jdzina Knappran Anxiety disorder F41.9 ; Acute insomnia G47.00 and Failure to thrive in adult R62.7 [facility] [address] [place] [id number] 04/17/2025 David Campos Assessments Encounter Date Diagnosis (ICD Code) Assessment Notes Treatment Notes Treatment Clinical Notes Section Notes 05/16/2025 Anxiety disorder (ICD-10 - F41.9) Medications were reviewed. I will continue without changes. Nursing staff is to contact me with any symptoms arising. Orders signed and documented with nursing staff. Vitals taken and recorded at [facility]. 05/23/2025 Insomnia (ICD-10 - G47.00) 05/23/2025 Failure to thrive in adult (ICD-10 - R62.7) 04/11/2025 Insomnia (ICD-10 - G47.00) Medications reviewed, orders signed and documented with nursing staff. Vitals taken and recorded at [facility]. 04/11/2025 Failure to thrive in adult (ICD-10 - R62.7) 04/25/2025 Anxiety disorder (ICD-10 - F41.9) Medications were reviewed. I will continue without changes. Nursing staff is to contact me with any symptoms arising. Orders signed and documented with nursing staff. Vitals taken and recorded at [facility]. 04/25/2025 Acute insomnia (ICD-10 - G47.00) 04/11/2025 Unspecified dementia, severe, with other behavioral disturbance (ICD-10 - F03.C18) 05/16/2025 Acute insomnia (ICD-10 - G47.00) 05/23/2025 Unspecified dementia, severe, with other behavioral disturbance (ICD-10 - F03.C18) Medications reviewed, orders signed and documented with nursing staff. Vitals taken and recorded at [facility]. Pt approved for discharge. Time spent managing discharge: 25 mins 05/23/2025 Depression, unspecified (ICD-10 - F32.A) 05/16/2025 Failure to thrive in adult (ICD-10 - R62.7) 04/25/2025 Failure to thrive in adult (ICD-10 - R62.7) Plan Of Treatment No Information Insurance Providers Payer Name Payer Address Payer Phone Subscriber Number Group Number Insured Name Patient Relationship to Insured Coverage Start Date Coverage End Date [employer] [address] [address] [place] [address] [id number] [employer]KA [employer]AVER Self - patient is the insured [place] Medicaid [address] [place] [address] [id number] [employer] Self - patient is the [...]
[2025-09-06 16:27] VITALS: BP 99/60; PULSE 79; O2SAT 95
== END 2025-09-06 16:30 | disposition home or self-care (01) ==
PROVIDERS: Emergency Provider Emergency Medicine; PCP Internal Medicine
DX: S01.01XA Laceration without foreign body of scalp, initial encounter (principal); W19.XXXA Unspecified fall, initial encounter; Z79.82 Long term (current) use of aspirin; Z86.73 Personal history of transient ischemic attack (TIA), and cerebral infarction without residual deficits
CPT/HCPCS: 12001; 70450; 72125; 99284